=== PATIENT | female | born 1960 | race Caucasian/White ===

== ENCOUNTER → 2016-08-24 | Outpatient (REF) | payer BC ==
[2016-08-24 11:49] LABS: MEAN CORPUSCULAR HGB CONC 33.9 g/dl (32.0-36.5); MEAN CORPUSCULAR VOLUME 94.3 fl (80.0-96.0); RED CELL DISTRIBUTION WIDTH 13.1 % (11.5-14.5); WHITE BLOOD COUNT 4.8 K/mm3 (4.0-10.0)
[2016-08-24 12:11] LABS: ALBUMIN 3.7 GM/DL (3.2-5.2); ALBUMIN/GLOBULIN RATIO 1.03 (1.00-1.93); ALKALINE PHOSPHATASE 80 U/L (45-117); ALT/SGPT 68 U/L (12-78); ANION GAP 8 MEQ/L (8-16); AST/SGOT 70 U/L (15-37); BILIRUBIN,TOTAL 0.2 MG/DL (0.2-1.0); BLOOD UREA NITROGEN 13 MG/DL (7-18); CALCIUM LEVEL 8.8 MG/DL (8.5-10.1); CARBON DIOXIDE LEVEL 31 MEQ/L (21-32); CHLORIDE LEVEL 103 MEQ/L (98-107); CHOLESTEROL LEVEL 263 MG/DL (<200); CREATININE FOR GFR 0.78 MG/DL (0.55-1.02); GLOMERULAR FILTRATION RATE > 60.0 (>51); GLUCOSE, FASTING 88 MG/DL (70-105); SODIUM LEVEL 142 MEQ/L (136-145); TOTAL PROTEIN 7.3 GM/DL (6.4-8.2); TRIGLYCERIDES LEVEL 233 MG/DL (<150)
== END ==
LOC: M SFHCLERA 07:51
PROVIDERS: ATTEND Physician Assistant
DX: I10 Essential (primary) hypertension (principal); E78.2 Mixed hyperlipidemia

== ENCOUNTER → 2016-10-23 | Outpatient (CLI) | payer BC ==
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
== END | disposition home or self-care (01) ==
LOC: M PAIN 15:20
PROVIDERS: ATTEND Nurse Practitioner Family
DX: G89.29 Other chronic pain (principal); M47.816 Spondylosis without myelopathy or radiculopathy, lumbar region; M53.3 Sacrococcygeal disorders, not elsewhere classified; I10 Essential (primary) hypertension; B02.9 Zoster without complications; L73.2 Hidradenitis suppurativa; Z98.84 Bariatric surgery status; Z79.899 Other long term (current) drug therapy; Z88.8 Allergy status to other drugs, medicaments and biological substances; F17.210 Nicotine dependence, cigarettes, uncomplicated

== ENCOUNTER → 2016-11-18 | Outpatient (CLI) | payer BC ==
--- NOTE | 2016-11-18 16:09 | REP ---
MR LUMBAR SPINE WITHOUT CONTRAST: HISTORY: Back pain. COMPARISON: 10/21/2012. Decreased signal intensity on T2-weighted images is present in the L2-3 through L4-5 intervertebral discs. The discs are decreased in height. These findings are consistent with disc degeneration. There is no disc bulge or herniation at the L1-2, L2-3 and L5-S1 levels. There is hypertrophy of the posterior articulating facets at the L2-3 and L5-S1 levels. The nerves exit the neural foramina without compression. There is partial sacralization of the L5 vertebral body. A diffuse disc bulge is present at the L3-4 level. There is hypertrophy of the ligamenta flava and posterior articulating facets. These findings produce minimal central canal stenosis. The L3 nerves exit the neural foramina without compression. A diffuse disc bulge is present at the L4-5 level. There is hypertrophy of the ligamenta flava and posterior articulating facets. These findings produce minimal central canal stenosis. L4 nerves exit the neural foramina without compression. The conus medullaris is normal in appearance terminating at the level of the T12-L1 intervertebral discs. Normal signal intensity is present in the lumbar vertebral bodies. IMPRESSION: Minimal central canal stenosis at the L3-4 and L4-5 level secondary to disc bulge, ligamentous, and facet hypertrophy. This is a new finding. Signed by Kishan Mckeon MD 11/18/2016 04:13 P
== END ==
LOC: M RAD 13:59
PROVIDERS: ATTEND Physician Assistant Medical
DX: M47.816 Spondylosis without myelopathy or radiculopathy, lumbar region (principal); M48.06 Spinal stenosis, lumbar region; M51.26 Other intervertebral disc displacement, lumbar region; M89.38 Hypertrophy of bone, other site

== ENCOUNTER → 2016-11-20 | Outpatient (CLI) | payer BC ==
--- NOTE | 2016-11-21 00:48 | ECWPNPC ---
PATIENT NAME: VI ORTIZ : 1960 GENDER: FEMALE VISIT DATE: 11/20/2016 DISCHARGE DATE: 11/20/16 1528 VISIT LOCKED DATE TIME: PHYSICIAN: KITTY HERBERT RESOURCE: KITTY HERBERT REASON FOR APPOINTMENT 1. BACK HISTORY OF PRESENT ILLNESS HISTORY OF PRESENT ILLNESS: HERE FOR F/U AFTER INITIAL CONSULT ONE MONTH AGO.REPORTS ONE WEEK HISTORY OF SEVERE AGGREVATION OF RIGHT LOW BACK PAIN WITH RADIATION INTO RIGHT POSTERIOR/ANTERIOR THIGH.THIS OCCURED AFTER MOPPING .REPORTS THAT CURRENT MEDICATION IS INEFFECTIVE AT REDUCING PAIN.HAD TO MISS WORK DUE TO PAIN.DENIES BOWEL OR BLADDER INCONTINENCE.MRI L/S SPINE DONE 11-18-16IS REVIEWED WITH PATIENT.THIS IS SHOWING L3/4-L4/5 MINIMAL CENTRAL CANAL STENOSIS FROM DISC BULGE,FACET AND LIAGAMENTOUS HYPERTROPHY.THIS IS A NEW FINDING COMPARED WITH 2013 MRI. PAIN THE PATIENT DESCRIBES THE PAIN... FALL RISK SCREENING: SCREENING :NO FALLS IN THE PAST YEAR CURRENT MEDICATIONS TAKING VITAMIN D 2000 UNIT TABLET 1 TAB(S) ORALLY DAILY TAKING SLOW FE 160 (50 FE) MG TABLET EXTENDED RELEASE 1 TAB(S) ORALLY TWICE A DAY TAKING MULTIVITAMINS OTC TABLET 1 TABLET P.O ONCE A DAY TAKING LOSARTAN POTASSIUM-HCTZ 100-25 MG TABLET 1 TABLET ORALLY ONCE A DAY TAKING OMEPRAZOLE 40 MG CAPSULE DELAYED RELEASE 1 CAPSULE ORALLY ONCE A DAY TAKING PROZAC 20 MG CAPSULE 1 CAPSULE IN THE MORNING ORALLY ONCE A DAY TAKING NAPROXEN 500 MG TABLET 1 TABLET NEEDED ORALLY EVERY 12 HRS TAKING ELBOW STRAP LEFT/RIGHT - MISCELLANEOUS DIRECTED _ DAILY ICDE10 M77.12 TAKING TRAMADOL HCL 50 MG TABLET 1 TABLET NEEDED ORALLY EVERY 6 HRS MDD4 TAKING CYCLOBENZAPRINE HCL 10 MG TABLET 1 TABLET NEEDED ORALLY THREE TIMES A DAY NOT-TAKING CALTRATE 600+D 600-400 MG-UNIT TABLET 1 TABLET ORALLY TWICE A DAY NOT-TAKING VITAMIN B12 100 MCG TABLET 1 TABLET ORALLY EVERY 3 DAYS NOT-TAKING VITAMIN B 12 500 MCG LOZENGE 1 TAB(S) ORALLY 2-3 TIMES WEEKLY DISCONTINUED CUSTOM DO NOT USE TRAMADOL 50 MG TABLET ONE TAB ORALLY FOUR TIMES DAILY PER PAIN CLINIC DISCONTINUED CYCLOBENZAPRINE HCL 10 MG TABLET 1 TABLET ORALLY THREE TIMES A DAY MEDICATION LIST REVIEWED AND RECONCILED WITH THE PATIENT PAST MEDICAL HISTORY GASTRIC BYPASS 2006 (DR. MCKENZIE) CHRONIC LOW BACK PAIN (20+ YEARS) H/O SCIATICA SHINGLES 04/2012 HYDRADENITIS SUPPURATIVA - AFFECTS MOSTLY R AXILLA HTN ALLERGIES LISINOPRIL: COUGH, FELT LIKE SOMETHING WAS ALWAYS IN HER THROAT: SIDE EFFECTS REVIEW OF SYSTEMS CONSTITUTIONAL: ANY CHANGE IN YOUR MEDICAL CONDITION? NO . CHILLS NO . FEVER NO . INFECTION: DO YOU HAVE NEW INFECTIONS? NO . DO YOU HAVE HISTORY OF MRSA? NO . MUSCULOSKELETAL: ANY NEW PATTERNS OF PAIN OR NUMBNESS? YES, INCREASED PAIN IN LOW BACK AND DOWN BACK OF RIGHT LEG SINCE 11/13/16 WHEN SHE MOPPED THE FLOOR . GASTROENTEROLOGY: ANY NEW CHANGE IN BOWEL CONTROL? NO . GENITOURINARY: ANY NEW CHANGE IN BLADDER CONTROL? NO . IS THERE A CHANCE YOU COULD BE ? NO . HEMATOLOGY/LYMPH: DO YOU TAKE ANY BLOOD THINNERS? (FOR EXAMPLE- COUMADIN, PLAVIX, AGGRENOX, PLATEL, PRADAXA, OR XARELTO) NO . WHEN WAS YOUR LAST DOSE? DATE: TIME: . NEUROLOGY: HAVE YOU FALLEN IN THE PAST 6 MONTHS? NO . ANY NEW EXTREMITY NUMBNESS OR WEAKNESS? NO . CARDIOLOGY: DO YOU HAVE A PACEMAKER OR DEFIBRILLATOR? NO . RESPIRATORY: HAVE YOU BEEN SICK IN THE PAST WEEK? NO . FEVER NO . FLU LIKE SYMPTOMS? NO . COUGH NO . INTEGUMENTARY: DO YOU HAVE ANY RASHES OR OPEN SORES? NO . ALLERGIC/IMMUNO: ARE YOU ALLERGIC TO SHELLFISH OR IV DYE? NO . ANY NEW ALLERGIES? NO . PSYCHIATRIC: DO YOU HAVE THOUGHTS OF HURTING YOURSELF OR SOMEONE ELSE? NO . ARE YOU ABUSED, NEGLECTED, OR IN AN UNSAFE ENVIRONMENT? NO . ENDOCRINOLOGY: ARE YOU DIABETIC? NO . OTHER: DO YOU NEED ANY PRESCRIPTIONS? NO . IF YES, PLEASE LIST: ____ . ANY NEW PROBLEMS WITH YOUR MEDICATIONS? NO . WHEN DID YOU LAST EAT? ____ . WHEN DID YOU LAST DRINK? ____ . WHAT DID YOU LAST DRINK? ____ . NAME OF PERSON DRIVING YOU HOME? ____ . DO YOU HAVE ANY OTHER QUESTIONS OR CONCERNS NO . REVIEWED BY: PROVIDER: KITTY DEVI . VITAL SIGNS WT 226.0 LBS, HT 63 IN, BMI 40.03 INDEX, BP 148/85 MM HG, HR 109 /MIN, RR 18 /MIN, TEMP 96.0 F, OXYGEN SAT % 99%, NA INITIALS TL 1455, REVIEWED BY: AD. EXAMINATION GENERAL EXAMINATION: GENERAL APPEARANCE:COMFORTABLE. PSYCHAFFECT NORMAL. LUNGS:LUNG GHOTRA ARE CLEAR TO AUSCULTATION BILATERALLY. GOOD MOVEMENT OF AIR. HEART:S1, S2 IN A REGULAR RATE AND RHYTHM. NO SIGNIFICANT MURMURS, RUBS OR GALLOPS NOTED. DIAGNOSTIC DATA-MRI L/S SPINE 11-18-16-REVIEWED. LUMBAR SPINE/LOWER BACK: LOWER BACK:THERE IS TENDERNESS AT LOWER BACK AND THE PARA SPINAL MUSCLE GROUP. PALPATION:VERTEBRAL SPINE TENDERNESS, SI JOINT TENDERNESS RIGHT. MOTOR SYSTEM:5/5 BLE. SENSORY EXAM:NORMAL. REFLEXES:2/4 AND SYMMETRIC BLE. ASSESSMENTS LUMBAR SPONDYLOSIS - M47.816 (PRIMARY) SACROILIAC JOINT PAIN - M53.3 TREATMENT LUMBAR SPONDYLOSIS INCREASE TRAMADOL HCL TABLET, 50 MG, 2, ORALLY, Q8H MDD6, 30 DAY(S), 180, REFILLS 0 REFILL CYCLOBENZAPRINE HCL TABLET, 10 MG, 1 TABLET NEEDED, ORALLY, THREE TIMES A DAY, 30 DAY(S), 90 TABLET, REFILLS 1 NOTES: REQUEST RSIJ. CLINICAL NOTES: REQUEST RIGHT SIJ. PREVENTIVE MEDICINE PAIN CLINIC TEACHING: PROCEDURE TEACHING PT. DECLINED PRINTED INFORMATION ON SIJ STATING SHE HAS HAD THEM IN THE PAST AND IS FAMILIAR WITH THEM. PRE-PROCEDURE INSTRUCTIONS REVIEWED WITH PT. AND SHE VERBALIZED UNDERSTANDING. AD. PROCEDURE CODES FA211 ESTABILISHED PATIENT [facility] CHARGE DISPOSITION & COMMUNICATION FOLLOW UP 2WK POST (REASON: REQUEST RIGHT SIJ) ELECTRONICALLY SIGNED BY SHANDRA DEMARCO ON 11/20/2016 AT 03:45 PM EDT DISCLAIMER : THIS IS A VISIT SUMMARY EXTRACTED FROM THE [employer] CHART. IT IS NOT A COPY OF THE [employer] PROGRESS NOTE. PEED
== END ==
LOC: M PAIN 15:00
PROVIDERS: ATTEND Nurse Practitioner Family
DX: M47.816 Spondylosis without myelopathy or radiculopathy, lumbar region (principal); M53.3 Sacrococcygeal disorders, not elsewhere classified; I10 Essential (primary) hypertension; L73.2 Hidradenitis suppurativa; Z88.8 Allergy status to other drugs, medicaments and biological substances; Z79.891 Long term (current) use of opiate analgesic; Z79.1 Long term (current) use of non-steroidal anti-inflammatories (NSAID); Z79.899 Other long term (current) drug therapy; Z98.84 Bariatric surgery status

== ENCOUNTER → 2016-12-02 | Outpatient (CLI) | payer BC ==
[~2016-12-02] MED LIST: ASPI81TA85 PO; AZO1CAP PO; BUPIVACAINE HCL 0.25% 30 ML VIAL As Ordered ONE; CYCL10TA PO; ISOVUE-M 300 61% 15ML VIAL (Q9967) As Ordered ONE; LIDOCAINE 1% SDV INJ 30 ML VIAL As Ordered ONE; LOSA100T5 PO; MULT1TAB18 PO; NORC1TAB4 PO; OMEP40CA2 PO; SLOW142T PO; TRIAMCINOLONE ACETONIDE SUSP 40 MG/ML VIAL (J3301) As Ordered ONE; VITA200038 PO; diazePAM 5 MG TAB As Ordered ONE; oxyCODONE 5MG TAB As Ordered ONE
--- NOTE | 2016-12-02 16:48 | REP ---
FLUOROSCOPIC GUIDANCE: The images were reviewed with Dr. Mcleod. The patient has a history of low back pain. The portable C-Arm was provided in the OR for Dr. Salinas for fluoroscopic guidance. One intraoperative fluoroscopic spot film was obtained for needle placement verification for right sacroiliac joint injection. The films are on the PACs system and are available for review. 16 seconds of fluoroscopy time was utilized for this procedure. Reviewed by RICCI Rosario 12/02/2016 04:51 PEdited and Signed by Hector Mcleod MD 12/03/2016 05:18 P
--- NOTE | 2016-12-15 23:15 | ECWPNPC ---
PATIENT NAME: VI ORTIZ : 1960 GENDER: FEMALE VISIT DATE: 12/02/2016 DISCHARGE DATE: 12/02/16 1355 VISIT LOCKED DATE TIME: PHYSICIAN: REUBEN SUE RESOURCE: REUBEN USE REASON FOR APPOINTMENT 1. R SIJ HISTORY OF PRESENT ILLNESS HISTORY OF PRESENT ILLNESS: PAIN THE PATIENT DESCRIBES THE PAIN... FALL RISK SCREENING: SCREENING :NO FALLS IN THE PAST YEAR CURRENT MEDICATIONS TAKING VITAMIN D 2000 UNIT TABLET 1 TAB(S) ORALLY DAILY, NOTES: 0600 TAKING SLOW FE 160 (50 FE) MG TABLET EXTENDED RELEASE 1 TAB(S) ORALLY TWICE A DAY, NOTES: 0600 TAKING MULTIVITAMINS OTC TABLET 1 TABLET P.O ONCE A DAY, NOTES: 0600 TAKING LOSARTAN POTASSIUM-HCTZ 100-25 MG TABLET 1 TABLET ORALLY ONCE A DAY, NOTES: 0600 TAKING OMEPRAZOLE 40 MG CAPSULE DELAYED RELEASE 1 CAPSULE ORALLY ONCE A DAY, NOTES: 0600 TAKING PROZAC 20 MG CAPSULE 1 CAPSULE IN THE MORNING ORALLY ONCE A DAY, NOTES: 0600 TAKING ELBOW STRAP LEFT/RIGHT - MISCELLANEOUS DIRECTED _ DAILY ICDE10 M77.12 TAKING TRAMADOL HCL 50 MG TABLET 2 ORALLY Q8H MDD6, NOTES: 0600 TAKING CYCLOBENZAPRINE HCL 10 MG TABLET 1 TABLET NEEDED ORALLY THREE TIMES A DAY, NOTES: 6PM NOT-TAKING NAPROXEN 500 MG TABLET 1 TABLET NEEDED ORALLY EVERY 12 HRS NOT-TAKING CALTRATE 600+D 600-400 MG-UNIT TABLET 1 TABLET ORALLY TWICE A DAY NOT-TAKING VITAMIN B12 100 MCG TABLET 1 TABLET ORALLY EVERY 3 DAYS NOT-TAKING VITAMIN B 12 500 MCG LOZENGE 1 TAB(S) ORALLY 2-3 TIMES WEEKLY MEDICATION LIST REVIEWED AND RECONCILED WITH THE PATIENT PAST MEDICAL HISTORY GASTRIC BYPASS 2006 (DR. MCKENZIE) CHRONIC LOW BACK PAIN (20+ YEARS) H/O SCIATICA SHINGLES 04/2012 HYDRADENITIS SUPPURATIVA - AFFECTS MOSTLY R AXILLA HTN ALLERGIES LISINOPRIL: COUGH, FELT LIKE SOMETHING WAS ALWAYS IN HER THROAT: SIDE EFFECTS REVIEW OF SYSTEMS REVIEWED BY: PROVIDER: . CONSTITUTIONAL: ANY CHANGE IN YOUR MEDICAL CONDITION? NO . CHILLS NO . FEVER NO . INFECTION: DO YOU HAVE NEW INFECTIONS? NO . DO YOU HAVE HISTORY OF MRSA? NO . MUSCULOSKELETAL: ANY NEW PATTERNS OF PAIN OR NUMBNESS? NO . GASTROENTEROLOGY: ANY NEW CHANGE IN BOWEL CONTROL? NO . GENITOURINARY: ANY NEW CHANGE IN BLADDER CONTROL? NO . IS THERE A CHANCE YOU COULD BE ? NO . HEMATOLOGY/LYMPH: DO YOU TAKE ANY BLOOD THINNERS? (FOR EXAMPLE- COUMADIN, PLAVIX, AGGRENOX, PLATEL, PRADAXA, OR XARELTO) NO . WHEN WAS YOUR LAST DOSE? DATE: TIME: . NEUROLOGY: HAVE YOU FALLEN IN THE PAST 6 MONTHS? NO . ANY NEW EXTREMITY NUMBNESS OR WEAKNESS? NO . CARDIOLOGY: DO YOU HAVE A PACEMAKER OR DEFIBRILLATOR? NO . RESPIRATORY: HAVE YOU BEEN SICK IN THE PAST WEEK? NO . FEVER NO . FLU LIKE SYMPTOMS? NO . COUGH NO . INTEGUMENTARY: DO YOU HAVE ANY RASHES OR OPEN SORES? NO . ALLERGIC/IMMUNO: ARE YOU ALLERGIC TO SHELLFISH OR IV DYE? NO . ANY NEW ALLERGIES? NO . PSYCHIATRIC: DO YOU HAVE THOUGHTS OF HURTING YOURSELF OR SOMEONE ELSE? NO . ARE YOU ABUSED, NEGLECTED, OR IN AN UNSAFE ENVIRONMENT? NO . ENDOCRINOLOGY: ARE YOU DIABETIC? NO . OTHER: DO YOU NEED ANY PRESCRIPTIONS? NO . IF YES, PLEASE LIST: ____ . ANY NEW PROBLEMS WITH YOUR MEDICATIONS? NO . WHEN DID YOU LAST EAT? 6PM YESTERDAY . WHEN DID YOU LAST DRINK? 0830 TODAY . WHAT DID YOU LAST DRINK? WATER . NAME OF PERSON DRIVING YOU HOME? YI . DO YOU HAVE ANY OTHER QUESTIONS OR CONCERNS NO . VITAL SIGNS WT 222.2 LBS, HT 63 IN, BMI 39.36 INDEX, BP 147/97 MM HG, HR 108 /MIN, RR 18 /MIN, TEMP 97.0 F, OXYGEN SAT % 94%, NA INITIALS SC 11:22, REVIEWED BY: NL. ASSESSMENTS SACROILIITIS, NOT ELSEWHERE CLASSIFIED - M46.1 (PRIMARY) PROCEDURES PN SI PRE PROCEDURE DIAGNOSIS SACROILIITIS, SACROILIAC JOINT DYSFUNCTION POST PROCEDURE DIAGNOSIS SACROILIITIS, SACROILIAC JOINT DYSFUNCTION PROCEDURE RIGHT SACROILIAC JOINT BLOCK SURGEON DR. REUBEN SUE LABORER GOLF COURSE NONE ANESTHESIA LOCAL PRE PROCEDURE NOTE PATIENT WITH HISTORY OF CHRONIC LOW BACK PAIN. I EVALUATED THE PATIENT AND REVIEWED THE CHART. I WENT OVER THE RISKS, ALTERNATIVES, AND BENEFITS ASSOCIATED WITH THIS PROCEDURE. THE PATIENT WOULD LIKE TO PROCEED AND GAVE CONSENT TO PERFORM THE PROCEDURE. THE PATIENT DENIES UNEXPLAINABLE WEIGHT LOSS, FEVER, CHILLS, OR NEW CHANGES IN URINARY OR BOWEL CONTROL DESCRIPTION OF PROCEDURE THE PATIENT WAS BROUGHT TO THE PROCEDURE ROOM AND PLACED IN THE PRONE POSITION. THE LUMBOSACRAL AREA WAS CLEANED WITH CHLORAPREP SOLUTION AND DRAPED ASEPTICALLY. THE PROCEDURE WAS DONE UNDER STERILE CONDITIONS. I CHECKED LATERALITY AND THE LEVEL WHERE THE PROCEDURE WAS GOING TO BE PERFORMED WITH THE PATIENT AND THE SUPPORTING STAFF AT THE MOMENT OF THE TIME OUT IN THE PROCEDURE ROOM. UNDER FLUOROSCOPIC GUIDANCE, TARGET POINT WAS SELECTED AT THE LOWER BORDER OF THE RIGHT SACROILIAC JOINT. TARGET POINT WAS SELECTED AFTER MEDIAL ROTATION AND TILT OF THE MAGNIFIER OF THE C-ARM. LIDOCAINE WAS USED TO NUMB THE SKIN AND SUBCUTANEOUS TISSUE BELOW IT. A SPINAL NEEDLE, 22-GAUGE, WAS ADVANCED UNDER FLUOROSCOPIC GUIDANCE AND FOLLOWING PATIENT FEEDBACK UNTIL THE TARGET AREA WAS TOUCHED. THE POSITION OF THE NEEDLE WAS VERIFIED WITH AP AND LATERAL VIEWS. AFTER PROPER POSITION OF THE NEEDLE WAS ACHIEVED, ISOVUE M DYE 30%, 0.25 ML, WAS INJECTED SHOWING SPREAD OF THE DYE. THEN, A SOLUTION OF 20 MG OF KENALOG WAS INJECTED IN RIGHT JOINT WITH 3 ML OF BUPIVACAINE 0.125%. THERE WAS NO EVIDENCE OF BLOOD, PARESTHESIA OR CEREBROSPINAL FLUID DURING THE PROCEDURE. THE PATIENT WAS SENT TO THE RECOVERY ROOM. THE PATIENT WAS MOVING THE EXTREMITIES AND DOING WELL. THERE WAS NO COMPLICATION DURING THE PROCEDURE. FLUOROSCOPY TIME WAS 16 SECONDS POST PROCEDURE NOTE THE PATIENT WILL BE SEEN IN A FOLLOW UP IN THE NEXT FEW WEEKS. INSTRUCTIONS WERE GIVEN, QUESTIONS WERE ANSWERED, AND THE PATIENT EXPRESSED UNDERSTANDING AND AGREED WITH THE PLAN. I, GULSHAN ROLDAN, DOCUMENTED THE ABOVE INFORMATION ACTING A SCRIBE FOR DR. SUE. I HAVE REVIEWED THE ABOVE DOCUMENT, WRITTEN BY GULSHAN ROLDAN SCRIBE AND I VERIFY THAT IT IS [facility] FLUORO GUIDANCE (PAIN)[id number] PROCEDURE CODES 22206 INJECT SACROILIAC JOINT 6045F RADXPS IN END [id number] PXD DISPOSITION & COMMUNICATION FOLLOW UP 3 WEEKS ELECTRONICALLY SIGNED BY REUBEN SUE MD ON 12/15/2016 AT 09:56 PM EDT DISCLAIMER : THIS IS A VISIT SUMMARY EXTRACTED FROM THE [employer] CHART. IT IS NOT A COPY OF THE [employer] PROGRESS NOTE. MTDD
== END ==
LOC: M PAIN 11:00
PROVIDERS: ATTEND Anesthesiology
DX: M46.1 Sacroiliitis, not elsewhere classified (principal); G89.29 Other chronic pain; I10 Essential (primary) hypertension; L73.2 Hidradenitis suppurativa; M54.5 Low back pain; Z79.891 Long term (current) use of opiate analgesic; Z79.899 Other long term (current) drug therapy; Z88.8 Allergy status to other drugs, medicaments and biological substances
CPT/HCPCS: G0260; J3301; Q9967

== ENCOUNTER → 2016-12-18 | Outpatient (CLI) | payer BC ==
[~2016-12-18] MED LIST changes: -BUPIVACAINE HCL 0.25% 30 ML VIAL As Ordered ONE; -ISOVUE-M 300 61% 15ML VIAL (Q9967) As Ordered ONE; -LIDOCAINE 1% SDV INJ 30 ML VIAL As Ordered ONE; -TRIAMCINOLONE ACETONIDE SUSP 40 MG/ML VIAL (J3301) As Ordered ONE; -diazePAM 5 MG TAB As Ordered ONE; -oxyCODONE 5MG TAB As Ordered ONE
--- NOTE | 2016-12-29 00:21 | ECWPNPC ---
PATIENT NAME: VI ORTIZ : 1960 GENDER: FEMALE VISIT DATE: 12/18/2016 DISCHARGE DATE: 12/18/16 1449 VISIT LOCKED DATE TIME: PHYSICIAN: KITTY HERBERT RESOURCE: KITTY HERBERT REASON FOR APPOINTMENT 1. POST SIJ HISTORY OF PRESENT ILLNESS HISTORY OF PRESENT ILLNESS: HERE FOR POST PROCEDURE F/U AFTER RIGHT SIJ ON 12-02-16. SOME IMPROVEMENT FOR 3 DAYS THEN PAIN HAS RETURNED TO BASELINE. 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 PAIN THE PATIENT DESCRIBES THE PAIN... THE PATIENT DESCRIBES THE PAIN... FALL RISK SCREENING: SCREENING :NO FALLS IN THE PAST YEAR CURRENT MEDICATIONS TAKING LOSARTAN POTASSIUM-HCTZ 100-25 MG TABLET 1 TABLET ORALLY ONCE A DAY TAKING VITAMIN D 2000 UNIT TABLET 1 TAB(S) ORALLY DAILY, NOTES: 0600 TAKING SLOW FE 160 (50 FE) MG TABLET EXTENDED RELEASE 1 TAB(S) ORALLY TWICE A DAY, NOTES: 0600 TAKING MULTIVITAMINS OTC TABLET 1 TABLET P.O ONCE A DAY, NOTES: 0600 TAKING ELBOW STRAP LEFT/RIGHT - MISCELLANEOUS DIRECTED _ DAILY ICDE10 M77.12 TAKING TRAMADOL HCL 50 MG TABLET 2 ORALLY Q8H MDD6, NOTES: 0600 TAKING CYCLOBENZAPRINE HCL 10 MG TABLET 1 TABLET NEEDED ORALLY THREE TIMES A DAY, NOTES: 6PM TAKING OMEPRAZOLE 40 MG CAPSULE DELAYED RELEASE 1 CAPSULE ORALLY ONCE A DAY TAKING PROZAC 40 MG CAPSULE 1 CAPSULE IN THE MORNING ORALLY ONCE A DAY TAKING ASPIRIN 81 MG TABLET CHEWABLE 1 TABLET ORALLY ONCE A DAY NOT-TAKING NAPROXEN 500 MG TABLET 1 TABLET NEEDED ORALLY EVERY 12 HRS NOT-TAKING CALTRATE 600+D 600-400 MG-UNIT TABLET 1 TABLET ORALLY TWICE A DAY NOT-TAKING VITAMIN B12 100 MCG TABLET 1 TABLET ORALLY EVERY 3 DAYS NOT-TAKING VITAMIN B 12 500 MCG LOZENGE 1 TAB(S) ORALLY 2-3 TIMES WEEKLY MEDICATION LIST REVIEWED AND RECONCILED WITH THE PATIENT PAST MEDICAL HISTORY GASTRIC BYPASS 2006 (DR. MCKENZIE) CHRONIC LOW BACK PAIN (20+ YEARS) H/O SCIATICA SHINGLES 04/2012 HYDRADENITIS SUPPURATIVA - AFFECTS MOSTLY R AXILLA HTN ALLERGIES LISINOPRIL: COUGH, FELT LIKE SOMETHING WAS ALWAYS IN HER THROAT: SIDE EFFECTS REVIEW OF SYSTEMS REVIEWED BY: PROVIDER: KITTY DEVI . CONSTITUTIONAL: ANY CHANGE IN YOUR MEDICAL CONDITION? NO . CHILLS NO . FEVER NO . INFECTION: DO YOU HAVE NEW INFECTIONS? NO . DO YOU HAVE HISTORY OF MRSA? NO . MUSCULOSKELETAL: ANY NEW PATTERNS OF PAIN OR NUMBNESS? NO . GASTROENTEROLOGY: ANY NEW CHANGE IN BOWEL CONTROL? NO . GENITOURINARY: ANY NEW CHANGE IN BLADDER CONTROL? NO . IS THERE A CHANCE YOU COULD BE ? NO . HEMATOLOGY/LYMPH: DO YOU TAKE ANY BLOOD THINNERS? (FOR EXAMPLE- COUMADIN, PLAVIX, AGGRENOX, PLATEL, PRADAXA, OR XARELTO) NO . WHEN WAS YOUR LAST DOSE? DATE: TIME: . NEUROLOGY: HAVE YOU FALLEN IN THE PAST 6 MONTHS? NO . ANY NEW EXTREMITY NUMBNESS OR WEAKNESS? NO . CARDIOLOGY: DO YOU HAVE A PACEMAKER OR DEFIBRILLATOR? NO . RESPIRATORY: HAVE YOU BEEN SICK IN THE PAST WEEK? NO . FEVER NO . FLU LIKE SYMPTOMS? NO . COUGH NO . INTEGUMENTARY: DO YOU HAVE ANY RASHES OR OPEN SORES? NO . ALLERGIC/IMMUNO: ARE YOU ALLERGIC TO SHELLFISH OR IV DYE? NO . ANY NEW ALLERGIES? NO . PSYCHIATRIC: DO YOU HAVE THOUGHTS OF HURTING YOURSELF OR SOMEONE ELSE? NO . ARE YOU ABUSED, NEGLECTED, OR IN AN UNSAFE ENVIRONMENT? NO . ENDOCRINOLOGY: ARE YOU DIABETIC? NO . OTHER: DO YOU NEED ANY PRESCRIPTIONS? NO . IF YES, PLEASE LIST: ____ . ANY NEW PROBLEMS WITH YOUR MEDICATIONS? NO . WHEN DID YOU LAST EAT? ____ . WHEN DID YOU LAST DRINK? ____ . WHAT DID YOU LAST DRINK? ____ . NAME OF PERSON DRIVING YOU HOME? ____ . DO YOU HAVE ANY OTHER QUESTIONS OR CONCERNS NO . VITAL SIGNS WT 223 LBS, HT 63 IN, BMI 39.50 INDEX, BP 152/89 MM HG, HR 100 /MIN, RR 18 /MIN, TEMP 97.1 F, OXYGEN SAT % 95, SAFE IN ENV? (Y/N) YES, NA INITIALS AW 1405, REVIEWED BY: KG. EXAMINATION GENERAL EXAMINATION: GENERAL APPEARANCE:COMFORTABLE. PSYCHAFFECT NORMAL. LUNGS:LUNG GHOTRA ARE CLEAR TO AUSCULTATION BILATERALLY. GOOD MOVEMENT OF AIR. HEART:S1, S2 IN A REGULAR RATE AND RHYTHM. NO SIGNIFICANT MURMURS, RUBS OR GALLOPS NOTED. DIAGNOSTIC DATA-MRI L/S SPINE 11-18-16-REVIEWED. ASSESSMENTS LUMBAR SPONDYLOSIS - M47.816 (PRIMARY) SACROILIAC JOINT PAIN - M53.3 TREATMENT LUMBAR SPONDYLOSIS STOP TRAMADOL HCL TABLET, 50 MG, 2, ORALLY, Q8H MDD6, NOTES: 0600 REFILL CYCLOBENZAPRINE HCL TABLET, 10 MG, 1 TABLET NEEDED, ORALLY, THREE TIMES A DAY, 30 DAY(S), 90 TABLET, REFILLS 1, NOTES: 6PM START NORCO TABLET, 5-325 MG, 1 TABLET NEEDED, ORALLY, Q8H PRN MDD3, 30 DAY(S), 45, REFILLS 0 NOTES: ISTOP REGISTRY REVIEWED AND DEMNOSTRATES COMPLLIANCE. BRINGS IN MEDICATIONS WHICH IS APPROPRIATE FOR WHAT WAS DISPENSED. RECENT URINE TOXICOLOGY REVIEWED. NO UNAUTHORIZED MEDICATIONS. NO ILLICIT SUBSTANCES AND PRESCRIBED MEDICATIONS WERE PRESENT. , RISKS AND BENEFITS OF NARCOTIC/OPIOD MEDICATIONS WERE REVIEWED WITH PATIENT - THIS INCLUDES BUT IS NOT LIMITED TO RISK OF DEPENDANCE/DEVELOPMENT OF ADDICTION, MOOD DISTURBANCE AND DEPRESSION, OSTEOPOROSIS, HORMONAL AND LABIDAL CHANGES, RESPIRATORY DEPRESSION AND . PATIENT IS ADVISED NOT TO DRIVE WHILE ON THESE MEDICATIONS.RIGHT L3/4-L4/5 THERAPEUTIC FACET BLOCK. PROCEDURE CODES FA211 ESTABILISHED PATIENT [facility] CHARGE DISPOSITION & COMMUNICATION FOLLOW UP 2WK POST (REASON: RIGHT L3/4-L4/5 THERAPEUTIC FACET BLOCK) ELECTRONICALLY SIGNED BY SHANDRA DEMARCO ON 12/28/2016 AT 04:47 PM EDT DISCLAIMER : THIS IS A VISIT SUMMARY EXTRACTED FROM THE [employer] CHART. IT IS NOT A COPY OF THE [employer] PROGRESS NOTE. MTDD
== END ==
LOC: M PAIN 13:40
PROVIDERS: ATTEND Nurse Practitioner Family
DX: G89.29 Other chronic pain (principal); M47.816 Spondylosis without myelopathy or radiculopathy, lumbar region; M53.3 Sacrococcygeal disorders, not elsewhere classified; Z98.84 Bariatric surgery status; I10 Essential (primary) hypertension; L73.2 Hidradenitis suppurativa; Z79.891 Long term (current) use of opiate analgesic; Z79.82 Long term (current) use of aspirin; Z79.899 Other long term (current) drug therapy

== ENCOUNTER → 2017-01-07 | Outpatient (CLI) | payer BC ==
--- NOTE | 2017-01-07 16:12 | REPMRS ---
Patient History The patient states she had a clinical breast exam in Family history of colorectal cancer in father at age 67. Digital Woman Screen Mammo: January 07, 2017 - Exam #: [id number] Bilateral CC and MLO view(s) were taken. Technologist: Jovita Rodríguez, Technologist Prior study comparison: January 07, 2016, digital woman screen mammo performed at [facility]. December 19, 2014, digital woman screen mammo performed at [facility] to [facility]. FINDINGS: There are scattered fibroglandular densities. There has been no change in the appearance of the mammogram from the prior studies. There is a mild amount of residual fibroglandular tissue which is fairly symmetric. There is no interval development of dominant mass, architectural distortion, or clustered microcalcification suggestive of malignancy. ASSESSMENT: BI-RADS/ACR category 1 mammogram. Negative. Recommendation Routine screening mammogram in 1 year (for women over age 40). This mammogram was interpreted with the aid of an FDA-approved computer-aided dectection system. Electronically Signed By: Hector Mcleod MD 01/07/17 9027
== END ==
LOC: M WHC 14:55
PROVIDERS: ATTEND Nurse Practitioner Women's Health
DX: Z12.31 Encounter for screening mammogram for malignant neoplasm of breast (principal); Z80.0 Family history of malignant neoplasm of digestive organs

== ENCOUNTER → 2017-01-21 | Outpatient (REF) | payer BC ==
[2017-01-21 16:45] LABS: ANION GAP 7 MEQ/L (8-16); BLOOD UREA NITROGEN 21 MG/DL (7-18); CALCIUM LEVEL 9.4 MG/DL (8.5-10.1); CARBON DIOXIDE LEVEL 31 MEQ/L (21-32); CHLORIDE LEVEL 105 MEQ/L (98-107); GLOMERULAR FILTRATION RATE > 60.0 (>51); GLUCOSE, FASTING 90 MG/DL (70-105); POTASSIUM SERUM 4.1 MEQ/L (3.5-5.1); SODIUM LEVEL 143 MEQ/L (136-145)
[2017-01-21 17:44] LABS: BASO % 0.7 % (0.0-1.0); EOS # 0.2 K/mm3 (0.0-0.50); EOS % 2.1 % (0.0-3.0); LARGE UNSTAINED CELL # 0.2 K/mm3 (0.0-0.4); LARGE UNSTAINED CELL % 2.8 % (0.0-4.0); LYMPH # 2.3 K/mm3 (1.5-4.5); MEAN CORPUSCULAR HEMOGLOBIN 32.7 pg (27.0-33.0); MEAN CORPUSCULAR HGB CONC 32.6 g/dl (32.0-36.5); MEAN CORPUSCULAR VOLUME 100.3 fl (80.0-96.0); MONO # 0.7 K/mm3 (0.0-0.8); NEUTROPHILS # 4.3 K/mm3 (1.8-7.7); NEUTROPHILS % 57.5 % (36.0-66.0); PLATELET COUNT, AUTOMATED 292 k/mm3 (150-450); RED CELL DISTRIBUTION WIDTH 13.4 % (11.5-14.5); WHITE BLOOD COUNT 7.5 K/mm3 (4.0-10.0)
[2017-01-21 18:38] LABS: ERYTHROCYTE SEDIMENTATION RATE 40 mm/hr (0-30)
== END ==
LOC: M SFHCLERA 14:05
PROVIDERS: ATTEND Nurse Practitioner Family
DX: R59.9 Enlarged lymph nodes, unspecified (principal)

== ENCOUNTER → 2017-01-21 | Outpatient (CLI) | payer BC ==
--- NOTE | 2017-01-21 14:43 | REP ---
TWO VIEW CHEST: COMPARISON: 07/16/2006 There is no evidence of acute infiltrate. No pleural effusion is seen. The heart is normal in size. The mediastinal silhouette is unremarkable. The visualized osseous structures are intact. There are degenerative changes of the spine. IMPRESSION: No acute pulmonary disease. Signed by Hector Mcleod MD 01/22/2017 05:02 P
== END ==
LOC: M LRY 14:05
PROVIDERS: ATTEND Nurse Practitioner Family
DX: R59.9 Enlarged lymph nodes, unspecified (principal)

== ENCOUNTER → 2017-01-22 | Outpatient (REF) | payer BC ==
[2017-01-27 00:06] LABS: Lyme Disease IgG/IgM Antibodie <0.91 ISR (0.00-0.90); Lyme Disease IgM Ab Quantitati <0.80 index (0.00-0.79)
== END ==
LOC: M SFHCLERA 15:38
PROVIDERS: ATTEND Physician Assistant
DX: R59.9 Enlarged lymph nodes, unspecified (principal); F34.1 Dysthymic disorder

== ENCOUNTER → 2017-01-25 | Outpatient (CLI) | payer BC ==
--- NOTE | 2017-01-25 17:46 | REP ---
ULTRASOUND SOFT TISSUES NECK: Real-time sonographic evaluation of the soft tissues of the neck performed. Parotid glands appear somewhat enlarged. Right parotid measures 5.7 x 1.8 x 3.2 cm and left parotid gland measures 6.4 x 1.9 x 6.0 cm. There are small lymph nodes in the parotid glands, the largest in the right parotid gland measuring 7 x 8 x 7 mm and the largest in the left parotid gland measuring 7 x 5 x 3 mm. Nonenlarged lymph nodes are seen along the carotid chains bilaterally, the largest on the right measuring 6 x 4 x 6 mm and the largest on the left 11 x 6 x 9 mm. No other adenopathy is seen bilaterally in the supraclavicular regions. IMPRESSION: Parotid glands appear somewhat enlarged. There are normal sized lymph nodes in the parotid glands and along the carotid chains. Signed by Hector Mcleod MD 01/26/2017 12:32 P
== END ==
LOC: M RAD 16:05
PROVIDERS: ATTEND Physician Assistant
DX: R59.9 Enlarged lymph nodes, unspecified (principal)

== ENCOUNTER → 2017-02-04 | Outpatient (REF) | payer BC | LOC: M SFHCLERA 10:55 | PROVIDERS: ATTEND Nurse Practitioner Family | DX: R30.0 Dysuria (principal) ==

== ENCOUNTER → 2017-02-16 | Outpatient (CLI) | payer BC ==
[~2017-02-16] MED LIST changes: +BUPIVACAINE HCL 0.25% 30 ML VIAL As Ordered ONE; +ISOVUE-M 300 61% 15ML VIAL (Q9967) As Ordered ONE; +LIDOCAINE 1% SDV INJ 30 ML VIAL As Ordered ONE; +TRIAMCINOLONE ACETONIDE SUSP 40 MG/ML VIAL (J3301) As Ordered ONE; +diazePAM 5 MG TAB As Ordered ONE; +oxyCODONE 5MG TAB As Ordered ONE
--- NOTE | 2017-02-16 13:14 | REP ---
Partial lumbar spine series: Two views . History: Injection procedure for pain. 14 seconds of fluoroscopy time is reported. Findings: A sequence of two fluoroscopically obtained last image hold procedural spot radiographs of the lumbar spine document needle position and contrast injection associated with injection procedure. Signed by Reji Altman MD 02/16/2017 01:05 P
--- NOTE | 2017-02-17 01:06 | ECWPNPC ---
PATIENT NAME: VI ORTIZ : 1960 GENDER: FEMALE VISIT DATE: 02/16/2017 DISCHARGE DATE: 02/16/17 1230 VISIT LOCKED DATE TIME: PHYSICIAN: REUBEN SUE RESOURCE: REUBEN SUE REASON FOR APPOINTMENT 1. RT L5-S1 LFBT HISTORY OF PRESENT ILLNESS HISTORY OF PRESENT ILLNESS: PAIN THE PATIENT DESCRIBES THE PAIN... FALL RISK SCREENING: SCREENING :NO FALLS IN THE PAST YEAR CURRENT MEDICATIONS TAKING CYCLOBENZAPRINE HCL 10 MG TABLET 1 TABLET NEEDED ORALLY THREE TIMES A DAY, NOTES: 02-15-171999 TAKING LOSARTAN POTASSIUM-HCTZ 100-25 MG TABLET 1 TABLET ORALLY ONCE A DAY, NOTES: 629 TAKING VITAMIN D 2000 UNIT TABLET 1 TAB(S) ORALLY DAILY, NOTES: 02-16-17629 TAKING SLOW FE 160 (50 FE) MG TABLET EXTENDED RELEASE 1 TAB(S) ORALLY TWICE A DAY, NOTES: 02-16-17629 TAKING MULTIVITAMINS OTC TABLET 1 TABLET P.O ONCE A DAY, NOTES: 02-16-17629 TAKING ELBOW STRAP LEFT/RIGHT - MISCELLANEOUS DIRECTED _ DAILY ICDE10 M77.12 TAKING OMEPRAZOLE 40 MG CAPSULE DELAYED RELEASE 1 CAPSULE ORALLY ONCE A DAY, NOTES: 02-16-17629 TAKING ASPIRIN 81 MG TABLET CHEWABLE 1 TABLET ORALLY ONCE A DAY, NOTES: 02-16-17629 TAKING NORCO 5-325 MG TABLET 1 TABLET NEEDED ORALLY Q8H PRN MDD3, NOTES: 02-15-171999 DISCONTINUED AZO CRANBERRY 250-30 MG TABLET ORALLY DISCONTINUED MACROBID 100 MG CAPSULE 1 CAPSULE WITH FOOD ORALLY EVERY 12 HRS DISCONTINUED PHENAZOPYRIDINE HCL 200 MG TABLET 1 TABLET AFTER MEALS ORALLY THREE TIMES A DAY MEDICATION LIST REVIEWED AND RECONCILED WITH THE PATIENT PAST MEDICAL HISTORY GASTRIC BYPASS 2006 (DR. MCKENZIE) CHRONIC LOW BACK PAIN (20+ YEARS) H/O SCIATICA SHINGLES 04/2012 HYDRADENITIS SUPPURATIVA - AFFECTS MOSTLY R AXILLA HTN ALLERGIES LISINOPRIL: COUGH, FELT LIKE SOMETHING WAS ALWAYS IN HER THROAT: SIDE EFFECTS REVIEW OF SYSTEMS REVIEWED BY: PROVIDER: . CONSTITUTIONAL: ANY CHANGE IN YOUR MEDICAL CONDITION? NO . CHILLS NO . FEVER NO . INFECTION: DO YOU HAVE NEW INFECTIONS? NO . DO YOU HAVE HISTORY OF MRSA? NO . MUSCULOSKELETAL: ANY NEW PATTERNS OF PAIN OR NUMBNESS? YES, GETS BURSTS OF PAIN MANY DIFFERENT AREAS, LEGS, ARMS, NECK, LOW BACK. KITTY HERBERT KNOWS. . GASTROENTEROLOGY: ANY NEW CHANGE IN BOWEL CONTROL? NO . GENITOURINARY: ANY NEW CHANGE IN BLADDER CONTROL? NO . IS THERE A CHANCE YOU COULD BE ? NO . HEMATOLOGY/LYMPH: DO YOU TAKE ANY BLOOD THINNERS? (FOR EXAMPLE- COUMADIN, PLAVIX, AGGRENOX, PLATEL, PRADAXA, OR XARELTO) NO . WHEN WAS YOUR LAST DOSE? DATE: TIME: . NEUROLOGY: HAVE YOU FALLEN IN THE PAST 6 MONTHS? NO . ANY NEW EXTREMITY NUMBNESS OR WEAKNESS? NO . CARDIOLOGY: DO YOU HAVE A PACEMAKER OR DEFIBRILLATOR? NO . RESPIRATORY: HAVE YOU BEEN SICK IN THE PAST WEEK? NO . FEVER NO . FLU LIKE SYMPTOMS? NO . COUGH NO . INTEGUMENTARY: DO YOU HAVE ANY RASHES OR OPEN SORES? NO . ALLERGIC/IMMUNO: ARE YOU ALLERGIC TO SHELLFISH OR IV DYE? NO . ANY NEW ALLERGIES? NO . PSYCHIATRIC: DO YOU HAVE THOUGHTS OF HURTING YOURSELF OR SOMEONE ELSE? NO . ARE YOU ABUSED, NEGLECTED, OR IN AN UNSAFE ENVIRONMENT? NO . ENDOCRINOLOGY: ARE YOU DIABETIC? NO . OTHER: DO YOU NEED ANY PRESCRIPTIONS? YES . IF YES, PLEASE LIST: HYDROCODONES . ANY NEW PROBLEMS WITH YOUR MEDICATIONS? NO . WHEN DID YOU LAST EAT? 02-16-17 @ 0600 - TOAST . WHEN DID YOU LAST DRINK? @ 0830 . WHAT DID YOU LAST DRINK? WATER . NAME OF PERSON DRIVING YOU HOME? THOMAS . DO YOU HAVE ANY OTHER QUESTIONS OR CONCERNS NO . VITAL SIGNS WT 221 LBS, HT 63 IN, BMI 39.14 INDEX, BP 131/85 MM HG, HR 110 /MIN, RR 18 /MIN, TEMP 96.8 F, OXYGEN SAT % 95%, NA INITIALS SC 11:24, REVIEWED BY: CM. ASSESSMENTS SPONDYLOSIS OF LUMBOSACRAL REGION WITHOUT MYELOPATHY OR RADICULOPATHY - M47.817 (PRIMARY) PROCEDURES PN LUMBAR FACET BLOCK THERAPEUTIC PRE PROCEDURE DIAGNOSIS LUMBOSACRAL SPONDYLOSIS POST PROCEDURE DIAGNOSIS LUMBOSACRAL SPONDYLOSIS PROCEDURE RIGHT L5-S1 LUMBAR FACET THERAPEUTIC BLOCK SURGEON DR. REUBEN SUE [employer]ATIONSHIP MANAGER NONE ANESTHESIA LOCAL PRE PROCEDURE NOTE THE PATIENT HAS A HISTORY OF CHRONIC LOW BACK PAIN. I EVALUATE THE PATIENT AND REVIEWED THE CHART. I WENT OVER THE RISKS, ALTERNATIVES, AND BENEFITS ASSOCIATED WITH THIS PROCEDURE. THE PATIENT WOULD LIKE TO PROCEED AND GIVE CONSENT TO PERFORMED THE PROCEDURE. THE PATIENT DENIES UNEXPLAINABLE WEIGHT LOSS, FEVER, CHILLS, OR NEW CHANGES IN URINARY OR BOWEL CONTROL DESCRIPTION OF PROCEDURE THE PATIENT WAS BROUGHT TO THE PROCEDURE ROOM AND PLACED IN THE PRONE POSITION. THE LUMBOSACRAL AREA WAS CLEANED WITH CHLORAPREP SOLUTION AND DRAPED ASEPTICALLY. THE PROCEDURE WAS DONE UNDER STERILE CONDITIONS. I CHECKED LATERALITY AND THE LEVEL WHERE THE PROCEDURE WAS GOING TO BE PERFORMED WITH THE PATIENT AND THE SUPPORTING STAFF AT THE MOMENT OF THE TIME OUT IN THE PROCEDURE ROOM. UNDER FLUOROSCOPIC GUIDANCE, THE TARGET POINT WAS SELECTED AT THE RIGHT L5-S1 FACET JOINT. TARGET POINT WAS SELECTED AFTER LATERAL ROTATION AND TILT OF THE MAGNIFIER OF THE C-ARM. LIDOCAINE 0.5% WAS USED TO NUMB THE SKIN AND THE SUBCUTANEOUS TISSUE BELOW IT. SPINAL NEEDLES, 22-GAUGE, WERE ADVANCED UNDER FLUOROSCOPIC GUIDANCE AND FOLLOWING PATIENT FEEDBACK UNTIL THE TARGETS WERE TOUCHED. THE POSITION OF THE NEEDLES WAS VERIFIED WITH AP AND LATERAL VIEWS. AFTER PROPER POSITION OF THE NEEDLES WAS ACHIEVED, ISOVUE-M DYE 30% 0.1 ML WAS INJECTED SHOWING ADEQUATE SPREAD OF THE DYE. THEN A SOLUTION OF 1.9 ML OF BUPIVACAINE 0.125% OF KENALOG 10 MG WAS INJECTED AT EACH SITE. THERE WAS NO EVIDENCE OF BLOOD, PARESTHESIA OR CEREBROSPINAL FLUID DURING THE PROCEDURE. THE PATIENT WAS SENT TO THE RECOVERY ROOM. THE PATIENT WAS MOVING THE EXTREMITIES AND DOING WELL. THERE WAS NO COMPLICATION DURING THE PROCEDURE. FLUOROSCOPY TIME WAS 14 SECONDS POST PROCEDURE NOTE THE PATIENT WILL BE SEEN IN A FOLLOW UP IN THE NEXT FEW WEEKS. INSTRUCTIONS WERE GIVEN, QUESTIONS WERE ANSWERED, AND THE PATIENT EXPRESSED UNDERSTANDING AND AGREES WITH THE PLAN. I, JORGE GAMINO, DOCUMENTED THE ABOVE INFORMATION ACTING A SCRIBE FOR DR. SUE. I HAVE REVIEWED THE ABOVE DOCUMENT, WRITTEN BY JORGE CLEVELAND AND I VERIFY THAT IT IS ACCURATE. DIAGNOSTIC IMAGING [facility] FACET BLOCK (PAIN)[id number] PROCEDURE CODES 04331 INJ PARAVERT F JNT L/S 1 LEV 6045F RADXPS IN END [id number] PXD DISPOSITION & COMMUNICATION FOLLOW UP 3 WEEKS ELECTRONICALLY SIGNED BY REUBEN SUE MD ON 02/16/2017 AT 03:33 PM EDT DISCLAIMER : THIS IS A VISIT SUMMARY EXTRACTED FROM THE [employer] CHART. IT IS NOT A COPY OF THE [employer] PROGRESS NOTE. HAIDER
== END ==
LOC: M PAIN 11:30
PROVIDERS: ATTEND Anesthesiology
DX: G89.29 Other chronic pain (principal); M47.817 Spondylosis without myelopathy or radiculopathy, lumbosacral region; I10 Essential (primary) hypertension; L73.2 Hidradenitis suppurativa; Z88.8 Allergy status to other drugs, medicaments and biological substances; Z79.82 Long term (current) use of aspirin; Z79.891 Long term (current) use of opiate analgesic; Z79.899 Other long term (current) drug therapy
CPT/HCPCS: 64493; J3301; Q9967

== ENCOUNTER 2017-03-04 07:17 | Outpatient (CLI) | payer BC, OTHER ==
[2017-03-04] MEDS ORDERED: NS 1,000 ML IV ONE (08:00)
[2017-03-04] MEDS ORDERED: NORC1TAB4 PO (08:08)
[2017-03-04] MEDS ORDERED: SLOW142T PO (08:08)
[2017-03-04] MEDS ORDERED: ASPI81TA85 PO (08:08)
[2017-03-04] MEDS ORDERED: MULT1TAB18 PO (08:08)
[2017-03-04] MEDS ORDERED: LOSA100T5 PO (08:08)
[2017-03-04] MEDS ORDERED: AZO1CAP PO (08:08)
[2017-03-04] MEDS ORDERED: CYCL10TA PO (08:08)
[2017-03-04] MEDS ORDERED: OMEP40CA2 PO (08:08)
[2017-03-04] MEDS ORDERED: VITA200038 PO (08:08)
[2017-03-04] MEDS ORDERED: LIDOCAINE 2% INJ 100 MG/5 ML SDV (FOR ANES.) As Ordered ONE (08:32)
[2017-03-04] MEDS ORDERED: PROPOFOL 200 MG/20 ML VIAL As Ordered ONE ×2 (08:32→08:41)
[2017-03-04] MEDS ORDERED: hydrALAZINE INJ 20 MG/ML VIAL As Ordered ONE (08:36)
--- NOTE | 2017-03-04 08:44 | ROOR ---
Patient Name: Edgar Núñez Procedure Date: 03/04/2017 8:09 AM Date of : 1960 Age: 56 Room: [facility] Gender: Female Note Status: Finalized Procedure: Upper GI endoscopy Indications: Dysphagia, Failure to respond to medical treatment, Globus sensation, (failed empiric trial on PPI) Providers: Colt FRANK MD Referring MD: LIBERTAD Smith Requesting Provider: Medicines: Monitored Anesthesia Care Complications: No immediate complications. Procedure: Pre-Anesthesia Assessment: - The heart rate, respiratory rate, oxygen saturations, blood pressure, adequacy of pulmonary ventilation, and response to care were monitored throughout the procedure. The Endoscope was introduced through the mouth, and advanced to the jejunum. The upper GI endoscopy was accomplished without difficulty. The patient tolerated the procedure well. Findings: The examined esophagus was normal. No endoscopic abnormality was evident in the esophagus to explain the patient's complaint of dysphagia. It was decided, however, to proceed with dilation at the cricopharyngeus. The scope was withdrawn. Dilation was performed with a Padgett dilator with no resistance at 54 Fr. Evidence of a Percy-en-Y gastrojejunostomy was found. The gastrojejunal anastomosis was characterized by healthy appearing mucosa. This was traversed. The exam of the stomach was otherwise normal. The examined jejunum was normal. Impression: - Normal esophagus. - No endoscopic esophageal abnormality to explain patient's dysphagia/globus sensation. Esophagus/cricopharyngeal area dilated with 54 padgett dilator. - Percy-en-Y gastrojejunostomy with gastrojejunal anastomosis characterized by healthy appearing mucosa. - Normal examined jejunum. - No specimens collected. Recommendation: - Observe patient's clinical course. - Discontinue Prilosec (omeprazole). - Depending on results of todays empiric dilation, consideration may be given to a trial on elavil/amitriptyline. Colt Frank MD Colt FRANK MD 03/04/2017 8:43:46 AM This report has been signed electronically. Number of Addenda: 0 Note Initiated On: 03/04/2017 8:09 AM Estimated Blood Loss: Estimated blood loss: none.
--- NOTE | 2017-03-04 09:01 | ROOR ---
Patient Name: Edgar Núñez Procedure Date: 03/04/2017 8:09 AM Date of : 1960 Age: 56 Room: [facility] Gender: Female Note Status: Finalized Procedure: Colonoscopy Indications: Screening in patient at increased risk: Colorectal cancer in father before age 60 Providers: Colt FRANK MD Referring MD: LIBERTAD Smith Requesting Provider: Medicines: Monitored Anesthesia Care Complications: No immediate complications. Procedure: Pre-Anesthesia Assessment: - The heart rate, respiratory rate, oxygen saturations, blood pressure, adequacy of pulmonary ventilation, and response to care were monitored throughout the procedure. The Colonoscope was introduced through the anus and advanced to the terminal ileum, with identification of the appendiceal orifice and IC valve. The colonoscopy was performed without difficulty. The patient tolerated the procedure well. The quality of the bowel preparation was good. Findings: The perianal and digital rectal examinations were normal. Two sessile polyps were found in the sigmoid colon. The polyps were 4 to 5 mm in size. These polyps were removed with a cold snare. Resection and retrieval were complete. Small Internal Hemorrhoids. The exam was otherwise without abnormality on direct and retroflexion views. Impression: - Two 4 to 5 mm polyps in the sigmoid colon, removed with a cold snare. Resected and retrieved. - Small Internal Hemorrhoids. - The examination was otherwise normal on direct and retroflexion views. Recommendation: - Telephone endoscopist for pathology results in 2 weeks. - If the pathology report reveals adenomatous tissue, then repeat the colonoscopy for surveillance in 3 years. - If the pathology report indicates hyperplastic polyp, then repeat colonoscopy for screening purposes in 5 years. Colt Frank MD Colt FRANK MD 03/04/2017 9:00:32 AM This report has been signed electronically. Number of Addenda: 0 Note Initiated On: 03/04/2017 8:09 AM Estimated Blood Loss: Estimated blood loss: none.
[2017-03-04 09:24] VITALS: BP 157/94
== END 2017-03-04 09:25 | disposition home or self-care (01) ==
LOC: M OPP 07:17
PROVIDERS: ATTEND Internal Medicine Gastroenterology
DX: Z12.11 Encounter for screening for malignant neoplasm of colon (principal); Z80.0 Family history of malignant neoplasm of digestive organs; D12.5 Benign neoplasm of sigmoid colon; K64.8 Other hemorrhoids; R13.10 Dysphagia, unspecified; R12 Heartburn; F45.8 Other somatoform disorders; K21.9 Gastro-esophageal reflux disease without esophagitis; I10 Essential (primary) hypertension; G47.30 Sleep apnea, unspecified; M54.9 Dorsalgia, unspecified; Z98.0 Intestinal bypass and anastomosis status; Z98.84 Bariatric surgery status; Z88.8 Allergy status to other drugs, medicaments and biological substances; Z79.899 Other long term (current) drug therapy; Z79.82 Long term (current) use of aspirin

== ENCOUNTER → 2017-03-16 | Outpatient (CLI) | payer BC ==
[~2017-03-16] MED LIST changes: -BUPIVACAINE HCL 0.25% 30 ML VIAL As Ordered ONE; -ISOVUE-M 300 61% 15ML VIAL (Q9967) As Ordered ONE; -LIDOCAINE 1% SDV INJ 30 ML VIAL As Ordered ONE; -TRIAMCINOLONE ACETONIDE SUSP 40 MG/ML VIAL (J3301) As Ordered ONE; -diazePAM 5 MG TAB As Ordered ONE; -oxyCODONE 5MG TAB As Ordered ONE
--- NOTE | 2017-04-06 02:35 | ECWPNPC ---
PATIENT NAME: VI ORTIZ : 1960 GENDER: FEMALE VISIT DATE: 03/16/2017 DISCHARGE DATE: 03/16/17 1552 VISIT LOCKED DATE TIME: PHYSICIAN: KITTY HERBERT RESOURCE: KITTY HERBERT REASON FOR APPOINTMENT 1. POST R FACET BLOCK HISTORY OF PRESENT ILLNESS GENERAL: HERE FOR POST PROCEDURE F/U.HAD RIGHT L5/S1 LUMBAR THERAPEUTIC FACET BLOCK ON 02-16-17.REPORTING ONLY TWO DAYS IMPROVEMENT.CURRENTLY USING HYDROCODONE 5/325 Q8H PRN THAT IS HELPFUL.RATING PAIN VAS 8/10.DESCRIBES PAIN CONSTANT BURNING AND THROBBING. HISTORY OF PRESENT ILLNESS: PAIN THE PATIENT DESCRIBES THE PAIN... FALL RISK SCREENING: SCREENING :NO FALLS IN THE PAST YEAR CURRENT MEDICATIONS TAKING CALCIUM GUMMIES 250-100-500 MG-UNIT TABLET CHEWABLE ORALLY TAKING LOSARTAN POTASSIUM-HCTZ 100-25 MG TABLET 1 TABLET ORALLY ONCE A DAY, NOTES: 629 TAKING VITAMIN D 2000 UNIT TABLET 1 TAB(S) ORALLY DAILY, NOTES: 02-16-17629 TAKING SLOW FE 160 (50 FE) MG TABLET EXTENDED RELEASE 1 TAB(S) ORALLY TWICE A DAY, NOTES: 02-16-17629 TAKING MULTIVITAMINS OTC TABLET 1 TABLET P.O ONCE A DAY, NOTES: 02-16-17629 TAKING ELBOW STRAP LEFT/RIGHT - MISCELLANEOUS DIRECTED _ DAILY ICDE10 M77.12 TAKING ASPIRIN 81 MG TABLET CHEWABLE 1 TABLET ORALLY ONCE A DAY, NOTES: 02-16-17629 TAKING NORCO 5-325 MG TABLET 1 TABLET NEEDED ORALLY Q8H PRN MDD3, NOTES: 02-15-171999 TAKING CYCLOBENZAPRINE HCL 10 MG TABLET 1 TABLET NEEDED ORALLY THREE TIMES A DAY NOT-TAKING OMEPRAZOLE 40 MG CAPSULE DELAYED RELEASE 1 CAPSULE ORALLY ONCE A DAY, NOTES: 02-16-17629 MEDICATION LIST REVIEWED AND RECONCILED WITH THE PATIENT PAST MEDICAL HISTORY GASTRIC BYPASS 2006 (DR. MCKENZIE) CHRONIC LOW BACK PAIN (20+ YEARS) H/O SCIATICA SHINGLES 04/2012 HYDRADENITIS SUPPURATIVA - AFFECTS MOSTLY R AXILLA HTN ALLERGIES LISINOPRIL: COUGH, FELT LIKE SOMETHING WAS ALWAYS IN HER THROAT: SIDE EFFECTS SOCIAL HISTORY GENERAL: TOBACCO USE ARE YOU A:FORMER SMOKER HOW LONG HAS IT BEEN SINCE YOU LAST SMOKED?1-5 YEARS LUNG CANCER SCREENING SMOKING STATUS:FORMER SMOKER BMI CARE GOAL FOLLOW-UP ABOVE NORMAL BMI FOLLOW-UPDIETARY MANAGEMENT EDUCATION, GUIDANCE, AND COUNSELING, DIETARY NEEDS EDUCATION ALCOHOL SCREENING DID YOU HAVE A DRINK CONTAINING ALCOHOL IN THE PAST YEAR?YES HOW OFTEN DID YOU HAVE A DRINK CONTAINING ALCOHOL IN THE PAST YEAR?FOUR OR MORE TIMES A WEEK (4 POINTS) POINTS4 INTERPRETATIONPOSITIVE RECREATIONAL DRUG USE DENIES. CAFFEINE 1-2/DAY. SEXUAL HX HAD SEX IN THE LAST 12 MONTHS (VAGINAL, ORAL, OR ANAL)?YES WITHMEN ONLY HIV / HEP-C SCREENING HIV TEST OFFERED TO PATIENT:YES DATE OFFERED:02/04/2017 TEST ACCEPTED:NO REASON:PATIENT DECLINED HEP-C TEST OFFERED TO PATIENT:YES DATE OFFERED:02/04/2017 TEST ACCEPTED:NO REASON:PATIENT DECLINED OCCUPATION: EMPLOYED AT [employer]. DIET: WELL BALANCED DIET. EXERCISE: ONLY AT WORK; NO ROUTINE EXERCISE. MARITAL STATUS: . OTHERS AT HOME: . PETS: DOG. TEMPLE NO ADVENTIST BELIEFS THAT WOULD IMPACT HEALTH CARE. LANGUAGE KOSOV[place]. METAL RECLAMATION KETTLE TENDER'S DEGREE. LEARNING BARRIERS / SPECIAL NEEDS CHANGE FROM LAST VISIT?NO BARRIERS TO LEARNING?NO HEARING IMPAIRED?NO VISION IMPAIRED?YES :CORRECTIVE LENSES COGNITIVELY IMPAIRED?NO READINESS TO LEARN?YES LEARNING PREFERENCES?NO LEARNING CAPABILITIES PRESENT?YES EMOTIONAL BARRIERS?NO SPECIAL DEVICES?NO LITHOGRAPHIC PRESS FEEDER NEEDED?NO PAIN CLINIC PFS, CLERGY, PUBLIC HEALTH REFERRALS PFS REFERRAL NEEDED?NO CLERGY REFERRAL NEEDED?NO PUBLIC HEALTH REFERRAL NEEDED?NO HAS THE PATIENT BEEN EDUCATED REGARDING HIS/HER PLAN OF CARE?YES HAS THE PATIENT BEEN EDUCATED REGARDING PAIN, THE RISK FOR PAIN, THE IMPORTANCE OF EFFECTIVE PAIN MANAGEMENT, AND THE PAIN ASSESSMENT PROCESS?YES DOMESTIC VIOLENCE NONE, NO SEXUAL ABUSE. REVIEW OF SYSTEMS REVIEWED BY: PROVIDER: KITTY DEVI . CONSTITUTIONAL: ANY CHANGE IN YOUR MEDICAL CONDITION? NO . CHILLS NO . FEVER NO . INFECTION: DO YOU HAVE NEW INFECTIONS? NO . DO YOU HAVE HISTORY OF MRSA? NO . MUSCULOSKELETAL: ANY NEW PATTERNS OF PAIN OR NUMBNESS? NO . GASTROENTEROLOGY: ANY NEW CHANGE IN BOWEL CONTROL? NO . GENITOURINARY: ANY NEW CHANGE IN BLADDER CONTROL? NO . IS THERE A CHANCE YOU COULD BE ? NO . HEMATOLOGY/LYMPH: DO YOU TAKE ANY BLOOD THINNERS? (FOR EXAMPLE- COUMADIN, PLAVIX, AGGRENOX, PLATEL, PRADAXA, OR XARELTO) NO . WHEN WAS YOUR LAST DOSE? DATE: TIME: . NEUROLOGY: HAVE YOU FALLEN IN THE PAST 6 MONTHS? NO . ANY NEW EXTREMITY NUMBNESS OR WEAKNESS? NO . CARDIOLOGY: DO YOU HAVE A PACEMAKER OR DEFIBRILLATOR? NO . RESPIRATORY: HAVE YOU BEEN SICK IN THE PAST WEEK? NO . FEVER NO . FLU LIKE SYMPTOMS? NO . COUGH NO . INTEGUMENTARY: DO YOU HAVE ANY RASHES OR OPEN SORES? NO . ALLERGIC/IMMUNO: ARE YOU ALLERGIC TO SHELLFISH OR IV DYE? NO . ANY NEW ALLERGIES? NO . PSYCHIATRIC: DO YOU HAVE THOUGHTS OF HURTING YOURSELF OR SOMEONE ELSE? NO . ARE YOU ABUSED, NEGLECTED, OR IN AN UNSAFE ENVIRONMENT? NO . ENDOCRINOLOGY: ARE YOU DIABETIC? NO . OTHER: DO YOU NEED ANY PRESCRIPTIONS? NO . IF YES, PLEASE LIST: ____ . ANY NEW PROBLEMS WITH YOUR MEDICATIONS? NO . WHEN DID YOU LAST EAT? ____ . WHEN DID YOU LAST DRINK? ____ . WHAT DID YOU LAST DRINK? ____ . NAME OF PERSON DRIVING YOU HOME? ____ . DO YOU HAVE ANY OTHER QUESTIONS OR CONCERNS NO . VITAL SIGNS WT 216 LBS, HT 63 IN, BMI 38.26 INDEX, BP 158/96 MM HG, HR 103 /MIN, RR 18 /MIN, TEMP 98.3 F, OXYGEN SAT % 96%, NA INITIALS SC 15:09, REVIEWED BY: NL. EXAMINATION GENERAL EXAMINATION: GENERAL APPEARANCE:COMFORTABLE. PSYCHAFFECT NORMAL. LUNGS:LUNG GHOTRA ARE CLEAR TO AUSCULTATION BILATERALLY. GOOD MOVEMENT OF AIR. HEART:S1, S2 IN A REGULAR RATE AND RHYTHM. NO SIGNIFICANT MURMURS, RUBS OR GALLOPS NOTED. DIAGNOSTIC DATA-MRI L/S SPINE 11-18-16-REVIEWED. ASSESSMENTS LUMBAR SPONDYLOSIS - M47.816 (PRIMARY) CHRONIC PRESCRIPTION OPIATE USE - Z79.891 TREATMENT LUMBAR SPONDYLOSIS NOTES: ISTOP REGISTRY REVIEWED [id number] RISKS AND BENEFITS OF NARCOTIC/OPIOD MEDICATIONS WERE REVIEWED WITH PATIENT - THIS INCLUDES BUT IS NOT LIMITED TO RISK OF DEPENDANCE/DEVELOPMENT OF ADDICTION, MOOD DISTURBANCE AND DEPRESSION, OSTEOPOROSIS, HORMONAL AND LABIDAL CHANGES, RESPIRATORY DEPRESSION AND . PATIENT IS ADVISED NOT TO DRIVE WHILE ON THESE MEDICATIONS, AND DEMNOSTRATES COMPLLIANCE. BRINGS IN MEDICATIONS WHICH IS APPROPRIATE FOR WHAT WAS DISPENSED. RECENT URINE TOXICOLOGY REVIEWED. NO UNAUTHORIZED MEDICATIONS. NO ILLICIT SUBSTANCES AND PRESCRIBED MEDICATIONS WERE PRESENT. PROCEDURE CODES FA211 ESTABILISHED PATIENT [facility] CHARGE DISPOSITION & COMMUNICATION FOLLOW UP 2 MONTHS ELECTRONICALLY SIGNED BY SHANDRA DEMARCO ON 04/05/2017 AT 07:15 PM EDT DISCLAIMER : THIS IS A VISIT SUMMARY EXTRACTED FROM THE [employer] CHART. IT IS NOT A COPY OF THE [employer] PROGRESS NOTE. PEED
== END ==
LOC: M PAIN 14:45
PROVIDERS: ATTEND Nurse Practitioner Family
DX: G89.29 Other chronic pain (principal); M47.816 Spondylosis without myelopathy or radiculopathy, lumbar region; I10 Essential (primary) hypertension; L73.2 Hidradenitis suppurativa; Z79.82 Long term (current) use of aspirin; Z79.891 Long term (current) use of opiate analgesic; Z98.84 Bariatric surgery status; Z87.891 Personal history of nicotine dependence; Z88.8 Allergy status to other drugs, medicaments and biological substances

== ENCOUNTER → 2017-04-05 | Outpatient (REF) | payer BC ==
[2017-04-05 12:15] LABS: MEAN CORPUSCULAR HEMOGLOBIN 32.2 pg (27.0-33.0); MEAN CORPUSCULAR HGB CONC 32.9 g/dl (32.0-36.5); MEAN CORPUSCULAR VOLUME 97.9 fl (80.0-96.0); PLATELET COUNT, AUTOMATED 259 10^3/uL (150-450); WHITE BLOOD COUNT 4.9 10^3/uL (4.0-10.0)
[2017-04-05 12:48] LABS: ALBUMIN 3.5 GM/DL (3.2-5.2); ALKALINE PHOSPHATASE 90 U/L (45-117); ALT/SGPT 36 U/L (12-78); ANION GAP 7 MEQ/L (8-16); AST/SGOT 33 U/L (15-37); BILIRUBIN,TOTAL 0.4 MG/DL (0.2-1.0); BLOOD UREA NITROGEN 14 MG/DL (7-18); CALCIUM LEVEL 9.4 MG/DL (8.5-10.1); CARBON DIOXIDE LEVEL 33 MEQ/L (21-32); CHLORIDE LEVEL 101 MEQ/L (98-107); CHOLESTEROL LEVEL 268 MG/DL (<200); CREATININE FOR GFR 0.75 MG/DL (0.55-1.02); GLOMERULAR FILTRATION RATE > 60.0 (>51); GLUCOSE, FASTING 79 MG/DL (70-105); POTASSIUM SERUM 4.3 MEQ/L (3.5-5.1); SODIUM LEVEL 141 MEQ/L (136-145); TOTAL PROTEIN 7.4 GM/DL (6.4-8.2); TRIGLYCERIDES LEVEL 229 MG/DL (<150)
== END ==
LOC: M SFHCLERA 08:11
PROVIDERS: ATTEND Physician Assistant
DX: I10 Essential (primary) hypertension (principal); E78.2 Mixed hyperlipidemia

== ENCOUNTER → 2017-05-17 | Outpatient (CLI) | payer BC | LOC: M PAIN 15:00 | PROVIDERS: ATTEND Nurse Practitioner Family | DX: M47.816 Spondylosis without myelopathy or radiculopathy, lumbar region (principal); M54.5 Low back pain; G89.29 Other chronic pain; I10 Essential (primary) hypertension; Z79.891 Long term (current) use of opiate analgesic; Z79.899 Other long term (current) drug therapy; Z79.82 Long term (current) use of aspirin; Z88.8 Allergy status to other drugs, medicaments and biological substances; Z98.84 Bariatric surgery status; Z87.891 Personal history of nicotine dependence ==

== ENCOUNTER → 2017-07-23 | Outpatient (CLI) | payer BC | LOC: M PAIN 14:45 | DX: M47.816 Spondylosis without myelopathy or radiculopathy, lumbar region (principal); G89.29 Other chronic pain; I10 Essential (primary) hypertension; L73.2 Hidradenitis suppurativa; Z79.82 Long term (current) use of aspirin; Z79.891 Long term (current) use of opiate analgesic; Z79.899 Other long term (current) drug therapy; Z88.8 Allergy status to other drugs, medicaments and biological substances; Z98.84 Bariatric surgery status | CPT/HCPCS: G0463 ==

== ENCOUNTER → 2017-09-21 | Outpatient (CLI) | payer BC | LOC: M PAIN 14:30 | DX: M47.816 Spondylosis without myelopathy or radiculopathy, lumbar region (principal); G89.29 Other chronic pain; I10 Essential (primary) hypertension; L73.2 Hidradenitis suppurativa; Z79.82 Long term (current) use of aspirin; Z79.891 Long term (current) use of opiate analgesic; Z79.899 Other long term (current) drug therapy; Z88.8 Allergy status to other drugs, medicaments and biological substances; Z98.84 Bariatric surgery status; Z86.19 Personal history of other infectious and parasitic diseases; Z87.891 Personal history of nicotine dependence | CPT/HCPCS: G0463 ==

== ENCOUNTER → 2017-11-05 | Outpatient (REF) | payer BC ==
[2017-11-05 12:44] LABS: C REACTIVE PROTEIN QUANTITATIV 1.09 MG/DL (0.00-0.30)
[2017-11-05 13:00] LABS: ERYTHROCYTE SEDIMENTATION RATE 39 mm/hr (0-30)
[2017-11-10 08:06] LABS: ANTINUCLEAR ANTIBODIES DIRECT Negative (Negative); MUMPS VIRUS IgG ANTIBODY 13.2 AU/mL (Immune >10.9); MUMPS VIRUS IgM ANTIBODY <0.80 AU (0.00-0.79)
== END ==
LOC: M SFHCLERA 07:53
DX: K11.23 Chronic sialoadenitis (principal)
CPT/HCPCS: 86735

== ENCOUNTER → 2017-11-11 | Outpatient (REF) | payer BC ==
[2017-11-11 12:36] LABS: HEMATOCRIT 41.2 % (36.0-47.0); HEMOGLOBIN 13.5 g/dl (12.0-15.5); MEAN CORPUSCULAR HEMOGLOBIN 32.4 pg (27.0-33.0); MEAN CORPUSCULAR HGB CONC 32.8 g/dl (32.0-36.5); MEAN CORPUSCULAR VOLUME 98.8 fl (80.0-96.0); PLATELET COUNT, AUTOMATED 280 10^3/uL (150-450); RED BLOOD COUNT 4.17 10^6/uL (4.00-5.40); RED CELL DISTRIBUTION WIDTH 13.1 % (11.5-14.5); WHITE BLOOD COUNT 5.8 10^3/uL (4.0-10.0)
[2017-11-11 13:03] LABS: ALBUMIN 3.7 GM/DL (3.2-5.2); ALBUMIN/GLOBULIN RATIO 1.06 (1.00-1.93); ALKALINE PHOSPHATASE 80 U/L (45-117); ALT/SGPT 53 U/L (12-78); ANION GAP 8 MEQ/L (8-16); AST/SGOT 63 U/L (7-37); BILIRUBIN,TOTAL 0.5 MG/DL (0.2-1.0); BLOOD UREA NITROGEN 13 MG/DL (7-18); CALCIUM LEVEL 9.4 MG/DL (8.5-10.1); CARBON DIOXIDE LEVEL 31 MEQ/L (21-32); CHLORIDE LEVEL 104 MEQ/L (98-107); CHOLESTEROL LEVEL 256 MG/DL (<200); CHOLESTEROL RISK RATIO 2.245 (<5); CREATININE FOR GFR 0.75 MG/DL (0.55-1.30); GLOMERULAR FILTRATION RATE > 60.0 (>51); GLUCOSE, FASTING 87 MG/DL (70-100); HDL CHOLESTEROL 114 MG/DL (>40); NON-HDL-C 142 MG/DL; POTASSIUM SERUM 4.1 MEQ/L (3.5-5.1); SODIUM LEVEL 143 MEQ/L (136-145); TOTAL PROTEIN 7.2 GM/DL (6.4-8.2); TRIGLYCERIDES LEVEL 140 MG/DL (<150)
== END ==
LOC: M SFHCLERA 07:50
DX: N39.0 Urinary tract infection, site not specified (principal)

== ENCOUNTER → 2018-01-25 | Outpatient (CLI) | payer BC | LOC: M PAIN 15:15 | DX: M47.816 Spondylosis without myelopathy or radiculopathy, lumbar region (principal); I10 Essential (primary) hypertension; Z79.891 Long term (current) use of opiate analgesic; Z79.899 Other long term (current) drug therapy; Z88.8 Allergy status to other drugs, medicaments and biological substances; Z98.84 Bariatric surgery status; Z90.710 Acquired absence of both cervix and uterus; Z87.891 Personal history of nicotine dependence | CPT/HCPCS: G0463 ==

== ENCOUNTER → 2018-05-17 | Outpatient (CLI) | payer BC | LOC: M PAIN 15:00 | DX: M47.816 Spondylosis without myelopathy or radiculopathy, lumbar region (principal); M53.3 Sacrococcygeal disorders, not elsewhere classified; G89.29 Other chronic pain; I10 Essential (primary) hypertension; E66.01 Morbid (severe) obesity due to excess calories; Z68.35 Body mass index [BMI] 35.0-35.9, adult; Z79.82 Long term (current) use of aspirin; Z79.899 Other long term (current) drug therapy; Z88.8 Allergy status to other drugs, medicaments and biological substances; Z98.84 Bariatric surgery status; Z87.891 Personal history of nicotine dependence | CPT/HCPCS: G0463 ==

== ENCOUNTER → 2018-06-17 | Outpatient (CLI) | payer BC ==
--- NOTE | 2018-06-17 16:41 | REPMRS ---
Patient History The patient states she has not had a clinical breast exam in over a year. Family history of colorectal cancer at age 67 in father. Digital Woman Screen Mammo: June 17, 2018 - Exam #: [id number] Bilateral CC and MLO view(s) were taken. Technologist: Latonya Vasquez, Technologist Prior study comparison: January 07, 2017, digital woman screen mammo performed at [facility]. January 07, 2016, digital woman screen mammo performed at [facility]. December 19, 2014, digital woman screen mammo performed at [facility]. FINDINGS: There are scattered fibroglandular densities. There has been no change in the appearance of the mammogram from the prior studies. There is a mild amount of scattered fibroglandular density which is fairly symmetric. There is no interval development of dominant mass, architectural distortion, or clustered microcalcification suggestive of malignancy. 3-D tomosynthesis shows no additional findings. Assessment: BI-RADS/ACR category 1 mammogram. Negative. Recommendation Routine screening mammogram of both breasts in 1 year (for women over age 40). This patient's Lifetime Breast Cancer RIsk is estimated at 6.1 %. This mammogram was interpreted with the aid of an FDA-approved computer-aided dectection system. Electronically Signed By: Pantera Altman MD 06/17/18 1640
== END ==
LOC: M WHC 12:59
PROVIDERS: ATTEND Nurse Practitioner Adult Health
DX: Z12.31 Encounter for screening mammogram for malignant neoplasm of breast (principal)

== ENCOUNTER → 2018-06-27 | Outpatient (REF) | payer BC ==
[2018-06-27 11:20] LABS: HEMATOCRIT 40.7 % (36.0-47.0); HEMOGLOBIN 13.7 g/dl (12.0-15.5); MEAN CORPUSCULAR HEMOGLOBIN 32.4 pg (27.0-33.0); MEAN CORPUSCULAR HGB CONC 33.7 g/dl (32.0-36.5); MEAN CORPUSCULAR VOLUME 96.2 fl (80.0-96.0); PLATELET COUNT, AUTOMATED 301 10^3/uL (150-450); RED BLOOD COUNT 4.23 10^6/uL (4.00-5.40); WHITE BLOOD COUNT 7.6 10^3/uL (4.0-10.0)
[2018-06-27 11:31] LABS: ALBUMIN 3.6 GM/DL (3.2-5.2); ALT/SGPT 34 U/L (12-78); BILIRUBIN,TOTAL 0.5 MG/DL (0.2-1.0); BLOOD UREA NITROGEN 14 MG/DL (7-18); CALCIUM LEVEL 9.3 MG/DL (8.5-10.1); CARBON DIOXIDE LEVEL 30 MEQ/L (21-32); CHLORIDE LEVEL 103 MEQ/L (98-107); CHOLESTEROL LEVEL 241 MG/DL (<200); CHOLESTEROL RISK RATIO 2.536 (<5); CREATININE FOR GFR 0.74 MG/DL (0.55-1.30); GLOMERULAR FILTRATION RATE > 60.0 (>51); GLUCOSE, FASTING 93 MG/DL (70-100); HDL CHOLESTEROL 95 MG/DL (>40); LDL CHOLESTEROL 114 MG/DL (<100); NON-HDL-C 146 MG/DL; POTASSIUM SERUM 4.3 MEQ/L (3.5-5.1); SODIUM LEVEL 142 MEQ/L (136-145); TOTAL PROTEIN 7.1 GM/DL (6.4-8.2); TRIGLYCERIDES LEVEL 162 MG/DL (<150)
[2018-06-27 11:32] LABS: TOTAL 25(OH) VITAMIN D 53.8 NG/ML (30.0-100.0)
[2018-06-27 11:33] LABS: VITAMIN B12 LEVEL 334 PG/ML (247-911)
== END ==
LOC: M SFHCPLAZ 08:28
PROVIDERS: ATTEND Nurse Practitioner Adult Health
DX: E78.2 Mixed hyperlipidemia (principal); E55.9 Vitamin D deficiency, unspecified; Z98.890 Other specified postprocedural states

== ENCOUNTER → 2018-06-29 | Outpatient (CLI) | payer BC ==
[~2018-06-29] MED LIST changes: +BUPIVACAINE HCL 0.25% 30 ML VIAL As Ordered ONE; +ISOVUE-M 300 61% 15ML VIAL (Q9967) As Ordered ONE; +LIDOCAINE 1% SDV INJ 30 ML VIAL As Ordered ONE; +TRIAMCINOLONE ACETONIDE SUSP 40 MG/ML VIAL (J3301) As Ordered ONE; +diazePAM 5 MG TAB As Ordered ONE; +oxyCODONE 5MG TAB As Ordered ONE
--- NOTE | 2018-06-29 19:14 | REP ---
SI joint series: Single view: History: Pain. Injection procedure. 26 seconds of fluoroscopy time is reported. Findings: A single last image hold fluoroscopically obtained spot radiograph of the right SI joint documents needle position and contrast injection. Electronically Signed by Reji Altman MD 06/29/2018 07:48 P
--- NOTE | 2018-07-18 00:40 | ECWPNPC ---
PATIENT NAME: VI ORTIZ : 1960 GENDER: FEMALE VISIT DATE: 06/29/2018 DISCHARGE DATE: 06/29/181419 VISIT LOCKED DATE TIME: PHYSICIAN: REUBEN SUE MD RESOURCE: REUBEN SUE MD REASON FOR APPOINTMENT 1. RIGHT SIJ HISTORY OF PRESENT ILLNESS HISTORY OF PRESENT ILLNESS: PAIN THE PATIENT DESCRIBES THE PAIN... FALL RISK SCREENING: SCREENING :NO FALLS IN THE PAST YEAR CURRENT MEDICATIONS TAKING VITAMIN D 2000 UNIT TABLET 5000UNITS ORALLY DAILY, NOTES: 06/29/18899 TAKING SLOW FE 142 (45 FE) MG TABLET EXTENDED RELEASE 1 TABLET ORALLY BID, NOTES: 06/29/18899 TAKING MULTIVITAMIN 1 CAP ORALLY DAILY, NOTES: 06/29/18899 TAKING ASPIRIN 81 1 TABLET ORALLY DAILY, NOTES: 06/29/18899 TAKING AMLODIPINE BESYLATE 10 MG TABLET 1 CAP ORALLY DAILY, NOTES: 06/29/18899 TAKING LOSARTAN POTASSIUM-HCTZ 100-25 MG TABLET 1 TABLET ORALLY DAILY, NOTES: 06/29/18899 TAKING CYCLOBENZAPRINE HCL 10 MG TABLET 1 CAP ORALLY THREE TIMES A DAY PRN, NOTES: 06/28/18 TAKING ADDERALL XR 20 MG CAPSULE EXTENDED RELEASE 24 HOUR 1 CAP ORALLY DAILY, NOTES: 06/29/18899 TAKING NORCO 5-325 MG TABLET 1 CAP ORALLY Q8HRS PRN, NOTES: 06/29/18899 MEDICATION LIST REVIEWED AND RECONCILED WITH THE PATIENT PAST MEDICAL HISTORY GASTRIC BYPASS 2007 (DR. 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 HYDRADENITIS SUPPURATIVA - AFFECTS MOSTLY R AXILLA HTN ALLERGIES LISINOPRIL: COUGH, FELT LIKE SOMETHING WAS ALWAYS IN HER THROAT: SIDE EFFECTS SURGICAL HISTORY TUBAL LIGATION 1992 GASTRIC BYPASS 2007 HYSTERECTOMY, KEPT OVARIES 2006 COLONOSCOPY (DR. SPENCE, NORMAL) 2011 EGD (DR. SPENCE, NORMAL) 2011 CARPAL TUNNEL RELEASE-BILATERALLY 2011 UPPER AND LOWER GI SCOPE ( DR FRANK) 2017 FAMILY HISTORY FATHER: 86 YRS, CA LUNG (TOBACCO USER) W/METS, COLON CANCER @ 68; HTN; DDD MOTHER: 83 YRS, OSTEOARTHRITIS; [place] (76) SIBLINGS: ALIVE, SISTER (DM; HTN) SON(S): ALIVE DAUGHTER(S): ALIVE PATERNAL GRAND MOTHER: , CVA MATERNAL GRAND MOTHER: , DIABETES 1 BROTHER(S) , 3 SISTER(S) - HEALTHY. 1 SON(S) , 2 DAUGHTER(S) - HEALTHY. NO BREAST OR OVARIAN CANCER IN FAMILY. SOCIAL HISTORY GENERAL: TOBACCO USE ARE YOU A:FORMER SMOKER HOW LONG HAS IT BEEN SINCE YOU LAST SMOKED?1-5 YEARS LUNG CANCER SCREENING SMOKING STATUS:FORMER SMOKER BMI CARE GOAL FOLLOW-UP ABOVE NORMAL BMI FOLLOW-UPDIETARY MANAGEMENT EDUCATION, GUIDANCE, AND COUNSELING, DIETARY NEEDS EDUCATION ALCOHOL SCREENING DID YOU HAVE A DRINK CONTAINING ALCOHOL IN THE PAST YEAR?YES HOW OFTEN DID YOU HAVE A DRINK CONTAINING ALCOHOL IN THE PAST YEAR?FOUR OR MORE TIMES A WEEK (4 POINTS) POINTS4 INTERPRETATIONPOSITIVE RECREATIONAL DRUG USE DENIES. CAFFEINE 1-2/DAY. SEXUAL HX HAD SEX IN THE LAST 12 MONTHS (VAGINAL, ORAL, OR ANAL)?YES WITHMEN ONLY HIV / HEP-C SCREENING HIV TEST OFFERED TO PATIENT:YES DATE OFFERED:02/04/2017 TEST ACCEPTED:NO HEP-C TEST OFFERED TO PATIENT:YES DATE OFFERED:02/04/2017 REASON:PATIENT DECLINED TEST ACCEPTED:NO REASON:PATIENT DECLINED RELIGIOUS NO ORIENTAL ORTHODOX BELIEFS THAT WOULD IMPACT HEALTH CARE. LANGUAGE BELGIAN. STAMP PRESSER'S DEGREE. LEARNING BARRIERS / SPECIAL NEEDS CHANGE FROM LAST VISIT?NO BARRIERS TO LEARNING?NO HEARING IMPAIRED?NO VISION IMPAIRED?YES COGNITIVELY IMPAIRED?NO :CORRECTIVE LENSES READINESS TO LEARN?YES LEARNING PREFERENCES?NO LEARNING CAPABILITIES PRESENT?YES EMOTIONAL BARRIERS?NO SPECIAL DEVICES?NO CAREER DEVELOPMENT FACILITATOR NEEDED?NO DOMESTIC VIOLENCE NONE, NO SEXUAL ABUSE. OCCUPATION: EMPLOYED AT [employer]. DIET: WELL BALANCED DIET. EXERCISE: ONLY AT WORK; NO ROUTINE EXERCISE. MARITAL STATUS: . OTHERS AT HOME: . PAIN CLINIC PFS, CLERGY, PUBLIC HEALTH REFERRALS PFS REFERRAL NEEDED?NO CLERGY REFERRAL NEEDED?NO PUBLIC HEALTH REFERRAL NEEDED?NO HAS THE PATIENT BEEN EDUCATED REGARDING HIS/HER PLAN OF CARE?YES HAS THE PATIENT BEEN EDUCATED REGARDING PAIN, THE RISK FOR PAIN, THE IMPORTANCE OF EFFECTIVE PAIN MANAGEMENT, AND THE PAIN ASSESSMENT PROCESS?YES HOUSING: OWNS HOME. ADVANCE DIRECTIVE ADVANCE DIRECTIVE DISCUSSED WITH PATIENT:YES DECLINED HOSPITALIZATION/MAJOR DIAGNOSTIC PROCEDURE CHILDBIRTH X 3 SURGERY RELATED REVIEW OF SYSTEMS REVIEWED BY: PROVIDER: . CONSTITUTIONAL: ANY CHANGE IN YOUR MEDICAL CONDITION? NO . CHILLS NO . FEVER NO . INFECTION: DO YOU HAVE NEW INFECTIONS? NO . DO YOU HAVE HISTORY OF MRSA? NO . MUSCULOSKELETAL: ANY NEW PATTERNS OF PAIN OR NUMBNESS? YES, INCREASED . GASTROENTEROLOGY: ANY NEW CHANGE IN BOWEL CONTROL? NO . GENITOURINARY: ANY NEW CHANGE IN BLADDER CONTROL? NO . IS THERE A CHANCE YOU COULD BE ? NO . HEMATOLOGY/LYMPH: DO YOU TAKE ANY BLOOD THINNERS? (FOR EXAMPLE- COUMADIN, PLAVIX, AGGRENOX, PLATEL, PRADAXA, OR XARELTO) NO . WHEN WAS YOUR LAST DOSE? DATE: TIME: . NEUROLOGY: HAVE YOU FALLEN IN THE PAST 12 MONTHS? NO . ANY NEW EXTREMITY NUMBNESS OR WEAKNESS? NO . CARDIOLOGY: DO YOU HAVE A PACEMAKER OR DEFIBRILLATOR? NO . RESPIRATORY: HAVE YOU BEEN SICK IN THE PAST WEEK? NO . FEVER NO . FLU LIKE SYMPTOMS? NO . COUGH NO . INTEGUMENTARY: DO YOU HAVE ANY RASHES OR OPEN SORES? NO . ALLERGIC/IMMUNO: ARE YOU ALLERGIC TO IV DYE? NO . ANY NEW ALLERGIES? NO . PSYCHIATRIC: DO YOU HAVE THOUGHTS OF HURTING YOURSELF OR SOMEONE ELSE? NO . ARE YOU ABUSED, NEGLECTED, OR IN AN UNSAFE ENVIRONMENT? NO . ENDOCRINOLOGY: ARE YOU DIABETIC? NO . OTHER: DO YOU NEED ANY PRESCRIPTIONS? NO . IF YES, PLEASE LIST: ____ . ANY NEW PROBLEMS WITH YOUR MEDICATIONS? NO . WHEN DID YOU LAST EAT? 06/28/18 1830 . WHEN DID YOU LAST DRINK? 06/29/18 0900 . WHAT DID YOU LAST DRINK? WATER . NAME OF PERSON DRIVING YOU HOME? YI . DO YOU HAVE ANY OTHER QUESTIONS OR CONCERNS NO . VITAL SIGNS WT 202.0 LBS, HT 63", BMI 35.78 INDEX, BP 143/78 MM HG, HR 104 /MIN, RR 18 /MIN, TEMP 97.6 F, OXYGEN SAT % 93, NA INITIALS MP 1053, REVIEWED BY: EM. ASSESSMENTS SACROILIITIS, NOT ELSEWHERE CLASSIFIED - M46.1 (PRIMARY) PROCEDURES PN SI PRE PROCEDURE DIAGNOSIS SACROILIITIS, SACROILIAC JOINT DYSFUNCTION POST PROCEDURE DIAGNOSIS SACROILIITIS, SACROILIAC JOINT DYSFUNCTION PROCEDURE RIGHT SACROILIAC JOINT BLOCK SURGEON DR. REUBEN SUE SCIENCE EDITOR NONE ANESTHESIA LOCAL PRE PROCEDURE NOTE PATIENT WITH HISTORY OF CHRONIC LOW BACK PAIN. I EVALUATED THE PATIENT AND REVIEWED THE CHART. I WENT OVER THE RISKS, ALTERNATIVES, AND BENEFITS ASSOCIATED WITH THIS PROCEDURE. THE PATIENT WOULD LIKE TO PROCEED AND GAVE CONSENT TO PERFORM THE PROCEDURE. THE PATIENT DENIES UNEXPLAINABLE WEIGHT LOSS, FEVER, CHILLS, OR NEW CHANGES IN URINARY OR BOWEL CONTROL DESCRIPTION OF PROCEDURE THE PATIENT WAS BROUGHT TO THE PROCEDURE ROOM AND PLACED IN THE PRONE POSITION. THE LUMBOSACRAL AREA WAS CLEANED WITH CHLORAPREP SOLUTION AND DRAPED ASEPTICALLY. THE PROCEDURE WAS DONE UNDER STERILE CONDITIONS. I CHECKED LATERALITY AND THE LEVEL WHERE THE PROCEDURE WAS GOING TO BE PERFORMED WITH THE PATIENT AND THE SUPPORTING STAFF AT THE MOMENT OF THE TIME OUT IN THE PROCEDURE ROOM. UNDER FLUOROSCOPIC GUIDANCE, TARGET POINT WAS SELECTED AT THE LOWER BORDER OF THE RIGHT SACROILIAC JOINT. TARGET POINT WAS SELECTED AFTER MEDIAL ROTATION AND TILT OF THE MAGNIFIER OF THE C-ARM. LIDOCAINE WAS USED TO NUMB THE SKIN AND SUBCUTANEOUS TISSUE BELOW IT. A SPINAL NEEDLE, 22-GAUGE, WAS ADVANCED UNDER FLUOROSCOPIC GUIDANCE AND FOLLOWING PATIENT FEEDBACK UNTIL THE TARGET AREA WAS TOUCHED. THE POSITION OF THE NEEDLE WAS VERIFIED WITH AP AND LATERAL VIEWS. AFTER PROPER POSITION OF THE NEEDLE WAS ACHIEVED, ISOVUE M DYE 30%, 0.25 ML, WAS INJECTED SHOWING SPREAD OF THE DYE. THEN, A SOLUTION OF 20 MG OF KENALOG WAS INJECTED IN RIGHT JOINT WITH 3 ML OF BUPIVACAINE 0.125%. THERE WAS NO EVIDENCE OF BLOOD, PARESTHESIA OR CEREBROSPINAL FLUID DURING THE PROCEDURE. THE PATIENT WAS SENT TO THE RECOVERY ROOM. THE PATIENT WAS MOVING THE EXTREMITIES AND DOING WELL. THERE WAS NO COMPLICATION DURING THE PROCEDURE. FLUOROSCOPY TIME WAS 26 SECONDS POST PROCEDURE NOTE THE PATIENT WILL BE SEEN IN A FOLLOW UP IN THE NEXT FEW WEEKS. INSTRUCTIONS WERE GIVEN, QUESTIONS WERE ANSWERED, AND THE PATIENT EXPRESSED UNDERSTANDING AND AGREED WITH THE PLAN. I, TARI GREGG, DOCUMENTED THE ABOVE INFORMATION ACTING A SCRIBE FOR DR. SUE. I HAVE REVIEWED THE ABOVE DOCUMENT, WRITTEN BY TARI MANRIQUEZIBPoonam AND I VERIFY THAT IT IS ACCURATE. DIAGNOSTIC IMAGING [facility] FLUORO GUIDANCE (PAIN)[id number] PROCEDURE CODES 6045F RADXPS IN END [id number] PXD 15004 INJECT SACROILIAC JOINT, MODIFIERS: RT DISPOSITION & COMMUNICATION FOLLOW UP 3 WEEKS ELECTRONICALLY SIGNED BY REUBEN SUE MD, MD ON 07/17/2018 AT 05:21 PM EST DISCLAIMER : THIS IS A VISIT SUMMARY EXTRACTED FROM THE [employer] CHART. IT IS NOT A COPY OF THE [employer] PROGRESS NOTE. MTDD
== END ==
LOC: M PAIN 11:00
PROVIDERS: ATTEND Anesthesiology
DX: G89.29 Other chronic pain (principal); M46.1 Sacroiliitis, not elsewhere classified; M53.88 Other specified dorsopathies, sacral and sacrococcygeal region; I10 Essential (primary) hypertension; E66.01 Morbid (severe) obesity due to excess calories; Z68.35 Body mass index [BMI] 35.0-35.9, adult; Z79.82 Long term (current) use of aspirin; Z79.891 Long term (current) use of opiate analgesic; Z79.899 Other long term (current) drug therapy; Z88.8 Allergy status to other drugs, medicaments and biological substances; Z98.84 Bariatric surgery status; Z87.891 Personal history of nicotine dependence
CPT/HCPCS: G0260; J3301; Q9967

== ENCOUNTER → 2018-08-08 | Outpatient (CLI) | payer BC ==
[~2018-08-08] MED LIST changes: -BUPIVACAINE HCL 0.25% 30 ML VIAL As Ordered ONE; -ISOVUE-M 300 61% 15ML VIAL (Q9967) As Ordered ONE; -LIDOCAINE 1% SDV INJ 30 ML VIAL As Ordered ONE; -TRIAMCINOLONE ACETONIDE SUSP 40 MG/ML VIAL (J3301) As Ordered ONE; -diazePAM 5 MG TAB As Ordered ONE; -oxyCODONE 5MG TAB As Ordered ONE
--- NOTE | 2018-08-22 00:36 | ECWPNPC ---
PATIENT NAME: VI ORTIZ : 1960 GENDER: FEMALE VISIT DATE: 08/08/2018 DISCHARGE DATE: 08/08/18 1157 VISIT LOCKED DATE TIME: PHYSICIAN: KITTY HERBERT RESOURCE: KITTY HERBERT REASON FOR APPOINTMENT 1. POST PROC HISTORY OF PRESENT ILLNESS HISTORY OF PRESENT ILLNESS: HERE FOR POST PROCEDURE F/U.HAD RIGHT SIJ ON 06/29/18.REPORTING 50% IMPROVEMENT IN PAIN THAT CONTINUES TODAY.RATING PAIN VAS 6/10. PAIN THE PATIENT DESCRIBES THE PAIN... FALL RISK SCREENING: SCREENING : NO FALLS IN THE PAST YEAR. CURRENT MEDICATIONS TAKING SLOW FE 160 (50 FE) MG TABLET EXTENDED RELEASE 1 TAB(S) ORALLY TWICE A DAY TAKING MULTIVITAMINS OTC TABLET 1 TABLET P.O ONCE A DAY TAKING ASPIRIN 81 MG TABLET CHEWABLE 1 TABLET ORALLY ONCE A DAY TAKING VITAMIN D _ TABLET 1 TAB(S) 5000MG ORALLY DAILY TAKING ADDERALL XR 20 MG CAPSULE EXTENDED RELEASE 24 HOUR 1 CAP [id number] DAILY, NOTES: 06/29/18 0900 TAKING NORCO 5-325 MG TABLET 1 TABLET NEEDED ORALLY Q8H PRN MDD3 TAKING CYCLOBENZAPRINE HCL 10 MG TABLET 1 TABLET NEEDED ORALLY THREE TIMES A DAY TAKING AVAPRO 300 MG TABLET 1 TABLET ORALLY ONCE A DAY NOT-TAKING IRBESARTAN-HYDROCHLOROTHIAZIDE 300-12.5 MG TABLET 1 TABLET ORALLY ONCE A DAY NOT-TAKING AMLODIPINE BESYLATE 10 MG TABLET 1 TABLET ORALLY ONCE A DAY MEDICATION LIST REVIEWED AND RECONCILED WITH THE PATIENT PAST MEDICAL HISTORY GASTRIC BYPASS 2006 (DR. 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 SPENCE, NORMAL) 2011 EGD (DR. SPENCE, NORMAL) 2011 CARPAL TUNNEL RELEASE-BILATERALLY 2011 UPPER AND LOWER GI SCOPE ( DR FRANK) 2016 FAMILY HISTORY FATHER: 86 YRS, CA LUNG (TOBACCO USER) W/METS, COLON CANCER @ 68; HTN; DDD MOTHER: 83 YRS, OSTEOARTHRITIS; [place] (76) SIBLINGS: ALIVE, SISTER (DM; HTN) SON(S): ALIVE DAUGHTER(S): ALIVE PATERNAL GRAND MOTHER: , CVA MATERNAL GRAND MOTHER: , DIABETES 1 BROTHER(S) , 3 SISTER(S) - HEALTHY. 1 SON(S) , 2 DAUGHTER(S) - HEALTHY. NO BREAST OR OVARIAN CANCER IN FAMILY. SOCIAL HISTORY GENERAL: TOBACCO USE ARE YOU A:FORMER SMOKER HOW LONG HAS IT BEEN SINCE YOU LAST SMOKED?1-5 YEARS LUNG CANCER SCREENING SMOKING STATUS:FORMER SMOKER BMI CARE GOAL FOLLOW-UP ABOVE NORMAL BMI FOLLOW-UPDIETARY MANAGEMENT EDUCATION, GUIDANCE, AND COUNSELING, DIETARY NEEDS EDUCATION ALCOHOL SCREENING DID YOU HAVE A DRINK CONTAINING ALCOHOL IN THE PAST YEAR?YES HOW OFTEN DID YOU HAVE A DRINK CONTAINING ALCOHOL IN THE PAST YEAR?FOUR OR MORE TIMES A WEEK (4 POINTS) POINTS4 INTERPRETATIONPOSITIVE RECREATIONAL DRUG USE DENIES. CAFFEINE 1-2/DAY. SEXUAL HX HAD SEX IN THE LAST 12 MONTHS (VAGINAL, ORAL, OR ANAL)?YES WITHMEN ONLY HIV / HEP-C SCREENING HIV TEST OFFERED TO PATIENT:YES DATE OFFERED:02/04/2017 TEST ACCEPTED:NO HEP-C TEST OFFERED TO PATIENT:YES DATE OFFERED:02/04/2017 REASON:PATIENT DECLINED TEST ACCEPTED:NO REASON:PATIENT DECLINED YAZIDISM NO CHRISTIANITY BELIEFS THAT WOULD IMPACT HEALTH CARE. LANGUAGE QATARI. ECONOMIC CONSULTANT'S DEGREE. LEARNING BARRIERS / SPECIAL NEEDS CHANGE FROM LAST VISIT?NO BARRIERS TO LEARNING?NO HEARING IMPAIRED?NO VISION IMPAIRED?YES COGNITIVELY IMPAIRED?NO :CORRECTIVE LENSES READINESS TO LEARN?YES LEARNING PREFERENCES?NO LEARNING CAPABILITIES PRESENT?YES EMOTIONAL BARRIERS?NO SPECIAL DEVICES?NO EXCHANGE CLERK NEEDED?NO DOMESTIC VIOLENCE NONE, NO SEXUAL ABUSE. OCCUPATION: EMPLOYED AT [employer]. DIET: WELL BALANCED DIET. EXERCISE: ONLY AT WORK; NO ROUTINE EXERCISE. MARITAL STATUS: . OTHERS AT HOME: . PAIN CLINIC PFS, CLERGY, PUBLIC HEALTH REFERRALS PFS REFERRAL NEEDED?NO CLERGY REFERRAL NEEDED?NO PUBLIC HEALTH REFERRAL NEEDED?NO HAS THE PATIENT BEEN EDUCATED REGARDING HIS/HER PLAN OF CARE?YES HAS THE PATIENT BEEN EDUCATED REGARDING PAIN, THE RISK FOR PAIN, THE IMPORTANCE OF EFFECTIVE PAIN MANAGEMENT, AND THE PAIN ASSESSMENT PROCESS?YES HOUSING: OWNS HOME. ADVANCE DIRECTIVE ADVANCE DIRECTIVE DISCUSSED WITH PATIENT:YES HCP - MARKUS ORTIZ JR - . DOCUMENT NOT PROVIDED. REVIEWED WITH PATIENT 08/08/18 8965 JS. HOSPITALIZATION/MAJOR DIAGNOSTIC PROCEDURE CHILDBIRTH X 3 SURGERY RELATED REVIEW OF SYSTEMS REVIEWED BY: PROVIDER: KITTY DEVI . CONSTITUTIONAL: ANY CHANGE IN YOUR MEDICAL CONDITION? NO . CHILLS NO . FEVER NO . INFECTION: DO YOU HAVE NEW INFECTIONS? NO . DO YOU HAVE HISTORY OF MRSA? NO . MUSCULOSKELETAL: ANY NEW PATTERNS OF PAIN OR NUMBNESS? NO . GASTROENTEROLOGY: ANY NEW CHANGE IN BOWEL CONTROL? NO . GENITOURINARY: ANY NEW CHANGE IN BLADDER CONTROL? NO . IS THERE A CHANCE YOU COULD BE ? NO . HEMATOLOGY/LYMPH: DO YOU TAKE ANY BLOOD THINNERS? (FOR EXAMPLE- COUMADIN, PLAVIX, AGGRENOX, PLATEL, PRADAXA, OR XARELTO) NO . WHEN WAS YOUR LAST DOSE? DATE: TIME: . NEUROLOGY: HAVE YOU FALLEN IN THE PAST 12 MONTHS? NO . ANY NEW EXTREMITY NUMBNESS OR WEAKNESS? NO . CARDIOLOGY: DO YOU HAVE A PACEMAKER OR DEFIBRILLATOR? NO . RESPIRATORY: HAVE YOU BEEN SICK IN THE PAST WEEK? NO . FEVER NO . FLU LIKE SYMPTOMS? NO . COUGH NO . INTEGUMENTARY: DO YOU HAVE ANY RASHES OR OPEN SORES? NO . ALLERGIC/IMMUNO: ARE YOU ALLERGIC TO IV DYE? NO . ANY NEW ALLERGIES? NO . PSYCHIATRIC: DO YOU HAVE THOUGHTS OF HURTING YOURSELF OR SOMEONE ELSE? NO . ARE YOU ABUSED, NEGLECTED, OR IN AN UNSAFE ENVIRONMENT? NO . ENDOCRINOLOGY: ARE YOU DIABETIC? NO . OTHER: DO YOU NEED ANY PRESCRIPTIONS? NO . IF YES, PLEASE LIST: ____ . ANY NEW PROBLEMS WITH YOUR MEDICATIONS? NO . WHEN DID YOU LAST EAT? ____ . WHEN DID YOU LAST DRINK? ____ . WHAT DID YOU LAST DRINK? ____ . NAME OF PERSON DRIVING YOU HOME? ____ . DO YOU HAVE ANY OTHER QUESTIONS OR CONCERNS NO . VITAL SIGNS WT 203 LBS, HT 63", BMI 35.96 INDEX, BP 151/80 MM HG, HR 104 /MIN, RR 18 /MIN, TEMP 96.4 F, OXYGEN SAT % 98%, SAFE IN ENV? (Y/N) YES, NA INITIALS DE 11:07, REVIEWED BY: PAUL. EXAMINATION GENERAL EXAMINATION: GENERAL APPEARANCE:AWAKE,ALERT ,PLEAASANT . PSYCHAFFECT NORMAL . LUNGS:LUNG GHOTRA ARE CLEAR TO AUSCULTATION BILATERALLY. GOOD MOVEMENT OF AIR . HEART:S1, S2 IN A REGULAR RATE AND RHYTHM. NO SIGNIFICANT MURMURS, RUBS OR GALLOPS NOTED . ASSESSMENTS LUMBAR SPONDYLOSIS - M47.816 TREATMENT LUMBAR SPONDYLOSIS CONTINUE NORCO TABLET, 5-325 MG, 1 TABLET NEEDED, ORALLY, Q8H PRN MDD3 CONTINUE CYCLOBENZAPRINE HCL TABLET, 10 MG, 1 TABLET NEEDED, ORALLY, THREE TIMES A DAY NOTES: ISTOP REGISTRY REVIEWED AND DEMONSTRATES COMPLLIANCE. BRINGS IN MEDICATIONS WHICH IS APPROPRIATE FOR WHAT WAS DISPENSED. RECENT URINE TOXICOLOGY REVIEWED. NO UNAUTHORIZED MEDICATIONS. NO ILLICIT SUBSTANCES AND PRESCRIBED MEDICATIONS WERE PRESENT. , RISKS AND BENEFITS OF NARCOTIC/OPIOD MEDICATIONS WERE REVIEWED WITH PATIENT - THIS INCLUDES BUT IS NOT LIMITED TO RISK OF DEPENDANCE/DEVELOPMENT OF ADDICTION, MOOD DISTURBANCE AND DEPRESSION, OSTEOPOROSIS, HORMONAL AND LABIDAL CHANGES, RESPIRATORY DEPRESSION AND . PATIENT IS ADVISED NOT TO DRIVE OR DRINK ALCOHOL WHILE ON THESE MEDICATIONS. DISPOSITION & COMMUNICATION FOLLOW UP 2 MONTHS ELECTRONICALLY SIGNED BY SHANDRA PRIETO ON 08/21/2018 AT 11:36 AM EDT DISCLAIMER : THIS IS A VISIT SUMMARY EXTRACTED FROM THE [employer] CHART. IT IS NOT A COPY OF THE [employer] PROGRESS NOTE. PEED
== END ==
LOC: M PAIN 11:00
PROVIDERS: ATTEND Nurse Practitioner Family
DX: M47.816 Spondylosis without myelopathy or radiculopathy, lumbar region (principal); I10 Essential (primary) hypertension; Z79.82 Long term (current) use of aspirin; Z79.899 Other long term (current) drug therapy; Z88.8 Allergy status to other drugs, medicaments and biological substances; Z87.891 Personal history of nicotine dependence; Z98.84 Bariatric surgery status

== ENCOUNTER → 2018-10-07 | Outpatient (CLI) | payer BC ==
[~2018-10-07] MED LIST changes: -NORC1TAB4 PO; +NORC1TAB7 PO
--- NOTE | 2018-10-27 01:07 | ECWPNPC ---
PATIENT NAME: VI ORTIZ : 1960 GENDER: FEMALE VISIT DATE: 10/07/2018 DISCHARGE DATE: 10/07/18 1520 VISIT LOCKED DATE TIME: PHYSICIAN: KITTY HERBERT RESOURCE: KITTY HERBERT REASON FOR APPOINTMENT 1. 2 MONTHS HISTORY OF PRESENT ILLNESS HISTORY OF PRESENT ILLNESS: HERE FOR F/U OF CHRONIC LOW BACK PAIN.CONTINUES TO BENEFIT FROM SIJ INJETION ON 06/29/18.RATING PAIN VAS 7/10. PAIN THE PATIENT DESCRIBES THE PAIN... FALL RISK SCREENING: SCREENING :NO FALLS REPORTED IN THE LAST YEAR CURRENT MEDICATIONS TAKING SLOW FE 160 (50 FE) MG TABLET EXTENDED RELEASE 1 TAB(S) ORALLY TWICE A DAY TAKING MULTIVITAMINS OTC TABLET 1 TABLET P.O ONCE A DAY TAKING ASPIRIN 81 MG TABLET CHEWABLE 1 TABLET ORALLY ONCE A DAY TAKING AVAPRO 300 MG TABLET 1 TABLET ORALLY ONCE A DAY TAKING VITAMIN D _ TABLET 1 TAB(S) 5000MG ORALLY DAILY TAKING CYCLOBENZAPRINE HCL 10 MG TABLET 1 TABLET NEEDED ORALLY THREE TIMES A DAY TAKING ADDERALL XR 20 MG CAPSULE EXTENDED RELEASE 24 HOUR 1 CAP ORALLY [id number] DAILY, NOTES: 06/29/18 0900 TAKING NORCO 5-325 MG TABLET 1 TABLET NEEDED ORALLY Q8H PRN MDD3 NOT-TAKING IRBESARTAN-HYDROCHLOROTHIAZIDE 300-12.5 MG TABLET 1 TABLET ORALLY ONCE A DAY NOT-TAKING AMLODIPINE BESYLATE 10 MG TABLET 1 TABLET ORALLY ONCE A DAY PAST MEDICAL HISTORY GASTRIC BYPASS 2006 (DR. 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 SPENCE, NORMAL) 2010 EGD (DR. SPENCE, ANSELMO) 2011 CARPAL TUNNEL RELEASE-BILATERALLY 2011 UPPER AND LOWER GI SCOPE ( DR FRANK) 2016 FAMILY HISTORY FATHER: 86 YRS, CA LUNG (TOBACCO USER) W/METS, COLON CANCER @ 68; HTN; DDD, DIAGNOSED WITH HYPERTENSION MOTHER: 83 YRS, OSTEOARTHRITIS; [place] (76) SIBLINGS: ALIVE, SISTER (DM; HTN) SON(S): ALIVE DAUGHTER(S): ALIVE PATERNAL GRAND MOTHER: , CVA MATERNAL GRAND MOTHER: , DIABETES 1 BROTHER(S) , 3 SISTER(S) - HEALTHY. 1 SON(S) , 2 DAUGHTER(S) - HEALTHY. NO BREAST OR OVARIAN CANCER IN FAMILY. SOCIAL HISTORY GENERAL: TOBACCO USE ARE YOU A:FORMER SMOKER HOW LONG HAS IT BEEN SINCE YOU LAST SMOKED?1-5 YEARS HIV / HEP-C SCREENING HIV TEST OFFERED TO PATIENT:YES DATE OFFERED:02/04/2017 TEST ACCEPTED:NO HEP-C TEST OFFERED TO PATIENT:YES DATE OFFERED:02/04/2017 REASON:PATIENT DECLINED TEST ACCEPTED:NO REASON:PATIENT DECLINED OTHERS AT HOME: . HOUSING: OWNS HOME. LEARNING DISABILITIES SPECIALIST'S DEGREE. DIET: WELL BALANCED DIET. LANGUAGE JAPANESE. DOMESTIC VIOLENCE NONE, NO SEXUAL ABUSE. BMI CARE GOAL FOLLOW-UP ABOVE NORMAL BMI FOLLOW-UPDIETARY MANAGEMENT EDUCATION, GUIDANCE, AND COUNSELING, DIETARY NEEDS EDUCATION RECREATIONAL DRUG USE DENIES. EXERCISE: ONLY AT WORK; NO ROUTINE EXERCISE. LEARNING BARRIERS / SPECIAL NEEDS CHANGE FROM LAST VISIT?NO BARRIERS TO LEARNING?NO HEARING IMPAIRED?NO VISION IMPAIRED?YES COGNITIVELY IMPAIRED?NO :CORRECTIVE LENSES READINESS TO LEARN?YES LEARNING PREFERENCES?NO LEARNING CAPABILITIES PRESENT?YES EMOTIONAL BARRIERS?NO SPECIAL DEVICES?NO KITCHENWHERE MAKER NEEDED?NO LUNG CANCER SCREENING SMOKING STATUS:FORMER SMOKER PAIN CLINIC PFS, CLERGY, PUBLIC HEALTH REFERRALS PFS REFERRAL NEEDED?NO CLERGY REFERRAL NEEDED?NO PUBLIC HEALTH REFERRAL NEEDED?NO HAS THE PATIENT BEEN EDUCATED REGARDING HIS/HER PLAN OF CARE?YES HAS THE PATIENT BEEN EDUCATED REGARDING PAIN, THE RISK FOR PAIN, THE IMPORTANCE OF EFFECTIVE PAIN MANAGEMENT, AND THE PAIN ASSESSMENT PROCESS?YES LATEX QUESTIONNAIRE LATEX ALLERGY : HAVE YOU EVER DEVELOPED ANY TYPE OF REACTION AFTER HANDLING LATEX PRODUCTS SUCH RUBBER GLOVES, CONDOMS, DIAPHRAGMS, BALLOONS, SOCKS, OR UNDERWEAR?NO LATEX ALLERGY : HAVE YOU EVER DEVELOPED ANY TYPE OF REACTION DURING OR AFTER DENTAL APPOINTMENT, VAGINAL/RECTAL EXAMINATION, SURGICAL PROCEDURE, OR ANY OTHER EXPOSURE?NO LATEX RISK : HAVE YOU EVER HAD ANY DIFFICULTY BREATHING OR HIVES AFTER EATING OR HANDLING ANY FRUITS, OR VEGETABLES; SUCH KIWI, BANANAS, STONE FRUITS, OR CHESTNUTSNO LATEX RISK : DO YOU HAVE A PREVIOUS PERSONAL HISTORY OF MORE THAN NINE SURGERIES, SPINA BIFIDA, OR REPEATED CATHERTIZATIONS? NO LATEX RISK : ARE YOU FREQUENTLY EXPOSED TO LATEX PRODUCTS IN YOUR OCCUPATION?NO DATE ASKED : 10/07/2018 CAFFEINE 1-2/DAY. ADVANCE DIRECTIVE ADVANCE DIRECTIVE DISCUSSED WITH PATIENT:YES HCP - MARKUS ORTIZ JR - . DOCUMENT NOT PROVIDED. RESTORATIONISM NO BAPTISM BELIEFS THAT WOULD IMPACT HEALTH CARE. MARITAL STATUS: . ALCOHOL SCREENING DID YOU HAVE A DRINK CONTAINING ALCOHOL IN THE PAST YEAR?YES HOW OFTEN DID YOU HAVE A DRINK CONTAINING ALCOHOL IN THE PAST YEAR?FOUR OR MORE TIMES A WEEK (4 POINTS) POINTS4 INTERPRETATIONPOSITIVE OCCUPATION: EMPLOYED AT [employer]. SEXUAL HX HAD SEX IN THE LAST 12 MONTHS (VAGINAL, ORAL, OR ANAL)?YES WITHMEN ONLY REVIEWED WITH PATIENT 08/08/18 1118 JSREVIEWED WITH PT 10/07/18 1451 BV. HOSPITALIZATION/MAJOR DIAGNOSTIC PROCEDURE CHILDBIRTH X 3 SURGERY RELATED REVIEW OF SYSTEMS REVIEWED BY: PROVIDER: KITTY DEVI . CONSTITUTIONAL: ANY CHANGE IN YOUR MEDICAL CONDITION? NO . CHILLS NO . FEVER NO . INFECTION: DO YOU HAVE NEW INFECTIONS? NO . DO YOU HAVE HISTORY OF MRSA? NO . MUSCULOSKELETAL: ANY NEW PATTERNS OF PAIN OR NUMBNESS? NO . GASTROENTEROLOGY: ANY NEW CHANGE IN BOWEL CONTROL? NO . GENITOURINARY: ANY NEW CHANGE IN BLADDER CONTROL? NO . IS THERE A CHANCE YOU COULD BE ? NO . HEMATOLOGY/LYMPH: DO YOU TAKE ANY BLOOD THINNERS? (FOR EXAMPLE- COUMADIN, PLAVIX, AGGRENOX, PLATEL, PRADAXA, OR XARELTO) NO . WHEN WAS YOUR LAST DOSE? DATE: TIME: . NEUROLOGY: HAVE YOU FALLEN IN THE PAST 12 MONTHS? NO . ANY NEW EXTREMITY NUMBNESS OR WEAKNESS? NO . CARDIOLOGY: DO YOU HAVE A PACEMAKER OR DEFIBRILLATOR? NO . RESPIRATORY: HAVE YOU BEEN SICK IN THE PAST WEEK? NO . FEVER NO . FLU LIKE SYMPTOMS? NO . COUGH NO . INTEGUMENTARY: DO YOU HAVE ANY RASHES OR OPEN SORES? NO . ALLERGIC/IMMUNO: ARE YOU ALLERGIC TO IV DYE? NO . ANY NEW ALLERGIES? NO . PSYCHIATRIC: DO YOU HAVE THOUGHTS OF HURTING YOURSELF OR SOMEONE ELSE? NO . ARE YOU ABUSED, NEGLECTED, OR IN AN UNSAFE ENVIRONMENT? NO . ENDOCRINOLOGY: ARE YOU DIABETIC? NO . OTHER: DO YOU NEED ANY PRESCRIPTIONS? NO . IF YES, PLEASE LIST: ____ . ANY NEW PROBLEMS WITH YOUR MEDICATIONS? NO . WHEN DID YOU LAST EAT? ____ . WHEN DID YOU LAST DRINK? ____ . WHAT DID YOU LAST DRINK? ____ . NAME OF PERSON DRIVING YOU HOME? ____ . DO YOU HAVE ANY OTHER QUESTIONS OR CONCERNS NO . VITAL SIGNS WT 200.4 LBS, HT 63", BMI 35.50 INDEX, BP 159/90 MM HG, HR 103 /MIN, RR 18 /MIN, TEMP 97.4 F, OXYGEN SAT % 97%, NA INITIALS SC 14:22, REVIEWED BY: BV. EXAMINATION GENERAL EXAMINATION: GENERAL APPEARANCE:AWAKE,ALERT ,PLEAASANT . PSYCHAFFECT NORMAL . LUNGS:LUNG GHOTRA ARE CLEAR TO AUSCULTATION BILATERALLY. GOOD MOVEMENT OF AIR . HEART:S1, S2 IN A REGULAR RATE AND RHYTHM. NO SIGNIFICANT MURMURS, RUBS OR GALLOPS NOTED . 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 BRINGS IN MEDICATIONS WHICH IS APPROPRIATE FOR WHAT WAS DISPENSED. RECENT URINE TOXICOLOGY REVIEWED. NO UNAUTHORIZED MEDICATIONS. NO ILLICIT SUBSTANCES AND PRESCRIBED MEDICATIONS WERE PRESENT. URINE TOX TODAY, RISKS AND BENEFITS OF NARCOTIC/OPIOD MEDICATIONS WERE REVIEWED WITH PATIENT - THIS INCLUDES BUT IS NOT LIMITED TO RISK OF DEPENDANCE/DEVELOPMENT OF ADDICTION, MOOD DISTURBANCE AND DEPRESSION, OSTEOPOROSIS, HORMONAL AND LABIDAL CHANGES, RESPIRATORY DEPRESSION AND . PATIENT IS ADVISED NOT TO DRIVE OR DRINK ALCOHOL WHILE ON THESE MEDICATIONS, [facility] NARCOTIC AGREEMENT WAS UPDATED REVIEWED AND SIGNED TODAY BY THE PATIENT. SEE ATTACHED DOCUMENT FOR FULL DETAILS; SPECIFIC ISSUES WERE REVIEWED: 1) KEEP PAIN MEDS IN THEIR ORIGINAL BOTTLES AND ANY WEEKLY PLANNERS ARE TO BE BROUGHT TO THE PAIN CENTER AT EVERY VISIT. 2) THE PATIENT IS NOT TO INCREASE DOSING OR TIMING OF THEIR PAIN MEDICATION WITHOUT SPECIFIC DIRECTION OF THEIR PAIN CENTERPROVIDER (NOT ER OR OTHER PROVIDERS). 3) ALL PAIN MEDS ARE TO BE KEPT SECURED, IN A LOCKED BOX. 4) NO PAIN MEDS ARE TO BE SHARED WITH ANY OTHER PERSON FOR ANY REASON. 5) NO PAIN MEDS MAY BE TAKEN FROM ANY FRIENDS OR RELATIVES FOR ANY REASON 6) NO MEDS OR SUBSTANCES WHICH ARE NOT LEGAL ARE TO BE USED- NO MARIJUANA, NO COCAINE, AMPHETAMINES, HEROIN, OR OTHERS ARE EVER TO BE USED. 7)URINE TESTING IS DONE TO ACCOUNT FOR MEDS AND SUBSTANCES BEING TAKEN AND WILL BE DONE RANDOMLY. PROCEDURE CODES FA211 ESTABILISHED PATIENT [facility] CHARGE DISPOSITION & COMMUNICATION FOLLOW UP 3 MONTHS ELECTRONICALLY SIGNED BY SHANDRA PRIETO ON 10/24/2018 AT 04:59 PM EDT DISCLAIMER : THIS IS A VISIT SUMMARY EXTRACTED FROM THE [employer] CHART. IT IS NOT A COPY OF THE [employer] PROGRESS NOTE. [employer]
== END ==
LOC: M PAIN 14:30
PROVIDERS: ATTEND Nurse Practitioner Family
DX: M47.816 Spondylosis without myelopathy or radiculopathy, lumbar region (principal); M53.3 Sacrococcygeal disorders, not elsewhere classified; G89.29 Other chronic pain; Z98.84 Bariatric surgery status; I10 Essential (primary) hypertension; Z87.891 Personal history of nicotine dependence; Z88.8 Allergy status to other drugs, medicaments and biological substances; Z79.899 Other long term (current) drug therapy

== ENCOUNTER → 2019-01-25 | Outpatient (CLI) | payer BC ==
--- NOTE | 2019-02-15 01:58 | ECWPNPC ---
PATIENT NAME: VI ORTIZ : 1960 GENDER: FEMALE VISIT DATE: 01/25/2019 DISCHARGE DATE: 01/25/19 1525 VISIT LOCKED DATE TIME: PHYSICIAN: KITTY HERBERT RESOURCE: KITTY HERBERT REASON FOR APPOINTMENT 1. BACK HISTORY OF PRESENT ILLNESS HISTORY OF PRESENT ILLNESS: HERE FOR F/U OF CHRONIC LBP.OVERALL DOING WELL.RATING PAIN VAS 5/10. PAIN THE PATIENT DESCRIBES THE PAIN... FALL RISK SCREENING: SCREENING :NO FALLS REPORTED IN THE LAST YEAR CURRENT MEDICATIONS TAKING ADDERALL XR 10 MG CAPSULE EXTENDED RELEASE 24 HOUR 1 CAPSULE IN THE MORNING [id number] ONCE A DAY MDD1 TAKING SLOW FE 160 (50 FE) MG TABLET EXTENDED RELEASE 1 TAB(S) ORALLY TWICE A DAY TAKING MULTIVITAMINS OTC TABLET 1 TABLET P.O ONCE A DAY TAKING ASPIRIN 81 MG TABLET CHEWABLE 1 TABLET ORALLY ONCE A DAY TAKING AVAPRO 300 MG TABLET 1 TABLET ORALLY ONCE A DAY TAKING VITAMIN D _ TABLET 1 TAB(S) 5000MG ORALLY DAILY TAKING CYCLOBENZAPRINE HCL 10 MG TABLET 1 TABLET NEEDED ORALLY THREE TIMES A DAY TAKING NORCO 5-325 MG TABLET 1 TABLET NEEDED ORALLY Q8H PRN MDD3 NOT-TAKING IRBESARTAN-HYDROCHLOROTHIAZIDE 300-12.5 MG TABLET 1 TABLET ORALLY ONCE A DAY MEDICATION LIST REVIEWED AND RECONCILED WITH THE PATIENT PAST MEDICAL HISTORY GASTRIC BYPASS 2006 (DR. 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 SPENCE, NORMAL) 2011 EGD (DR. SPENCE, NORMAL) 2011 CARPAL TUNNEL RELEASE-BILATERALLY 2011 UPPER AND LOWER GI SCOPE ( DR RFANK) 2016 FAMILY HISTORY FATHER: 86 YRS, CA LUNG (TOBACCO USER) W/METS, COLON CANCER @ 68; HTN; DDD, DIAGNOSED WITH HYPERTENSION MOTHER: 83 YRS, OSTEOARTHRITIS; [place] (76) SIBLINGS: ALIVE, SISTER (DM; HTN) SON(S): ALIVE DAUGHTER(S): ALIVE PATERNAL GRAND MOTHER: , CVA MATERNAL GRAND MOTHER: , DIABETES 1 BROTHER(S) , 3 SISTER(S) - HEALTHY. 1 SON(S) , 2 DAUGHTER(S) - HEALTHY. NO BREAST OR OVARIAN CANCER IN FAMILY. SOCIAL HISTORY GENERAL: TOBACCO USE ARE YOU A:FORMER SMOKER HOW LONG HAS IT BEEN SINCE YOU LAST SMOKED?1-5 YEARS HIV / HEP-C SCREENING HIV TEST OFFERED TO PATIENT:YES DATE OFFERED:02/04/2017 TEST ACCEPTED:NO HEP-C TEST OFFERED TO PATIENT:YES DATE OFFERED:02/04/2017 REASON:PATIENT DECLINED TEST ACCEPTED:NO REASON:PATIENT DECLINED OTHERS AT HOME: . HOUSING: OWNS HOME. 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 DIET: WELL BALANCED DIET. LANGUAGE CITIZEN OF [place]. DOMESTIC VIOLENCE NONE, NO SEXUAL ABUSE. BMI CARE GOAL FOLLOW-UP ABOVE NORMAL BMI FOLLOW-UPDIETARY MANAGEMENT EDUCATION, GUIDANCE, AND COUNSELING, DIETARY NEEDS EDUCATION RECREATIONAL DRUG USE DENIES. EXERCISE: ONLY AT WORK; NO ROUTINE EXERCISE. LEARNING BARRIERS / SPECIAL NEEDS CHANGE FROM LAST VISIT?NO BARRIERS TO LEARNING?NO HEARING IMPAIRED?NO VISION IMPAIRED?YES COGNITIVELY IMPAIRED?NO :CORRECTIVE LENSES READINESS TO LEARN?YES LEARNING PREFERENCES?NO LEARNING CAPABILITIES PRESENT?YES EMOTIONAL BARRIERS?NO SPECIAL DEVICES?NO ACID FILLER NEEDED?NO LUNG CANCER SCREENING SMOKING STATUS:FORMER SMOKER PAIN CLINIC PFS, CLERGY, PUBLIC HEALTH REFERRALS PFS REFERRAL NEEDED?NO CLERGY REFERRAL NEEDED?NO PUBLIC HEALTH REFERRAL NEEDED?NO HAS THE PATIENT BEEN EDUCATED REGARDING HIS/HER PLAN OF CARE?YES HAS THE PATIENT BEEN EDUCATED REGARDING PAIN, THE RISK FOR PAIN, THE IMPORTANCE OF EFFECTIVE PAIN MANAGEMENT, AND THE PAIN ASSESSMENT PROCESS?YES LATEX QUESTIONNAIRE LATEX ALLERGY : HAVE YOU EVER DEVELOPED ANY TYPE OF REACTION AFTER HANDLING LATEX PRODUCTS SUCH RUBBER GLOVES, CONDOMS, DIAPHRAGMS, BALLOONS, SOCKS, OR UNDERWEAR?NO LATEX ALLERGY : HAVE YOU EVER DEVELOPED ANY TYPE OF REACTION DURING OR AFTER DENTAL APPOINTMENT, VAGINAL/RECTAL EXAMINATION, SURGICAL PROCEDURE, OR ANY OTHER EXPOSURE?NO DATE ASKED : 10/07/2018 LATEX RISK : HAVE YOU EVER HAD ANY DIFFICULTY BREATHING OR HIVES AFTER EATING OR HANDLING ANY FRUITS, OR VEGETABLES; SUCH KIWI, BANANAS, STONE FRUITS, OR CHESTNUTSNO LATEX RISK : DO YOU HAVE A PREVIOUS PERSONAL HISTORY OF MORE THAN NINE SURGERIES, SPINA BIFIDA, OR REPEATED CATHERIZATIONS? NO LATEX RISK : ARE YOU FREQUENTLY EXPOSED TO LATEX PRODUCTS IN YOUR OCCUPATION?NO CAFFEINE 1-2/DAY. ADVANCE DIRECTIVE ADVANCE DIRECTIVE DISCUSSED WITH PATIENT:YES HCP - MARKUS ORTIZ JR - . DOCUMENT NOT PROVIDED. [place] NO HOLINESS BELIEFS THAT WOULD IMPACT HEALTH CARE. MARITAL STATUS: . ALCOHOL SCREENING DID YOU HAVE A DRINK CONTAINING ALCOHOL IN THE PAST YEAR?YES HOW OFTEN DID YOU HAVE A DRINK CONTAINING ALCOHOL IN THE PAST YEAR?FOUR OR MORE TIMES A WEEK (4 POINTS) POINTS4 INTERPRETATIONPOSITIVE OCCUPATION: EMPLOYED AT [employer]. SEXUAL HX HAD SEX IN THE LAST 12 MONTHS (VAGINAL, ORAL, OR ANAL)?YES WITHMEN ONLY HOSPITALIZATION/MAJOR DIAGNOSTIC PROCEDURE CHILDBIRTH X 3 SURGERY RELATED REVIEW OF SYSTEMS REVIEWED BY: PROVIDER: KITTY DEVI . CONSTITUTIONAL: ANY CHANGE IN YOUR MEDICAL CONDITION? NO . CHILLS NO . FEVER NO . INFECTION: DO YOU HAVE NEW INFECTIONS? NO . DO YOU HAVE HISTORY OF MRSA? NO . MUSCULOSKELETAL: ANY NEW PATTERNS OF PAIN OR NUMBNESS? NO . GASTROENTEROLOGY: ANY NEW CHANGE IN BOWEL CONTROL? NO . GENITOURINARY: ANY NEW CHANGE IN BLADDER CONTROL? NO . IS THERE A CHANCE YOU COULD BE ? NO . HEMATOLOGY/LYMPH: DO YOU TAKE ANY BLOOD THINNERS? (FOR EXAMPLE- COUMADIN, PLAVIX, AGGRENOX, PLATEL, PRADAXA, OR XARELTO) NO . WHEN WAS YOUR LAST DOSE? DATE: TIME: . NEUROLOGY: HAVE YOU FALLEN IN THE PAST 12 MONTHS? NO . ANY NEW EXTREMITY NUMBNESS OR WEAKNESS? NO . CARDIOLOGY: DO YOU HAVE A PACEMAKER OR DEFIBRILLATOR? NO . RESPIRATORY: HAVE YOU BEEN SICK IN THE PAST WEEK? NO . FEVER NO . FLU LIKE SYMPTOMS? NO . COUGH NO . INTEGUMENTARY: DO YOU HAVE ANY RASHES OR OPEN SORES? NO . ALLERGIC/IMMUNO: ARE YOU ALLERGIC TO IV DYE? NO . ANY NEW ALLERGIES? NO . PSYCHIATRIC: DO YOU HAVE THOUGHTS OF HURTING YOURSELF OR SOMEONE ELSE? NO . ARE YOU ABUSED, NEGLECTED, OR IN AN UNSAFE ENVIRONMENT? NO . ENDOCRINOLOGY: ARE YOU DIABETIC? NO . OTHER: DO YOU NEED ANY PRESCRIPTIONS? YES, HYDROCODONE . IF YES, PLEASE LIST: ____ . ANY NEW PROBLEMS WITH YOUR MEDICATIONS? NO . WHEN DID YOU LAST EAT? ____ . WHEN DID YOU LAST DRINK? ____ . WHAT DID YOU LAST DRINK? ____ . NAME OF PERSON DRIVING YOU HOME? ____ . DO YOU HAVE ANY OTHER QUESTIONS OR CONCERNS NO . VITAL SIGNS WT 203.6 LBS, HT 63", BMI 36.06 INDEX, BP 164/90 MM HG, HR 95 /MIN, RR 18 /MIN, TEMP 96.0 F, OXYGEN SAT % 98%, NA INITIALS AW 1448, REVIEWED BY: EM. EXAMINATION GENERAL EXAMINATION: GENERALAWAKE,ALERT ,PLEAASANT . PSYCHAFFECT NORMAL . LUNGS:LUNG GHOTRA ARE CLEAR TO AUSCULTATION BILATERALLY. GOOD MOVEMENT OF AIR . HEART:S1, S2 IN A REGULAR RATE AND RHYTHM. NO SIGNIFICANT MURMURS, RUBS OR GALLOPS NOTED . ASSESSMENTS LUMBAR SPONDYLOSIS - M47.816 TREATMENT LUMBAR SPONDYLOSIS CONTINUE CYCLOBENZAPRINE HCL TABLET, 10 MG, 1 TABLET NEEDED, ORALLY, THREE TIMES A DAY CONTINUE NORCO TABLET, 5-325 MG, 1 TABLET NEEDED, ORALLY, Q8H PRN MDD3 NOTES: ISTOP REGISTRY REVIEWED AND DEMONSTRATES COMPLLIANCE. BRINGS IN MEDICATIONS WHICH IS APPROPRIATE FOR WHAT WAS DISPENSED. RECENT URINE TOXICOLOGY REVIEWED. NO UNAUTHORIZED MEDICATIONS. NO ILLICIT SUBSTANCES AND PRESCRIBED MEDICATIONS WERE PRESENT. , RISKS AND BENEFITS OF NARCOTIC/OPIOD MEDICATIONS WERE REVIEWED WITH PATIENT - THIS INCLUDES BUT IS NOT LIMITED TO RISK OF DEPENDANCE/DEVELOPMENT OF ADDICTION, MOOD DISTURBANCE AND DEPRESSION, OSTEOPOROSIS, HORMONAL AND LABIDAL CHANGES, RESPIRATORY DEPRESSION AND . PATIENT IS ADVISED NOT TO DRIVE OR DRINK ALCOHOL WHILE ON THESE MEDICATIONS. PROCEDURE CODES FA211 ESTABILISHED PATIENT [facility] CHARGE DISPOSITION & COMMUNICATION FOLLOW UP 3 MONTHS ELECTRONICALLY SIGNED BY SHANDRA PRIETO ON 02/14/2019 AT 04:14 PM EDT DISCLAIMER : THIS IS A VISIT SUMMARY EXTRACTED FROM THE [employer] CHART. IT IS NOT A COPY OF THE [employer] PROGRESS NOTE. HAIDER
== END ==
LOC: M PAIN 14:15
PROVIDERS: ATTEND Nurse Practitioner Family
DX: M47.816 Spondylosis without myelopathy or radiculopathy, lumbar region (principal); G89.29 Other chronic pain; Z98.84 Bariatric surgery status; I10 Essential (primary) hypertension; Z87.891 Personal history of nicotine dependence; Z88.8 Allergy status to other drugs, medicaments and biological substances; Z79.82 Long term (current) use of aspirin; Z79.899 Other long term (current) drug therapy

== ENCOUNTER → 2019-04-28 | Outpatient (CLI) | payer BC ==
[~2019-04-28] MED LIST changes: -OMEP40CA2 PO; +OMEP40CA97 PO
--- NOTE | 2019-05-17 05:15 | ECWPNPC ---
PATIENT NAME: VI ORTIZ : 1960 GENDER: FEMALE VISIT DATE: 04/28/2019 DISCHARGE DATE: 04/28/19 1459 VISIT LOCKED DATE TIME: PHYSICIAN: KITTY HERBERT RESOURCE: KITTY HERBERT REASON FOR APPOINTMENT 1. 3 MONTHS HISTORY OF PRESENT ILLNESS HISTORY OF PRESENT ILLNESS: HERE FOR F/U OF CHRONIC LBP.OVERALL DOING WELL.RATING PAIN VAS 5/10. PAIN THE PATIENT DESCRIBES THE PAIN... THE PATIENT DESCRIBES THE PAIN... PAIN THE PATIENT DESCRIBES THE PAIN... THE PATIENT DESCRIBES THE PAIN... FALL RISK SCREENING: SCREENING :NO FALLS REPORTED IN THE LAST YEAR CURRENT MEDICATIONS TAKING SLOW FE 160 (50 FE) MG TABLET EXTENDED RELEASE 1 TAB(S) ORALLY TWICE A DAY TAKING MULTIVITAMINS OTC TABLET 1 TABLET P.O ONCE A DAY TAKING ASPIRIN 81 MG TABLET CHEWABLE 1 TABLET ORALLY ONCE A DAY TAKING VITAMIN D _ TABLET 1 TAB(S) 5000MG ORALLY DAILY TAKING CYCLOBENZAPRINE HCL 10 MG TABLET 1 TABLET NEEDED ORALLY THREE TIMES A DAY TAKING AVAPRO 300 MG TABLET 1 TABLET ORALLY ONCE A DAY TAKING ADDERALL XR 10 MG CAPSULE EXTENDED RELEASE 24 HOUR 1 CAPSULE IN THE MORNING [id number] ONCE A DAY MDD1 TAKING CHANTIX CONTINUING MONTH [place] 1 MG TABLET 1 TABLET ORALLY TWICE A DAY TAKING NORCO 5-325 MG TABLET 1 TABLET NEEDED ORALLY Q8H PRN MDD3 NOT-TAKING CHANTIX STARTING MONTH [place] 0.5 MG X 11 & 1 MG X 42 TABLET 1 TAB ORALLY DAILY DIRECTED, NOTES: DUPLICATE NOT-TAKING DULOXETINE HCL 20 MG CAPSULE DELAYED RELEASE PARTICLES 1 CAPSULE ORALLY TWICE A DAY, NOTES: START WITH 1 CAP DAILY FOR 7 DAYS, THEN INCREASE TO TWICE DAILY THEREAFTER NOT-TAKING IRBESARTAN-HYDROCHLOROTHIAZIDE 300-12.5 MG TABLET 1 TABLET ORALLY ONCE A DAY MEDICATION LIST REVIEWED AND RECONCILED WITH THE PATIENT PAST MEDICAL HISTORY GASTRIC BYPASS 2006 (DR. 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 SPENCE, NORMAL) 2010 EGD (DR. SPENCE, NORMAL) 2010 CARPAL TUNNEL RELEASE-BILATERALLY 2010 UPPER AND LOWER GI SCOPE ( DR FRANK) 2016 FAMILY HISTORY FATHER: 86 YRS, CA LUNG (TOBACCO USER) W/METS, COLON CANCER @ 68; HTN; DDD, DIAGNOSED WITH HYPERTENSION MOTHER: 83 YRS, OSTEOARTHRITIS; [place] (76) SIBLINGS: ALIVE, SISTER (DM; HTN) SON(S): ALIVE DAUGHTER(S): ALIVE PATERNAL GRAND MOTHER: , CVA MATERNAL GRAND MOTHER: , DIABETES 1 BROTHER(S) , 3 SISTER(S) - HEALTHY. 1 SON(S) , 2 DAUGHTER(S) - HEALTHY. NO BREAST OR OVARIAN CANCER IN FAMILY. SOCIAL HISTORY GENERAL: TOBACCO USE ARE YOU A:FORMER SMOKER HOW LONG HAS IT BEEN SINCE YOU LAST SMOKED?1-3 MONTHS HIV / HEP-C SCREENING HIV TEST OFFERED TO PATIENT:YES DATE OFFERED:02/04/2017 TEST ACCEPTED:NO HEP-C TEST OFFERED TO PATIENT:YES DATE OFFERED:02/04/2017 REASON:PATIENT DECLINED TEST ACCEPTED:NO REASON:PATIENT DECLINED OTHERS AT HOME: . HOUSING: OWNS HOME. 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 DIET: WELL BALANCED DIET. LANGUAGE [place]. DOMESTIC VIOLENCE NONE, NO SEXUAL ABUSE. BMI CARE GOAL FOLLOW-UP ABOVE NORMAL BMI FOLLOW-UPDIETARY MANAGEMENT EDUCATION, GUIDANCE, AND COUNSELING, DIETARY NEEDS EDUCATION RECREATIONAL DRUG USE DENIES. EXERCISE: ONLY AT WORK; NO ROUTINE EXERCISE. LEARNING BARRIERS / SPECIAL NEEDS CHANGE FROM LAST VISIT?NO BARRIERS TO LEARNING?NO HEARING IMPAIRED?NO VISION IMPAIRED?YES COGNITIVELY IMPAIRED?NO :CORRECTIVE LENSES READINESS TO LEARN?YES LEARNING PREFERENCES?NO LEARNING CAPABILITIES PRESENT?YES EMOTIONAL BARRIERS?NO SPECIAL DEVICES?NO MOTOR VEHICLE LICENCE EXAMINER NEEDED?NO LUNG CANCER SCREENING SMOKING STATUS:FORMER SMOKER PAIN CLINIC PFS, CLERGY, PUBLIC HEALTH REFERRALS PFS REFERRAL NEEDED?NO CLERGY REFERRAL NEEDED?NO PUBLIC HEALTH REFERRAL NEEDED?NO HAS THE PATIENT BEEN EDUCATED REGARDING HIS/HER PLAN OF CARE?YES HAS THE PATIENT BEEN EDUCATED REGARDING PAIN, THE RISK FOR PAIN, THE IMPORTANCE OF EFFECTIVE PAIN MANAGEMENT, AND THE PAIN ASSESSMENT PROCESS?YES LATEX QUESTIONNAIRE LATEX ALLERGY : HAVE YOU EVER DEVELOPED ANY TYPE OF REACTION AFTER HANDLING LATEX PRODUCTS SUCH RUBBER GLOVES, CONDOMS, DIAPHRAGMS, BALLOONS, SOCKS, OR UNDERWEAR?NO LATEX ALLERGY : HAVE YOU EVER DEVELOPED ANY TYPE OF REACTION DURING OR AFTER DENTAL APPOINTMENT, VAGINAL/RECTAL EXAMINATION, SURGICAL PROCEDURE, OR ANY OTHER EXPOSURE?NO LATEX RISK : HAVE YOU EVER HAD ANY DIFFICULTY BREATHING OR HIVES AFTER EATING OR HANDLING ANY FRUITS, OR VEGETABLES; SUCH KIWI, BANANAS, STONE FRUITS, OR CHESTNUTSNO LATEX RISK : DO YOU HAVE A PREVIOUS PERSONAL HISTORY OF MORE THAN NINE SURGERIES, SPINA BIFIDA, OR REPEATED CATHERIZATIONS? NO LATEX RISK : ARE YOU FREQUENTLY EXPOSED TO LATEX PRODUCTS IN YOUR OCCUPATION?NO DATE ASKED : 10/07/2018 CAFFEINE 1-2/DAY. ADVANCE DIRECTIVE ADVANCE DIRECTIVE DISCUSSED WITH PATIENT:YES HCP - MARKUS ORTIZ JR - . DOCUMENT NOT PROVIDED. JUDAISM NO TAOISM BELIEFS THAT WOULD IMPACT HEALTH CARE. MARITAL STATUS: . ALCOHOL SCREENING DID YOU HAVE A DRINK CONTAINING ALCOHOL IN THE PAST YEAR?YES HOW OFTEN DID YOU HAVE A DRINK CONTAINING ALCOHOL IN THE PAST YEAR?FOUR OR MORE TIMES A WEEK (4 POINTS) POINTS4 INTERPRETATIONPOSITIVE OCCUPATION: EMPLOYED AT [employer]. SEXUAL HX HAD SEX IN THE LAST 12 MONTHS (VAGINAL, ORAL, OR ANAL)?YES WITHMEN ONLY REVIEWED WITH PATIENT 04/28/19 1426 JS. HOSPITALIZATION/MAJOR DIAGNOSTIC PROCEDURE CHILDBIRTH X 3 SURGERY RELATED REVIEW OF SYSTEMS REVIEWED BY: PROVIDER: KITTY DEVI . CONSTITUTIONAL: ANY CHANGE IN YOUR MEDICAL CONDITION? NO . CHILLS NO . FEVER NO . INFECTION: DO YOU HAVE NEW INFECTIONS? NO . DO YOU HAVE HISTORY OF MRSA? NO . MUSCULOSKELETAL: ANY NEW PATTERNS OF PAIN OR NUMBNESS? NO . GASTROENTEROLOGY: ANY NEW CHANGE IN BOWEL CONTROL? NO . GENITOURINARY: ANY NEW CHANGE IN BLADDER CONTROL? NO . IS THERE A CHANCE YOU COULD BE ? NO . HEMATOLOGY/LYMPH: DO YOU TAKE ANY BLOOD THINNERS? (FOR EXAMPLE- COUMADIN, PLAVIX, AGGRENOX, PLATEL, PRADAXA, OR XARELTO) NO . WHEN WAS YOUR LAST DOSE? DATE: TIME: . NEUROLOGY: HAVE YOU FALLEN IN THE PAST 12 MONTHS? NO . ANY NEW EXTREMITY NUMBNESS OR WEAKNESS? NO . CARDIOLOGY: DO YOU HAVE A PACEMAKER OR DEFIBRILLATOR? NO . RESPIRATORY: HAVE YOU BEEN SICK IN THE PAST WEEK? YES, HEAD COLD/RUNNY NOSE . FEVER NO . FLU LIKE SYMPTOMS? NO . COUGH NO . INTEGUMENTARY: DO YOU HAVE ANY RASHES OR OPEN SORES? NO . ALLERGIC/IMMUNO: ARE YOU ALLERGIC TO IV DYE? NO . ANY NEW ALLERGIES? NO . PSYCHIATRIC: DO YOU HAVE THOUGHTS OF HURTING YOURSELF OR SOMEONE ELSE? NO . ARE YOU ABUSED, NEGLECTED, OR IN AN UNSAFE ENVIRONMENT? NO . ENDOCRINOLOGY: ARE YOU DIABETIC? NO . OTHER: DO YOU NEED ANY PRESCRIPTIONS? YES . IF YES, PLEASE LIST: ____HYDROCODONE ON THE . ANY NEW PROBLEMS WITH YOUR MEDICATIONS? NO . WHEN DID YOU LAST EAT? ____ . WHEN DID YOU LAST DRINK? ____ . WHAT DID YOU LAST DRINK? ____ . NAME OF PERSON DRIVING YOU HOME? ____ . DO YOU HAVE ANY OTHER QUESTIONS OR CONCERNS NO . VITAL SIGNS WT 210.2 LBS, HT 63", BMI 37.23 INDEX, BP 171/86 MM HG, REPEAT BP 152/88 MANUAL, HR 95 /MIN, RR 18 /MIN, TEMP 96.7 F, OXYGEN SAT % 98%, SAFE IN ENV? (Y/N) YES, NA INITIALS SC 14:23, REVIEWED BY: PAUL. EXAMINATION GENERAL EXAMINATION: GENERALAWAKE,ALERT ,PLEAASANT . PSYCHAFFECT NORMAL . LUNGS:LUNG GHOTRA ARE CLEAR TO AUSCULTATION BILATERALLY. GOOD MOVEMENT OF AIR . HEART:S1, S2 IN A REGULAR RATE AND RHYTHM. NO SIGNIFICANT MURMURS, RUBS OR GALLOPS NOTED . ASSESSMENTS LUMBAR SPONDYLOSIS - M47.816 (PRIMARY) TREATMENT LUMBAR SPONDYLOSIS CONTINUE CYCLOBENZAPRINE HCL TABLET, 10 MG, 1 TABLET NEEDED, ORALLY, THREE TIMES A DAY REFILL NORCO TABLET, 5-325 MG, 1 TABLET NEEDED, ORALLY, Q8H PRN MDD3, 30 DAYS, 90, REFILLS 0 NOTES: ISTOP REGISTRY REVIEWED AND DEMONSTRATES COMPLLIANCEBRINGS IN MEDICATIONS WHICH IS APPROPRIATE FOR WHAT WAS DISPENSED. RECENT URINE TOXICOLOGY REVIEWED. NO UNAUTHORIZED MEDICATIONS. NO ILLICIT SUBSTANCES AND PRESCRIBED MEDICATIONS WERE PRESENT. URINE TOX TODAY, RISKS OF NARCOTIC/OPIOD MEDICATIONS INCLUDES BUT IS NOT LIMITED TO RISK OF DEPENDANCE/DEVELOPMENT OF ADDICTION, MOOD DISTURBANCE AND DEPRESSION, OSTEOPOROSIS, HORMONAL AND LABIDAL CHANGES, RESPIRATORY DEPRESSION AND . PATIENT IS ADVISED NOT TO DRIVE OR DRINK ALCOHOL WHILE ON THESE MEDICATIONS. PROCEDURE CODES FA211 ESTABILISHED PATIENT [facility] CHARGE DISPOSITION & COMMUNICATION FOLLOW UP 3 MONTHS ELECTRONICALLY SIGNED BY SHANDRA PRIETO ON 05/16/2019 AT 01:24 PM EST DISCLAIMER : THIS IS A VISIT SUMMARY EXTRACTED FROM THE [employer] CHART. IT IS NOT A COPY OF THE [employer] PROGRESS NOTE. HAIDER
== END ==
LOC: M PAIN 14:30
PROVIDERS: ATTEND Nurse Practitioner Family
DX: M47.816 Spondylosis without myelopathy or radiculopathy, lumbar region (principal); G89.29 Other chronic pain; Z98.84 Bariatric surgery status; I10 Essential (primary) hypertension; Z87.891 Personal history of nicotine dependence; Z88.8 Allergy status to other drugs, medicaments and biological substances; Z79.82 Long term (current) use of aspirin; Z79.899 Other long term (current) drug therapy

== ENCOUNTER → 2019-08-28 | Outpatient (CLI) | payer BC ==
--- NOTE | 2019-09-12 03:31 | ECWPNPC ---
PATIENT NAME: VI ORTIZ : 1960 GENDER: FEMALE VISIT DATE: 08/28/2019 DISCHARGE DATE: 08/28/19 1455 VISIT LOCKED DATE TIME: PHYSICIAN: KITTY HERBERT RESOURCE: KITTY HERBERT REASON FOR APPOINTMENT 1. FOLLOW UP HISTORY OF PRESENT ILLNESS HISTORY OF PRESENT ILLNESS: HERE FOR F/U OF CHRONIC LBP.OVERALL DOING WELL.RATING PAIN VAS 5/10. PAIN THE PATIENT DESCRIBES THE PAIN... FALL RISK SCREENING: SCREENING :NO FALLS REPORTED IN THE LAST YEAR CURRENT MEDICATIONS TAKING AVAPRO 300 MG TABLET 1 TABLET ORALLY ONCE A DAY TAKING CYCLOBENZAPRINE HCL 10 MG TABLET 1 TABLET NEEDED ORALLY THREE TIMES A DAY TAKING SLOW FE 160 (50 FE) MG TABLET EXTENDED RELEASE 1 TAB(S) ORALLY TWICE A DAY TAKING MULTIVITAMINS OTC TABLET 1 TABLET P.O ONCE A DAY TAKING VITAMIN D _ TABLET 1 TAB(S) 5000MG ORALLY DAILY TAKING VITAMIN E 200 UNIT CAPSULE 1 CAPSULE ORALLY ONCE A DAY NOT-TAKING AMOXICILLIN 250 MG CAPSULE 1 TABLET ORALLY FOUR TIMES DAILY NOT-TAKING DIFLUCAN 150 MG TABLET 1 TABLET ORALLY DIRECTED 1 TODAY THEN REPEAT X 1 IN 10 DAYS NOT-TAKING TESSALON PERLES 100 MG CAPSULE 1 CAP ORALLY THREE TIMES A DAY NOT-TAKING PREDNISONE 20 MG TABLET 1 TABLET ORALLY ONCE A DAY NOT-TAKING ASPIRIN 81 MG TABLET CHEWABLE 1 TABLET ORALLY ONCE A DAY NOT-TAKING NORCO 5-325 MG TABLET 1 TABLET NEEDED ORALLY Q8H PRN MDD3 MEDICATION LIST REVIEWED AND RECONCILED WITH THE PATIENT PAST MEDICAL HISTORY GASTRIC BYPASS 2006 (DR. 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 SPENCE, NORMAL) 2011 EGD (DR. SPENCE, NORMAL) 2011 CARPAL TUNNEL RELEASE-BILATERALLY 2011 UPPER AND LOWER GI SCOPE ( DR FRANK) 2016 FAMILY HISTORY FATHER: 86 YRS, CA LUNG (TOBACCO USER) W/METS, COLON CANCER @ 68; HTN; DDD, DIAGNOSED WITH HYPERTENSION MOTHER: 83 YRS, OSTEOARTHRITIS; [place] (76) SIBLINGS: ALIVE, SISTER (DM; HTN) SON(S): ALIVE DAUGHTER(S): ALIVE PATERNAL GRAND MOTHER: , CVA MATERNAL GRAND MOTHER: , DIABETES 1 BROTHER(S) , 3 SISTER(S) - HEALTHY. 1 SON(S) , 2 DAUGHTER(S) - HEALTHY. NO BREAST OR OVARIAN CANCER IN FAMILY. SOCIAL HISTORY GENERAL: TOBACCO USE ARE YOU A:FORMER SMOKER HOW LONG HAS IT BEEN SINCE YOU LAST SMOKED?1-3 MONTHS HIV / HEP-C SCREENING HIV TEST OFFERED TO PATIENT:YES DATE OFFERED:02/04/2017 TEST ACCEPTED:NO HEP-C TEST OFFERED TO PATIENT:YES DATE OFFERED:02/04/2017 REASON:PATIENT DECLINED TEST ACCEPTED:NO REASON:PATIENT DECLINED OTHERS AT HOME: . HOUSING: OWNS HOME. EMERGENCY ROOM RN'S DEGREE. DIET: WELL BALANCED DIET. LANGUAGE SINGAPOREAN. DOMESTIC VIOLENCE NONE, NO SEXUAL ABUSE. BMI CARE GOAL FOLLOW-UP ABOVE NORMAL BMI FOLLOW-UPDIETARY MANAGEMENT EDUCATION, GUIDANCE, AND COUNSELING, DIETARY NEEDS EDUCATION RECREATIONAL DRUG USE DENIES. EXERCISE: ONLY AT WORK; NO ROUTINE EXERCISE. LEARNING BARRIERS / SPECIAL NEEDS CHANGE FROM LAST VISIT?NO BARRIERS TO LEARNING?NO HEARING IMPAIRED?NO VISION IMPAIRED?YES COGNITIVELY IMPAIRED?NO :CORRECTIVE LENSES READINESS TO LEARN?YES LEARNING PREFERENCES?NO LEARNING CAPABILITIES PRESENT?YES EMOTIONAL BARRIERS?NO SPECIAL DEVICES?NO SEWER REPAIRER NEEDED?NO LUNG CANCER SCREENING SMOKING STATUS:FORMER SMOKER PAIN CLINIC PFS, CLERGY, PUBLIC HEALTH REFERRALS PFS REFERRAL NEEDED?NO CLERGY REFERRAL NEEDED?NO PUBLIC HEALTH REFERRAL NEEDED?NO HAS THE PATIENT BEEN EDUCATED REGARDING HIS/HER PLAN OF CARE?YES HAS THE PATIENT BEEN EDUCATED REGARDING PAIN, THE RISK FOR PAIN, THE IMPORTANCE OF EFFECTIVE PAIN MANAGEMENT, AND THE PAIN ASSESSMENT PROCESS?YES LATEX QUESTIONNAIRE LATEX ALLERGY : HAVE YOU EVER DEVELOPED ANY TYPE OF REACTION AFTER HANDLING LATEX PRODUCTS SUCH RUBBER GLOVES, CONDOMS, DIAPHRAGMS, BALLOONS, SOCKS, OR UNDERWEAR?NO LATEX ALLERGY : HAVE YOU EVER DEVELOPED ANY TYPE OF REACTION DURING OR AFTER DENTAL APPOINTMENT, VAGINAL/RECTAL EXAMINATION, SURGICAL PROCEDURE, OR ANY OTHER EXPOSURE?NO LATEX RISK : HAVE YOU EVER HAD ANY DIFFICULTY BREATHING OR HIVES AFTER EATING OR HANDLING ANY FRUITS, OR VEGETABLES; SUCH KIWI, BANANAS, STONE FRUITS, OR CHESTNUTSNO LATEX RISK : DO YOU HAVE A PREVIOUS PERSONAL HISTORY OF MORE THAN NINE SURGERIES, SPINA BIFIDA, OR REPEATED CATHERIZATIONS? NO LATEX RISK : ARE YOU FREQUENTLY EXPOSED TO LATEX PRODUCTS IN YOUR OCCUPATION?NO DATE ASKED : 10/07/2018 CAFFEINE 1-2/DAY. ADVANCE DIRECTIVE ADVANCE DIRECTIVE DISCUSSED WITH PATIENT:YES HCP - MARKUS ORTIZ JR - . DOCUMENT NOT PROVIDED. VOODOO NO ANABAPTIST BELIEFS THAT WOULD IMPACT HEALTH CARE. MARITAL STATUS: . ALCOHOL SCREENING DID YOU HAVE A DRINK CONTAINING ALCOHOL IN THE PAST YEAR?YES HOW OFTEN DID YOU HAVE A DRINK CONTAINING ALCOHOL IN THE PAST YEAR?FOUR OR MORE TIMES A WEEK (4 POINTS) POINTS4 INTERPRETATIONPOSITIVE OCCUPATION: EMPLOYED AT [employer]. SEXUAL HX HAD SEX IN THE LAST 12 MONTHS (VAGINAL, ORAL, OR ANAL)?YES WITHMEN ONLY HOSPITALIZATION/MAJOR DIAGNOSTIC PROCEDURE CHILDBIRTH X 3 SURGERY RELATED REVIEW OF SYSTEMS REVIEWED BY: PROVIDER: KITTY DEVI . CONSTITUTIONAL: ANY CHANGE IN YOUR MEDICAL CONDITION? NO . CHILLS NO . FEVER NO . INFECTION: DO YOU HAVE NEW INFECTIONS? NO . DO YOU HAVE HISTORY OF MRSA? NO . MUSCULOSKELETAL: ANY NEW PATTERNS OF PAIN OR NUMBNESS? YES, STATES NEW PAIN IN RIGHT THORACIC REGION THAT COMES AND GOES . GASTROENTEROLOGY: ANY NEW CHANGE IN BOWEL CONTROL? NO . GENITOURINARY: ANY NEW CHANGE IN BLADDER CONTROL? NO . IS THERE A CHANCE YOU COULD BE ? NO . HEMATOLOGY/LYMPH: DO YOU TAKE ANY BLOOD THINNERS? (FOR EXAMPLE- COUMADIN, PLAVIX, AGGRENOX, PLATEL, PRADAXA, OR XARELTO) NO . WHEN WAS YOUR LAST DOSE? DATE: TIME: . NEUROLOGY: HAVE YOU FALLEN IN THE PAST 12 MONTHS? NO . ANY NEW EXTREMITY NUMBNESS OR WEAKNESS? NO . CARDIOLOGY: DO YOU HAVE A PACEMAKER OR DEFIBRILLATOR? NO . RESPIRATORY: HAVE YOU BEEN SICK IN THE PAST WEEK? NO . FEVER NO . FLU LIKE SYMPTOMS? NO . COUGH NO . INTEGUMENTARY: DO YOU HAVE ANY RASHES OR OPEN SORES? NO . ALLERGIC/IMMUNO: ARE YOU ALLERGIC TO IV DYE? NO . ANY NEW ALLERGIES? NO . PSYCHIATRIC: DO YOU HAVE THOUGHTS OF HURTING YOURSELF OR SOMEONE ELSE? NO . ARE YOU ABUSED, NEGLECTED, OR IN AN UNSAFE ENVIRONMENT? NO . ENDOCRINOLOGY: ARE YOU DIABETIC? NO . OTHER: DO YOU NEED ANY PRESCRIPTIONS? YES . IF YES, PLEASE LIST: ____HYDROCODONE . ANY NEW PROBLEMS WITH YOUR MEDICATIONS? NO . WHEN DID YOU LAST EAT? ____ . WHEN DID YOU LAST DRINK? ____ . WHAT DID YOU LAST DRINK? ____ . NAME OF PERSON DRIVING YOU HOME? ____ . DO YOU HAVE ANY OTHER QUESTIONS OR CONCERNS NO . VITAL SIGNS WT 223.0 LBS, HT 63", BMI 39.50 INDEX, BP 159/83 MM HG, HR 93 /MIN, RR 20 /MIN, TEMP 97.0 F, OXYGEN SAT % 96%, SAFE IN ENV? (Y/N) YES, NA INITIALS AW 1418, REVIEWED BY: PAUL. EXAMINATION GENERAL EXAMINATION: GENERALAWAKE,ALERT ,PLEAASANT . PSYCHAFFECT NORMAL . LUNGS:LUNG GHOTRA ARE CLEAR TO AUSCULTATION BILATERALLY. GOOD MOVEMENT OF AIR . HEART:S1, S2 IN A REGULAR RATE AND RHYTHM. NO SIGNIFICANT MURMURS, RUBS OR GALLOPS NOTED . ASSESSMENTS LUMBAR SPONDYLOSIS - M47.816 TREATMENT LUMBAR SPONDYLOSIS CONTINUE CYCLOBENZAPRINE HCL TABLET, 10 MG, 1 TABLET NEEDED, ORALLY, THREE TIMES A DAY CONTINUE NORCO TABLET, 5-325 MG, 1 TABLET NEEDED, ORALLY, Q8H PRN MDD3 NOTES: ISTOP REGISTRY REVIEWED AND DEMONSTRATES COMPLLIANCE.BRINGS IN MEDICATIONS WHICH IS APPROPRIATE FOR WHAT WAS DISPENSED. RECENT URINE TOXICOLOGY REVIEWED. NO UNAUTHORIZED MEDICATIONS. NO ILLICIT SUBSTANCES AND PRESCRIBED MEDICATIONS WERE PRESENT. , RISKS OF NARCOTIC/OPIOD MEDICATIONS INCLUDES BUT IS NOT LIMITED TO RISK OF DEPENDANCE/DEVELOPMENT OF ADDICTION, MOOD DISTURBANCE AND DEPRESSION, OSTEOPOROSIS, HORMONAL AND LABIDAL CHANGES, RESPIRATORY DEPRESSION AND . PATIENT IS ADVISED NOT TO DRIVE OR DRINK ALCOHOL WHILE ON THESE MEDICATIONS. PROCEDURE CODES FA211 ESTABILISHED PATIENT [facility] CHARGE DISPOSITION & COMMUNICATION FOLLOW UP 3 MONTHS ELECTRONICALLY SIGNED BY SHANDRA PRIETO ON 09/11/2019 AT 02:41 PM EDT DISCLAIMER : THIS IS A VISIT SUMMARY EXTRACTED FROM THE [employer] CHART. IT IS NOT A COPY OF THE [employer] PROGRESS NOTE. HAIDER
== END ==
LOC: M PAIN 14:15
PROVIDERS: ATTEND Nurse Practitioner Family
DX: M47.816 Spondylosis without myelopathy or radiculopathy, lumbar region (principal)

== ENCOUNTER → 2019-12-11 | Outpatient (CLI) | payer BC ==
[~2019-12-11] MED LIST changes: +CYCL-707 PO; -CYCL10TA PO
--- NOTE | 2019-12-13 02:30 | ECWPNPC ---
PATIENT NAME: VI ORTIZ : 1960 GENDER: FEMALE VISIT DATE: 12/11/2019 DISCHARGE DATE: 12/11/19 1608 VISIT LOCKED DATE TIME: PHYSICIAN: KITTY HERBERT RESOURCE: KITTY HERBERT REASON FOR APPOINTMENT 1. BACK HISTORY OF PRESENT ILLNESS GENERAL: -. FALL RISK SCREENING: SCREENING :NO FALLS REPORTED IN THE LAST YEAR PAIN SCREENING: PATIENT HAS A COMPLAINT OF ACUTE OR CHRONIC PAIN :YES LOCATION OF PAIN:LOW BACK, LEFT HIP, RIGHT HIP, LEG(S) RIGHT LEG INTENSITY OF PAIN (SCALE OF 1 TO 10):8 WHAT DOES YOUR PAIN FEEL LIKE:ACHING, BURNING, CONTINOUS DURATION:CONTINOUS PAIN IS INCREASED BY:PROLONGED STANDING PAIN IS DECREASED BY:USE OF PAIN MEDICATIONS NURSING NOTE: -. PAIN CENTER INTAKE QUESTIONS: DO YOU HAVE A HISTORY OF MRSA? :NO DO YOU TAKE A BLOOD THINNERS? :NO DO YOU HAVE ANY BLEEDING DISORDERS? :NO ANY NEW NUMBNESS OR WEAKNESS IN YOUR LEGS OR ARMS? :NO ANY PACEMAKER,DEFIBRILLATOR, OR DORSAL COLUMN STIMULATOR? :NO DO YOU HAVE ANY RASHES OR OPEN SORES? :NO ARE YOU ALLERGIC TO IV DYE? :NO ARE YOU DIABETIC? :NO ANY NEW PROBLEMS WITH YOUR MEDICATIONS? :NO HAVE YOU RECEIVED A VACCINE IN THE PAST 30 DAYS? :NO DO YOU PLAN TO RECEIVE A VACCINE IN THE NEXT 21 DAYS? :NO DO YOU NEED ANY PRESCRIPTION? :NO DO YOU TAKE ANY IMMUNOSUPPRESSIVE MEDICATIONS? :NO ANY HISTORY OF SEIZURES? :NO ANY HISTORY OF CARDIAC ISSUES OR EVENTS? :NO DO YOU HAVE SLEEP APNEA? :NO ANY RECENT HEAD INJURY? :NO DO YOU HAVE ANY NEW INFECTIONS? :NO IS THERE A CHANCE YOU COULD BE ? :NO ARE YOU BREAST FEEDING? :NO HISTORY OF PRESENT ILLNESS: HERE FOR F/U OF CHRONIC LBP.OVERALL DOING WELL.RATING PAIN VAS 8/10. CONTINUES TO FIND CURRENT MEDICINE EFFECTIVE AT REDUCING PAIN AND KEEPING HER FUNCTIONAL. DENIES ADVERSE SIDE EFFECTS. PAIN THE PATIENT DESCRIBES THE PAIN... CURRENT MEDICATIONS TAKING AVAPRO 300 MG TABLET 1 TABLET ORALLY ONCE A DAY TAKING SLOW FE 160 (50 FE) MG TABLET EXTENDED RELEASE 1 TAB(S) ORALLY TWICE A DAY TAKING MULTIVITAMINS OTC TABLET 1 TABLET P.O ONCE A DAY TAKING VITAMIN D _ TABLET 1 TAB(S) 5000MG ORALLY DAILY TAKING VITAMIN E 200 UNIT CAPSULE 1 CAPSULE ORALLY ONCE A DAY TAKING CHANTIX CONTINUING MONTH AUSTIN 1 MG TABLET 1 TABLET ORALLY TWICE A DAY TAKING CYCLOBENZAPRINE HCL 10 MG TABLET 1 TABLET NEEDED ORALLY THREE TIMES A DAY TAKING NORCO 5-325 MG TABLET 1 TABLET NEEDED ORALLY Q8H PRN MDD3 NOT-TAKING AMOXICILLIN 250 MG CAPSULE 1 TABLET ORALLY FOUR TIMES DAILY NOT-TAKING DIFLUCAN 150 MG TABLET 1 TABLET ORALLY DIRECTED 1 TODAY THEN REPEAT X 1 IN 10 DAYS NOT-TAKING TESSALON PERLES 100 MG CAPSULE 1 CAP ORALLY THREE TIMES A DAY NOT-TAKING PREDNISONE 20 MG TABLET 1 TABLET ORALLY ONCE A DAY NOT-TAKING ASPIRIN 81 MG TABLET CHEWABLE 1 TABLET ORALLY ONCE A DAY MEDICATION LIST REVIEWED AND RECONCILED WITH THE PATIENT PAST MEDICAL HISTORY GASTRIC BYPASS 2007 (DR. 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 SPENCE, NORMAL) 2011 EGD (DR. SPENCE, NORMAL) 2011 CARPAL TUNNEL RELEASE-BILATERALLY 2011 UPPER AND LOWER GI SCOPE ( DR FRANK) 2017 FAMILY HISTORY FATHER: 86 YRS, CA LUNG (TOBACCO USER) W/METS, COLON CANCER @ 68; HTN; DDD, DIAGNOSED WITH HYPERTENSION MOTHER: 83 YRS, OSTEOARTHRITIS; [place] (76) SIBLINGS: ALIVE, SISTER (DM; HTN) SON(S): ALIVE DAUGHTER(S): ALIVE PATERNAL GRAND MOTHER: , CVA MATERNAL GRAND MOTHER: , DIABETES 1 BROTHER(S) , 3 SISTER(S) - HEALTHY. 1 SON(S) , 2 DAUGHTER(S) - HEALTHY. NO BREAST OR OVARIAN CANCER IN FAMILY. SOCIAL HISTORY GENERAL: TOBACCO USE ARE YOU A:FORMER SMOKER HOW LONG HAS IT BEEN SINCE YOU LAST SMOKED?1-3 MONTHS LATEX QUESTIONNAIRE LATEX ALLERGY : HAVE YOU EVER DEVELOPED ANY TYPE OF REACTION AFTER HANDLING LATEX PRODUCTS SUCH RUBBER GLOVES, CONDOMS, DIAPHRAGMS, BALLOONS, SOCKS, OR UNDERWEAR?NO LATEX ALLERGY : HAVE YOU EVER DEVELOPED ANY TYPE OF REACTION DURING OR AFTER DENTAL APPOINTMENT, VAGINAL/RECTAL EXAMINATION, SURGICAL PROCEDURE, OR ANY OTHER EXPOSURE?NO LATEX RISK : HAVE YOU EVER HAD ANY DIFFICULTY BREATHING OR HIVES AFTER EATING OR HANDLING ANY FRUITS, OR VEGETABLES; SUCH KIWI, BANANAS, STONE FRUITS, OR CHESTNUTSNO LATEX RISK : DO YOU HAVE A PREVIOUS PERSONAL HISTORY OF MORE THAN NINE SURGERIES, SPINA BIFIDA, OR REPEATED CATHERIZATIONS? NO LATEX RISK : ARE YOU FREQUENTLY EXPOSED TO LATEX PRODUCTS IN YOUR OCCUPATION?NO DATE ASKED : 12/11/2019 LUNG CANCER SCREENING SMOKING STATUS:FORMER SMOKER BMI CARE GOAL FOLLOW-UP ABOVE NORMAL BMI FOLLOW-UPDIETARY MANAGEMENT EDUCATION, GUIDANCE, AND COUNSELING, DIETARY NEEDS EDUCATION ALCOHOL SCREENING DID YOU HAVE A DRINK CONTAINING ALCOHOL IN THE PAST YEAR?YES HOW OFTEN DID YOU HAVE A DRINK CONTAINING ALCOHOL IN THE PAST YEAR?FOUR OR MORE TIMES A WEEK (4 POINTS) POINTS4 INTERPRETATIONPOSITIVE RECREATIONAL DRUG USE DENIES. CAFFEINE 1-2/DAY. SEXUAL HX HAD SEX IN THE LAST 12 MONTHS (VAGINAL, ORAL, OR ANAL)?YES WITHMEN ONLY HIV / HEP-C SCREENING HIV TEST OFFERED TO PATIENT:YES DATE OFFERED:02/04/2017 TEST ACCEPTED:NO HEP-C TEST OFFERED TO PATIENT:YES DATE OFFERED:02/04/2017 REASON:PATIENT DECLINED TEST ACCEPTED:NO REASON:PATIENT DECLINED [place] NO FAITH BELIEFS THAT WOULD IMPACT HEALTH CARE. 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 LEARNING BARRIERS / SPECIAL NEEDS CHANGE FROM LAST VISIT?NO BARRIERS TO LEARNING?NO HEARING IMPAIRED?NO VISION IMPAIRED?YES COGNITIVELY IMPAIRED?NO :CORRECTIVE LENSES READINESS TO LEARN?YES LEARNING PREFERENCES?NO LEARNING CAPABILITIES PRESENT?YES EMOTIONAL BARRIERS?NO SPECIAL DEVICES?NO PET WALKER NEEDED?NO DOMESTIC VIOLENCE NONE, NO SEXUAL ABUSE. OCCUPATION: EMPLOYED AT [email or web address]. DIET: WELL BALANCED DIET. EXERCISE: ONLY AT WORK; NO ROUTINE EXERCISE. MARITAL STATUS: . OTHERS AT HOME: . PAIN CLINIC PFS, CLERGY, PUBLIC HEALTH REFERRALS PFS REFERRAL NEEDED?NO CLERGY REFERRAL NEEDED?NO PUBLIC HEALTH REFERRAL NEEDED?NO HAS THE PATIENT BEEN EDUCATED REGARDING HIS/HER PLAN OF CARE?YES HAS THE PATIENT BEEN EDUCATED REGARDING PAIN, THE RISK FOR PAIN, THE IMPORTANCE OF EFFECTIVE PAIN MANAGEMENT, AND THE PAIN ASSESSMENT PROCESS?YES HOUSING: OWNS HOME. ADVANCE DIRECTIVE ADVANCE DIRECTIVE DISCUSSED WITH PATIENT:YES HCP - MARKUS ORTIZ JR - . DOCUMENT NOT PROVIDED. HOSPITALIZATION/MAJOR DIAGNOSTIC PROCEDURE CHILDBIRTH X 3 SURGERY RELATED REVIEW OF SYSTEMS CONSTITUTIONAL: ANY RECENT FEVER NO . CHILLS NO . WEIGHT CHANGE OF UNKNOWN REASONS NO . GASTROENTEROLOGY: NEW UNEXPLAINABLE CHANGES IN BOWEL CONTROL NO . CONSTIPATION NO . GENITOURINARY: ANY NEW CHANGE IN BLADDER CONTROL? NO . NEUROLOGY: NEW ONSET DIZZINESS OR NEUROLOGICAL CHANGES NOT MENTIONED NO . NEW NUMBNESS OR PAIN PATTERNS NOT MENTIONED AND PERTINENT TO TODAY'S VISIT NO . CARDIOLOGY: NEW CHEST PRESSURE NO . NEW CHEST PAIN NO . RESPIRATORY: UNEXPLAINABLE COUGH NO . NEW SHORTNESS OF BREATH NO . VITAL SIGNS WT 231 LBS, HT 63", BMI 40.92 INDEX, BP 176/89 MM HG, HR 97 /MIN, RR 20 /MIN, TEMP 97%, OXYGEN SAT % 97%, SAFE IN ENV? (Y/N) YES, NA INITIALS SC 15:18, REVIEWED BY: RACHNA. EXAMINATION GENERAL EXAMINATION: GENERALAWAKE,ALERT ,PLEAASANT . PSYCHAFFECT NORMAL . LUNGS:LUNG GHOTRA ARE CLEAR TO AUSCULTATION BILATERALLY. GOOD MOVEMENT OF AIR . HEART:S1, S2 IN A REGULAR RATE AND RHYTHM. NO SIGNIFICANT MURMURS, RUBS OR GALLOPS NOTED . ASSESSMENTS LUMBAR SPONDYLOSIS - M47.816 (PRIMARY) TREATMENT LUMBAR SPONDYLOSIS CONTINUE CYCLOBENZAPRINE HCL TABLET, 10 MG, 1 TABLET NEEDED, ORALLY, THREE TIMES A DAY REFILL NORCO TABLET, 5-325 MG, 1 TABLET NEEDED, ORALLY, Q8H PRN MDD3, 30 DAYS, 90, REFILLS 0 NOTES: ISTOP REGISTRY REVIEWED AND DEMONSTRATES COMPLLIANCE. (REF # ) BRINGS IN MEDICATIONS WHICH IS APPROPRIATE FOR WHAT WAS DISPENSED. RECENT URINE TOXICOLOGY REVIEWED. NO UNAUTHORIZED MEDICATIONS. NO ILLICIT SUBSTANCES AND PRESCRIBED MEDICATIONS WERE PRESENT. URINE TOX TODAY , RISKS OF NARCOTIC/OPIOD MEDICATIONS INCLUDES BUT IS NOT LIMITED TO RISK OF DEPENDANCE/DEVELOPMENT OF ADDICTION, MOOD DISTURBANCE AND DEPRESSION, OSTEOPOROSIS, HORMONAL AND LABIDAL CHANGES, RESPIRATORY DEPRESSION AND . PATIENT IS ADVISED NOT TO DRIVE OR DRINK ALCOHOL WHILE ON THESE MEDICATIONS. DISPOSITION & COMMUNICATION FOLLOW UP 3 MONTHS (REASON: MED MANAGEMENT) ELECTRONICALLY SIGNED BY SHANDRA PRIETO ON 12/12/2019 AT 03:36 PM EDT DISCLAIMER : THIS IS A VISIT SUMMARY EXTRACTED FROM THE [employer] CHART. IT IS NOT A COPY OF THE [employer] PROGRESS NOTE. HAIDER
== END ==
LOC: M PAIN 14:30
PROVIDERS: ATTEND Nurse Practitioner Family
DX: M47.816 Spondylosis without myelopathy or radiculopathy, lumbar region (principal)

== ENCOUNTER → 2020-02-15 | Outpatient (CLI) | payer BC ==
[~2020-02-15] MED LIST changes: -ASPI81TA85 PO; +ASPI81TA86 PO
--- NOTE | 2020-02-15 11:40 | REPMRS ---
Patient History The patient states she has not had a clinical breast exam in over a year. Family history of colorectal cancer at age 67 in father. No Hormone Replacement Therapy 3D TOMOSYNTHESIS WAS PERFORMED. The Vimal Macedo lifetime risk for breast cancer is 5.8%. GEGE Angel. Digital Woman Screen Mammo: February 15, 2020 - Exam #: [id number] Bilateral CC and MLO view(s) were taken. Technologist: Leti Loza, Technologist Prior study comparison: June 17, 2018, bilateral digital woman screen mammo performed at [facility]. January 07, 2017, digital woman screen mammo performed at [facility]. FINDINGS: There are scattered fibroglandular densities. There has been no change in the appearance of the mammogram from the prior studies. There is a mild amount of residual fibroglandular tissue which is fairly symmetric. There is no interval development of dominant mass, architectural distortion, or clustered microcalcification suggestive of malignancy. Assessment: BI-RADS/ACR category 1 mammogram. Negative Mammogram. Recommendation Routine screening mammogram in 1 year (for women over age 40). This mammogram was interpreted with the aid of an FDA-approved computer-aided dectection system. Electronically Signed By: Hector Mcleod MD 02/15/20 [id number]
== END ==
LOC: M WHC 06:53
PROVIDERS: ATTEND Nurse Practitioner Adult Health
DX: Z12.31 Encounter for screening mammogram for malignant neoplasm of breast (principal); Z80.0 Family history of malignant neoplasm of digestive organs

== ENCOUNTER → 2020-04-08 | Outpatient (CLI) | payer BC ==
[2020-04-08 17:48] LABS: HEMATOCRIT 49.2 % (36.0-47.0); HEMOGLOBIN 16.1 g/dl (12.0-15.5); MEAN CORPUSCULAR HEMOGLOBIN 34.1 pg (27.0-33.0); MEAN CORPUSCULAR HGB CONC 32.7 g/dl (32.0-36.5); MEAN CORPUSCULAR VOLUME 104.2 fl (80.0-96.0); PLATELET COUNT, AUTOMATED 233 10^3/uL (150-450); RED BLOOD COUNT 4.72 10^6/uL (4.00-5.40); WHITE BLOOD COUNT 7.8 10^3/uL (4.0-10.0)
[2020-04-08 18:24] LABS: ALBUMIN 3.6 GM/DL (3.2-5.2); ALT/SGPT 92 U/L (12-78); BILIRUBIN,TOTAL 1.7 MG/DL (0.2-1.0); BLOOD UREA NITROGEN 13 MG/DL (7-18); CALCIUM LEVEL 10.1 MG/DL (8.5-10.1); CARBON DIOXIDE LEVEL 30 MEQ/L (21-32); CHLORIDE LEVEL 102 MEQ/L (98-107); CHOLESTEROL LEVEL 270 MG/DL (<200); CHOLESTEROL RISK RATIO 2.872 (<5); CREATININE FOR GFR 0.93 MG/DL (0.55-1.30); GLOMERULAR FILTRATION RATE > 60.0 (>51); GLUCOSE, FASTING 102 MG/DL (70-100); HDL CHOLESTEROL 94 MG/DL (>40); IRON (FE) 110 UG/DL (50-170); LDL CHOLESTEROL 152 MG/DL (<100); NON-HDL-C 176 MG/DL; PERCENT SATURATION 37.3 % (13.2-45.0); POTASSIUM SERUM 4.7 MEQ/L (3.5-5.1); SODIUM LEVEL 139 MEQ/L (136-145); TOTAL IRON BINDING CAPACITY 295 UG/DL (250-450); TOTAL PROTEIN 7.6 GM/DL (6.4-8.2); TRIGLYCERIDES LEVEL 122 MG/DL (<150)
[2020-04-08 18:25] LABS: TOTAL 25(OH) VITAMIN D 59.6 NG/ML (30.0-100.0); VITAMIN B12 LEVEL 538 PG/ML (247-911)
== END ==
LOC: M PLALAB 15:32
PROVIDERS: ATTEND Nurse Practitioner Adult Health
DX: E53.8 Deficiency of other specified B group vitamins (principal); E78.2 Mixed hyperlipidemia; I10 Essential (primary) hypertension; E55.9 Vitamin D deficiency, unspecified; Z98.890 Other specified postprocedural states

== ENCOUNTER → 2020-04-16 | Outpatient (CLI) | payer BC ==
--- NOTE | 2020-04-16 23:30 | ECWPNPC ---
PATIENT NAME: VI ORTIZ : 1960 GENDER: FEMALE VISIT DATE: 04/16/2020 DISCHARGE DATE: 04/16/20 1531 VISIT LOCKED DATE TIME: PHYSICIAN: KITTY HERBERT PHYSICIAN PAGER NO: ACTIVE RESOURCE: KITTY HERBERT REASON FOR APPOINTMENT 1. BACK HISTORY OF PRESENT ILLNESS DEPRESSION SCREENING: PHQ-2 (2015 EDITION) LITTLE INTEREST OR PLEASURE IN DOING THINGS?NOT AT ALL FEELING DOWN, DEPRESSED, OR HOPELESS?NOT AT ALL TOTAL SCORE0 GENERAL: -. FALL RISK SCREENING: SCREENING :NO FALLS REPORTED IN THE LAST YEAR NONE PAIN SCREENING: PATIENT HAS A COMPLAINT OF ACUTE OR CHRONIC PAIN :YES LOCATION OF PAIN:LOW BACK, LEG(S) RIGHT LEG INTENSITY OF PAIN (SCALE OF 1 TO 10):6 WHAT DOES YOUR PAIN FEEL LIKE:ACHING, BURNING DURATION:CONTINOUS PAIN IS INCREASED BY:ACTIVITIES, PROLONGED STANDING PAIN IS DECREASED BY:USE OF PAIN MEDICATIONS NURSING NOTE: -. PAIN CENTER INTAKE QUESTIONS: DO YOU HAVE A HISTORY OF MRSA? :NO DO YOU TAKE A BLOOD THINNERS? :NO DO YOU HAVE ANY BLEEDING DISORDERS? :NO ANY NEW NUMBNESS OR WEAKNESS IN YOUR LEGS OR ARMS? :NO ANY PACEMAKER,DEFIBRILLATOR, OR DORSAL COLUMN STIMULATOR? :NO DO YOU HAVE ANY RASHES OR OPEN SORES? :NO ARE YOU ALLERGIC TO IV DYE? :NO ARE YOU DIABETIC? :NO ANY NEW PROBLEMS WITH YOUR MEDICATIONS? :NO HAVE YOU RECEIVED A VACCINE IN THE PAST 30 DAYS? :YES FLU VAC 2 WEEKS AGO DO YOU PLAN TO RECEIVE A VACCINE IN THE NEXT 21 DAYS? :NO DO YOU NEED ANY PRESCRIPTION? :NO DO YOU TAKE ANY IMMUNOSUPPRESSIVE MEDICATIONS? :NO IS THERE A CHANCE YOU COULD BE ? :NO ARE YOU BREAST FEEDING? :NO HISTORY OF PRESENT ILLNESS: HERE FOR F/U OF CHRONIC LBP.OVERALL DOING WELL.RATING PAIN VAS 8/10. CONTINUES TO FIND CURRENT MEDICINE EFFECTIVE AT REDUCING PAIN AND KEEPING HER FUNCTIONAL. DENIES ADVERSE SIDE EFFECTS. PAIN THE PATIENT DESCRIBES THE PAIN... CURRENT MEDICATIONS TAKING SLOW FE 160 (50 FE) MG TABLET EXTENDED RELEASE 1 TAB(S) ORALLY TWICE A DAY TAKING MULTIVITAMINS OTC TABLET 1 TABLET P.O ONCE A DAY TAKING VITAMIN D _ TABLET 1 TAB(S) 5000MG ORALLY DAILY TAKING VITAMIN E 200 UNIT CAPSULE 1 CAPSULE ORALLY ONCE A DAY TAKING CYCLOBENZAPRINE HCL 10 MG TABLET 1 TABLET NEEDED ORALLY THREE TIMES A DAY TAKING OMEPRAZOLE 40 MG CAPSULE DELAYED RELEASE 1 CAPSULE 30 MINUTES BEFORE MORNING MEAL ORALLY ONCE A DAY TAKING SUCRALFATE 1 GM TABLET 1 TABLET ON AN EMPTY STOMACH ORALLY 30 MINUTES BEFORE MEALS AND BEDTIME TAKING NORCO 5-325 MG TABLET 1 TABLET NEEDED ORALLY Q8H PRN MDD3 TAKING AVAPRO 300 MG TABLET 1 TABLET ORALLY ONCE A DAY TAKING ADDERALL 15 MG TABLET 1 TABLET [id number] TWICE A DAY MEDICATION LIST REVIEWED AND RECONCILED WITH THE PATIENT PAST MEDICAL HISTORY GASTRIC BYPASS 2006 (DR. 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 HYDRADENITIS SUPPURATIVA - AFFECTS MOSTLY R AXILLA HTN ALLERGIES LISINOPRIL: COUGH, FELT LIKE SOMETHING WAS ALWAYS IN HER THROAT - SIDE EFFECTS SURGICAL HISTORY TUBAL LIGATION 1991 GASTRIC BYPASS 2006 HYSTERECTOMY, KEPT OVARIES 2005 COLONOSCOPY (DR. SPENCE, NORMAL) 2010 EGD (DR. SPENCE, NORMAL) 2010 CARPAL TUNNEL RELEASE-BILATERALLY 2010 UPPER AND LOWER GI SCOPE ( DR FRANK) 2016 FAMILY HISTORY FATHER: 86 YRS, CA LUNG (TOBACCO USER) W/METS, COLON CANCER @ 68; HTN; DDD, DIAGNOSED WITH HYPERTENSION MOTHER: 83 YRS, OSTEOARTHRITIS; [place] (76) SIBLINGS: ALIVE, SISTER (DM; HTN) SON(S): ALIVE DAUGHTER(S): ALIVE PATERNAL GRAND MOTHER: , CVA MATERNAL GRAND MOTHER: , DIABETES 1 BROTHER(S) , 3 SISTER(S) - HEALTHY. 1 SON(S) , 2 DAUGHTER(S) - HEALTHY. NO BREAST OR OVARIAN CANCER IN FAMILY. SOCIAL HISTORY GENERAL: TOBACCO USE ARE YOU A:FORMER SMOKER HOW LONG HAS IT BEEN SINCE YOU LAST SMOKED?1-3 MONTHS LATEX QUESTIONNAIRE LATEX ALLERGY : HAVE YOU EVER DEVELOPED ANY TYPE OF REACTION AFTER HANDLING LATEX PRODUCTS SUCH RUBBER GLOVES, CONDOMS, DIAPHRAGMS, BALLOONS, SOCKS, OR UNDERWEAR?NO LATEX ALLERGY : HAVE YOU EVER DEVELOPED ANY TYPE OF REACTION DURING OR AFTER DENTAL APPOINTMENT, VAGINAL/RECTAL EXAMINATION, SURGICAL PROCEDURE, OR ANY OTHER EXPOSURE?NO LATEX RISK : HAVE YOU EVER HAD ANY DIFFICULTY BREATHING OR HIVES AFTER EATING OR HANDLING ANY FRUITS, OR VEGETABLES; SUCH KIWI, BANANAS, STONE FRUITS, OR CHESTNUTSNO LATEX RISK : DO YOU HAVE A PREVIOUS PERSONAL HISTORY OF MORE THAN NINE SURGERIES, SPINA BIFIDA, OR REPEATED CATHERIZATIONS? NO LATEX RISK : ARE YOU FREQUENTLY EXPOSED TO LATEX PRODUCTS IN YOUR OCCUPATION?NO DATE ASKED : 04/16/2020 LUNG CANCER SCREENING SMOKING STATUS:FORMER SMOKER BMI CARE GOAL FOLLOW-UP ABOVE NORMAL BMI FOLLOW-UPDIETARY MANAGEMENT EDUCATION, GUIDANCE, AND COUNSELING, DIETARY NEEDS EDUCATION ALCOHOL SCREENING DID YOU HAVE A DRINK CONTAINING ALCOHOL IN THE PAST YEAR?YES HOW OFTEN DID YOU HAVE A DRINK CONTAINING ALCOHOL IN THE PAST YEAR?FOUR OR MORE TIMES A WEEK (4 POINTS) POINTS4 INTERPRETATIONPOSITIVE RECREATIONAL DRUG USE DENIES. CAFFEINE 1-2/DAY. SEXUAL HX HAD SEX IN THE LAST 12 MONTHS (VAGINAL, ORAL, OR ANAL)?YES WITHMEN ONLY HIV / HEP-C SCREENING HIV TEST OFFERED TO PATIENT:YES DATE OFFERED:02/04/2017 TEST ACCEPTED:NO HEP-C TEST OFFERED TO PATIENT:YES DATE OFFERED:02/04/2017 REASON:PATIENT DECLINED TEST ACCEPTED:NO REASON:PATIENT DECLINED LATTER DAY NO JUDAISM BELIEFS THAT WOULD IMPACT HEALTH CARE. LANGUAGE ALBANIAN. BUSINESS OFFICE COORDINATOR'S DEGREE. LEARNING BARRIERS / SPECIAL NEEDS CHANGE FROM LAST VISIT?NO BARRIERS TO LEARNING?NO HEARING IMPAIRED?NO VISION IMPAIRED?YES COGNITIVELY IMPAIRED?NO :CORRECTIVE LENSES READINESS TO LEARN?YES LEARNING PREFERENCES?NO LEARNING CAPABILITIES PRESENT?YES EMOTIONAL BARRIERS?NO SPECIAL DEVICES?NO STATION GATEMAN NEEDED?NO DOMESTIC VIOLENCE NONE, NO SEXUAL ABUSE. OCCUPATION: EMPLOYED AT [employer]. DIET: WELL BALANCED DIET. EXERCISE: ONLY AT WORK; NO ROUTINE EXERCISE. MARITAL STATUS: . OTHERS AT HOME: . PAIN CLINIC PFS, CLERGY, PUBLIC HEALTH REFERRALS PFS REFERRAL NEEDED?NO CLERGY REFERRAL NEEDED?NO PUBLIC HEALTH REFERRAL NEEDED?NO HAS THE PATIENT BEEN EDUCATED REGARDING HIS/HER PLAN OF CARE?YES HAS THE PATIENT BEEN EDUCATED REGARDING PAIN, THE RISK FOR PAIN, THE IMPORTANCE OF EFFECTIVE PAIN MANAGEMENT, AND THE PAIN ASSESSMENT PROCESS?YES HOUSING: OWNS HOME. ADVANCE DIRECTIVE ADVANCE DIRECTIVE DISCUSSED WITH PATIENT:YES HCP - MARKUS ORTIZ JR - . DOCUMENT NOT PROVIDED. HOSPITALIZATION/MAJOR DIAGNOSTIC PROCEDURE CHILDBIRTH X 3 SURGERY RELATED REVIEW OF SYSTEMS CONSTITUTIONAL: ANY RECENT FEVER NO . CHILLS NO . WEIGHT CHANGE OF UNKNOWN REASONS NO . GASTROENTEROLOGY: NEW UNEXPLAINABLE CHANGES IN BOWEL CONTROL NO . CONSTIPATION NO . GENITOURINARY: ANY NEW CHANGE IN BLADDER CONTROL? NO . NEUROLOGY: NEW ONSET DIZZINESS OR NEUROLOGICAL CHANGES NOT MENTIONED NO . NEW NUMBNESS OR PAIN PATTERNS NOT MENTIONED AND PERTINENT TO TODAY'S VISIT NO . CARDIOLOGY: NEW CHEST PRESSURE NO . NEW CHEST PAIN NO . RESPIRATORY: UNEXPLAINABLE COUGH NO . NEW SHORTNESS OF BREATH NO . VITAL SIGNS WT 222.8 LBS, HT 63", BMI 39.46 INDEX, BP 157/86 MM HG, HR 106 /MIN, RR 18 /MIN, TEMP 96.5 F, OXYGEN SAT % 97%, SAFE IN ENV? (Y/N) YES, NA INITIALS SC 14:28, REVIEWED BY: PAUL. EXAMINATION GENERAL EXAMINATION: GENERALAWAKE,ALERT ,PLEAASANT . PSYCHAFFECT NORMAL . LUNGS:LUNG GHOTRA ARE CLEAR TO AUSCULTATION BILATERALLY. GOOD MOVEMENT OF AIR . HEART:S1, S2 IN A REGULAR RATE AND RHYTHM. NO SIGNIFICANT MURMURS, RUBS OR GALLOPS NOTED . ASSESSMENTS LUMBAR SPONDYLOSIS - M47.816 (PRIMARY) CHRONIC PRESCRIPTION OPIATE USE - Z79.891 TREATMENT LUMBAR SPONDYLOSIS REFILL NORCO TABLET, 5-325 MG, 1 TABLET NEEDED, ORALLY, Q8H PRN MDD3, 30 DAYS, 90, REFILLS 0 NOTES: ISTOP REGISTRY REVIEWED AND DEMONSTRATES COMPLLIANCE. BRINGS IN MEDICATIONS WHICH IS APPROPRIATE FOR WHAT WAS DISPENSED. RECENT URINE TOXICOLOGY REVIEWED. NO UNAUTHORIZED MEDICATIONS. NO ILLICIT SUBSTANCES AND PRESCRIBED MEDICATIONS WERE PRESENT. , RISKS OF NARCOTIC/OPIOD MEDICATIONS INCLUDES BUT IS NOT LIMITED TO RISK OF DEPENDANCE/DEVELOPMENT OF ADDICTION, MOOD DISTURBANCE AND DEPRESSION, OSTEOPOROSIS, HORMONAL AND LABIDAL CHANGES, RESPIRATORY DEPRESSION AND . PATIENT IS ADVISED NOT TO DRIVE OR DRINK ALCOHOL WHILE ON THESE MEDICATIONS. PROCEDURE CODES FA211 ESTABILISHED PATIENT [facility] CHARGE DISPOSITION & COMMUNICATION FOLLOW UP 3 MONTHS (REASON: MEDICATION MANAGEMENT) ELECTRONICALLY SIGNED BY SHANDRA PRIETO ON 04/16/2020 AT 03:24 PM EST DISCLAIMER : THIS IS A VISIT SUMMARY EXTRACTED FROM THE [employer] CHART. IT IS NOT A COPY OF THE [employer] PROGRESS NOTE. MTDD
== END ==
LOC: M PAIN 14:15
PROVIDERS: ATTEND Nurse Practitioner Family
DX: M47.816 Spondylosis without myelopathy or radiculopathy, lumbar region (principal); I10 Essential (primary) hypertension; L73.2 Hidradenitis suppurativa; Z98.84 Bariatric surgery status; Z87.891 Personal history of nicotine dependence; Z79.891 Long term (current) use of opiate analgesic; Z79.899 Other long term (current) drug therapy; Z88.8 Allergy status to other drugs, medicaments and biological substances

== ENCOUNTER → 2020-06-17 | Outpatient (REF) | payer BC ==
[2020-06-17 13:06] LABS: ALBUMIN 3.3 GM/DL (3.2-5.2); ALT/SGPT 53 U/L (12-78); BILIRUBIN,TOTAL 0.8 MG/DL (0.2-1.0); BLOOD UREA NITROGEN 9 MG/DL (7-18); CALCIUM LEVEL 9.4 MG/DL (8.5-10.1); CARBON DIOXIDE LEVEL 28 MEQ/L (21-32); CHLORIDE LEVEL 105 MEQ/L (98-107); CREATININE FOR GFR 0.62 MG/DL (0.55-1.30); GLOMERULAR FILTRATION RATE > 60.0 (>51); GLUCOSE, FASTING 101 MG/DL (70-100); POTASSIUM SERUM 4.4 MEQ/L (3.5-5.1); SODIUM LEVEL 140 MEQ/L (136-145); TOTAL PROTEIN 6.9 GM/DL (6.4-8.2)
== END ==
LOC: M SFHCPLAZ 09:17
PROVIDERS: ATTEND Nurse Practitioner Adult Health
DX: R74.8 Abnormal levels of other serum enzymes (principal)

== ENCOUNTER → 2020-07-18 | Outpatient (CLI) | payer BC ==
--- NOTE | 2020-07-23 04:57 | ECWPNPC ---
PATIENT NAME: VI ORTIZ : 1960 GENDER: FEMALE VISIT DATE: 07/18/2020 DISCHARGE DATE: 07/18/20 1525 VISIT LOCKED DATE TIME: PHYSICIAN: KITTY HERBERT PHYSICIAN PAGER NO: ACTIVE RESOURCE: KITTY HERBERT REASON FOR APPOINTMENT 1. BACK/MEDS HISTORY OF PRESENT ILLNESS PAIN CENTER INTAKE QUESTIONS: DO YOU HAVE A HISTORY OF MRSA? :NO DO YOU TAKE A BLOOD THINNERS? :NO DO YOU HAVE ANY BLEEDING DISORDERS? :NO ANY NEW NUMBNESS OR WEAKNESS IN YOUR LEGS OR ARMS? :NO ANY PACEMAKER,DEFIBRILLATOR, OR DORSAL COLUMN STIMULATOR? :NO DO YOU HAVE ANY RASHES OR OPEN SORES? :NO ARE YOU ALLERGIC TO IV DYE? :NO ARE YOU DIABETIC? :NO ANY NEW PROBLEMS WITH YOUR MEDICATIONS? :NO HAVE YOU RECEIVED A VACCINE IN THE PAST 30 DAYS? :NO DO YOU PLAN TO RECEIVE A VACCINE IN THE NEXT 21 DAYS? :NO DO YOU NEED ANY PRESCRIPTION? :NO DO YOU TAKE ANY IMMUNOSUPPRESSIVE MEDICATIONS? :NO IS THERE A CHANCE YOU COULD BE ? :NO ARE YOU BREAST FEEDING? :NO GENERAL: - -. FALL RISK SCREENING: SCREENING :NO FALLS REPORTED IN THE LAST YEAR PAIN SCREENING: PATIENT HAS A COMPLAINT OF ACUTE OR CHRONIC PAIN :YES LOCATION OF PAIN:LOW BACK INTENSITY OF PAIN (SCALE OF 1 TO 10):7 WHAT DOES YOUR PAIN FEEL LIKE:ACHING, CONTINOUS DURATION:CONTINOUS, AWAKENS FROM SLEEP PAIN IS INCREASED BY:ACTIVITIES, PROLONGED STANDING PAIN IS DECREASED BY:USE OF PAIN MEDICATIONS, SITTING, OTHERS HYDROCODONE, FOAM MATTERESS BED HELPS NURSING NOTE: - -. HISTORY OF PRESENT ILLNESS: HERE FOR F/U OF CHRONIC LBP.OVERALL DOING WELL.RATING PAIN VAS 8/10. CONTINUES TO FIND CURRENT MEDICINE EFFECTIVE AT REDUCING PAIN AND KEEPING HER FUNCTIONAL. DENIES ADVERSE SIDE EFFECTS. PAIN THE PATIENT DESCRIBES THE PAIN... CURRENT MEDICATIONS TAKING MULTIVITAMINS OTC TABLET 1 TABLET P.O ONCE A DAY TAKING VITAMIN D _ TABLET 1 TAB(S) 5000MG ORALLY DAILY TAKING VITAMIN E 200 UNIT CAPSULE 1 CAPSULE ORALLY ONCE A DAY TAKING CYCLOBENZAPRINE HCL 10 MG TABLET 1 TABLET NEEDED ORALLY THREE TIMES A DAY TAKING AVAPRO 300 MG TABLET 1 TABLET ORALLY ONCE A DAY TAKING SLOW FE 160 (50 FE) MG TABLET EXTENDED RELEASE 1 TAB(S) ORALLY TWICE A DAY TAKING NORCO 5-325 MG TABLET 1 TABLET NEEDED ORALLY Q8H PRN MDD3 TAKING ADDERALL 20 MG TABLET 1 TABLET ORALLY ISTOP # [id number] TWICE A DAY MDD2 NOT-TAKING OMEPRAZOLE 40 MG CAPSULE DELAYED RELEASE 1 CAPSULE 30 MINUTES BEFORE MORNING MEAL ORALLY ONCE A DAY MEDICATION LIST REVIEWED AND RECONCILED WITH THE PATIENT PAST MEDICAL HISTORY GASTRIC BYPASS 2006 (DR. 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 HYDRADENITIS SUPPURATIVA - AFFECTS MOSTLY R AXILLA FAMILY HISTORY OF COLON CANCER AND FATHER BEFORE THE AGE OF 60 HTN FORMER SMOKER ANXIETY/DEPRESSION ELEVATED LIVER ENZYMES MIXED HYPERLIPIDEMIA ALLERGIES LISINOPRIL: COUGH, FELT LIKE SOMETHING WAS ALWAYS IN HER THROAT - SIDE EFFECTS SOCIAL HISTORY GENERAL: TOBACCO USE ARE YOU A:FORMER SMOKER HOW LONG HAS IT BEEN SINCE YOU LAST SMOKED?1-3 MONTHS LATEX QUESTIONNAIRE LATEX ALLERGY : HAVE YOU EVER DEVELOPED ANY TYPE OF REACTION AFTER HANDLING LATEX PRODUCTS SUCH RUBBER GLOVES, CONDOMS, DIAPHRAGMS, BALLOONS, SOCKS, OR UNDERWEAR?NO LATEX ALLERGY : HAVE YOU EVER DEVELOPED ANY TYPE OF REACTION DURING OR AFTER DENTAL APPOINTMENT, VAGINAL/RECTAL EXAMINATION, SURGICAL PROCEDURE, OR ANY OTHER EXPOSURE?NO LATEX RISK : HAVE YOU EVER HAD ANY DIFFICULTY BREATHING OR HIVES AFTER EATING OR HANDLING ANY FRUITS, OR VEGETABLES; SUCH KIWI, BANANAS, STONE FRUITS, OR CHESTNUTSNO LATEX RISK : DO YOU HAVE A PREVIOUS PERSONAL HISTORY OF MORE THAN NINE SURGERIES, SPINA BIFIDA, OR REPEATED CATHERIZATIONS? NO LATEX RISK : ARE YOU FREQUENTLY EXPOSED TO LATEX PRODUCTS IN YOUR OCCUPATION?NO DATE ASKED : 07/18/2020 ALCOHOL USE: NO. LUNG CANCER SCREENING SMOKING STATUS:FORMER SMOKER IS THE PATIENT BETWEEN THE AGE OF 55 AND 77?YES HAVE YOU QUIT SMOKING WITHIN THE PAST 15 YEARS?YES HAS THE PATIENT EVER BEEN DIAGNOSED WITH LUNG CANCER?NO CREATE REFERRAL:GENERATE AND CREATE REFERRAL TO THE ONCOLOGY NURSE NAVIGATOR (SMP) LISTING USING THE LDCT SCAN PROCEDURE DISCLAIMER:PLEASE ADD DISCLAIMER FROM BROWSE SECTION OF THE NOTE PACK YEARS = NUMBER OF PACKS PER DAY SMOKED X NUMBER OF YEARS SMOKED:35 BMI CARE GOAL FOLLOW-UP ABOVE NORMAL BMI FOLLOW-UPDIETARY MANAGEMENT EDUCATION, GUIDANCE, AND COUNSELING, DIETARY NEEDS EDUCATION ALCOHOL SCREENING DID YOU HAVE A DRINK CONTAINING ALCOHOL IN THE PAST YEAR?YES HOW OFTEN DID YOU HAVE A DRINK CONTAINING ALCOHOL IN THE PAST YEAR?FOUR OR MORE TIMES A WEEK (4 POINTS) POINTS4 INTERPRETATIONPOSITIVE RECREATIONAL DRUG USE DENIES. CAFFEINE 1-2/DAY. SEXUAL HX HAD SEX IN THE LAST 12 MONTHS (VAGINAL, ORAL, OR ANAL)?YES WITHMEN ONLY HIV / HEP-C SCREENING HIV TEST OFFERED TO PATIENT:YES DATE OFFERED:02/04/2017 TEST ACCEPTED:NO HEP-C TEST OFFERED TO PATIENT:YES DATE OFFERED:02/04/2017 REASON:PATIENT DECLINED TEST ACCEPTED:NO REASON:PATIENT DECLINED RESTORATIONIST NO BAPTIST BELIEFS THAT WOULD IMPACT HEALTH CARE. LANGUAGE HEBREW. RADIOLOGY INTERVENTIONAL PHYSICIAN'S DEGREE. LEARNING BARRIERS / SPECIAL NEEDS CHANGE FROM LAST VISIT?NO BARRIERS TO LEARNING?NO HEARING IMPAIRED?NO VISION IMPAIRED?YES :CORRECTIVE LENSES COGNITIVELY IMPAIRED?NO READINESS TO LEARN?YES LEARNING PREFERENCES?NO LEARNING CAPABILITIES PRESENT?YES EMOTIONAL BARRIERS?NO SPECIAL DEVICES?NO PROMOTIONS COORDINATOR NEEDED?NO DOMESTIC VIOLENCE NONE, NO SEXUAL ABUSE. OCCUPATION: EMPLOYED AT [employer]. DIET: WELL BALANCED DIET. EXERCISE: ONLY AT WORK; NO ROUTINE EXERCISE. MARITAL STATUS: . OTHERS AT HOME: . - PFS REFERRAL NEEDED?NO CLERGY REFERRAL NEEDED?NO PUBLIC HEALTH REFERRAL NEEDED?NO HAS THE PATIENT BEEN EDUCATED REGARDING HIS/HER PLAN OF CARE?YES HAS THE PATIENT BEEN EDUCATED REGARDING PAIN, THE RISK FOR PAIN, THE IMPORTANCE OF EFFECTIVE PAIN MANAGEMENT, AND THE PAIN ASSESSMENT PROCESS?YES HOUSING: OWNS HOME. ADVANCE DIRECTIVE ADVANCE DIRECTIVE DISCUSSED WITH PATIENT:YES HCP - MARKUS ORTIZ JR - . DOCUMENT NOT PROVIDED. REVIEW OF SYSTEMS CONSTITUTIONAL: ANY RECENT FEVER NO . CHILLS NO . WEIGHT CHANGE OF UNKNOWN REASONS NO . GASTROENTEROLOGY: NEW UNEXPLAINABLE CHANGES IN BOWEL CONTROL NO . CONSTIPATION NO . GENITOURINARY: ANY NEW CHANGE IN BLADDER CONTROL? NO . NEUROLOGY: NEW ONSET DIZZINESS OR NEUROLOGICAL CHANGES NOT MENTIONED NO . NEW NUMBNESS OR PAIN PATTERNS NOT MENTIONED AND PERTINENT TO TODAY'S VISIT NO . CARDIOLOGY: NEW CHEST PRESSURE NO . NEW CHEST PAIN NO . RESPIRATORY: UNEXPLAINABLE COUGH NO . NEW SHORTNESS OF BREATH NO . VITAL SIGNS WT 214 LBS, WT-KG 214 KG, HT 63", BMI 37.90 INDEX, BP 142/92 MM HG, HR 106 /MIN, RR 18 /MIN, TEMP 97.2 F, OXYGEN SAT % 97%, SAFE IN ENV? (Y/N) YES, REVIEWED BY: SAHIL DUMONT MA. EXAMINATION GENERAL EXAMINATION: GENERALAWAKE,ALERT ,PLEAASANT . PSYCHAFFECT NORMAL . LUNGS:LUNG GHOTRA ARE CLEAR TO AUSCULTATION BILATERALLY. GOOD MOVEMENT OF AIR . HEART:S1, S2 IN A REGULAR RATE AND RHYTHM. NO SIGNIFICANT MURMURS, RUBS OR GALLOPS NOTED . ASSESSMENTS LUMBAR SPONDYLOSIS - M47.816 (PRIMARY) CHRONIC PRESCRIPTION OPIATE USE - Z79.891 TREATMENT LUMBAR SPONDYLOSIS CONTINUE CYCLOBENZAPRINE HCL TABLET, 10 MG, 1 TABLET NEEDED, ORALLY, THREE TIMES A DAY REFILL NORCO TABLET, 5-325 MG, 1 TABLET NEEDED, ORALLY, Q8H PRN MDD3, 30 DAYS, 90, REFILLS 0 NOTES: ISTOP REGISTRY REVIEWED AND DEMONSTRATES COMPLLIANCE. BRINGS IN MEDICATIONS WHICH IS APPROPRIATE FOR WHAT WAS DISPENSED. RECENT URINE TOXICOLOGY REVIEWED. NO UNAUTHORIZED MEDICATIONS. NO ILLICIT SUBSTANCES AND PRESCRIBED MEDICATIONS WERE PRESENT. URINE TOX TODAY , RISKS OF NARCOTIC/OPIOD MEDICATIONS INCLUDES BUT IS NOT LIMITED TO RISK OF DEPENDANCE/DEVELOPMENT OF ADDICTION, MOOD DISTURBANCE AND DEPRESSION, OSTEOPOROSIS, HORMONAL AND LABIDAL CHANGES, RESPIRATORY DEPRESSION AND . PATIENT IS ADVISED NOT TO DRIVE OR DRINK ALCOHOL WHILE ON THESE MEDICATIONS. PROCEDURE CODES FA211 ESTABILISHED PATIENT [facility] FACILITY CHARGE DISPOSITION & COMMUNICATION FOLLOW UP 3 MONTHS (REASON: MED MANAGEMENT/REVIEW URINE TOX) ELECTRONICALLY SIGNED BY SHANDRA PRIETO ON 07/22/2020 AT 03:47 PM EST DISCLAIMER : THIS IS A VISIT SUMMARY EXTRACTED FROM THE [employer] CHART. IT IS NOT A COPY OF THE [employer] PROGRESS NOTE. HAIDER
== END ==
LOC: M PAIN 14:45
PROVIDERS: ATTEND Nurse Practitioner Family
DX: M47.816 Spondylosis without myelopathy or radiculopathy, lumbar region (principal); G89.29 Other chronic pain; Z98.84 Bariatric surgery status; Z86.59 Personal history of other mental and behavioral disorders; Z87.891 Personal history of nicotine dependence; Z88.8 Allergy status to other drugs, medicaments and biological substances; Z79.899 Other long term (current) drug therapy

== ENCOUNTER → 2020-07-29 | Outpatient (CLI) | payer BC ==
--- NOTE | 2020-07-29 08:59 | REP ---
INDICATION: SCREENING. COMPARISON: Comparison is made with abdominal CT images at the lung bases from May 11, 2013.. No other chest CT. TECHNIQUE: Low-dose screening exam. Helical scanning is acquired. 3 mm axial images are provided at lung windows only. FINDINGS: Digital preliminary sprinkling system irrigator radiograph is unremarkable. There is an area of pleuroparenchymal density in the right middle lobe anteromedially. At its uppermost edge, this area of linear opacity has a somewhat nodular morphology, 11 mm in greatest diameter.. The prior abdominal CT imaging did not extend up high enough to provide comparison. No other significant pulmonary nodule is appreciated. There is mild vascular calcification. Study is otherwise unremarkable. IMPRESSION: There is an 11 mm nodular area in the right middle lobe anteriorly with some associated linear density. This suggests that this may be fibrosis. There is a nodular morphology at its upper edge. I would suggest a standard CT study of the chest be performed for better characterization with multiplanar re-formation images. If this confirms a fibrotic appearance, it can be followed. Lung RADS category 4A. <Electronically signed by Pantera Altman > 07/29/20 0807
== END ==
LOC: M RAD 07:43
PROVIDERS: ATTEND Nurse Practitioner Adult Health
DX: Z12.2 Encounter for screening for malignant neoplasm of respiratory organs (principal); Z87.891 Personal history of nicotine dependence; R91.8 Other nonspecific abnormal finding of lung field

== ENCOUNTER → 2020-10-16 | Outpatient (CLI) | payer BC ==
--- NOTE | 2020-10-18 06:24 | ECWPNPC ---
PATIENT NAME: VI ORTIZ : 1960 GENDER: FEMALE VISIT DATE: 10/16/2020 DISCHARGE DATE: 10/16/20 1527 VISIT LOCKED DATE TIME: PHYSICIAN: KITTY HERBERT PHYSICIAN PAGER NO: ACTIVE RESOURCE: KITTY HERBERT REASON FOR APPOINTMENT 1. MED MANAGEMENT/REVIEW URINE TOX HISTORY OF PRESENT ILLNESS GENERAL: -. FALL RISK SCREENING: SCREENING : NO FALLS REPORTED IN THE LAST YEAR. PAIN SCREENING: PATIENT HAS A COMPLAINT OF ACUTE OR CHRONIC PAIN :YES LOCATION OF PAIN:LOW BACK INTENSITY OF PAIN (SCALE OF 1 TO 10):8 WHAT DOES YOUR PAIN FEEL LIKE:ACHING, BURNING, CONTINOUS, SHARP, STABBING, TENDER, THROBBING, SHOOTING DURATION:CONTINOUS, CONSTANT, ALL DAY PAIN IS INCREASED BY:ACTIVITIES, OTHERS WEATHER CHANGES PAIN IS DECREASED BY:USE OF PAIN MEDICATIONS NURSING NOTE: -. PAIN CENTER INTAKE QUESTIONS: DO YOU HAVE A HISTORY OF MRSA? :NO DO YOU TAKE A BLOOD THINNERS? :NO DO YOU HAVE ANY BLEEDING DISORDERS? :NO ANY NEW NUMBNESS OR WEAKNESS IN YOUR LEGS OR ARMS? :NO ANY PACEMAKER,DEFIBRILLATOR, OR DORSAL COLUMN STIMULATOR? :NO DO YOU HAVE ANY RASHES OR OPEN SORES? :NO ARE YOU ALLERGIC TO IV DYE? :NO ARE YOU DIABETIC? :NO ANY NEW PROBLEMS WITH YOUR MEDICATIONS? :NO HAVE YOU RECEIVED A VACCINE IN THE PAST 30 DAYS? :YES 2ND COVID SHOT 09/09/2020 DO YOU PLAN TO RECEIVE A VACCINE IN THE NEXT 21 DAYS? :NO DO YOU NEED ANY PRESCRIPTION? :YES HYDROCODONE-ONOFRE 5-325MG DO YOU TAKE ANY IMMUNOSUPPRESSIVE MEDICATIONS? :NO IS THERE A CHANCE YOU COULD BE ? :NO ARE YOU BREAST FEEDING? :NO HISTORY OF PRESENT ILLNESS: HERE FOR F/U OF CHRONIC LBP.OVERALL DOING WELL.RATING PAIN VAS 8/10. CONTINUES TO FIND CURRENT MEDICINE EFFECTIVE AT REDUCING PAIN AND KEEPING HER FUNCTIONAL. DENIES ADVERSE SIDE EFFECTS. PAIN THE PATIENT DESCRIBES THE PAIN... CURRENT MEDICATIONS TAKING SLOW FE 160 (50 FE) MG TABLET EXTENDED RELEASE 1 TAB(S) ORALLY TWICE A DAY TAKING OMEPRAZOLE 40 MG CAPSULE DELAYED RELEASE 1 CAPSULE 30 MINUTES BEFORE MORNING MEAL ORALLY ONCE A DAY TAKING HYDROCODONE-ACETAMINOPHEN 5-325 MG TABLET 1 TABLET NEEDED ORALLY Q8H PRN MDD3 TAKING CYCLOBENZAPRINE HCL 10 MG TABLET 1 TABLET NEEDED ORALLY THREE TIMES A DAY TAKING MULTIVITAMINS OTC TABLET 1 TABLET P.O ONCE A DAY TAKING VITAMIN D _ TABLET 1 TAB(S) 5000MG ORALLY DAILY TAKING VITAMIN E 200 UNIT CAPSULE 1 CAPSULE ORALLY ONCE A DAY TAKING AVAPRO 300 MG TABLET 1 TABLET ORALLY ONCE A DAY TAKING ADDERALL 20 MG TABLET 1 TABLET ORALLY, I-STOP #[id number] TWICE A DAY, MDD=2 MEDICATION LIST REVIEWED AND RECONCILED WITH THE PATIENT PAST MEDICAL HISTORY GASTRIC BYPASS 2006 (DR. 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 QUESTION FIBROSIS LUNG CT FU SUGGESTED -ORDERED ALLERGIES LISINOPRIL: COUGH, FELT LIKE SOMETHING WAS ALWAYS IN HER THROAT - SIDE EFFECTS SOCIAL HISTORY GENERAL: TOBACCO USE ARE YOU A:FORMER SMOKER HOW LONG HAS IT BEEN SINCE YOU LAST SMOKED?3-6 MONTHS LATEX QUESTIONNAIRE LATEX ALLERGY : HAVE YOU EVER DEVELOPED ANY TYPE OF REACTION AFTER HANDLING LATEX PRODUCTS SUCH RUBBER GLOVES, CONDOMS, DIAPHRAGMS, BALLOONS, SOCKS, OR UNDERWEAR?NO LATEX ALLERGY : HAVE YOU EVER DEVELOPED ANY TYPE OF REACTION DURING OR AFTER DENTAL APPOINTMENT, VAGINAL/RECTAL EXAMINATION, SURGICAL PROCEDURE, OR ANY OTHER EXPOSURE?NO LATEX RISK : HAVE YOU EVER HAD ANY DIFFICULTY BREATHING OR HIVES AFTER EATING OR HANDLING ANY FRUITS, OR VEGETABLES; SUCH KIWI, BANANAS, STONE FRUITS, OR CHESTNUTSNO LATEX RISK : DO YOU HAVE A PREVIOUS PERSONAL HISTORY OF MORE THAN NINE SURGERIES, SPINA BIFIDA, OR REPEATED CATHERIZATIONS? NO LATEX RISK : ARE YOU FREQUENTLY EXPOSED TO LATEX PRODUCTS IN YOUR OCCUPATION?NO DATE ASKED : 10/16/2020 ALCOHOL USE: NO. LUNG CANCER SCREENING SMOKING STATUS:FORMER SMOKER IS THE PATIENT BETWEEN THE AGE OF 55 AND 77?YES HAVE YOU QUIT SMOKING WITHIN THE PAST 15 YEARS?YES HAS THE PATIENT EVER BEEN DIAGNOSED WITH LUNG CANCER?NO CREATE REFERRAL:GENERATE AND CREATE REFERRAL TO THE ONCOLOGY NURSE NAVIGATOR (SMP) LISTING USING THE LDCT SCAN PROCEDURE DISCLAIMER:PLEASE ADD DISCLAIMER FROM BROWSE SECTION OF THE NOTE PACK YEARS = NUMBER OF PACKS PER DAY SMOKED X NUMBER OF YEARS SMOKED:35 BMI CARE GOAL FOLLOW-UP ABOVE NORMAL BMI FOLLOW-UPDIETARY MANAGEMENT EDUCATION, GUIDANCE, AND COUNSELING, DIETARY NEEDS EDUCATION ALCOHOL SCREENING DID YOU HAVE A DRINK CONTAINING ALCOHOL IN THE PAST YEAR?YES HOW OFTEN DID YOU HAVE A DRINK CONTAINING ALCOHOL IN THE PAST YEAR?FOUR OR MORE TIMES A WEEK (4 POINTS) POINTS4 INTERPRETATIONPOSITIVE RECREATIONAL DRUG USE DENIES. CAFFEINE 1-2/DAY. SEXUAL HX HAD SEX IN THE LAST 12 MONTHS (VAGINAL, ORAL, OR ANAL)?YES WITHMEN ONLY HIV / HEP-C SCREENING HIV TEST OFFERED TO PATIENT:YES DATE OFFERED:02/04/2017 TEST ACCEPTED:NO HEP-C TEST OFFERED TO PATIENT:YES DATE OFFERED:02/04/2017 REASON:PATIENT DECLINED TEST ACCEPTED:NO REASON:PATIENT DECLINED QUAKER NO LATTER-DAY BELIEFS THAT WOULD IMPACT HEALTH CARE. LANGUAGE CITIZ[place]. WIPER BLENDER'S DEGREE. LEARNING BARRIERS / SPECIAL NEEDS CHANGE FROM LAST VISIT?NO BARRIERS TO LEARNING?NO HEARING IMPAIRED?NO VISION IMPAIRED?YES :CORRECTIVE LENSES COGNITIVELY IMPAIRED?NO READINESS TO LEARN?YES LEARNING PREFERENCES?NO LEARNING CAPABILITIES PRESENT?YES EMOTIONAL BARRIERS?NO SPECIAL DEVICES?NO HOME HEALTH OUTREACH COORDINATOR NEEDED?NO DOMESTIC VIOLENCE NONE, NO SEXUAL ABUSE. OCCUPATION: EMPLOYED AT [employer]. DIET: WELL BALANCED DIET. EXERCISE: ONLY AT WORK; NO ROUTINE EXERCISE. MARITAL STATUS: . OTHERS AT HOME: . - PFS REFERRAL NEEDED?NO CLERGY REFERRAL NEEDED?NO PUBLIC HEALTH REFERRAL NEEDED?NO HAS THE PATIENT BEEN EDUCATED REGARDING HIS/HER PLAN OF CARE?YES HAS THE PATIENT BEEN EDUCATED REGARDING PAIN, THE RISK FOR PAIN, THE IMPORTANCE OF EFFECTIVE PAIN MANAGEMENT, AND THE PAIN ASSESSMENT PROCESS?YES HOUSING: OWNS HOME. ADVANCE DIRECTIVE ADVANCE DIRECTIVE DISCUSSED WITH PATIENT:YES HCP - MARKUS ORTIZ JR - . DOCUMENT NOT PROVIDED. REVIEW OF SYSTEMS CONSTITUTIONAL: ANY RECENT FEVER NO . CHILLS NO . WEIGHT CHANGE OF UNKNOWN REASONS NO . GASTROENTEROLOGY: NEW UNEXPLAINABLE CHANGES IN BOWEL CONTROL NO . CONSTIPATION NO . GENITOURINARY: ANY NEW CHANGE IN BLADDER CONTROL? NO . NEUROLOGY: NEW ONSET DIZZINESS OR NEUROLOGICAL CHANGES NOT MENTIONED NO . NEW NUMBNESS OR PAIN PATTERNS NOT MENTIONED AND PERTINENT TO TODAY'S VISIT NO . CARDIOLOGY: NEW CHEST PRESSURE NO . PATIENT DENIES NO . RESPIRATORY: UNEXPLAINABLE COUGH NO . NEW SHORTNESS OF BREATH NO . VITAL SIGNS WT 208.9 LBS, HT 63", BMI 37.00 INDEX, BP 155/74 MM HG, HR 107 /MIN, RR 18 /MIN, TEMP 98.0 F, OXYGEN SAT % 93%, SAFE IN ENV? (Y/N) YES, NA INITIALS AW 1443T.RAMOS JAX. EXAMINATION GENERAL EXAMINATION: GENERALAWAKE,ALERT ,PLEAASANT . PSYCHAFFECT NORMAL . LUNGS:LUNG GHOTRA ARE CLEAR TO AUSCULTATION BILATERALLY. GOOD MOVEMENT OF AIR . HEART:S1, S2 IN A REGULAR RATE AND RHYTHM. NO SIGNIFICANT MURMURS, RUBS OR GALLOPS NOTED . ASSESSMENTS LUMBAR SPONDYLOSIS - M47.816 (PRIMARY) CHRONIC PRESCRIPTION OPIATE USE - Z79.891 TREATMENT LUMBAR SPONDYLOSIS REFILL HYDROCODONE-ACETAMINOPHEN TABLET, 5-325 MG, 1 TABLET NEEDED, ORALLY, Q8H PRN MDD3, 30 DAYS, 90 NOTES: ISTOP REGISTRY REVIEWED AND DEMONSTRATES COMPLLIANCE. BRINGS IN MEDICATIONS WHICH IS APPROPRIATE FOR WHAT WAS DISPENSED. RECENT URINE TOXICOLOGY REVIEWED. NO UNAUTHORIZED MEDICATIONS. NO ILLICIT SUBSTANCES AND PRESCRIBED MEDICATIONS WERE PRESENT. PROCEDURE CODES FA211 ESTABILISHED PATIENT [facility] CHARGE DISPOSITION & COMMUNICATION FOLLOW UP 3 MONTHS (REASON: MED MGMNT/UTOX) ELECTRONICALLY SIGNED BY SHANDRA PRIETO ON 10/17/2020 AT 04:43 PM EDT DISCLAIMER : THIS IS A VISIT SUMMARY EXTRACTED FROM THE [facility] CHART. IT IS NOT A COPY OF THE [facility] PROGRESS NOTE. HAIDER
== END ==
LOC: M PAIN 14:45
PROVIDERS: ATTEND Nurse Practitioner Family
DX: M47.816 Spondylosis without myelopathy or radiculopathy, lumbar region (principal); G89.29 Other chronic pain; Z86.59 Personal history of other mental and behavioral disorders; Z98.84 Bariatric surgery status; Z87.891 Personal history of nicotine dependence; Z88.8 Allergy status to other drugs, medicaments and biological substances; Z79.899 Other long term (current) drug therapy

== ENCOUNTER → 2020-10-29 | Outpatient (REF) | payer BC ==
[2020-10-29 15:09] LABS: HEMATOCRIT 47.4 % (36.0-47.0); MEAN CORPUSCULAR HEMOGLOBIN 36.9 pg (27.0-33.0); MEAN CORPUSCULAR HGB CONC 33.8 g/dl (32.0-36.5); MEAN CORPUSCULAR VOLUME 109.2 fl (80.0-96.0); PLATELET COUNT, AUTOMATED 249 10^3/uL (150-450); RED BLOOD COUNT 4.34 10^6/uL (4.00-5.40)
[2020-10-29 15:43] LABS: ALBUMIN 3.2 GM/DL (3.2-5.2); ALT/SGPT 46 U/L (12-78); BILIRUBIN,TOTAL 0.8 MG/DL (0.2-1.0); BLOOD UREA NITROGEN 9 MG/DL (7-18); CALCIUM LEVEL 9.1 MG/DL (8.8-10.2); CARBON DIOXIDE LEVEL 28 MEQ/L (21-32); CHLORIDE LEVEL 102 MEQ/L (98-107); CHOLESTEROL LEVEL 204 MG/DL (<200); CHOLESTEROL RISK RATIO 3.777 (<5); CREATININE FOR GFR 0.58 MG/DL (0.55-1.30); GLOMERULAR FILTRATION RATE > 60.0 (>45); GLUCOSE, FASTING 101 MG/DL (70-100); HDL CHOLESTEROL 54 MG/DL (>40); LDL CHOLESTEROL 126 MG/DL (<100); NON-HDL-C 150 MG/DL; POTASSIUM SERUM 4.2 MEQ/L (3.5-5.1); SODIUM LEVEL 139 MEQ/L (136-145); TOTAL PROTEIN 7.2 GM/DL (6.4-8.2); TRIGLYCERIDES LEVEL 121 MG/DL (<150)
== END ==
LOC: M SFHCPLAZ 12:51
PROVIDERS: ATTEND Nurse Practitioner Adult Health
DX: Z00.00 Encounter for general adult medical examination without abnormal findings (principal); E55.9 Vitamin D deficiency, unspecified; E78.2 Mixed hyperlipidemia; R68.2 Dry mouth, unspecified; Z98.890 Other specified postprocedural states

== ENCOUNTER → 2020-11-07 | Outpatient (CLI) | payer BC ==
[~2020-11-07] MED LIST changes: +ISOVUE-370 76% 100ML VIAL As Ordered ONE
--- NOTE | 2020-11-07 09:55 | REPVR ---
PROCEDURE INFORMATION: Exam: CT Chest With Contrast; Diagnostic Exam date and time: 11/07/2020 9:11 AM Age: 60 years old Clinical indication: Abnormal findings; Lung mass or nodule; Not specified; Additional info: Lung nodule TECHNIQUE: Imaging protocol: Diagnostic computed tomography of the chest with contrast. 3D rendering (Not supervised by radiologist): MIP and/or 3D reconstructed images were created by the technologist. Radiation optimization: All CT scans at this facility use at least one of these dose optimization techniques: automated exposure control; mA and/or kV adjustment per patient size (includes targeted exams where dose is matched to clinical indication); or iterative reconstruction. Contrast material: ISOVUE 370; Contrast volume: 100 ml; Contrast route: INTRAVENOUS (IV); COMPARISON: CR CHEST 2 VIEW 01/21/2017 2:09 PM FINDINGS: Lungs: Bilateral mild pulmonary hyperinflation, consistent with underlying COPD. Pleural spaces: Unremarkable. No pneumothorax. No pleural effusion. Heart: The heart size is normal. Normal pulmonary vasculature. Moderate coronary artery calcification is present. Pulmonary arteries: No CT evidence of acute pulmonary embolism. Aorta: No CT evidence of acute thoracic aortic dissection, thoracic aneurysm or acute intramural thoracic aortic hematoma. Lymph nodes: Unremarkable. No enlarged lymph nodes. Liver: Moderately severe diffuse fatty infiltration of the liver is present. Stomach and bowel: Questionable prior gastric sleeve surgery. Bones/joints: Moderate chronic degenerative anterior vertebral body endplate osteophytic disease is seen in the mid to lower thoracic spine. Soft tissues: Unremarkable. IMPRESSION: 1. No CT evidence of acute pulmonary embolism. 2. No CT evidence of acute thoracic aortic dissection, thoracic aneurysm or acute intramural thoracic aortic hematoma. 3. The heart size is normal. Normal pulmonary vasculature. Moderate coronary artery calcification is present. 4. Bilateral mild pulmonary hyperinflation, consistent with underlying COPD. 5. Moderate chronic degenerative anterior vertebral body endplate osteophytic disease is seen in the mid to lower thoracic spine. 6. Moderately severe diffuse fatty infiltration of the liver is present. 7. Questionable prior gastric sleeve surgery. Electronically signed by: Thom Grajeda On 11/07/2020 09:55:07 AM
== END ==
LOC: M RAD 08:49
PROVIDERS: ATTEND Nurse Practitioner Adult Health
DX: R91.1 Solitary pulmonary nodule (principal)

== ENCOUNTER → 2021-01-16 | Outpatient (CLI) | payer BC ==
[~2021-01-16] MED LIST changes: -ISOVUE-370 76% 100ML VIAL As Ordered ONE; +OMEP40CA4 PO; -OMEP40CA97 PO
--- NOTE | 2021-01-17 04:14 | ECWPNPC ---
PATIENT NAME: VI ORTIZ : 1960 GENDER: FEMALE VISIT DATE: 01/16/2021 DISCHARGE DATE: 01/16/21 1521 VISIT LOCKED DATE TIME: PHYSICIAN: KITTY HERBERT PHYSICIAN PAGER NO: ACTIVE RESOURCE: KITTY HERBERT REASON FOR APPOINTMENT 1. MED MGMNT/UTOX HISTORY OF PRESENT ILLNESS DEPRESSION SCREENING: PHQ-2 (2015 EDITION) LITTLE INTEREST OR PLEASURE IN DOING THINGS?NOT AT ALL FEELING DOWN, DEPRESSED, OR HOPELESS?NOT AT ALL TOTAL SCORE0 GENERAL: -. FALL RISK SCREENING: SCREENING : NO FALLS REPORTED IN THE LAST YEAR. PAIN SCREENING: PATIENT HAS A COMPLAINT OF ACUTE OR CHRONIC PAIN :YES LOCATION OF PAIN:LOW BACK INTENSITY OF PAIN (SCALE OF 1 TO 10):6 WHAT DOES YOUR PAIN FEEL LIKE:ACHING, BURNING, CONTINOUS, THROBBING DURATION:CONTINOUS, CONSTANT, ALL DAY PAIN IS INCREASED BY:PROLONGED STANDING PAIN IS DECREASED BY:USE OF PAIN MEDICATIONS NURSING NOTE: -. PAIN CENTER INTAKE QUESTIONS: DO YOU HAVE A HISTORY OF MRSA? :NO DO YOU TAKE A BLOOD THINNERS? :NO DO YOU HAVE ANY BLEEDING DISORDERS? :NO ANY NEW NUMBNESS OR WEAKNESS IN YOUR LEGS OR ARMS? :NO ANY PACEMAKER,DEFIBRILLATOR, OR DORSAL COLUMN STIMULATOR? :NO DO YOU HAVE ANY RASHES OR OPEN SORES? :NO ARE YOU ALLERGIC TO IV DYE? :NO ARE YOU DIABETIC? :NO ANY NEW PROBLEMS WITH YOUR MEDICATIONS? :NO HAVE YOU RECEIVED A VACCINE IN THE PAST 30 DAYS? :YES 2ND COVID SHOT 09/09/2020 DO YOU PLAN TO RECEIVE A VACCINE IN THE NEXT 21 DAYS? :NO DO YOU NEED ANY PRESCRIPTION? :YES HYDROCODONE-ONOFRE 5-325MG DO YOU TAKE ANY IMMUNOSUPPRESSIVE MEDICATIONS? :NO IS THERE A CHANCE YOU COULD BE ? :NO ARE YOU BREAST FEEDING? :NO HISTORY OF PRESENT ILLNESS: HERE FOR F/U OF CHRONIC LBP.OVERALL DOING WELL.RATING PAIN VAS 8/10. CONTINUES TO FIND CURRENT MEDICINE EFFECTIVE AT REDUCING PAIN AND KEEPING HER FUNCTIONAL. DENIES ADVERSE SIDE EFFECTS. PAIN THE PATIENT DESCRIBES THE PAIN... CURRENT MEDICATIONS TAKING CYCLOBENZAPRINE HCL 10 MG TABLET 1 TABLET NEEDED ORALLY THREE TIMES A DAY TAKING MULTIVITAMINS OTC TABLET 1 TABLET P.O ONCE A DAY TAKING VITAMIN D _ TABLET 1 TAB(S) 5000MG ORALLY DAILY TAKING VITAMIN E 200 UNIT CAPSULE 1 CAPSULE ORALLY ONCE A DAY TAKING HYDROCODONE-ACETAMINOPHEN 5-325 MG TABLET 1 TABLET NEEDED ORALLY Q8H PRN MDD3 TAKING SLOW FE 160 (50 FE) MG TABLET EXTENDED RELEASE 1 TAB(S) ORALLY TWICE A DAY, NOTES: IRON TAKING OMEPRAZOLE 40 MG CAPSULE DELAYED RELEASE 1 CAPSULE 30 MINUTES BEFORE MORNING MEAL ORALLY ONCE A DAY TAKING AVAPRO 300 MG TABLET 1 TABLET ORALLY ONCE A DAY, NOTES: BLOOD PRESSUE TAKING ADDERALL 20 MG TABLET 1 TABLET ORALLY, I-STOP #[id number] TWICE A DAY, MDD=2 MEDICATION LIST REVIEWED AND RECONCILED WITH THE PATIENT PAST MEDICAL HISTORY GASTRIC BYPASS 2006 (DR. 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 QUESTION FIBROSIS LUNG CT FU SUGGESTED -ORDERED ALLERGIES LISINOPRIL: COUGH, FELT LIKE SOMETHING WAS ALWAYS IN HER THROAT - SIDE EFFECTS SURGICAL HISTORY TUBAL LIGATION 1992 GASTRIC BYPASS 2007 HYSTERECTOMY, KEPT OVARIES 2005 COLONOSCOPY (DR. SPENCE, NORMAL) 2010 EGD (DR. SPENCE, NORMAL) 2011 CARPAL TUNNEL RELEASE-BILATERALLY 2011 UPPER GI ENDOSCOPY AND COLONOSCOPY ( DR FRANK) 5 YR FOLLOW UP 2017 ORAL SURG NOV 1206/2020 SOCIAL HISTORY GENERAL: TOBACCO USE ARE YOU A:FORMER SMOKER HOW LONG HAS IT BEEN SINCE YOU LAST SMOKED?3-6 MONTHS LATEX QUESTIONNAIRE LATEX ALLERGY : HAVE YOU EVER DEVELOPED ANY TYPE OF REACTION AFTER HANDLING LATEX PRODUCTS SUCH RUBBER GLOVES, CONDOMS, DIAPHRAGMS, BALLOONS, SOCKS, OR UNDERWEAR?NO LATEX ALLERGY : HAVE YOU EVER DEVELOPED ANY TYPE OF REACTION DURING OR AFTER DENTAL APPOINTMENT, VAGINAL/RECTAL EXAMINATION, SURGICAL PROCEDURE, OR ANY OTHER EXPOSURE?NO LATEX RISK : HAVE YOU EVER HAD ANY DIFFICULTY BREATHING OR HIVES AFTER EATING OR HANDLING ANY FRUITS, OR VEGETABLES; SUCH KIWI, BANANAS, STONE FRUITS, OR CHESTNUTSNO LATEX RISK : DO YOU HAVE A PREVIOUS PERSONAL HISTORY OF MORE THAN NINE SURGERIES, SPINA BIFIDA, OR REPEATED CATHERIZATIONS? NO LATEX RISK : ARE YOU FREQUENTLY EXPOSED TO LATEX PRODUCTS IN YOUR OCCUPATION?NO DATE ASKED : 01/16/2021 ALCOHOL USE: NO. LUNG CANCER SCREENING SMOKING STATUS:FORMER SMOKER IS THE PATIENT BETWEEN THE AGE OF 55 AND 77?YES HAVE YOU QUIT SMOKING WITHIN THE PAST 15 YEARS?YES PACK YEARS = NUMBER OF PACKS PER DAY SMOKED X NUMBER OF YEARS SMOKED:35 HAS THE PATIENT EVER BEEN DIAGNOSED WITH LUNG CANCER?NO CREATE REFERRAL:GENERATE AND CREATE REFERRAL TO THE ONCOLOGY NURSE NAVIGATOR (SMP) LISTING USING THE LDCT SCAN PROCEDURE DISCLAIMER:PLEASE ADD DISCLAIMER FROM BROWSE SECTION OF THE NOTE BMI CARE GOAL FOLLOW-UP ABOVE NORMAL BMI FOLLOW-UPDIETARY MANAGEMENT EDUCATION, GUIDANCE, AND COUNSELING, DIETARY NEEDS EDUCATION ALCOHOL SCREENING DID YOU HAVE A DRINK CONTAINING ALCOHOL IN THE PAST YEAR?YES HOW OFTEN DID YOU HAVE A DRINK CONTAINING ALCOHOL IN THE PAST YEAR?FOUR OR MORE TIMES A WEEK (4 POINTS) POINTS4 INTERPRETATIONPOSITIVE RECREATIONAL DRUG USE DENIES. CAFFEINE 1-2/DAY. SEXUAL HX HAD SEX IN THE LAST 12 MONTHS (VAGINAL, ORAL, OR ANAL)?YES WITHMEN ONLY HIV / HEP-C SCREENING HIV TEST OFFERED TO PATIENT:YES DATE OFFERED:02/04/2017 TEST ACCEPTED:NO REASON:PATIENT DECLINED HEP-C TEST OFFERED TO PATIENT:YES DATE OFFERED:02/04/2017 TEST ACCEPTED:NO REASON:PATIENT DECLINED MU-ISM NO RASTAFARI BELIEFS THAT WOULD IMPACT HEALTH CARE. LANGUAGE SW[place]ISH. 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 LEARNING BARRIERS / SPECIAL NEEDS CHANGE FROM LAST VISIT?NO BARRIERS TO LEARNING?NO HEARING IMPAIRED?NO VISION IMPAIRED?YES :CORRECTIVE LENSES COGNITIVELY IMPAIRED?NO READINESS TO LEARN?YES LEARNING PREFERENCES?NO LEARNING CAPABILITIES PRESENT?YES EMOTIONAL BARRIERS?NO SPECIAL DEVICES?NO CAMPAIGN COORDINATOR NEEDED?NO DOMESTIC VIOLENCE NONE, NO SEXUAL ABUSE. OCCUPATION: EMPLOYED AT [employer]. DIET: WELL BALANCED DIET. EXERCISE: ONLY AT WORK; NO ROUTINE EXERCISE. MARITAL STATUS: . OTHERS AT HOME: . - PFS REFERRAL NEEDED?NO CLERGY REFERRAL NEEDED?NO PUBLIC HEALTH REFERRAL NEEDED?NO HAS THE PATIENT BEEN EDUCATED REGARDING HIS/HER PLAN OF CARE?YES HAS THE PATIENT BEEN EDUCATED REGARDING PAIN, THE RISK FOR PAIN, THE IMPORTANCE OF EFFECTIVE PAIN MANAGEMENT, AND THE PAIN ASSESSMENT PROCESS?YES HOUSING: OWNS HOME. ADVANCE DIRECTIVE ADVANCE DIRECTIVE DISCUSSED WITH PATIENT:YES HCP - MARKUS ORTIZ JR - . DOCUMENT NOT PROVIDED. HOSPITALIZATION/MAJOR DIAGNOSTIC PROCEDURE CHILDBIRTH X 3 SURGERY RELATED REVIEW OF SYSTEMS CONSTITUTIONAL: ANY RECENT FEVER NO . CHILLS NO . WEIGHT CHANGE OF UNKNOWN REASONS NO . GASTROENTEROLOGY: NEW UNEXPLAINABLE CHANGES IN BOWEL CONTROL NO . CONSTIPATION NO . GENITOURINARY: ANY NEW CHANGE IN BLADDER CONTROL? NO . NEUROLOGY: NEW ONSET DIZZINESS OR NEUROLOGICAL CHANGES NOT MENTIONED NO . NEW NUMBNESS OR PAIN PATTERNS NOT MENTIONED AND PERTINENT TO TODAY'S VISIT NO . CARDIOLOGY: NEW CHEST PRESSURE NO . PATIENT DENIES NO . RESPIRATORY: UNEXPLAINABLE COUGH NO . NEW SHORTNESS OF BREATH NO . VITAL SIGNS WT 191.0 LBS, WT-KG 86.64 KG, HT 63", BMI 33.83 INDEX, BP 151/81 MM HG, REPEAT BP 140/80 MM HG, HR 109 /MIN, RR 18 /MIN, TEMP 97.4 F, OXYGEN SAT % 97%, SAFE IN ENV? (Y/N) YES, NA INITIALS AW 1437T.RICHARD CAMARA. EXAMINATION GENERAL EXAMINATION: GENERALAWAKE,ALERT ,PLEAASANT . PSYCHAFFECT NORMAL . LUNGS:LUNG GHOTRA ARE CLEAR TO AUSCULTATION BILATERALLY. GOOD MOVEMENT OF AIR . HEART:S1, S2 IN A REGULAR RATE AND RHYTHM. NO SIGNIFICANT MURMURS, RUBS OR GALLOPS NOTED . ASSESSMENTS LUMBAR SPONDYLOSIS - M47.816 (PRIMARY) CHRONIC PRESCRIPTION OPIATE USE - Z79.891 TREATMENT LUMBAR SPONDYLOSIS REFILL HYDROCODONE-ACETAMINOPHEN TABLET, 5-325 MG, 1 TABLET NEEDED, ORALLY, Q8H PRN MDD3 3M SUPPLY CATD CHRONIC PAIN, 90 DAY(S), 270, REFILLS 0 VISIT CODES 98342 OFFICE VISIT, EST PT., LEVEL 3. PROCEDURE CODES FA211 ESTABILISHED PATIENT [facility] CHARGE DISPOSITION & COMMUNICATION FOLLOW UP 3 MONTHS (REASON: MED MGMNT) ELECTRONICALLY SIGNED BY SHANDRA PRIETO ON 01/16/2021 AT 03:35 PM EDT DISCLAIMER : THIS IS A VISIT SUMMARY EXTRACTED FROM THE [facility] CHART. IT IS NOT A COPY OF THE [facility] PROGRESS NOTE. MTDD
== END ==
LOC: M PAIN 14:45
PROVIDERS: ATTEND Nurse Practitioner Family
DX: M47.816 Spondylosis without myelopathy or radiculopathy, lumbar region (principal); Z79.891 Long term (current) use of opiate analgesic; M54.5 Low back pain; L73.2 Hidradenitis suppurativa; I10 Essential (primary) hypertension; F41.9 Anxiety disorder, unspecified; F32.9 Major depressive disorder, single episode, unspecified; E78.2 Mixed hyperlipidemia; Z98.84 Bariatric surgery status; Z87.891 Personal history of nicotine dependence; Z79.899 Other long term (current) drug therapy; Z88.8 Allergy status to other drugs, medicaments and biological substances

== ENCOUNTER → 2021-03-31 | Outpatient (CLI) | payer BC ==
[2021-03-31 18:10] LABS: BASO # 0.1 10^3/uL (0.0-0.2); BASO % 0.6 % (0.0-1.0); EOS # 0.2 10^3/uL (0.0-0.5); EOS % 2.3 % (0.0-3.0); HEMATOCRIT 37.9 % (36.0-47.0); HEMOGLOBIN 12.2 g/dl (12.0-15.5); LYMPH # 2.8 10^3/uL (1.5-5.0); LYMPH % 31.3 % (24.0-44.0); MEAN CORPUSCULAR HEMOGLOBIN 32.4 pg (27.0-33.0); MEAN CORPUSCULAR HGB CONC 32.2 g/dl (32.0-36.5); MEAN CORPUSCULAR VOLUME 100.5 fl (80.0-96.0); MONO # 1.1 10^3/uL (0.0-0.8); MONO % 12.6 % (2.0-8.0); NEUTROPHILS # 4.7 10^3/uL (1.5-8.5); PLATELET COUNT, AUTOMATED 322 10^3/uL (150-450); RED BLOOD COUNT 3.77 10^6/uL (4.00-5.40); WHITE BLOOD COUNT 8.8 10^3/uL (4.0-10.0)
[2021-03-31 18:38] LABS: ALBUMIN 2.5 GM/DL (3.2-5.2); ALT/SGPT 23 U/L (12-78); AMYLASE 25 U/L (25-115); BILIRUBIN,TOTAL 0.5 MG/DL (0.2-1.0); BLOOD UREA NITROGEN 7 MG/DL (7-18); CALCIUM LEVEL 8.7 MG/DL (8.8-10.2); CARBON DIOXIDE LEVEL 32 MEQ/L (21-32); CHLORIDE LEVEL 107 MEQ/L (98-107); CREATININE FOR GFR 0.67 MG/DL (0.55-1.30); GLOMERULAR FILTRATION RATE > 60.0 (>45); GLUCOSE, FASTING 73 MG/DL (70-100); LIPASE 107 U/L (73-393); POTASSIUM SERUM 4.3 MEQ/L (3.5-5.1); SODIUM LEVEL 142 MEQ/L (136-145); TOTAL PROTEIN 6.8 GM/DL (6.4-8.2)
== END ==
LOC: M PLALAB 15:41
PROVIDERS: ATTEND Physician Assistant Medical
DX: R10.10 Upper abdominal pain, unspecified (principal)

== ENCOUNTER → 2021-04-15 | Outpatient (CLI) | payer BC ==
[~2021-04-15] MED LIST changes: +GASTROGRAFIN SOLUTION 30ML (Q9963) As Ordered ONE; +ISOVUE-370 76% 100ML VIAL As Ordered ONE
--- NOTE | 2021-04-15 11:57 | REP ---
INDICATION: ABD PAIN, FAMILY HX, ABN WT LOSS. FINDINGS: Multiple ultrasonographic images of the liver show a 2.2 x 2.5 cm sized area of increased echoes in the central liver next to the gallbladder fossa and exhibiting increased through transmission... There is no intrahepatic ductal dilatation. The common bile duct measures approximately 5 mm in its greatest transverse dimension. Multiple ultrasonographic images of the gallbladder shows multiple echogenic material without definite acoustic shadows and within the dependent portion of the gallbladder. There is no pericholecystic edema. Images of the pancreatic region show no gross abnormality. The imaged portion of the right kidney shows a 6 mm sized area of increased echoes. IMPRESSION: 1. Probable hepatic hemangioma as described above. 2. 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 3. Number 1 and number 2 above would be better evaluated with pre and postcontrast enhanced CT. 4. Accredited by the [employer] in General Ultrasound. <Electronically signed by Turner Erwin > 04/15/21 [id number]
--- NOTE | 2021-04-15 13:28 | REP ---
INDICATION: ABD PAIN, FAMILY HX, ABN WT LOSS. COMPARISON: Right upper quadrant ultrasound 04/15/2021, CT 05/11/2013 TECHNIQUE: Oral Gastrografin mixture 10 mL in 290 mL flavum water for 2 doses per our bowel contrast protocol followed by bolus 100 mL Isovue 300 scanning through the abdomen and pelvis with coronal and sagittal reconstructions. Both pre contrast and delayed images are obtained through the abdomen. FINDINGS: CT abdomen: Of the lung bases show no nodule infiltrate effusion or mass. There is some mild cylindrical bronchiectatic change. The heart is not enlarged. There is no pericardial thickening or effusion. No hiatal hernia. Evidence of gastric bypass with staple lines again seen. Borderline hepatomegaly with an 18.1 cm vertical diameter of the right lobe in the mid clavicular line. Slight prominence of the left hepatic lobe. There is a slightly lobulated contour of the liver. In the right hepatic lobe near the gilmar hepatis is a hypodense nodule 1.9 cm on precontrast images, also hypodense on standard venous phase imaging and a 2 minute delay. It is readily visible on the reconstructions as well. I do not see other focal liver lesions. This is the same lesion which is hyperechoic on ultrasound today. It is not visible on the CT from 2013. There is no ascites or intrahepatic biliary dilatation. Spleen is not enlarged shows no focal lesion. Gallbladder shows no calcified stone or mass. Pancreas is without acute finding. The adrenal glands are normal. Kidneys show no stone or hydronephrosis. Anteriorly in the interpolar lower pole junction on the right is a 6 mm hypodense focus seen on pre contrast, contrast and delayed images. It has CT attenuation values in the -40 to -50 range indicating the presence of fat. No abnormal calcifications. A similar 6 mm nodule is seen on ultrasound today and CT in 2013 on review. Left kidney is unremarkable. The aorta has atherosclerotic calcifications without aneurysm. No pathologic sized periaortic, mesenteric or other retroperitoneal lymphadenopathy. Stool and gas seen in the colon without signs of colitis or diverticulitis. Small bowel loops are without dilatation and contrast is passed into the distal small bowel and right colon appendix is seen and unremarkable. Few scattered diverticula are noted without signs of colitis or diverticulitis. The lung window review of all CT slices in the abdomen and pelvis shows no perforation or free air. Bone windows show vacuum phenomena and degenerative disc changes lower lumbar spine without any acute bony finding of the spine or lower ribs. CT pelvis: Sacrum was without acute finding there is some sclerosis iliac margin of the right SI joint but no acute bony finding of pelvis or hips. There is minor degenerative change of the hips without evidence of AVN or fracture on either side. Distal left colon sigmoid and rectum grossly intact without definite inflammatory change or mass. No visible colonic stricture. Some pelvic surgical clips are noted. Evidence for prior hysterectomy seen and vaginal cuff is intact. Small bowel loops in the pelvis were unremarkable. There is no ventral or inguinal hernia and no pathologic sized inguinal adenopathy. No pelvic lymphadenopathy. IMPRESSION: 1. There is a 2 cm hypodense nodule which does not enhance well on standard venous and delayed images and seen well on the noncontrast images also. This lesion was hyperechoic on ultrasound today and this could be an atypical hemangioma or other lesion. Further evaluation is warranted. I would recommend a dedicated dynamic hepatic MRI with contrast. If the patient is not a candidate for MRI, a dynamic dedicated liver CT with contrast could also be performed as an alternative. 2. Some mild hepatomegaly, prominent left hepatic lobe and mild lobulations suggesting some degree of chronic liver disease. Spleen not enlarged. No other hepatic or splenic abnormalities. 3. Status post gastric bypass. Gallbladder, pancreas, adrenal glands and left kidney are unremarkable. 4. The right kidney shows a 6 mm lesion containing fat by CT attenuation values and consistent with benign renal angiomyolipoma, as seen on today's ultrasound and CT in 2013 on review. 5. Colon without acute finding, mass, colitis, diverticulitis or stricture. Small bowel loops unremarkable. No ascites abdominal or pelvic adenopathy nor other acute finding <Electronically signed by [facility] > 04/15/21 [id number]
== END ==
LOC: M RAD 08:35
PROVIDERS: ATTEND Physician Assistant Medical
DX: R10.10 Upper abdominal pain, unspecified (principal); R10.0 Acute abdomen; R63.4 Abnormal weight loss; Z80.0 Family history of malignant neoplasm of digestive organs

== ENCOUNTER → 2021-04-25 | Outpatient (CLI) | payer BC ==
[~2021-04-25] MED LIST changes: +ADDE20TA PO; +AVAP300T23 PO; +D3 +TAB PO; +ECOT81TA5 PO; -GASTROGRAFIN SOLUTION 30ML (Q9963) As Ordered ONE; -ISOVUE-370 76% 100ML VIAL As Ordered ONE; +MULT-90 PO; +SLOW142T5 PO
[2021-04-25 16:11] LABS: INR 1.04; PARTIAL THROMBOPLASTIN TIME 32.5 SECONDS (25.9-37.0)
[2021-04-25 16:16] LABS: IRON (FE) 26 UG/DL (50-170); TOTAL IRON BINDING CAPACITY 325 UG/DL (250-450)
[2021-04-25 16:43] LABS: HEPATITIS B SURFACE ANTIGEN NEGATIVE (NEGATIVE)
[2021-04-25 17:09] LABS: HEPATITIS C VIRUS ABY INDEX 0.1 INDEX (<0.8)
[2021-04-25 17:10] LABS: HEPATITIS B CORE ANTIBODY IGM NEGATIVE (NEGATIVE)
== END ==
LOC: M PLALAB 14:06
PROVIDERS: ATTEND Physician Assistant Medical
DX: R94.5 Abnormal results of liver function studies (principal)

== ENCOUNTER → 2021-04-30 | Outpatient (CLI) | payer BC | LOC: M LABSMTC 09:45 | PROVIDERS: ATTEND Anesthesiology | DX: Z01.818 Encounter for other preprocedural examination (principal); Z11.52 Encounter for screening for COVID-19 ==

== ENCOUNTER 2021-05-05 09:38 | Day surgery (SDC) | payer BC ==
[~2021-05-05] VITALS: Ht 162.6 cm; Wt 76.7 kg
[~2021-05-05 09:38] MED LIST changes: +NS 1,000 ML IV ONE
--- OUTSIDE RECORDS SUMMARY | 2021-05-05 09:43 | CCD ---
Author Author [facility] Organization [facility] Address Unknown Phone Unavailable Care Team Providers Care Manager Balance Name Role Phone Mary Padilla Unavailable PROBLEMS Type Condition ICD9-CM Code [id number] Code Onset Dates Condition S tatus W/U Status Risk SNOMED Code Notes Problem Chronic low back pain M54.5 Active confirmed 502767664 Problem Vitamin D deficiency E55.9 Active confirmed 76138336 Problem Essential hypertension I10 Active confirmed 64291305 Problem History of gastric bypass Z98.89 Active confirmed 647922094 Problem Mixed hyperlipidemia E78.2 Active confirmed 549388764 Problem Sacroiliac joint pain M53.3 Active confirmed 560883598 Problem Chronic prescription opiate use Z79.891 Active confirmed 755362816 Problem Anxiety and depression F41.8 Active confirmed 230622999 Problem Lung nodule R91.1 Active confirmed 51492383 2 Problem Lumbar spondylosis M47.816 Active confirmed 020495963 Problem Dysphagia, unspecified type R13.10 Active confirmed 10926463 Problem Gastroesophageal reflux disease, esophagitis pre sence not specified K21.9 Active confirmed 574591220 Problem Family history of colon cancer in father Z80.0 Active confirmed 473788627 Problem Hyperplastic polyp of intestine K63.5 Active confi rmed 55293898 Problem Former smoker Z87.891 Active confirmed 57147 06 Problem Iron deficiency anemia, unspecified iron deficiency an emia type D50.9 Active confirmed 80192632 ALLERGIES Allergen (clinical drug ingredient) Drug/Non Drug Allergy do cumented on EMR Reaction Allergy Type Onset Date Status lisinopril Lisinopril([facility] Code:[address]-53) cough , felt like something was always in her throat Drug Allergy Active ENCOUNTERS from 1960 to 2021-02-24 Encounter Location Date Provider Diagnosis [facility] Raymundo [address] [phone] [place] [address] 07 Feb, 2021 Mary Padilla Gastroesophageal reflux dise ase, esophagitis presence not specified K21.9 ; History of gastric bypass Z98.89 and Dysphagia, unspecified type R13.10 IMMUNIZATIONS Vaccine Route Administration Date Status COVID-19 dose #2 given elsewhere Unspecified Unknown [facility] 2020 Administered COVID-19 dose #1 given elsewhere Unspecified Unknown [facility] 2020 Administered Influenza 18 yrs & older Flublok IM Intramuscular Mar 21, 2020 Administered Pneumococcal Adult 0.5mL Pneumovax 23 IM Intramuscular Mar 27 019 Administered TDAP 0.5mL (Boostrix) IM Intramuscular September 09, 2012 Administe red TD Adult 0.5mL Tetanus Unknown September 09, 1990 Administe red Influenza 6mo & up Fluzone IM Intramuscular Jun 13, 2014 Admi nistered Influenza 6mo & up Fluzone IM Intramuscular Apr 06, 2013 Admi nistered SOCIAL HISTORY Tobacco Use: Social History Observation Description Date Details (start date - stop date) Former Smoker Sex Assigned At : Social History Observation Description Sex Assigned At Unknown Audit Question Answer Notes Total Score: 2 Interpretation: Alcohol Education Sexual Hx: Question Answer Notes Had sex in the last 12 months (vaginal, oral, or anal)? Yes with Men only Drug and Alcohol Question Answer Notes Total Score: 0 Interpretation: No problems reported Alcohol Screening: Question Answer Notes Did you have a drink containing alcohol in the past year? Ye s Points 4 Interpretation Positive How often did you have a drink containing alcohol in t he past year? Four or more times a week (4 points) BMI Care Goal Follow-Up Question Answer Notes Above Normal BMI Follow-Up Dietary management educatio n, guidance, and counseling, Dietary needs education Tobacco Use: Question Answer Notes Are you a: former smoker How long has it been since you last smoked? 3-6 months REASON FOR REFERRAL from 1960 to 2021-02-24 Reason please eval and treat pt hav ing difficulty swallong with gi upset Diagnosis 1 Gastroesophageal reflux dise ase, esophagitis presence not specified (K21.9) Diagnosis 2 History of gastric bypass (Z 98.89) Diagnosis 3 Dysphagia, unspecified type (R13.10) Referral Organization [facility] Referring Provider First Name Mary Referring Provider Last Name Randy Referring Provider Specialty Family Medicine Referred Provider Colt Persaud Referral Priority Routine General Notes AlexandruCher 02/24/2021 7:1 1:09 AM > referral faxed VITAL SIGNS No information MEDICATIONS Medication SIG (Take, Route, Frequency, Duration) Notes Start Da te End Date Status Vitamin D _ 1 tab(s) 5000mg Orally daily Active Slow Fe 160 (50 Fe) MG 1 tab(s) Orally twice a day IRON Active HYDROcodone-Acetaminophen 5-325 MG 1 tablet as needed Orally q8h prn mdd3 3m supply CATD chronic pain for 90 day(s) Pain Clinic Jan, Active Avapro 300 MG 1 tablet Orally Once a day for 90 days Active Sucralfate 1 GM 1 tablet on an empty stomach Orally 30 minutes before meals and bedtime for 30 days Mar, Active Multivitamins otc 1 tablet p.o once a day Active Cyclobenzaprine HCl 10 MG 1 tablet as needed Orally Th ree times a day for 30 Days Active Adderall 20 MG 1 tablet [id number] Twice a day for 30 days Feb, Active Omeprazole 40 MG 1 capsule 30 minutes before morning meal Orally On a day Active Vitamin E 200 UNIT 1 capsule Orally Once a day for 30 day(s) Active PROCEDURES No Information RESULTS No Results REASON FOR VISIT Referral MEDICAL (GENERAL) HISTORY Type Description Date Medical History Gastric bypass 2006 (Dr. Reed) weighed >3 00 lbs Medical History Chronic low back pain (20+ years) Medical History H/o sciatica on the right Medical History Shingles 04/2012 Medical History hydradenitis suppurativa - affects mostl y R axilla Medical History family history of colon cancer and fathe r before the age of 60 Medical History HTN Medical History former smoker Medical History anxiety/depression Medical History elevated liver enzymes Medical History mixed hyperlipidemia Medical History 07/29/2020, low-dose long sc reening CT, 11 mm nodular area in the right middle lobe associated with some linear density. Question fibrosis lung ct fu suggested -ordered Surgical History tubal ligation 1991 Surgical History gastric bypass 2006 Surgical History hysterectomy, kept ovaries 2005 Surgical History colonoscopy (Dr. Escobedo, normal) 2010 Surgical History EGD (Dr. Escobedo, normal) 2010 Surgical History carpal tunnel release-bilaterally 2010 Surgical History upper gi endoscopy and Colonoscopy ( Dr Persaud) 5 yr follow up 2017 Surgical History ORAL SURG ELVIS 06/2020 Hospitalization History Childbirth x 3 Hospitalization History Surgery related Goals Section No Information Health Concerns No Information MEDICAL EQUIPMENT No Information MENTAL STATUS No Information FUNCTIONAL STATUS No Information ASSESSMENTS Encounter Date Diagnosis Assessment Notes Treatment Notes Treatm ent Clinical Notes Feb, Gastroesophageal reflux dise ase, esophagitis presence not specified (ICD-10 - K21.9) Feb, History of gastric bypass (ICD-10 - Z98.89) Feb, Dysphagia, unspecified type (ICD-10 - R13.10) PLAN OF TREATMENT Medication Medication Name Sig Start Date Stop Date Omeprazole 40 MG 1 capsule 30 minutes before morning meal Orally Once a day Adderall 20 MG 1 tablet [id number] Twice a day for 30 days Feb, Avapro 300 MG 1 tablet Orally Once a day for 90 days Sucralfate 1 GM 1 tablet on an empty stomach Orally 30 minutes before meals and bedtime for 30 days Mar, Referrals Referral Date Details please eval and treat pt hav ing difficulty swallong with gi upset, Colt Persaud Next Appt Details Provider Name:Mary Padilla, 08:00:00 AM, [address] [facility], , [place], [address], Provider Name:Rafita Parish, 2021-06-04 02:15:00 PM, [address] [facility] [address] [facility], , [place], [address], Insurance Providers Payer Name Payer Address Payer Phone Insured Name Patient Relati onship to Insured Coverage Start Date Coverage End Date BS Reubens [phone] [facility] [address] [address] [facility] [address] [place] self
--- OUTSIDE RECORDS SUMMARY | 2021-05-05 09:43 | CCD ---
Author Author [facility] Organization [facility] Address Unknown Phone Unavailable Care Team Providers Care Program Dir Name Role Phone Mary Padilla Unavailable PROBLEMS Type Condition ICD9-CM Code AGC31-DR Code Onset Dates Condition S tatus W/U Status Risk SNOMED Code Notes Problem Chronic low back pain M54.5 Active confirmed 349471468 Problem Vitamin D deficiency E55.9 Active confirmed 11685366 Problem Essential hypertension I10 Active confirmed 72876228 Problem History of gastric bypass Z98.89 Active confirmed 203319708 Problem Mixed hyperlipidemia E78.2 Active confirmed 643820291 Problem Sacroiliac joint pain M53.3 Active confirmed 839594071 Problem Chronic prescription opiate use Z79.891 Active confirmed 939339105 Problem Anxiety and depression F41.8 Active confirmed 376833170 Problem Lung nodule R91.1 Active confirmed 40414180 2 Problem Lumbar spondylosis M47.816 Active confirmed 701180322 Problem Dysphagia, unspecified type R13.10 Active confirmed 16944218 Problem Gastroesophageal reflux disease, esophagitis pre sence not specified K21.9 Active confirmed 943756124 Problem Family history of colon cancer in father Z80.0 Active confirmed 654289224 Problem Hyperplastic polyp of intestine K63.5 Active confi rmed 36922041 Problem Former smoker Z87.891 Active confirmed 22027 06 Problem Iron deficiency anemia, unspecified iron deficiency an emia type D50.9 Active confirmed 63596523 ALLERGIES Allergen (clinical drug ingredient) Drug/Non Drug Allergy do cumented on EMR Reaction Allergy Type Onset Date Status lisinopril Lisinopril([facility] Code:[address]-84) cough , felt like something was always in her throat Drug Allergy Active ENCOUNTERS from 1960 to 2021-03-24 Encounter Location Date Provider Diagnosis [facility] Raymundo [address] [facility] [phone] [place] [address] Mar, Mary Padilla History of gastric bypass Z9 8.89 ; Gastroesophageal reflux disease, esophagitis presence not specified K21.9 ; Essential hypertension I10 ; Anxiety and depression F41.8 and Encounter for immunization Z23 IMMUNIZATIONS Vaccine Route Administration Date Status COVID-19 dose #2 given elsewhere Unspecified Unknown Aug 2020 Administered COVID-19 dose #1 given elsewhere Unspecified Unknown Aug Administered Influenza 18 yrs & older Flublok IM Intramuscular Mar 20, 2021 Administered Influenza 18 yrs & older Flublok IM Intramuscular Mar 21, 2020 Administered Pneumococcal Adult 0.5mL Pneumovax 23 IM Intramuscular Mar 27 019 Administered TDAP 0.5mL (Boostrix) IM Intramuscular September 09, 2012 Administe red TD PED 0.5mL Tetanus Unknown September 09, 1990 Administere d Influenza 6mo & up Fluzone IM Intramuscular [...] last smoked? 3-6 months REASON FOR REFERRAL No Information VITAL SIGNS Weight 174.8 lbs Mar, Weight-kg 79.29 kg Mar, Height 63" in Mar, BMI 30.96 kg/m2 Mar, Heart Rate 80 /min Mar, Respiratory Rate 18 /min Mar, Temperature 97.2 degrees Fahrenheit Mar, Oximetry 97 Mar, Blood pressure systolic 124 mm Hg Mar, Blood pressure diastolic 82 mm Hg Mar, MEDICATIONS Medication SIG (Take, Route, Frequency, Duration) Notes Start Da te End Date Status Cyclobenzaprine HCl 10 MG 1 tablet as needed Orally Th ree times a day for 30 Days Active Vitamin E 200 UNIT 1 capsule Orally Once a day for 30 day(s) Active Slow Fe 160 (50 Fe) MG 1 tab(s) Orally twice a day IRON Active Avapro 300 MG 1 tablet Orally Once a day for 90 days Active Multivitamins otc 1 tablet p.o once a day Not-Taking Vitamin D _ 1 tab(s) 5000mg Orally daily Active Omeprazole 40 MG 1 capsule 30 minutes before morning meal Orally On a day Active Adderall 20 MG 1 tablet [id number] Twice a day for 30 days Mar, Active Sucralfate 1 GM 1 tablet on an empty stomach Orally 30 minutes before meals and bedtime for 30 days Active HYDROcodone-Acetaminophen 5-325 MG 1 tablet as needed Orally q8h prn mdd3 3m supply CATD chronic pain for 90 day(s) Pain [facility] Jan, Active PROCEDURES from 1960 to 2021-03-24 Procedure Date Ordered Result Body Site Imm: Flublok Quadrivalent 18 years & older 0.5mL IM Influenza 20 03-04-07 N/A RESULTS No Results REASON FOR VISIT 3 months MEDICAL (GENERAL) HISTORY Type Description Date Medical [...] normal) 2010 Surgical History carpal tunnel release-bilaterally 2011 Surgical History upper gi endoscopy and Colonoscopy ( Dr Persaud) 5 yr follow up 2017 Surgical History ORAL SURG NOV 1206/2020 Hospitalization History Childbirth x 3 Hospitalization History Surgery related Goals Section No Information Health Concerns No Information MEDICAL EQUIPMENT No Information MENTAL STATUS No Information FUNCTIONAL STATUS No Information ASSESSMENTS Encounter Date Diagnosis Assessment Notes Treatment Notes Treatm ent Clinical Notes Mar, History of gastric bypass (ICD-10 - Z98.89) 174.8 pounds today today. Weight loss of 17 pounds, referring to gastro for evaluation feel this weight loss is not related to her gastric bypass related to gastric issues and dental extractions Mar, Gastroesophageal reflux dise ase, esophagitis presence not specified (ICD-10 - K21.9) Will continue omeprazole, Carafate ordered, has appointment with gastro 03/31/2021 Mar, Essential hypertension (ICD-10 - I10) Per JNC 8 guidelines, goal BP < 140/90 <60, is meeting goal on current regimen. Advised heart-healthy diet, sodium restriction Mar, Anxiety and depression (ICD-10 - F41.8) on Adderall to 20 mg twice a day since July 2020 feels it is doing well, Will call if she has any issues, back to work on post denies suicidal thoughts, discussed Mar, Encounter for immunization (ICD-10 - Z23) PLAN OF TREATMENT Medication Medication Name Sig Start Date Stop Date Omeprazole 40 MG 1 capsule 30 minutes before morning meal Orally Once a day Adderall 20 MG 1 tablet [id number] Twice a day for 30 days Mar, Avapro 300 MG 1 tablet Orally Once a day for 90 days Sucralfate 1 GM 1 tablet on an empty stomach Orally 30 minutes before meals and bedtime for 30 days Treatment Notes Assessment Notes Clinical Notes History of gastric bypass 174.8 pounds t real today. Weight loss of 17 pounds, referring to gastro for evaluation feel this weight loss is not related to her gastric bypass related to gastric issues and dental extractions Gastroesophageal reflux disease, esophagitis presence not sp ecified Will continue omeprazole, Carafate ordered, has appointment with gastro 03/31/2021 Essential hypertension Per JNC 8 guideli sara, goal BP < 140/90 <60, is meeting goal on current regimen. Advised heart-healthy diet, sodium restriction Anxiety and depression on Adderall to 20 mg twice a day since July 2020feels it is doing well, Will call if she has any issues, back to work on postdenies suicidal thoughts, discussed Next Appt Details 3 Months routine visit Reason: Provider Name:Rafita Parish, 2021-06-04 02:15:00 PM, [address] [facility] [address] [facility], , [place], [address], Provider Name:Mary Padilla, 07:15:00 AM, [address] [facility], , [place], [address], Insurance Providers Payer Name Payer Address Payer Phone Insured Name Patient Relati onship to Insured Coverage Start Date Coverage End Date CHONG Aparicio [phone] [facility] [address] [address] [facility] [address] [place] self
--- OUTSIDE RECORDS SUMMARY | 2021-05-05 09:43 | CCD ---
Author Author [facility] Organization [facility] Address Unknown Phone Unavailable Care Team Providers Care Bead Preparer Name Role Phone Jorge Hill Unavailable PROBLEMS Type Condition ICD9-CM Code [id number] Code Onset Dates Condition S tatus W/U Status Risk SNOMED Code Notes Problem Chronic low back pain M54.5 Active confirmed 662515128 Problem Vitamin D deficiency E55.9 Active confirmed 39027299 Problem Essential hypertension I10 Active confirmed 52626517 Problem History of gastric bypass Z98.89 Active confirmed 328781385 Problem Mixed hyperlipidemia E78.2 Active confirmed 120553534 Problem Sacroiliac joint pain M53.3 Active confirmed 836713124 Problem Chronic prescription opiate use Z79.891 Active confirmed 803264090 Problem Anxiety and depression F41.8 Active confirmed 580662330 Problem Lung nodule R91.1 Active confirmed 91431335 2 Problem Lumbar spondylosis M47.816 Active confirmed 405438781 Problem Dysphagia, unspecified type R13.10 Active confirmed 61568761 Problem Gastroesophageal reflux disease, esophagitis pre sence not specified K21.9 Active confirmed 892327381 Problem Family history of colon cancer in father Z80.0 Active confirmed 930923847 Problem Hyperplastic polyp of intestine K63.5 Active confi rmed 61974653 Problem Former smoker Z87.891 Active confirmed 50383 06 Problem Iron deficiency anemia, unspecified iron deficiency an emia type D50.9 Active confirmed 22962523 ALLERGIES Allergen (clinical drug ingredient) Drug/Non Drug Allergy do cumented on EMR Reaction Allergy Type Onset Date Status lisinopril Lisinopril([facility] Code:[address]-53) cough , felt like something was always in her throat Drug Allergy Active ENCOUNTERS from 1960 to 2021-04-26 Encounter Location Date Provider Diagnosis [facility] Raymundo Vee8 [facility] [phone] [place] [address] Apr, Jorge Hill Anxiety and depression F41.8 IMMUNIZATIONS Vaccine Route Administration Date Status COVID-19 dose #2 given elsewhere Unspecified Unknown [facility] 2020 Administered COVID-19 dose #1 given elsewhere Unspecified Unknown [facility] 2020 Administered Influenza 18 yrs & older Flublok IM Intramuscular Mar 20, 2021 Administered Influenza 18 yrs & older Flublok IM Intramuscular Mar 21, 2020 Administered Pneumococcal Adult 0.5mL Pneumovax 23 IM Intramuscular Mar 27 Administered TDAP 0.5mL (Boostrix) IM Intramuscular September [...] REASON FOR REFERRAL No Information VITAL SIGNS No information MEDICATIONS Medication SIG (Take, Route, Frequency, Duration) Notes Start Da te End Date Status Omeprazole 40 MG 1 capsule 30 minutes before morning meal Orally On a day Active Vitamin E 200 UNIT 1 capsule Orally Once a day for 30 day(s) Active Slow Fe 160 (50 Fe) MG 1 tab(s) Orally twice a day IRON Active Adderall 20 MG 1 tablet [id number] Twice a day for 30 days Apr, Active Avapro 300 MG 1 tablet Orally Once a day for 90 days Active Vitamin D _ 1 tab(s) 5000mg Orally daily Active Sucralfate 1 GM 1 tablet on an empty stomach Orally 30 minutes before meals and bedtime for 30 days Active Cyclobenzaprine HCl 10 MG 1 tablet as needed Orally Th ree times a day for 30 Days Active Multivitamins otc 1 tablet p.o once a day Not-Taking HYDROcodone-Acetaminophen 5-325 MG 1 tablet as needed Orally q8h prn mdd3 for 30 days Pain Clinic Apr, Active PROCEDURES No Information RESULTS No Results REASON FOR VISIT adderral MEDICAL (GENERAL) HISTORY Type Description Date Medical [...] bypass 2006 Surgical History hysterectomy, kept ovaries 2006 Surgical History colonoscopy (Dr. Escobedo, normal) 2010 [...] Notes Treatment Notes Treatm ent Clinical Notes Apr, Anxiety and depression (ICD-10 - F41.8) PLAN OF TREATMENT Medication Medication Name Sig Start Date Stop Date Sucralfate 1 GM 1 tablet on an empty stomach Orally 30 minutes before meals and bedtime for 30 days Omeprazole 40 MG 1 capsule 30 minutes before morning meal Orally Once a day Adderall 20 MG 1 tablet [id number] Twice a day for 30 days Apr, Avapro 300 MG 1 tablet Orally Once a day for 90 days HYDROcodone-Acetaminophen 5-325 MG 1 tablet as needed Orally q8h prn mdd3 for 30 days Apr, Next Appt Details Provider Name:Rafita Марина, 2021-06-04 02:15:00 PM, [address], , [place], [address], Provider Name:Mary Padilla, 07:15:00 AM, [address] [facility], , [place], [address], Insurance Providers Payer Name Payer Address Payer Phone Insured Name Patient Relati onship to Insured Coverage Start Date Coverage End Date BS [place] [facility] [phone] [facility] [address] [address] [facility] [address] [place] self
--- OUTSIDE RECORDS SUMMARY | 2021-05-05 09:43 | CCD ---
Author Author [facility] Organization [facility] Address Unknown Phone Unavailable Care Team Providers Care Licensed Nuclear Operator Name Role Phone Mary Padilla Unavailable PROBLEMS Type Condition ICD9-CM Code [id number]-QH Code Onset Dates Condition S tatus W/U Status Risk SNOMED Code Notes Problem Essential hypertension I10 Active confirmed 23002754 Problem Chronic low back pain M54.5 Active confirmed 716142401 Problem Mixed hyperlipidemia E78.2 Active confirmed 242545904 Problem Vitamin D deficiency E55.9 Active confirmed 49413680 Problem Lumbar spondylosis M47.816 Active confirmed 313100038 Problem Sacroiliac joint pain M53.3 Active confirmed 419335308 Problem Chronic prescription opiate use Z79.891 Active confirmed 685847287 Problem Iron deficiency anemia, unspecified iron deficiency an emia type D50.9 Active confirmed 03949533 Problem Gastroesophageal reflux disease, esophagitis pre sence not specified K21.9 Active confirmed 952845649 Problem Lung nodule R91.1 Active confirmed 97958784 2 Problem History of gastric bypass Z98.89 Active confirmed 859134632 Problem Anxiety and depression F41.8 Active confirmed 563510904 Problem Family history of colon cancer in father Z80.0 Active confirmed 739894378 Problem Hyperplastic polyp of intestine K63.5 Active confi rmed 53585290 Problem Former smoker Z87.891 Active confirmed 89366 06 ALLERGIES Allergen (clinical drug ingredient) Drug/Non Drug Allergy do cumented on EMR Reaction Allergy Type Onset Date Status lisinopril Lisinopril([facility] Code:[address]-27) cough , felt like something was always in her throat Drug Allergy Active ENCOUNTERS from 1960 to 2021-02-11 Encounter Location Date Provider Diagnosis [address] [place] [address] Jan, Mary Blakejalen History of gastric bypass Z9 8.89 ; Gastroesophageal reflux disease, esophagitis presence not specified K21.9 ; Essential hypertension I10 and Anxiety and depression F41.8 IMMUNIZATIONS Vaccine Route Administration Date Status COVID-19 dose #2 given elsewhere Unspecified Unknown [facility] 2020 Administered COVID-19 dose #1 given elsewhere Unspecified Unknown [facility] 2020 Administered Influenza 18 yrs & [...] FOR REFERRAL No Information VITAL SIGNS Weight 191 lbs Jan, Weight-kg 86.64 kg Jan, Height 63" in Jan, BMI 33.83 kg/m2 Jan, Heart Rate 90 /min Jan, Respiratory Rate 18 /min Jan, Temperature 96.9 degrees Fahrenheit Jan, Oximetry 97 Jan, Blood pressure systolic 118 mm Hg Jan, Blood pressure diastolic 66 mm Hg Jan, MEDICATIONS Medication SIG (Take, Route, Frequency, Duration) Notes Start Da te End Date Status Cyclobenzaprine HCl 10 MG 1 tablet as needed Orally Th ree times a day for 30 Days Active Slow Fe 160 (50 Fe) MG 1 tab(s) Orally twice a day IRON Active HYDROcodone-Acetaminophen 5-325 MG 1 tablet as needed Orally q8h prn mdd3 3m supply CATD chronic pain for 90 day(s) Pain Clinic Jan, Active Sucralfate 1 GM 1 tablet on an empty stomach Orally 30 minutes before meals and bedtime for 30 days Mar, Active Omeprazole 40 MG 1 capsule 30 minutes before morning meal Orally On ce a day Active Multivitamins otc 1 tablet p.o once a day Active Avapro 300 MG 1 tablet Orally Once a day for 90 days Active Vitamin D _ 1 tab(s) 5000mg Orally daily Active Adderall 20 MG 1 tablet Orally Twice a day Active Vitamin E 200 UNIT 1 capsule Orally Once a day for 30 day(s) Active PROCEDURES No Information RESULTS No Results REASON FOR VISIT stomach/ ? GI referral MEDICAL (GENERAL) HISTORY Type Description Date Medical [...] ( Dr Persaud) 5 yr follow up 2016 Surgical History ORAL SURG NOV 1206/2020 Hospitalization History Childbirth x 3 Hospitalization History Surgery related Goals Section No Information Health Concerns No Information MEDICAL EQUIPMENT No Information MENTAL STATUS No Information FUNCTIONAL STATUS No Information ASSESSMENTS Encounter Date Diagnosis Assessment Notes Treatment Notes Treatm ent Clinical Notes Jan, History of gastric bypass (ICD-10 - Z98.89) 191 today. Weight has remained stable, referring to gastro for evaluation Jan, Gastroesophageal reflux dise ase, esophagitis presence not specified (ICD-10 - K21.9) Will continue omeprazole, Carafate ordered, will refer to gastro services Jan, Essential hypertension (ICD-10 - I10) Per JNC 8 guidelines, goal BP < 140/90 <60, is meeting goal on current regimen. Advised heart-healthy diet, sodium restriction Jan, Anxiety and depression (ICD-10 - F41.8) on Adderall to 20 mg twice a day since July 2020 feels it is doing well, Will call if she has any issues, back to work on post denies suicidal thoughts, discussed Jan, Other handicap sticke r form asked to renew PLAN OF TREATMENT Medication Medication Name Sig Start Date Stop Date Adderall 20 MG 1 tablet Orally Twice a day Avapro 300 MG 1 tablet Orally Once a day for 90 days Sucralfate 1 GM 1 tablet on an empty stomach Orally 30 minutes before meals and bedtime for 30 days Mar, Omeprazole 40 MG 1 capsule 30 minutes before morning meal Orally Once a day Treatment Notes Assessment Notes Clinical Notes History of gastric bypass 191 today. We ight has remained stable, referring to gastro for evaluation Gastroesophageal reflux disease, esophagitis presence not sp ecified Will continue omeprazole, Carafate ordered, will refer to gastro services Essential hypertension Per JNC 8 guideli sara, goal BP < 140/90 <60, is meeting goal on current regimen. Advised heart-healthy diet, sodium restriction Anxiety and depression on Adderall to 20 mg twice a day since July 2020feels it is doing well, Will call if she has any issues, back to work on postdenies suicidal thoughts, discussed Next Appt Details Mary march as scheduled Reason: Provider Name:Mary Padilla, 08:00:00 AM, [address] [facility], , [place], [address], Provider Name:Rafita Parish, 2021-06-04 02:15:00 PM, [address], , [place], [address], Insurance Providers Payer Name Payer Address Payer Phone Insured Name Patient Relati onship to Insured Coverage Start Date Coverage End Date CHONG Aparicio [phone] [facility] [address] [address] [facility] [address] [place] self
--- OUTSIDE RECORDS SUMMARY | 2021-05-05 09:43 | CCD ---
Author Author [facility] Organization [facility] Address Unknown Phone Unavailable Care Team Providers Care Radiation Control Health Physicist Name Role Phone Mary Padilla Unavailable PROBLEMS Type Condition ICD9-CM Code MRG60-ZA Code Onset Dates Condition S tatus W/U Status Risk SNOMED Code Notes Problem Essential hypertension I10 Active confirmed 64968142 Problem Chronic low back pain M54.5 Active confirmed 843681911 Problem Mixed hyperlipidemia E78.2 Active confirmed 432086966 Problem Vitamin D deficiency E55.9 Active confirmed 32197589 Problem Lumbar spondylosis M47.816 Active confirmed 328080776 Problem Sacroiliac joint pain M53.3 Active confirmed 716815671 Problem Chronic prescription opiate use Z79.891 Active confirmed 385510197 Problem Iron deficiency anemia, unspecified iron deficiency an emia type D50.9 Active confirmed 41218481 Problem Gastroesophageal reflux disease, esophagitis pre sence not specified K21.9 Active confirmed 285813654 Problem Lung nodule R91.1 Active confirmed 43075589 2 Problem History of gastric bypass Z98.89 Active confirmed 514923437 Problem Anxiety and depression F41.8 Active confirmed 966412835 Problem Family history of colon cancer in father Z80.0 Active confirmed 839881016 Problem Hyperplastic polyp of intestine K63.5 Active confi rmed 19616928 Problem Former smoker Z87.891 Active confirmed 28130 06 ALLERGIES Allergen (clinical drug ingredient) Drug/Non Drug Allergy do cumented on EMR Reaction Allergy Type Onset Date Status lisinopril Lisinopril([facility] Code:[address]-55) cough , felt like something was always in her throat Drug Allergy Active ENCOUNTERS from 1960 to 2021-02-19 Encounter Location Date Provider Diagnosis [address] [place] [address] 07 Feb, 2021 Mary Padilla Anxiety and depression F41.8 IMMUNIZATIONS Vaccine Route Administration Date Status COVID-19 dose #2 given elsewhere Unspecified Unknown [facility] 2020 Administered COVID-19 dose #1 given elsewhere Unspecified Unknown [facility] 2020 Administered Influenza 18 yrs & older [...] Days Active Adderall 20 MG 1 tablet [id number] Twice a day for 30 days Feb, Active Omeprazole 40 MG 1 capsule 30 minutes before morning meal Orally On ce a day Active Vitamin E 200 UNIT 1 capsule Orally Once a day for 30 day(s) Active PROCEDURES No Information RESULTS No Results REASON FOR VISIT refill MEDICAL (GENERAL) HISTORY Type Description Date Medical [...] Treatment Notes Treatm ent Clinical Notes Feb, Anxiety and depression (ICD-10 - F41.8) PLAN OF TREATMENT Medication Medication Name Sig Start Date Stop Date Omeprazole 40 MG 1 capsule 30 minutes before morning meal Orally Once a day Adderall 20 MG 1 tablet [id number] Twice a day for 30 days Feb, Avapro 300 MG 1 tablet Orally Once a day for 90 days Sucralfate 1 GM 1 tablet on an empty stomach Orally 30 minutes before meals and bedtime for 30 days Mar, Next Appt Details Provider Name:Mary Padilla, 08:00:00 AM, [address] [facility], , [place], [address], Provider Name:Rafita Parish, 2021-06-04 02:15:00 PM, [address] [facility] [address] [facility], , [place], [address], Insurance Providers Payer Name Payer Address Payer Phone Insured Name Patient Relati onship to Insured Coverage Start Date Coverage End Date BS [place] [facility] [id number] [facility] [address] [address] [facility] [address] [place] self
--- OUTSIDE RECORDS SUMMARY | 2021-05-05 09:43 | CCD ---
Author Author [facility] Organization [facility] Address Unknown Phone Unavailable Care Team Providers Care Glue Size Machine Operator Name Role Phone Rafita Parish Unavailable PROBLEMS Type Condition ICD9-CM Code SXX06-AQ Code Onset Dates Condition S tatus W/U Status Risk SNOMED Code Notes Problem Chronic low back pain M54.5 Active confirmed 059009027 Problem Vitamin D deficiency E55.9 Active confirmed 76686980 Problem Essential hypertension I10 Active confirmed 89979859 Problem History of gastric bypass Z98.89 Active confirmed 322728737 Problem Mixed hyperlipidemia E78.2 Active confirmed 375617821 Problem Sacroiliac joint pain M53.3 Active confirmed 398021902 Problem Chronic prescription opiate use Z79.891 Active confirmed 922640392 Problem Anxiety and depression F41.8 Active confirmed 933616643 Problem Lung nodule R91.1 Active confirmed 95133962 2 Problem Lumbar spondylosis M47.816 Active confirmed 082177228 Problem Dysphagia, unspecified type R13.10 Active confirmed 27092713 Problem Gastroesophageal reflux disease, esophagitis pre sence not specified K21.9 Active confirmed 893616845 Problem Family history of colon cancer in father Z80.0 Active confirmed 945735722 Problem Hyperplastic polyp of intestine K63.5 Active confi rmed 33002214 Problem Former smoker Z87.891 Active confirmed 42059 06 Problem Iron deficiency anemia, unspecified iron deficiency an emia type D50.9 Active confirmed 42738620 ALLERGIES Allergen (clinical drug ingredient) Drug/Non Drug Allergy do cumented on EMR Reaction Allergy Type Onset Date Status lisinopril Lisinopril([facility] Code:[address]-00) cough , felt like something was always in her throat Drug Allergy Active ENCOUNTERS from 1960 to 2021-04-25 Encounter Location Date Provider Diagnosis [facility] [address] [facility] [phone] [place] [address] Apr, Rafita Parish Lumbar spondylosis M 47.816 IMMUNIZATIONS Vaccine Route Administration Date Status COVID-19 dose #2 given elsewhere Unspecified Unknown [facility] 2020 Administered COVID-19 dose #1 given elsewhere Unspecified Unknown [facility] 2020 Administered Influenza 18 yrs & [...] meal Orally On ce a day Active Adderall 20 MG 1 tablet [id number] Twice a day for 30 days Mar, Active Sucralfate 1 GM 1 tablet on an empty stomach Orally 30 minutes before meals and bedtime for 30 days Active HYDROcodone-Acetaminophen 5-325 MG 1 tablet as needed Orally q8h prn mdd3 for 30 days Pain Clinic Apr, Active PROCEDURES No Information RESULTS No Results REASON FOR VISIT New Refill Request MEDICAL (GENERAL) HISTORY Type Description Date Medical [...] Treatment Notes Treatm ent Clinical Notes Apr, Lumbar spondylosis (ICD-10 - M47.816) PLAN OF TREATMENT Medication Medication Name Sig Start Date Stop Date Omeprazole 40 MG 1 capsule 30 minutes before morning meal Orally Once a day Adderall 20 MG 1 tablet [id number] Twice a day for 30 days Mar, Avapro 300 MG 1 tablet Orally Once a day for 90 days Sucralfate 1 GM 1 tablet on an empty stomach Orally 30 minutes before meals and bedtime for 30 days HYDROcodone-Acetaminophen 5-325 MG 1 tablet as needed Orally q8h prn mdd3 for 30 days Apr, Next Appt Details Provider Name:Rafita Parish, 2021-06-04 02:15:00 PM, [address], , [place], [address], Provider Name:Mary Padilla, 07:15:00 AM, [address] [facility], , [place], [address], Insurance Providers Payer Name Payer Address Payer Phone Insured Name Patient Relati onship to Insured Coverage Start Date Coverage End Date CHONG Aparicio [facility] [phone] [facility] [address] [address] [facility] [address] [place] self
--- OUTSIDE RECORDS SUMMARY | 2021-05-05 09:43 | CCD ---
Continuity of Care Document (CCD) Created on: 03/31/2021 NúñezEdgar uribe External Reference #: [id number] : [id number] Sex: Female Author Author Edgar HOPKINS A-C Organization Unknown Address [address] [facility] [place] [address] Phone [phone] Care Team Providers Care Mems Device Scientist Name Role Phone Azeem Chapa PA-C AUTM [phone] Mary Padilla R.N. AUTM [phone] Problems Description No Active Problems Social History Type Date Description Comments Sex Unknown ETOH Use 2 A Day Tobacco Use Start: Unknown Non Smoker Allergies and adverse reactions Active Allergies Criticality Reaction | Severity Comments Date Lisinopril Unable to assess criticality 02/08/2017 Medications Active Medications SIG Qnty Indications Ordering Provide r Date Suprep Bowel Prep Kit 17.5-3.13-1.6GM/177ML Solution take per doctor's bowel prep instructions. 354ml R63.4 Colt Persaud MD 03/31/2021 Milk Of Magnesia 1200mg/15ML Suspe nsion take 45 milliliters by mouth as directed on colonoscopy prep sheet. R63.4 Colt Persaud MD 03/31/[address] 1 by mouth twice daily. 60caps Colt Persaud MD Vitamin D3 Maximum Strength 5000Unit Capsules daily Unknown Multivitamin Adult Tablets once a day Unknown Hydrocodone Bitartrate/Acetaminophen 5-325mg Tablets tid as needed Unknown Cyclobenzaprine HCL 10mg Tablets 1 tab by mouth three times a day as needed Unknown Avapro 300mg Tablets Daily Unknown Slow Fe 142(45Fe) mg Tablets ER Takes 50mg bid Unknown Sucralfate 1gm Tablets take 1 tab by mouth 30 minutes prior to each meal three times daily. Unknown Immunizations Description No Information Available Vital Signs Date Vital Result Comment 03/31/2021 8:19am BP Systolic 132 mmHg BP Diastolic 82 mmHg Height 64 inches 5'4" Weight 174.00 lb BMI (Body Mass Index) 29.9 kg/m2 [place] Body Weight 120 lb Weight 78.926 kg BSA (Body Surface Area) 1.84 m2 02/08/2017 9:53am BP Systolic 138 mmHg BP Diastolic 88 mmHg Height 64 inches 5'4" Weight 219.00 lb BMI (Body Mass Index) 37.6 kg/m2 [place] Body Weight 120 lb Weight 99.338 kg BSA (Body Surface Area) 2.03 m2 Procedures Description No Information Available Medical Devices Description No Information Available Encounters Description No Information Available Assessments Date Code Description Provider 03/31/2021 R10.10 Upper abdominal pain, unspecifie d ERNIE Lewis 03/31/2021 R63.4 Abnormal weight loss ERNIE Padgett Plan of Treatment 03/31/2021 - ERNIE Lewis* R10.10 Upper abdominal pain, unspecified * R63.4 Abnormal weight loss * * New Labs:* CBC With Differential, Ordered: 03/31/21 * Comprehensive Metabolic Profil, Ordered: 03/31/21 * Amylase & Lipase, Ordered: 03/31/21 * New Xrays:* CT Abdomen And Pelvis W Contrast, Ordered: 03/31/21 * Ultrasound Abdomen Limited, Ordered: 03/31/21 * New Orders:* Endoscopy, Ordered: 03/31/21 * Colonoscopy, Ordered: 03/31/21 * Comments:* Will arrange for upper endoscopy and colonoscopy. Reviewed risks and benefits of the procedures, as well as other options, with the patient. Prep for this procedure was discussed with patient, including risks and side effects associated with the prep. Patient verbalized understanding of all of the above and is in agreement to proceed. Patient will seek medical attention for any acute changes. Will monitor. * Follow up:* 2 weeks after procedures, sooner if needed. Functional Status Description No Information Available Mental Status Description No Information Available Referrals Refer to Reason for Referral Status Appt Date Colt Persaud M.D. DYSPHAGIA, INDIGESTION Scheduled [facility], Gastroenterology [address] [facility], [address] [place] [address] [phone]
--- OUTSIDE RECORDS SUMMARY | 2021-05-05 09:43 | CCD ---
Author Author [facility] Organization [facility] Address Unknown Phone Unavailable Care Team Providers Care Police Shift Commander Name Role Phone Mary Padilla Unavailable PROBLEMS Type Condition ICD9-CM Code [id number] Code Onset Dates Condition S tatus W/U Status Risk SNOMED Code Notes Problem Essential hypertension I10 Active confirmed 08420365 Problem Chronic low back pain M54.5 Active confirmed 961700504 Problem Mixed hyperlipidemia E78.2 Active confirmed 127863430 Problem Vitamin D deficiency E55.9 Active confirmed 73524516 Problem Lumbar spondylosis M47.816 Active confirmed 112992501 Problem Sacroiliac joint pain M53.3 Active confirmed 340273005 Problem Chronic prescription opiate use Z79.891 Active confirmed 824338315 Problem Iron deficiency anemia, unspecified iron deficiency an emia type D50.9 Active confirmed 58469476 Problem Gastroesophageal reflux disease, esophagitis pre sence not specified K21.9 Active confirmed 209629662 Problem Lung nodule R91.1 Active confirmed 00488410 2 Problem History of gastric bypass Z98.89 Active confirmed 088376173 Problem Anxiety and depression F41.8 Active confirmed 742665920 Problem Family history of colon cancer in father Z80.0 Active confirmed 053044576 Problem Hyperplastic polyp of intestine K63.5 Active confi rmed 49592197 Problem Former smoker Z87.891 Active confirmed 99920 06 ALLERGIES Allergen (clinical drug ingredient) Drug/Non Drug Allergy do cumented on EMR Reaction Allergy Type Onset Date Status lisinopril Lisinopril([facility] Code:[address]-26) cough , felt like something was always in her throat Drug Allergy Active ENCOUNTERS from 1960 to 2021-02-05 Encounter Location Date Provider Diagnosis [address] [place] [address] Jan, Mary Blakeage IMMUNIZATIONS Vaccine Route Administration Date Status COVID-19 dose #2 given elsewhere Unspecified Unknown [facility] 2020 Administered COVID-19 dose #1 given elsewhere Unspecified Unknown [facility] 2020 Administered Influenza 18 yrs & older [...] times a day for 30 Days Active Sucralfate 1 GM 1 tablet on an empty stomach Orally 30 minutes before meals and bedtime for 30 days Mar, Active Slow Fe 160 (50 Fe) MG 1 tab(s) Orally twice a day IRON Active Vitamin D _ 1 tab(s) 5000mg Orally daily Active Adderall 20 MG 1 tablet Orally Twice a day Active Vitamin E 200 UNIT 1 capsule Orally Once a day for 30 day(s) Active Avapro 300 MG 1 tablet Orally Once a day for 90 days Active HYDROcodone-Acetaminophen 5-325 MG 1 tablet as needed Orally q8h prn mdd3 3m supply CATD chronic pain for 90 day(s) Jan, Active Multivitamins otc 1 tablet p.o once a day Active Omeprazole 40 MG 1 capsule 30 minutes before morning meal Orally On a day Active PROCEDURES No Information RESULTS No Results REASON FOR VISIT stomach pain, unable to eat MEDICAL (GENERAL) HISTORY Type Description Date Medical [...] No Information FUNCTIONAL STATUS No Information ASSESSMENTS No Information PLAN OF TREATMENT Medication Medication Name Sig [...] before morning meal Orally Once a day Next Appt Details Provider Name:Mary Padilla, 08:00:00 AM, [address] [facility], , [place], [address], Provider Name:Rafita Parish, 2021-06-04 02:15:00 PM, [address], , [place], [address], Insurance Providers Payer Name Payer Address Payer Phone Insured Name Patient Relati onship to Insured Coverage Start Date Coverage End Date CHONG Aparicio [facility] [id number] [facility] [address] [address] [facility] [address] [place] self
--- OUTSIDE RECORDS SUMMARY | 2021-05-05 09:43 | CCD | Continuity of Care Document ---
Author Author Edgar FRANK MD Organization Unknown Address [address] [place] [address] Phone [phone] Care Team Providers Care Regulatory Manager Name Role Phone Azeem Chapa PA-C AUTM [phone] Mary Padilla R.N. AUTM [phone] Problems Description No Active Problems Social History [...] doctor's bowel prep instructions. 354ml R63.4 Colt Frank MD 03/31/2021 Milk Of Magnesia 1200mg/15ML Suspe nsion take 45 milliliters by mouth as directed on colonoscopy prep sheet. R63.4 Colt Frank MD 03/31/[address] 1 by mouth twice daily. 60caps Colt Frank MD Vitamin D3 Maximum Strength 5000Unit Capsules [...] lb BMI (Body Mass Index) 29.9 kg/m2 [place] Body Weight 120 lb Weight 78.926 kg BSA (Body Surface Area) 1.84 m2 02/08/2017 9:53am BP Systolic 138 mmHg BP Diastolic 88 mmHg Height 64 inches 5'4" Weight 219.00 lb BMI (Body Mass Index) 37.6 kg/m2 [place] Body Weight 120 lb Weight 99.338 kg BSA (Body Surface Area) 2.03 m2 Results Test Acquired Date Facility Test Result H/L Range Note CBC With Differential 03/31/2021 [facility] [address] [place] [address] [phone] White Blood Count 8.8 10 Normal 4.0-10.0 Red Blood Count 3.77 10 Low 4.00-5.40 Hemoglobin 12.2 g/dL Normal 12.0-15.5 Hematocrit 37.9 % Normal 36.0-47.0 Mean Corpuscular Volume 100.5 fl High 80.0-96.0 Mean Corpuscular Hemoglobin 32.4 pg Normal 27.0-33.0 Mean Corpuscular HGB Conc 32.2 g/dL Normal 32.0-36.5 Red Cell Distribution Width 13.4 % Normal 11.5-14.5 Platelet Count, Automated 322 10 Normal 150-450 Neutrophils % 53.0 % Normal 36.0-66.0 Lymph % 31.3 % Normal 24.0-44.0 [place] % 12.6 % High 2.0-8.0 Eos % 2.3 % Normal 0.0-3.0 Baso % 0.6 % Normal 0.0-1.0 Immature Granulocyte % 0.2 % Normal 0-3.0 Nucleated Red Blood Cell % 0.0 % Normal 0-0 Neutrophils # 4.7 10 Normal 1.5-8.5 Lymph # 2.8 10 Normal 1.5-5.0 [place] # 1.1 10 High 0.0-0.8 Eos # 0.2 10 Normal 0.0-0.5 Baso # 0.1 10 Normal 0.0-0.2 1 Comprehensive Metabolic Profil 03/31/2021 [facility] [address] [place] [address] [phone] Glucose, Fasting 73 mg/dL Normal 70-100 Blood Urea Nitrogen 7 mg/dL Normal 7-18 Creatinine For GFR 0.67 mg/dL Normal 0.55-1.30 Glomerular Filtration Rate > 60.0 Normal >45 2 Sodium Level 142 mEq/L Normal 136-145 Potassium Serum 4.3 mEq/L Normal 3.5-5.1 Chloride Level 107 mEq/L Normal 98-107 Carbon Dioxide Level 32 mEq/L Normal 21-32 Anion Gap 3 mEq/L Low 8-16 Calcium Level 8.7 mg/dL Low 8.8-10.2 Ast/Sgot 76 U/L High 7-37 Alt/SGPT 23 U/L Normal 12-78 Alkaline Phosphatase 146 U/L High 45-117 Bilirubin,Total 0.5 mg/dL Normal 0.2-1.0 Total Protein 6.8 GM/DL Normal 6.4-8.2 Albumin 2.5 GM/DL Low 3.2-5.2 Albumin/Globulin Ratio 0.6 Low 1.2-2.2 3 Amylase & Lipase 03/31/2021 [facility] nt Main Lab [address] [place] [address] [phone] Amylase 25 U/L Normal 25-115 Lipase 107 U/L Normal 73-393 4 1 04/10/21 (Apr 10) 08:23 AM FELICITA CHARLEBOIS No significant abnormalities. 2 Units are mL/min/1.73 m2 Chronic Kidney Disease Staging per NKF: Stage I & II GFR >=60 Normal to Mildly Decreased Stage III GFR 30-59 Moderately Decreased Stage IV GFR 15-29 Severely Decreased Stage V GFR <15 Very Little GFR Left ESRD GFR <15 on FSR 3 04/10/21 (Apr 10) 08:23 AM FELICITA CHARLEBOIS Results reviewed and will discuss with patient. See triage. 4 04/10/21 (Apr 10) 08:24 AM FELICITA CHARLEBOIS Pancreatic enzymes are normal. Procedures Description No Information Available Medical Devices Description No Information Available Encounters Description No Information Available Assessments Date Code Description Provider 03/31/2021 R10.10 Upper abdominal pain, unspecifie d ERNIE Lewis 03/31/2021 R63.4 Abnormal weight loss ERNIE Padgett Plan of Treatment Future Appointment(s):* 05/05/2021 2:00 pm - Colt Frank MD at [facility] * 04/23/2021 8:10 am - ENRIE Lewis at [facility] 03/31/2021 - ERNIE Lewis* R10.10 Upper abdominal pain, unspecified * R63.4 Abnormal weight loss * * New Xrays:* CT Abdomen And Pelvis W Contrast, Scheduled: 04/15/21 * Ultrasound Abdomen Limited, Scheduled: 04/15/21 * New Orders:* Endoscopy, Ordered: 03/31/21 * [...] Reason for Referral Status Appt Date Colt Frank M.D. DYSPHAGIA, INDIGESTION Scheduled [facility], Gastroenterology [address] [facility], [address] [place] [id number] [phone]
--- OUTSIDE RECORDS SUMMARY | 2021-05-05 09:43 | CCD ---
Author Author [facility] Organization [facility] Address Unknown Phone Unavailable Care Team Providers Care Sanitation Engineer Name Role Phone Rafita Parish Unavailable PROBLEMS Type Condition ICD9-CM Code [id number] Code Onset Dates Condition S tatus W/U Status Risk SNOMED Code Notes Problem Chronic low back pain M54.5 Active confirmed 800463709 Problem Vitamin D deficiency E55.9 Active confirmed 01009140 Problem Essential hypertension I10 Active confirmed 51160494 Problem History of gastric bypass Z98.89 Active confirmed 418956984 Problem Mixed hyperlipidemia E78.2 Active confirmed 576990819 Problem Sacroiliac joint pain M53.3 Active confirmed 193071826 Problem Chronic prescription opiate use Z79.891 Active confirmed 461003801 Problem Anxiety and depression F41.8 Active confirmed 015678123 Problem Lung nodule R91.1 Active confirmed 49860789 2 Problem Lumbar spondylosis M47.816 Active confirmed 101271072 Problem Dysphagia, unspecified type R13.10 Active confirmed 49023594 Problem Gastroesophageal reflux disease, esophagitis pre sence not specified K21.9 Active confirmed 204085908 Problem Family history of colon cancer in father Z80.0 Active confirmed 600498765 Problem Hyperplastic polyp of intestine K63.5 Active confi rmed 02710688 Problem Former smoker Z87.891 Active confirmed 67086 06 Problem Iron deficiency anemia, unspecified iron deficiency an emia type D50.9 Active confirmed 01650575 ALLERGIES Allergen (clinical drug ingredient) Drug/Non Drug Allergy do cumented on EMR Reaction Allergy Type Onset Date Status lisinopril Lisinopril([facility] Code:[address]-64) cough , felt like something was always in her throat Drug Allergy Active ENCOUNTERS from 1960 to 2021-03-14 Encounter Location Date Provider Diagnosis [facility] [address] [facility] 3rd Floor [phone] [place] [address] Mar, Rafita Parish IMMUNIZATIONS Vaccine Route Administration Date Status COVID-19 dose #2 given elsewhere Unspecified Unknown [facility] 2020 Administered COVID-19 dose #1 given elsewhere Unspecified Unknown [facility] 2020 Administered Influenza 18 yrs & older [...] Days Active Adderall 20 MG 1 tablet [id number] Twice a day for 30 days Feb, Active Omeprazole 40 MG 1 capsule 30 minutes before morning meal Orally On a day Active Vitamin E 200 UNIT 1 capsule Orally Once a day for 30 day(s) Active PROCEDURES No Information RESULTS No Results REASON FOR VISIT CYCLOBENZAPRINE REFILL MEDICAL (GENERAL) HISTORY Type Description Date Medical [...] Medication Name Sig Start Date Stop Date Cyclobenzaprine HCl 10 MG 1 tablet as needed Orally Th ree times a day for 30 Days Adderall 20 MG 1 tablet [id number] Twice a day for 30 days Feb, Sucralfate 1 GM 1 tablet on an empty stomach Orally 30 minutes before meals and bedtime for 30 days Mar, Omeprazole 40 MG 1 capsule 30 minutes before morning meal Orally Once a day Avapro 300 MG 1 tablet Orally Once a day for 90 days Next Appt Details Provider Name:Mary Padilla, 08:00:00 AM, [address] [facility], , [place], [address], Provider Name:Rafita Parish, 2021-06-04 02:15:00 PM, [address], , [place], [address], Insurance Providers Payer Name Payer Address Payer Phone Insured Name Patient Relati onship to Insured Coverage Start Date Coverage End Date CHONG Aparicio [facility] [id number] [facility] [address] [address] [facility] [address] [place] self
--- OUTSIDE RECORDS SUMMARY | 2021-05-05 09:43 | CCD ---
Author Author [facility] Organization [facility] Address Unknown Phone Unavailable Care Team Providers Care Welcome Wagon Hostess Name Role Phone Mary Padilla Unavailable PROBLEMS Type Condition ICD9-CM Code ERX10-TT Code Onset Dates Condition S tatus W/U Status Risk SNOMED Code Notes Problem Essential hypertension I10 Active confirmed 92818221 Problem Chronic low back pain M54.5 Active confirmed 403479147 Problem Mixed hyperlipidemia E78.2 Active confirmed 549386393 Problem Vitamin D deficiency E55.9 Active confirmed 49491251 Problem Lumbar spondylosis M47.816 Active confirmed 210509408 Problem Sacroiliac joint pain M53.3 Active confirmed 330968854 Problem Chronic prescription opiate use Z79.891 Active confirmed 812129509 Problem Iron deficiency anemia, unspecified iron deficiency an emia type D50.9 Active confirmed 28970560 Problem Gastroesophageal reflux disease, esophagitis pre sence not specified K21.9 Active confirmed 530014719 Problem Lung nodule R91.1 Active confirmed 02326363 2 Problem History of gastric bypass Z98.89 Active confirmed 261849840 Problem Anxiety and depression F41.8 Active confirmed 709051675 Problem Family history of colon cancer in father Z80.0 Active confirmed 177664835 Problem Hyperplastic polyp of intestine K63.5 Active confi rmed 13962790 Problem Former smoker Z87.891 Active confirmed 25492 06 ALLERGIES Allergen (clinical drug ingredient) Drug/Non Drug Allergy do cumented on EMR Reaction Allergy Type Onset Date Status lisinopril Lisinopril([facility] Code:[address]-91) cough , felt like something was always in her throat Drug Allergy Active ENCOUNTERS from 1960 to 2021-02-13 Encounter Location Date Provider Diagnosis [address] [place] [address] Feb, Mary Blakeage Essential hypertension I10 IMMUNIZATIONS Vaccine Route Administration Date Status Influenza 18 yrs & older Flublok IM Intramuscular Mar 21, 2020 Administered Pneumococcal Adult 0.5mL Pneumovax 23 IM Intramuscular Mar 27 019 Administered COVID-19 dose #2 given elsewhere Unspecified Unknown [facility] 2020 Administered COVID-19 dose #1 given elsewhere Unspecified Unknown [facility] 2020 Administered TDAP 0.5mL (Boostrix) IM Intramuscular September [...] 1 tablet p.o once a day Active Adderall 20 MG 1 tablet Orally Twice a day Active Vitamin D _ 1 tab(s) 5000mg [...] Treatment Notes Treatm ent Clinical Notes Feb, Essential hypertension (ICD-10 - I10) PLAN OF TREATMENT Medication Medication Name Sig Start Date Stop Date Omeprazole 40 MG 1 capsule 30 minutes before morning meal Orally Once a day Adderall 20 MG 1 tablet Orally Twice a day Avapro 300 MG 1 tablet Orally Once a day for 90 days Sucralfate 1 GM 1 tablet on an empty stomach Orally 30 minutes before meals and bedtime for 30 days Mar, Next Appt Details Provider Name:Mary Padilla, 08:00:00 AM, [address] [facility], , [place], [address], Provider Name:Rafita Parish, 2021-06-04 02:15:00 PM, [address], , [place], [address], Insurance Providers Payer Name Payer Address Payer Phone Insured Name Patient Relati onship to Insured Coverage Start Date Coverage End Date [place]ONG [place] [id number] [facility] [address] [address] [facility] [address] [place] self
--- OUTSIDE RECORDS SUMMARY | 2021-05-05 09:44 | CCD ---
Author Author [facility] Organization [facility] Address Unknown Phone Unavailable Support Name Relationship Address Phone [employer] [place] [address] [place] [address] [place] [address] [place] [address] [employer] [place] [address] [employer] Next Of [address] [place] [address] YI AUGUSTE Next Of Kin [id number] [facility] [address] [employer] [place] [address] MARKUS ORTIZ Next Of Kin [id number] [place] [address] YI AUGUSTE ECON [address] [facility] [place] [address] Unavailable YI ORTIZ [address] [place] [address] Unavailable Re-disclosure Warning The records that you are about to access may contain information from federally-assisted alcohol or drug abuse programs. If such information is present, then the following federally mandated warning applies: This information has been disclosed to you from records protected by federal confidentiality rules (42 CFR part 2). The federal rules prohibit you from making any further disclosure of this information unless further disclosure is expressly permitted by the written consent of the person to whom it pertains or as otherwise permitted by 42 CFR part 2. A general authorization for the release of medical or other information is NOT sufficient for this purpose. The Federal rules restrict any use of the information to criminally investigate or prosecute any alcohol or drug abuse patient.The records that you are about to access may contain highly sensitive health information, the redisclosure of which is protected by Article 27-F of the [facility] Public Health law. If you continue you may have access to information: Regarding HIV / AIDS; Provided by facilities licensed or operated by the [facility] Office of Mental Health; or Provided by the [facility] Office for People With Developmental Disabilities. If such information is present, then the following [facility] mandated warning applies: This information has been disclosed to you from confidential records which are protected by state law. State law prohibits you from making any further disclosure of this information without the specific written consent of the person to whom it pertains, or as otherwise permitted by law. Any unauthorized further disclosure in violation of state law may result in a fine or fci sentence or both. A general authorization for the release of medical or other information is NOT sufficient authorization for further disc losure. Family History Family Member Name Family Member Gender Family Member Status Date o f Status Description Data Source(s) Unknown Unknown Problem MEDENT ([facility], ) Father Dx in his 60's Encounters Encounter Providers Location Date Indications Data Source(s ) Unknown [address] [facility] [place] [address] 04/25/2021 12:00:00 AM EST eCW1 ([facility]) Unknown [address] [facility] [place] [place] [address] 04/22/2021 12:00:00 AM EST eCW1 ([facility]) Outpatient [address] [facility] [place] [address] 03/20/2021 12:00:00 AM EDT eCW1 ([facility]) Unknown [address] [facility] [address] 03/14/2021 12:00:00 AM EDT eCW1 ([facility]) Unknown [address] [facility] [address] 02/18/2021 12:00:00 AM EDT eCW1 ([facility]) Unknown [address] [facility] [address] 02/18/2021 12:00:00 AM EDT eCW1 ([facility]) Unknown [address] [facility] [address] 02/12/2021 12:00:00 AM EDT eCW1 ([facility]) Outpatient [address] [facility] [address] 02/05/2021 12:00:00 AM EDT eCW1 ([facility]) Unknown [address] [facility] [address] 02/03/2021 12:00:00 AM EDT eCW1 ([facility]) Outpatient [address] [facility] [address] 01/16/2021 12:00:00 AM EDT eCW1 ([facility]) Unknown [address] [facility] [address] 01/15/2021 12:00:00 AM EDT eCW1 ([facility]) Unknown [address] [facility] [address] 01/13/2021 12:00:00 AM EDT eCW1 ([facility]) Outpatient [address] [facility] [address] 12/19/2020 12:00:00 AM EDT eCW1 ([facility]) Unknown [address] [facility] [address] 12/12/2020 12:00:00 AM EDT eCW1 ([facility]) Unknown [address] [facility] [address] 12/11/2020 12:00:00 AM EDT eCW1 ([facility]) Unknown [address] [facility] [address] 11/13/2020 12:00:00 AM EDT eCW1 ([facility]) Unknown [address] [facility] [address] 11/13/2020 12:00:00 AM EDT eCW1 ([facility]) Unknown [address] [facility] [address] 11/13/2020 12:00:00 AM EDT eCW1 ([facility]) Outpatient [address] [facility] [address] 10/16/2020 12:00:00 AM EDT eCW1 ([facility]) Unknown [address] [facility] [address] 10/14/2020 12:00:00 AM EDT eCW1 ([facility]) Outpatient [address] [facility] [address] 09/18/2020 12:00:00 AM EDT eCW1 ([facility]) Unknown [address] [facility] [address] 09/11/2020 12:00:00 AM EDT eCW1 ([facility]) Unknown [address] [facility] [address] 09/11/2020 12:00:00 AM EDT eCW1 ([facility]) Unknown [address] [facility] [address] 08/12/2020 12:00:00 AM EST eCW1 ([facility]) Unknown [address] [facility] [address] 08/12/2020 12:00:00 AM EST eCW1 ([facility]) Outpatient [address] [facility] [address] 07/18/2020 12:00:00 AM EST eCW1 ([facility]) Unknown [address] [facility] [address] 07/17/2020 12:00:00 AM EST eCW1 ([facility]) Unknown [address] [facility] [address] 07/17/2020 12:00:00 AM EST eCW1 ([facility]) Unknown [address] [facility] [address] 07/17/2020 12:00:00 AM EST eCW1 ([facility]) Unknown [address] [facility] [address] 07/10/2020 12:00:00 AM EST eCW1 ([facility]) Unknown [address] [facility] [address] 07/09/2020 12:00:00 AM EST eCW1 ([facility]) Outpatient [address] [facility] [address] 06/19/2020 12:00:00 AM EST eCW1 ([facility]) Unknown [address] [facility] [place] [address] 06/17/2020 12:00:00 AM EST eCW1 ([facility]) Unknown [address] [facility] [place] [address] 06/13/2020 12:00:00 AM EST eCW1 ([facility]) Unknown [address] [facility] [address] 06/13/2020 12:00:00 AM EST eCW1 ([facility]) Unknown [address] [facility] [address] 06/13/2020 12:00:00 AM EST eCW1 ([facility]) Unknown [address] [facility] [place] [address] 06/04/2020 12:00:00 AM EST eCW1 ([facility]) Unknown [address] [facility] [place] [address] 05/30/2020 12:00:00 AM EST eCW1 ([facility]) Unknown [address] [facility] [place] [address] 05/13/2020 12:00:00 AM EST eCW1 ([facility]) Unknown [address] [facility] [place] [address] 05/10/2020 12:00:00 AM EST eCW1 ([facility]) Unknown [address] [facility] [address] 05/10/2020 12:00:00 AM EST eCW1 ([facility]) Outpatient [address] [facility] [address] 04/16/2020 12:00:00 AM EST eCW1 ([facility]) Outpatient [address] [facility] [address] 04/11/2020 12:00:00 AM EDT eCW1 ([facility]) Unknown [address] [facility] [address] 04/09/2020 12:00:00 AM EDT eCW1 ([facility]) Outpatient [address] [facility] [address] 03/21/2020 12:00:00 AM EDT eCW1 ([facility]) Unknown [address] [facility] [address] 03/12/2020 12:00:00 AM EDT eCW1 ([facility]) [facility] [place] [address] [facility] [address] 03/06/2020 12:00:00 AM EDT eCW1 ([facility]) [facility] [place] [address] [facility] [address] 03/06/2020 12:00:00 AM EDT eCW1 ([facility]) Immunizations Vaccine Date Status Description Data Source(s) influenza, recombinant, quadrIvalent,injectable, prese rvative free 03/20/2021 09:57:00 AM EDT completed eCW1 ([facility]) influenza, recombinant, quadrIvalent,injectable, prese rvative free 03/20/2021 09:57:00 AM EDT completed eCW1 ([facility]) influenza, recombinant, quadrIvalent,injectable, prese rvative free 03/20/2021 09:57:00 AM EDT completed eCW1 ([facility]) COVID-19 dose #2 given elsewhere Unspecified 09/09/2020 07:4 2:00 AM EDT completed eCW1 ([facility]) COVID-19 dose #2 given elsewhere Unspecified 09/09/2020 07:4 2:00 AM EDT completed eCW1 ([facility]) COVID-19 dose #2 given elsewhere Unspecified 09/09/2020 07:4 2:00 AM EDT completed eCW1 ([facility]) COVID-19 dose #2 given elsewhere Unspecified 09/09/2020 07:4 2:00 AM EDT completed eCW1 ([facility]) COVID-19 dose #2 given elsewhere Unspecified 09/09/2020 07:4 2:00 AM EDT completed eCW1 ([facility]) COVID-19 dose #2 given elsewhere Unspecified 09/09/2020 07:4 2:00 AM EDT completed eCW1 ([facility]) COVID-19 dose #2 given elsewhere Unspecified 09/09/2020 07:4 2:00 AM EDT completed eCW1 ([facility]) COVID-19 dose #2 given elsewhere Unspecified 09/09/2020 07:4 2:00 AM EDT completed eCW1 ([facility]) COVID-19 dose #2 given elsewhere Unspecified 09/09/2020 07:4 2:00 AM EDT completed eCW1 ([facility]) COVID-19 dose #2 given elsewhere Unspecified 09/09/2020 07:4 2:00 AM EDT completed eCW1 ([facility]) COVID-19 dose #2 given elsewhere Unspecified 09/09/2020 07:4 2:00 AM EDT completed eCW1 ([facility]) COVID-19 dose #2 given elsewhere Unspecified 09/09/2020 07:4 2:00 AM EDT completed eCW1 ([facility]) COVID-19 dose #2 given elsewhere Unspecified 09/09/2020 07:4 2:00 AM EDT completed eCW1 ([facility]) COVID-19 dose #2 given elsewhere Unspecified 09/09/2020 07:4 2:00 AM EDT completed eCW1 ([facility]) COVID-19 dose #2 given elsewhere Unspecified 09/09/2020 07:4 2:00 AM EDT completed eCW1 ([facility]) COVID-19 dose #2 given elsewhere Unspecified 09/09/2020 07:4 2:00 AM EDT completed eCW1 ([facility]) COVID-19 dose #2 given elsewhere Unspecified 09/09/2020 07:4 2:00 AM EDT completed eCW1 ([facility]) COVID-19 dose #2 given elsewhere Unspecified 09/09/2020 07:4 2:00 AM EDT completed eCW1 ([facility]) COVID-19 dose #2 given elsewhere Unspecified 09/09/2020 07:4 2:00 AM EDT completed eCW1 ([facility]) COVID-19 dose #2 given elsewhere Unspecified 09/09/2020 07:4 2:00 AM EDT completed eCW1 ([facility]) COVID-19 dose #2 given elsewhere Unspecified 09/09/2020 07:4 2:00 AM EDT completed eCW1 ([facility]) COVID-19 dose #1 given elsewhere Unspecified 08/14/2020 07:4 1:00 AM EST completed eCW1 ([facility]) COVID-19 dose #1 given elsewhere Unspecified 08/14/2020 07:4 1:00 AM EST completed eCW1 ([facility]) COVID-19 dose #1 given elsewhere Unspecified 08/14/2020 07:4 1:00 AM EST completed eCW1 ([facility]) COVID-19 dose #1 given elsewhere Unspecified 08/14/2020 07:4 1:00 AM EST completed eCW1 ([facility]) COVID-19 dose #1 given elsewhere Unspecified 08/14/2020 07:4 1:00 AM EST completed eCW1 ([facility]) COVID-19 dose #1 given elsewhere Unspecified 08/14/2020 07:4 1:00 AM EST completed eCW1 ([facility]) COVID-19 dose #1 given elsewhere Unspecified 08/14/2020 07:4 1:00 AM EST completed eCW1 ([facility]) COVID-19 dose #1 given elsewhere Unspecified 08/14/2020 07:4 1:00 AM EST completed eCW1 ([facility]) COVID-19 dose #1 given elsewhere Unspecified 08/14/2020 07:4 1:00 AM EST completed eCW1 ([facility]) COVID-19 dose #1 given elsewhere Unspecified 08/14/2020 07:4 1:00 AM EST completed eCW1 ([facility]) COVID-19 dose #1 given elsewhere Unspecified 08/14/2020 07:4 1:00 AM EST completed eCW1 ([facility]) COVID-19 dose #1 given elsewhere Unspecified 08/14/2020 07:4 1:00 AM EST completed eCW1 ([facility]) COVID-19 dose #1 given elsewhere Unspecified 08/14/2020 07:4 1:00 AM EST completed eCW1 ([facility]) COVID-19 dose #1 given elsewhere Unspecified 08/14/2020 07:4 1:00 AM EST completed eCW1 ([facility]) COVID-19 dose #1 given elsewhere Unspecified 08/14/2020 07:4 1:00 AM EST completed eCW1 ([facility]) COVID-19 dose #1 given elsewhere Unspecified 08/14/2020 07:4 1:00 AM EST completed eCW1 ([facility]) COVID-19 dose #1 given elsewhere Unspecified 08/14/2020 07:4 1:00 AM EST completed eCW1 ([facility]) COVID-19 dose #1 given elsewhere Unspecified 08/14/2020 07:4 1:00 AM EST completed eCW1 ([facility]) COVID-19 dose #1 given elsewhere Unspecified 08/14/2020 07:4 1:00 AM EST completed eCW1 ([facility]) COVID-19 dose #1 given elsewhere Unspecified 08/14/2020 07:4 1:00 AM EST completed eCW1 ([facility]) COVID-19 dose #1 given elsewhere Unspecified 08/14/2020 07:4 1:00 AM EST completed eCW1 ([facility]) influenza, recombinant, quadrIvalent,injectable, prese rvative free 03/21/2020 01:39:00 PM EDT completed eCW1 ([facility]) influenza, recombinant, quadrIvalent,injectable, prese rvative free 03/21/2020 01:39:00 PM EDT completed eCW1 ([facility]) influenza, recombinant, quadrIvalent,injectable, prese rvative free 03/21/2020 01:39:00 PM EDT completed eCW1 ([facility]) influenza, recombinant, quadrIvalent,injectable, prese rvative free 03/21/2020 01:39:00 PM EDT completed eCW1 ([facility]) influenza, recombinant, quadrIvalent,injectable, prese rvative free 03/21/2020 01:39:00 PM EDT completed eCW1 ([facility]) influenza, recombinant, quadrIvalent,injectable, prese rvative free 03/21/2020 01:39:00 PM EDT completed eCW1 ([facility]) influenza, recombinant, quadrIvalent,injectable, prese rvative free 03/21/2020 01:39:00 PM EDT completed eCW1 ([facility]) influenza, recombinant, quadrIvalent,injectable, prese rvative free 03/21/2020 01:39:00 PM EDT completed eCW1 ([facility]) influenza, recombinant, quadrIvalent,injectable, prese rvative free 03/21/2020 01:39:00 PM EDT completed eCW1 ([facility]) influenza, recombinant, quadrIvalent,injectable, prese rvative free 03/21/2020 01:39:00 PM EDT completed eCW1 ([facility]) influenza, recombinant, quadrIvalent,injectable, prese rvative free 03/21/2020 01:39:00 PM EDT completed eCW1 ([facility]) influenza, recombinant, quadrIvalent,injectable, prese rvative free 03/21/2020 01:39:00 PM EDT completed eCW1 ([facility]) influenza, recombinant, quadrIvalent,injectable, prese rvative free 03/21/2020 01:39:00 PM EDT completed eCW1 ([facility]) influenza, recombinant, quadrIvalent,injectable, prese rvative free 03/21/2020 01:39:00 PM EDT completed eCW1 ([facility]) influenza, recombinant, quadrIvalent,injectable, prese rvative free 03/21/2020 01:39:00 PM EDT completed eCW1 ([facility]) influenza, recombinant, quadrIvalent,injectable, prese rvative free 03/21/2020 01:39:00 PM EDT completed eCW1 ([facility]) influenza, recombinant, quadrIvalent,injectable, prese rvative free 03/21/2020 01:39:00 PM EDT completed eCW1 ([facility]) influenza, recombinant, quadrIvalent,injectable, prese rvative free 03/21/2020 01:39:00 PM EDT completed eCW1 ([facility]) influenza, recombinant, quadrIvalent,injectable, prese rvative free 03/21/2020 01:39:00 PM EDT completed eCW1 ([facility]) influenza, recombinant, quadrIvalent,injectable, prese rvative free 03/21/2020 01:39:00 PM EDT completed eCW1 ([facility]) influenza, recombinant, quadrIvalent,injectable, prese rvative free 03/21/2020 01:39:00 PM EDT completed eCW1 ([facility]) influenza, recombinant, quadrIvalent,injectable, prese rvative free 03/21/2020 01:39:00 PM EDT completed eCW1 ([facility]) influenza, recombinant, quadrIvalent,injectable, prese rvative free 03/21/2020 01:39:00 PM EDT completed eCW1 ([facility]) influenza, recombinant, quadrIvalent,injectable, prese rvative free 03/21/2020 01:39:00 PM EDT completed eCW1 ([facility]) influenza, recombinant, quadrIvalent,injectable, prese rvative free 03/21/2020 01:39:00 PM EDT completed eCW1 ([facility]) influenza, recombinant, quadrIvalent,injectable, prese rvative free 03/21/2020 01:39:00 PM EDT completed eCW1 ([facility]) influenza, recombinant, quadrIvalent,injectable, prese rvative free 03/21/2020 01:39:00 PM EDT completed eCW1 ([facility]) influenza, recombinant, quadrIvalent,injectable, prese rvative free 03/21/2020 01:39:00 PM EDT completed eCW1 ([facility]) influenza, recombinant, quadrIvalent,injectable, prese rvative free 03/21/2020 01:39:00 PM EDT completed eCW1 ([facility]) influenza, recombinant, quadrIvalent,injectable, prese rvative free 03/21/2020 01:39:00 PM EDT completed eCW1 ([facility]) influenza, recombinant, quadrIvalent,injectable, prese rvative free 03/21/2020 01:39:00 PM EDT completed eCW1 ([facility]) influenza, recombinant, quadrIvalent,injectable, prese rvative free 03/21/2020 01:39:00 PM EDT completed eCW1 ([facility]) influenza, recombinant, quadrIvalent,injectable, prese rvative free 03/21/2020 01:39:00 PM EDT completed eCW1 ([facility]) influenza, recombinant, quadrIvalent,injectable, prese rvative free 03/21/2020 01:39:00 PM EDT completed eCW1 ([facility]) influenza, recombinant, quadrIvalent,injectable, prese rvative free 03/21/2020 01:39:00 PM EDT completed eCW1 ([facility]) influenza, recombinant, quadrIvalent,injectable, prese rvative free 03/21/2020 01:39:00 PM EDT completed eCW1 ([facility]) influenza, recombinant, quadrIvalent,injectable, prese rvative free 03/21/2020 01:39:00 PM EDT completed eCW1 ([facility]) influenza, recombinant, quadrIvalent,injectable, prese rvative free 03/21/2020 01:39:00 PM EDT completed eCW1 ([facility]) influenza, recombinant, quadrIvalent,injectable, prese rvative free 03/21/2020 01:39:00 PM EDT completed eCW1 ([facility]) influenza, recombinant, quadrIvalent,injectable, prese rvative free 03/21/2020 01:39:00 PM EDT completed eCW1 ([facility]) influenza, recombinant, quadrIvalent,injectable, prese rvative free 03/21/2020 01:39:00 PM EDT completed eCW1 ([facility]) influenza, recombinant, quadrIvalent,injectable, prese rvative free 03/21/2020 01:39:00 PM EDT completed eCW1 ([facility]) influenza, recombinant, quadrIvalent,injectable, prese rvative free 03/21/2020 01:39:00 PM EDT completed eCW1 ([facility]) influenza, recombinant, quadrIvalent,injectable, prese rvative free 03/21/2020 01:39:00 PM EDT completed eCW1 ([facility]) influenza, recombinant, quadrIvalent,injectable, prese rvative free 03/21/2020 01:39:00 PM EDT completed eCW1 ([facility]) Medications Medication Brand Name Start Date Product Form Dose Route Admi nistrative Instructions Pharmacy Instructions Status Indications Reaction Description Data Source(s) Amphetamine aspartate 5 MG / Amphetamine Sulfate 5 MG / Dextroamphetamine saccharate 5 MG / Dextroamphetamine Sulfate 5 MG Oral Tablet [Adderall] Adderall 20 MG Adderall 20 MG 04/25/2021 12:00:00 AM EST 1.0 {tablet} active Adderall 20 MG eCW1 ([facility]) Acetaminophen 325 MG / Hydrocodone Shahid trate 5 MG Oral Tablet HYDROcodone- Acetaminophen 5-325 MG HYDROcodone-Acetaminophen 5-325 MG 04/23/2021 12:00:00 AM EST 1.0 {tablet_as_needed} active HYDROcodone-Acetaminophen 5-325 MG eCW1 ([facility]) Acetaminophen 325 MG / Hydrocodone Shahid trate 5 MG Oral Tablet HYDROcodone- Acetaminophen 5-325 MG HYDROcodone-Acetaminophen 5-325 MG 04/23/2021 12:00:00 AM EST 1.0 {tablet_as_needed} active HYDROcodone-Acetaminophen 5-325 MG eCW1 ([facility]) Magnesium Hydroxide 80 MG/ML Oral Suspension Milk Of Magnesi a 03/31/2021 12:00:00 AM EDT ORAL active M EDENT ([facility], ) Suprep Bowel Prep Kit Suprep Bowel Prep Kit 03/31/2021 12:00:00 AM EDT active MEDENT ([facility], ) Amphetamine aspartate 5 MG / Amphetamine Sulfate 5 MG / Dextroamphetamine saccharate 5 MG / Dextroamphetamine Sulfate 5 MG Oral Tablet [Adderall] Adderall 20 MG Adderall 20 MG 03/20/2021 12:00:00 AM EDT 1.0 {tablet} active Adderall 20 MG eCW1 ([facility]) Amphetamine aspartate 5 MG / Amphetamine Sulfate 5 MG / Dextroamphetamine saccharate 5 MG / Dextroamphetamine Sulfate 5 MG Oral Tablet [Adderall] Adderall 20 MG Adderall 20 MG 03/20/2021 12:00:00 AM EDT 1.0 {tablet} active Adderall 20 MG eCW1 ([facility]) Amphetamine aspartate 5 MG / Amphetamine Sulfate 5 MG / Dextroamphetamine saccharate 5 MG / Dextroamphetamine Sulfate 5 MG Oral Tablet [Adderall] Adderall 20 MG Adderall 20 MG 02/18/2021 12:00:00 AM EDT 1.0 {tablet} active Adderall 20 MG eCW1 ([facility]) Amphetamine aspartate 5 MG / Amphetamine Sulfate 5 MG / Dextroamphetamine saccharate 5 MG / Dextroamphetamine Sulfate 5 MG Oral Tablet [Adderall] Adderall 20 MG Adderall 20 MG 02/18/2021 12:00:00 AM EDT 1.0 {tablet} active Adderall 20 MG eCW1 ([facility]) Amphetamine aspartate 5 MG / Amphetamine Sulfate 5 MG / Dextroamphetamine saccharate 5 MG / Dextroamphetamine Sulfate 5 MG Oral Tablet [Adderall] Adderall 20 MG Adderall 20 MG 02/18/2021 12:00:00 AM EDT 1.0 {tablet} active Adderall 20 MG eCW1 ([facility]) Acetaminophen 325 MG / Hydrocodone Shahid trate 5 MG Oral Tablet HYDROcodone- Acetaminophen 5-325 MG HYDROcodone-Acetaminophen 5-325 MG 01/16/2021 12:00:00 AM EDT 1.0 {tablet_as_needed} active HYDROcodone-Acetaminophen 5-325 MG eCW1 ([facility]) Acetaminophen 325 MG / Hydrocodone Shahid trate 5 MG Oral Tablet HYDROcodone- Acetaminophen 5-325 MG HYDROcodone-Acetaminophen 5-325 MG 01/16/2021 12:00:00 AM EDT 1.0 {tablet_as_needed} active HYDROcodone-Acetaminophen 5-325 MG eCW1 ([facility]) Acetaminophen 325 MG / Hydrocodone Shahid trate 5 MG Oral Tablet HYDROcodone- Acetaminophen 5-325 MG HYDROcodone-Acetaminophen 5-325 MG 01/16/2021 12:00:00 AM EDT 1.0 {tablet_as_needed} active HYDROcodone-Acetaminophen 5-325 MG eCW1 ([facility]) Acetaminophen 325 MG / Hydrocodone Shahid trate 5 MG Oral Tablet HYDROcodone- Acetaminophen 5-325 MG HYDROcodone-Acetaminophen 5-325 MG 01/16/2021 12:00:00 AM EDT 1.0 {tablet_as_needed} active HYDROcodone-Acetaminophen 5-325 MG eCW1 ([facility]) Acetaminophen 325 MG / Hydrocodone Shahid trate 5 MG Oral Tablet HYDROcodone- Acetaminophen 5-325 MG HYDROcodone-Acetaminophen 5-325 MG 01/16/2021 12:00:00 AM EDT 1.0 {tablet_as_needed} active HYDROcodone-Acetaminophen 5-325 MG eCW1 ([facility]) Acetaminophen 325 MG / Hydrocodone Shahid trate 5 MG Oral Tablet HYDROcodone- Acetaminophen 5-325 MG HYDROcodone-Acetaminophen 5-325 MG 01/16/2021 12:00:00 AM EDT 1.0 {tablet_as_needed} active HYDROcodone-Acetaminophen 5-325 MG eCW1 ([facility]) Acetaminophen 325 MG / Hydrocodone Shahid trate 5 MG Oral Tablet HYDROcodone- Acetaminophen 5-325 MG HYDROcodone-Acetaminophen 5-325 MG 01/16/2021 12:00:00 AM EDT 1.0 {tablet_as_needed} active HYDROcodone-Acetaminophen 5-325 MG eCW1 ([facility]) Acetaminophen 325 MG / Hydrocodone Shahid trate 5 MG Oral Tablet HYDROcodone- Acetaminophen 5-325 MG HYDROcodone-Acetaminophen 5-325 MG 01/16/2021 12:00:00 AM EDT 1.0 {tablet_as_needed} active HYDROcodone-Acetaminophen 5-325 MG eCW1 ([facility]) Acetaminophen 325 MG / Hydrocodone Shahid trate 5 MG Oral Tablet HYDROcodone- Acetaminophen 5-325 MG HYDROcodone-Acetaminophen 5-325 MG 01/16/2021 12:00:00 AM EDT 1.0 {tablet_as_needed} active HYDROcodone-Acetaminophen 5-325 MG eCW1 ([facility]) Amphetamine aspartate 5 MG / Amphetamine Sulfate 5 MG / Dextroamphetamine saccharate 5 MG / Dextroamphetamine Sulfate 5 MG Oral Tablet [Adderall] Adderall 20 MG Adderall 20 MG 01/15/2021 12:00:00 AM EDT 1.0 {tablet} active Adderall 20 MG eCW1 ([facility]) Amphetamine aspartate 5 MG / Amphetamine Sulfate 5 MG / Dextroamphetamine saccharate 5 MG / Dextroamphetamine Sulfate 5 MG Oral Tablet [Adderall] Adderall 20 MG Adderall 20 MG 01/15/2021 12:00:00 AM EDT 1.0 {tablet} active Adderall 20 MG eCW1 ([facility]) Amphetamine aspartate 5 MG / Amphetamine Sulfate 5 MG / Dextroamphetamine saccharate 5 MG / Dextroamphetamine Sulfate 5 MG Oral Tablet [Adderall] Adderall 20 MG Adderall 20 MG 01/15/2021 12:00:00 AM EDT 1.0 {tablet} active Adderall 20 MG eCW1 ([facility]) Amphetamine aspartate 5 MG / Amphetamine Sulfate 5 MG / Dextroamphetamine saccharate 5 MG / Dextroamphetamine Sulfate 5 MG Oral Tablet [Adderall] Adderall 20 MG Adderall 20 MG 12/12/2020 12:00:00 AM EDT 1.0 {tablet} active Adderall 20 MG eCW1 ([facility]) Acetaminophen 325 MG / Hydrocodone Shahid trate 5 MG Oral Tablet HYDROcodone- Acetaminophen 5-325 MG HYDROcodone-Acetaminophen 5-325 MG 12/11/2020 12:00:00 AM EDT 1.0 {tablet_as_needed} active HYDROcodone-Acetaminophen 5-325 MG eCW1 ([facility]) Acetaminophen 325 MG / Hydrocodone Shahid trate 5 MG Oral Tablet HYDROcodone- Acetaminophen 5-325 MG HYDROcodone-Acetaminophen 5-325 MG 12/11/2020 12:00:00 AM EDT 1.0 {tablet_as_needed} active HYDROcodone-Acetaminophen 5-325 MG eCW1 ([facility]) Acetaminophen 325 MG / Hydrocodone Shahid trate 5 MG Oral Tablet HYDROcodone- Acetaminophen 5-325 MG HYDROcodone-Acetaminophen 5-325 MG 12/11/2020 12:00:00 AM EDT 1.0 {tablet_as_needed} active HYDROcodone-Acetaminophen 5-325 MG eCW1 ([facility]) Acetaminophen 325 MG / Hydrocodone Shahid trate 5 MG Oral Tablet HYDROcodone- Acetaminophen 5-325 MG HYDROcodone-Acetaminophen 5-325 MG 12/11/2020 12:00:00 AM EDT 1.0 {tablet_as_needed} active HYDROcodone-Acetaminophen 5-325 MG eCW1 ([facility]) Amphetamine aspartate 5 MG / Amphetamine Sulfate 5 MG / Dextroamphetamine saccharate 5 MG / Dextroamphetamine Sulfate 5 MG Oral Tablet [Adderall] Adderall 20 MG Adderall 20 MG 11/13/2020 12:00:00 AM EDT 1.0 {tablet} active Adderall 20 MG eCW1 ([facility]) Acetaminophen 325 MG / Hydrocodone Shahid trate 5 MG Oral Tablet Hydrocodone- Acetaminophen 5-325 MG Hydrocodone-Acetaminophen 5-325 MG 11/13/2020 12:00:00 AM EDT 1.0 {tablet_as_needed} active Hydrocodone-Acetaminophen 5-325 MG eCW1 ([facility]) Acetaminophen 325 MG / Hydrocodone [place] trate 5 MG Oral Tablet Hydrocodone- Acetaminophen 5-325 MG Hydrocodone-Acetaminophen 5-325 MG 11/13/2020 12:00:00 AM EDT 1.0 {tablet_as_needed} active Hydrocodone-Acetaminophen 5-325 MG eCW1 ([facility]) Amphetamine aspartate 5 MG / Amphetamine Sulfate 5 MG / Dextroamphetamine saccharate 5 MG / Dextroamphetamine Sulfate 5 MG Oral Tablet [Adderall] Adderall 20 MG Adderall 20 MG 11/13/2020 12:00:00 AM EDT 1.0 {tablet} active Adderall 20 MG eCW1 ([facility]) Acetaminophen 325 MG / Hydrocodone Shah[place] trate 5 MG Oral Tablet Hydrocodone- Acetaminophen 5-325 MG Hydrocodone-Acetaminophen 5-325 MG 11/13/2020 12:00:00 AM EDT 1.0 {tablet_as_needed} active Hydrocodone-Acetaminophen 5-325 MG eCW1 ([facility]) Amphetamine aspartate 5 MG / Amphetamine Sulfate 5 MG / Dextroamphetamine saccharate 5 MG / Dextroamphetamine Sulfate 5 MG Oral Tablet [Adderall] Adderall 20 MG Adderall 20 MG 11/13/2020 12:00:00 AM EDT 1.0 {tablet} active Adderall 20 MG eCW1 ([facility]) Amphetamine aspartate 5 MG / Amphetamine Sulfate 5 MG / Dextroamphetamine saccharate 5 MG / Dextroamphetamine Sulfate 5 MG Oral Tablet [Adderall] Adderall 20 MG Adderall 20 MG 11/13/2020 12:00:00 AM EDT 1.0 {tablet} active Adderall 20 MG eCW1 ([facility]) Acetaminophen 325 MG / Hydrocodone Shahid trate 5 MG Oral Tablet Hydrocodone- Acetaminophen 5-325 MG Hydrocodone-Acetaminophen 5-325 MG 10/16/2020 12:00:00 AM EDT 1.0 {tablet_as_needed} active Hydrocodone-Acetaminophen 5-325 MG eCW1 ([facility]) Amphetamine aspartate 5 MG / Amphetamine Sulfate 5 MG / Dextroamphetamine saccharate 5 MG / Dextroamphetamine Sulfate 5 MG Oral Tablet [Adderall] Adderall 20 MG Adderall 20 MG 10/15/2020 12:00:00 AM EDT 1.0 {tablet} active Adderall 20 MG eCW1 ([facility]) Amphetamine aspartate 5 MG / Amphetamine Sulfate 5 MG / Dextroamphetamine saccharate 5 MG / Dextroamphetamine Sulfate 5 MG Oral Tablet [Adderall] Adderall 20 MG Adderall 20 MG 10/15/2020 12:00:00 AM EDT 1.0 {tablet} active Adderall 20 MG eCW1 ([facility]) Amphetamine aspartate 5 MG / Amphetamine Sulfate 5 MG / Dextroamphetamine saccharate 5 MG / Dextroamphetamine Sulfate 5 MG Oral Tablet [Adderall] Adderall 20 MG Adderall 20 MG 09/12/2020 12:00:00 AM EDT 1.0 {tablet} active Adderall 20 MG eCW1 ([facility]) Acetaminophen 325 MG / Hydrocodone Shahid trate 5 MG Oral Tablet Hydrocodone- Acetaminophen 5-325 MG Hydrocodone-Acetaminophen 5-325 MG 09/11/2020 12:00:00 AM EDT 1.0 {tablet_as_needed} active Hydrocodone-Acetaminophen 5-325 MG eCW1 ([facility]) Acetaminophen 325 MG / Hydrocodone Shahid trate 5 MG Oral Tablet Hydrocodone- Acetaminophen 5-325 MG Hydrocodone-Acetaminophen 5-325 MG 09/11/2020 12:00:00 AM EDT 1.0 {tablet_as_needed} active Hydrocodone-Acetaminophen 5-325 MG eCW1 ([facility]) Acetaminophen 325 MG / Hydrocodone Shahid trate 5 MG Oral Tablet Hydrocodone- Acetaminophen 5-325 MG Hydrocodone-Acetaminophen 5-325 MG 09/11/2020 12:00:00 AM EDT 1.0 {tablet_as_needed} active Hydrocodone-Acetaminophen 5-325 MG eCW1 ([facility]) Acetaminophen 325 MG / Hydrocodone Shahid trate 5 MG Oral Tablet Hydrocodone- Acetaminophen 5-325 MG Hydrocodone-Acetaminophen 5-325 MG 09/11/2020 12:00:00 AM EDT 1.0 {tablet_as_needed} active Hydrocodone-Acetaminophen 5-325 MG eCW1 ([facility]) Amphetamine aspartate 5 MG / Amphetamine Sulfate 5 MG / Dextroamphetamine saccharate 5 MG / Dextroamphetamine Sulfate 5 MG Oral Tablet [Adderall] Adderall 20 MG Adderall 20 MG 08/12/2020 12:00:00 AM EST 1.0 {tablet} active Adderall 20 MG eCW1 ([facility]) Acetaminophen 325 MG / Hydrocodone Shahid trate 5 MG Oral Tablet Hydrocodone- Acetaminophen 5-325 MG Hydrocodone-Acetaminophen 5-325 MG 08/12/2020 12:00:00 AM EST 1.0 {tablet_as_needed} active Hydrocodone-Acetaminophen 5-325 MG eCW1 ([facility]) Acetaminophen 325 MG / Hydrocodone Shahid trate 5 MG Oral Tablet Hydrocodone- Acetaminophen 5-325 MG Hydrocodone-Acetaminophen 5-325 MG 08/12/2020 12:00:00 AM EST 1.0 {tablet_as_needed} active Hydrocodone-Acetaminophen 5-325 MG eCW1 ([facility]) Amphetamine aspartate 5 MG / Amphetamine Sulfate 5 MG / Dextroamphetamine saccharate 5 MG / Dextroamphetamine Sulfate 5 MG Oral Tablet [Adderall] Adderall 20 MG Adderall 20 MG 08/12/2020 12:00:00 AM EST 1.0 {tablet} active Adderall 20 MG eCW1 ([facility]) Amphetamine aspartate 5 MG / Amphetamine Sulfate 5 MG / Dextroamphetamine saccharate 5 MG / Dextroamphetamine Sulfate 5 MG Oral Tablet [Adderall] Adderall 20 MG Adderall 20 MG 08/12/2020 12:00:00 AM EST 1.0 {tablet} active Adderall 20 MG eCW1 ([facility]) Acetaminophen 325 MG / Hydrocodone Shahid trate 5 MG Oral Tablet [[place]] [place] 5- 325 MG [place] 5-325 MG 07/18/2020 12:00:00 AM EST 1.0 {tablet_as_needed} active [place] 5-325 MG eCW1 ([facility]) Acetaminophen 325 MG / Hydrocodone Shahid trate 5 MG Oral Tablet [[place]] [place] 5- 325 MG [place] 5-325 MG 07/18/2020 12:00:00 AM EST 1.0 {tablet_as_needed} active [place] 5-325 MG eCW1 ([facility]) Acetaminophen 325 MG / Hydrocodone Shahid trate 5 MG Oral Tablet [[place]] [place] 5- 325 MG [place] 5-325 MG 07/18/2020 12:00:00 AM EST 1.0 {tablet_as_needed} active [place] 5-325 MG eCW1 ([facility]) Acetaminophen 325 MG / Hydrocodone Shahid trate 5 MG Oral Tablet [[place]] [place] 5- 325 MG [place] 5-325 MG 07/18/2020 12:00:00 AM EST 1.0 {tablet_as_needed} active [place] 5-325 MG eCW1 ([facility]) Amphetamine aspartate 5 MG / Amphetamine Sulfate 5 MG / Dextroamphetamine saccharate 5 MG / Dextroamphetamine Sulfate 5 MG Oral Tablet [Adderall] Adderall 20 MG Adderall 20 MG 07/17/2020 12:00:00 AM EST 1.0 {tablet} active Adderall 20 MG eCW1 ([facility]) Amphetamine aspartate 5 MG / Amphetamine Sulfate 5 MG / Dextroamphetamine saccharate 5 MG / Dextroamphetamine Sulfate 5 MG Oral Tablet [Adderall] Adderall 20 MG Adderall 20 MG 07/17/2020 12:00:00 AM EST 1.0 {tablet} active Adderall 20 MG eCW1 ([facility]) Amphetamine aspartate 5 MG / Amphetamine Sulfate 5 MG / Dextroamphetamine saccharate 5 MG / Dextroamphetamine Sulfate 5 MG Oral Tablet [Adderall] Adderall 20 MG Adderall 20 MG 07/17/2020 12:00:00 AM EST 1.0 {tablet} active Adderall 20 MG eCW1 ([facility]) Amphetamine aspartate 5 MG / Amphetamine Sulfate 5 MG / Dextroamphetamine saccharate 5 MG / Dextroamphetamine Sulfate 5 MG Oral Tablet [Adderall] Adderall 20 MG Adderall 20 MG 07/17/2020 12:00:00 AM EST 1.0 {tablet} active Adderall 20 MG eCW1 ([facility]) Acetaminophen 325 MG / Hydrocodone Shahid trate 5 MG Oral Tablet [[place]] [place] 5- 325 MG [place] 5-325 MG 07/09/2020 12:00:00 AM EST 1.0 {tablet_as_needed} active [place] 5-325 MG eCW1 ([facility]) Acetaminophen 325 MG / Hydrocodone Shahid trate 5 MG Oral Tablet [[place]] [place] 5- 325 MG [place] 5-325 MG 07/09/2020 12:00:00 AM EST 1.0 {tablet_as_needed} active [place] 5-325 MG eCW1 ([facility]) Amphetamine aspartate 5 MG / Amphetamine Sulfate 5 MG / Dextroamphetamine saccharate 5 MG / Dextroamphetamine Sulfate 5 MG Oral Tablet [Adderall] Adderall 20 MG Adderall 20 MG 06/19/2020 12:00:00 AM EST 1.0 {tablet} active Adderall 20 MG eCW1 ([facility]) Amphetamine aspartate 5 MG / Amphetamine Sulfate 5 MG / Dextroamphetamine saccharate 5 MG / Dextroamphetamine Sulfate 5 MG Oral Tablet [Adderall] Adderall 20 MG Adderall 20 MG 06/19/2020 12:00:00 AM EST 1.0 {tablet} active Adderall 20 MG eCW1 ([facility]) Amphetamine aspartate 5 MG / Amphetamine Sulfate 5 MG / Dextroamphetamine saccharate 5 MG / Dextroamphetamine Sulfate 5 MG Oral Tablet [Adderall] Adderall 20 MG Adderall 20 MG 06/19/2020 12:00:00 AM EST 1.0 {tablet} active Adderall 20 MG eCW1 ([facility]) Amphetamine aspartate 3.75 MG / Amphetam ine Sulfate 3.75 MG / Dextroamphetamine saccharate 3.75 MG / Dextroamphetamine Sulfate 3.75 MG Oral Tablet [Adderall] Adderall 15 MG Adderall 15 MG 06/17/2020 12:00:00 AM EST 1.0 {tablet} active Adderall 15 MG eCW1 ([facility]) Amphetamine aspartate 3.75 MG / Amphetam ine Sulfate 3.75 MG / Dextroamphetamine saccharate 3.75 MG / Dextroamphetamine Sulfate 3.75 MG Oral Tablet [Adderall] Adderall 15 MG Adderall 15 MG 06/17/2020 12:00:00 AM EST 1.0 {tablet} active Adderall 15 MG eCW1 ([facility]) Amphetamine aspartate 3.75 MG / Amphetam ine Sulfate 3.75 MG / Dextroamphetamine saccharate 3.75 MG / Dextroamphetamine Sulfate 3.75 MG Oral Tablet [Adderall] Adderall 15 MG Adderall 15 MG 06/17/2020 12:00:00 AM EST 1.0 {tablet} active Adderall 15 MG eCW1 ([facility]) Amphetamine aspartate 3.75 MG / Amphetam ine Sulfate 3.75 MG / Dextroamphetamine saccharate 3.75 MG / Dextroamphetamine Sulfate 3.75 MG Oral Tablet [Adderall] Adderall 15 MG Adderall 15 MG 06/13/2020 12:00:00 AM EST 1.0 {tablet} active Adderall 15 MG eCW1 ([facility]) Acetaminophen 325 MG / Hydrocodone Shahid trate 5 MG Oral Tablet [[place]] [place] 5- 325 MG [place] 5-325 MG 06/05/2020 12:00:00 AM EST 1.0 {tablet_as_needed} active [place] 5-325 MG eCW1 ([facility]) Acetaminophen 325 MG / Hydrocodone Shahid trate 5 MG Oral Tablet [[place]] [place] 5- 325 MG [place] 5-325 MG 06/05/2020 12:00:00 AM EST 1.0 {tablet_as_needed} active [place] 5-325 MG eCW1 ([facility]) Acetaminophen 325 MG / Hydrocodone Shahid trate 5 MG Oral Tablet [[place]] [place] 5- 325 MG [place] 5-325 MG 06/05/2020 12:00:00 AM EST 1.0 {tablet_as_needed} active [place] 5-325 MG eCW1 ([facility]) Acetaminophen 325 MG / Hydrocodone Shahid trate 5 MG Oral Tablet [[place]] [place] 5- 325 MG [place] 5-325 MG 06/05/2020 12:00:00 AM EST 1.0 {tablet_as_needed} active [place] 5-325 MG eCW1 ([facility]) Acetaminophen 325 MG / Hydrocodone Shahid trate 5 MG Oral Tablet [[place]] [place] 5- 325 MG [place] 5-325 MG 06/05/2020 12:00:00 AM EST 1.0 {tablet_as_needed} active [place] 5-325 MG eCW1 ([facility]) Acetaminophen 325 MG / Hydrocodone Shahid trate 5 MG Oral Tablet [[place]] [place] 5- 325 MG [place] 5-325 MG 06/05/2020 12:00:00 AM EST 1.0 {tablet_as_needed} active [place] 5-325 MG eCW1 ([facility]) Amphetamine aspartate 3.75 MG / Amphetam ine Sulfate 3.75 MG / Dextroamphetamine saccharate 3.75 MG / Dextroamphetamine Sulfate 3.75 MG Oral Tablet [Adderall] Adderall 15 MG Adderall 15 MG 05/13/2020 12:00:00 AM EST 1.0 {tablet} active Adderall 15 MG eCW1 ([facility]) Amphetamine aspartate 3.75 MG / Amphetam ine Sulfate 3.75 MG / Dextroamphetamine saccharate 3.75 MG / Dextroamphetamine Sulfate 3.75 MG Oral Tablet [Adderall] Adderall 15 MG Adderall 15 MG 05/13/2020 12:00:00 AM EST 1.0 {tablet} active Adderall 15 MG eCW1 ([facility]) Amphetamine aspartate 3.75 MG / Amphetam ine Sulfate 3.75 MG / Dextroamphetamine saccharate 3.75 MG / Dextroamphetamine Sulfate 3.75 MG Oral Tablet [Adderall] Adderall 15 MG Adderall 15 MG 05/13/2020 12:00:00 AM EST 1.0 {tablet} active Adderall 15 MG eCW1 ([facility]) Amphetamine aspartate 3.75 MG / Amphetam ine Sulfate 3.75 MG / Dextroamphetamine saccharate 3.75 MG / Dextroamphetamine Sulfate 3.75 MG Oral Tablet [Adderall] Adderall 15 MG Adderall 15 MG 05/13/2020 12:00:00 AM EST 1.0 {tablet} active Adderall 15 MG eCW1 ([facility]) Amphetamine aspartate 3.75 MG / Amphetam ine Sulfate 3.75 MG / Dextroamphetamine saccharate 3.75 MG / Dextroamphetamine Sulfate 3.75 MG Oral Tablet [Adderall] Adderall 15 MG Adderall 15 MG 05/13/2020 12:00:00 AM EST 1.0 {tablet} active Adderall 15 MG eCW1 ([facility]) Acetaminophen 325 MG / Hydrocodone Shahid trate 5 MG Oral Tablet [[place]] [place] 5- 325 MG [place] 5-325 MG 04/16/2020 12:00:00 AM EST 1.0 {tablet_as_needed} active [place] 5-325 MG eCW1 ([facility]) Acetaminophen 325 MG / Hydrocodone Shahid trate 5 MG Oral Tablet [[place]] [place] 5- 325 MG [place] 5-325 MG 04/16/2020 12:00:00 AM EST 1.0 {tablet_as_needed} active [place] 5-325 MG eCW1 ([facility]) Acetaminophen 325 MG / Hydrocodone Shahid trate 5 MG Oral Tablet [[place]] [place] 5- 325 MG [place] 5-325 MG 04/16/2020 12:00:00 AM EST 1.0 {tablet_as_needed} active [place] 5-325 MG eCW1 ([facility]) Acetaminophen 325 MG / Hydrocodone Shahid trate 5 MG Oral Tablet [[place]] [place] 5- 325 MG [place] 5-325 MG 04/16/2020 12:00:00 AM EST 1.0 {tablet_as_needed} active [place] 5-325 MG eCW1 ([facility]) Acetaminophen 325 MG / Hydrocodone Shahid trate 5 MG Oral Tablet [[place]] [place] 5- 325 MG [place] 5-325 MG 04/16/2020 12:00:00 AM EST 1.0 {tablet_as_needed} active [place] 5-325 MG eCW1 ([facility]) Acetaminophen 325 MG / Hydrocodone Shahid trate 5 MG Oral Tablet [[place]] [place] 5- 325 MG [place] 5-325 MG 04/16/2020 12:00:00 AM EST 1.0 {tablet_as_needed} active [place] 5-325 MG eCW1 ([facility]) Amphetamine aspartate 3.75 MG / Amphetam ine Sulfate 3.75 MG / Dextroamphetamine saccharate 3.75 MG / Dextroamphetamine Sulfate 3.75 MG Oral Tablet [Adderall] Adderall 15 MG Adderall 15 MG 04/11/2020 12:00:00 AM EDT 1.0 {tablet} active Adderall 15 MG eCW1 ([facility]) Amphetamine aspartate 3.75 MG / Amphetam ine Sulfate 3.75 MG / Dextroamphetamine saccharate 3.75 MG / Dextroamphetamine Sulfate 3.75 MG Oral Tablet [Adderall] Adderall 15 MG Adderall 15 MG 04/11/2020 12:00:00 AM EDT 1.0 {tablet} active Adderall 15 MG eCW1 ([facility]) Acetaminophen 325 MG / Hydrocodone Shahid trate 5 MG Oral Tablet [[place]] [place] 5- 325 MG [place] 5-325 MG 04/09/2020 12:00:00 AM EDT 1.0 {tablet_as_needed} active [place] 5-325 MG eCW1 ([facility]) Sucralfate 1000 MG Oral Tablet Sucralfate 1 GM Sucralfate 1 GM 03/21/2020 12:00:00 AM EDT 1.0 {tablet_on_an_empty_stomach} active Sucralfate 1 GM eCW1 ([facility]) Sucralfate 1000 MG Oral Tablet Sucralfate 1 GM Sucralfate 1 GM 03/21/2020 12:00:00 AM EDT 1.0 {tablet_on_an_empty_stomach} active Sucralfate 1 GM eCW1 ([facility]) Omeprazole 40 MG Delayed Release Oral Capsule Omeprazole 40 MG 03/21/2020 12:00:00 AM EDT active Omeprazo le 40 MG eCW1 ([facility]) Omeprazole 40 MG Delayed Release Oral Capsule Omeprazole 40 MG 03/21/2020 12:00:00 AM EDT suspended Omepr azole 40 MG eCW1 ([facility]) Omeprazole 40 MG Delayed Release Oral Capsule Omeprazole 40 MG 03/21/2020 12:00:00 AM EDT active Omeprazo le 40 MG eCW1 ([facility]) Omeprazole 40 MG Delayed Release Oral Capsule Omeprazole 40 MG 03/21/2020 12:00:00 AM EDT active Omeprazo le 40 MG eCW1 ([facility]) Omeprazole 40 MG Delayed Release Oral Capsule Omeprazole 40 MG 03/21/2020 12:00:00 AM EDT suspended Omepr azole 40 MG eCW1 ([facility]) Sucralfate 1000 MG Oral Tablet Sucralfate 1 GM Sucralfate 1 GM 03/21/2020 12:00:00 AM EDT 1.0 {tablet_on_an_empty_stomach} active Sucralfate 1 GM eCW1 ([facility]) Sucralfate 1000 MG Oral Tablet Sucralfate 1 GM Sucralfate 1 GM 03/21/2020 12:00:00 AM EDT 1.0 {tablet_on_an_empty_stomach} active Sucralfate 1 GM eCW1 ([facility]) Omeprazole 40 MG Delayed Release Oral Capsule Omeprazole 40 MG 03/21/2020 12:00:00 AM EDT active Omeprazo le 40 MG eCW1 ([facility]) Sucralfate 1000 MG Oral Tablet Sucralfate 1 GM Sucralfate 1 GM 03/21/2020 12:00:00 AM EDT 1.0 {tablet_on_an_empty_stomach} active Sucralfate 1 GM eCW1 ([facility]) Omeprazole 40 MG Delayed Release Oral Capsule Omeprazole 40 MG 03/21/2020 12:00:00 AM EDT suspended Omepr azole 40 MG eCW1 ([facility]) Sucralfate 1000 MG Oral Tablet Sucralfate 1 GM Sucralfate 1 GM 03/21/2020 12:00:00 AM EDT 1.0 {tablet_on_an_empty_stomach} active Sucralfate 1 GM eCW1 ([facility]) Omeprazole 40 MG Delayed Release Oral Capsule Omeprazole 40 MG 03/21/2020 12:00:00 AM EDT suspended Omepr azole 40 MG eCW1 ([facility]) Omeprazole 40 MG Delayed Release Oral Capsule Omeprazole 40 MG 03/21/2020 12:00:00 AM EDT active Omeprazo le 40 MG eCW1 ([facility]) Sucralfate 1000 MG Oral Tablet Sucralfate 1 GM Sucralfate 1 GM 03/21/2020 12:00:00 AM EDT 1.0 {tablet_on_an_empty_stomach} active Sucralfate 1 GM eCW1 ([facility]) Omeprazole 40 MG Delayed Release Oral Capsule Omeprazole 40 MG 03/21/2020 12:00:00 AM EDT active Omeprazo le 40 MG eCW1 ([facility]) Omeprazole 40 MG Delayed Release Oral Capsule Omeprazole 40 MG 03/21/2020 12:00:00 AM EDT suspended Omepr azole 40 MG eCW1 ([facility]) Sucralfate 1000 MG Oral Tablet Sucralfate 1 GM Sucralfate 1 GM 03/21/2020 12:00:00 AM EDT 1.0 {tablet_on_an_empty_stomach} active Sucralfate 1 GM eCW1 ([facility]) Sucralfate 1000 MG Oral Tablet Sucralfate 1 GM Sucralfate 1 GM 03/21/2020 12:00:00 AM EDT 1.0 {tablet_on_an_empty_stomach} active Sucralfate 1 GM eCW1 ([facility]) Sucralfate 1000 MG Oral Tablet Sucralfate 1 GM Sucralfate 1 GM 03/21/2020 12:00:00 AM EDT 1.0 {tablet_on_an_empty_stomach} active Sucralfate 1 GM eCW1 ([facility]) Omeprazole 40 MG Delayed Release Oral Capsule Omeprazole 40 MG 03/21/2020 12:00:00 AM EDT active Omeprazo le 40 MG eCW1 ([facility]) Omeprazole 40 MG Delayed Release Oral Capsule Omeprazole 40 MG 03/21/2020 12:00:00 AM EDT suspended Omepr azole 40 MG eCW1 ([facility]) Sucralfate 1000 MG Oral Tablet Sucralfate 1 GM Sucralfate 1 GM 03/21/2020 12:00:00 AM EDT 1.0 {tablet_on_an_empty_stomach} active Sucralfate 1 GM eCW1 ([facility]) Sucralfate 1000 MG Oral Tablet Sucralfate 1 GM Sucralfate 1 GM 03/21/2020 12:00:00 AM EDT 1.0 {tablet_on_an_empty_stomach} active Sucralfate 1 GM eCW1 ([facility]) Omeprazole 40 MG Delayed Release Oral Capsule Omeprazole 40 MG 03/21/2020 12:00:00 AM EDT active Omeprazo le 40 MG eCW1 ([facility]) Omeprazole 40 MG Delayed Release Oral Capsule Omeprazole 40 MG 03/21/2020 12:00:00 AM EDT active Omeprazo le 40 MG eCW1 ([facility]) Sucralfate 1000 MG Oral Tablet Sucralfate 1 GM Sucralfate 1 GM 03/21/2020 12:00:00 AM EDT 1.0 {tablet_on_an_empty_stomach} active Sucralfate 1 GM eCW1 ([facility]) Omeprazole 40 MG Delayed Release Oral Capsule Omeprazole 40 MG 03/21/2020 12:00:00 AM EDT active Omeprazo le 40 MG eCW1 ([facility]) Omeprazole 40 MG Delayed Release Oral Capsule Omeprazole 40 MG 03/21/2020 12:00:00 AM EDT active Omeprazo le 40 MG eCW1 ([facility]) Sucralfate 1000 MG Oral Tablet Sucralfate 1 GM Sucralfate 1 GM 03/21/2020 12:00:00 AM EDT 1.0 {tablet_on_an_empty_stomach} active Sucralfate 1 GM eCW1 ([facility]) Omeprazole 40 MG Delayed Release Oral Capsule Omeprazole 40 MG 03/21/2020 12:00:00 AM EDT active Omeprazo le 40 MG eCW1 ([facility]) Sucralfate 1000 MG Oral Tablet Sucralfate 1 GM Sucralfate 1 GM 03/21/2020 12:00:00 AM EDT 1.0 {tablet_on_an_empty_stomach} active Sucralfate 1 GM eCW1 ([facility]) Omeprazole 40 MG Delayed Release Oral Capsule Omeprazole 40 MG 03/21/2020 12:00:00 AM EDT active Omeprazo le 40 MG eCW1 ([facility]) Sucralfate 1000 MG Oral Tablet Sucralfate 1 GM Sucralfate 1 GM 03/21/2020 12:00:00 AM EDT 1.0 {tablet_on_an_empty_stomach} active Sucralfate 1 GM eCW1 ([facility]) Omeprazole 40 MG Delayed Release Oral Capsule Omeprazole 40 MG 03/21/2020 12:00:00 AM EDT suspended Omepr azole 40 MG eCW1 ([facility]) Omeprazole 40 MG Delayed Release Oral Capsule Omeprazole 40 MG 03/21/2020 12:00:00 AM EDT active Omeprazo le 40 MG eCW1 ([facility]) Sucralfate 1000 MG Oral Tablet Sucralfate 1 GM Sucralfate 1 GM 03/21/2020 12:00:00 AM EDT 1.0 {tablet_on_an_empty_stomach} active Sucralfate 1 GM eCW1 ([facility]) Omeprazole 40 MG Delayed Release Oral Capsule Omeprazole 40 MG 03/21/2020 12:00:00 AM EDT suspended Omepr azole 40 MG eCW1 ([facility]) Sucralfate 1000 MG Oral Tablet Sucralfate 1 GM Sucralfate 1 GM 03/21/2020 12:00:00 AM EDT 1.0 {tablet_on_an_empty_stomach} active Sucralfate 1 GM eCW1 ([facility]) Omeprazole 40 MG Delayed Release Oral Capsule Omeprazole 40 MG 03/21/2020 12:00:00 AM EDT active Omeprazo le 40 MG eCW1 ([facility]) Sucralfate 1000 MG Oral Tablet Sucralfate 1 GM Sucralfate 1 GM 03/21/2020 12:00:00 AM EDT 1.0 {tablet_on_an_empty_stomach} active Sucralfate 1 GM eCW1 ([facility]) Omeprazole 40 MG Delayed Release Oral Capsule Omeprazole 40 MG 03/21/2020 12:00:00 AM EDT active Omeprazo le 40 MG eCW1 ([facility]) Insurance Providers Payer name Policy type / Coverage type Policy ID Covered libertarian ID Covered libertarian's relationship to leroy Policy Leroy Plan Information [facility] [id number] Self [id number] [facility] [id number] Self [id number] EXCELLUS C [id number] Self [id number] BLUE CARD C [id number] Self [id number] ANTHEM BCBS [facility] [id number] SP [id number] BC BS [place] 423/923 [id number] SP [id number] BC BS [place] 423/923 [id number] SP [id number] ANSI-Commercial [id number] ANSI-Commercial [id number] ANSI-Commercial [id number] ANSI-Commercial [id number] ANSI-Commercial [id number] ANSI-Commercial [id number] ANSI-Commercial [id number] ANSI-Commercial [id number] ANSI-Commercial [id number] ANSI-Commercial [id number] ANSI-Commercial [id number] ANSI-Commercial [id number] ANSI-Commercial [id number] ANSI-Commercial [id number] ANSI-Commercial [id number] ANSI-Commercial [id number] ANSI-Commercial [id number] ANSI-Commercial [id number] BS TRIGON 423/923 [id number] SP [id number] ANSI-Commercial [id number] ANSI-Commercial [id number] ANSI-Commercial [id number] ANSI-Commercial [id number] EXCELL BCBS B [id number] S YTP [id number] ANSI-Commercial [id number] ANSI-Commercial [id number] BC BS [place]IGON 423/923 [id number] SP [id number] ANSI-Commercial [id number] ANSI-Commercial [id number] BC BS [place]IG[place] 423/923 [id number] SP [id number] [employer] BCBS [facility] (O) [id number] Self [id number] [employer] BCBS B [id number] S YTP [id number] BCBS [place] 080/580 [id number] SP [id number] BCBS [place] 080/580 [id number] SP [id number] BCBS [place] PPO 302/307 [id number] SP [id number] [facility] [id number] SP [id number] [facility] [id number] SP [id number] [place] 280/780 [id number] SP [id number] [place] 280/780 [id number] SP [id number] EXCELLUS BCBS P [id number] S [id number] BC BS [place] 423/923 [id number] SP [id number] BCBS [place] PPO 302/307 [id number] SP [id number] EXCELLUS BCBS B [id number] S [id number] ANSI-Commercial [id number] ANSI-Commercial [id number] ANSI-Commercial [id number] ANSI-Commercial [id number] Problems, Conditions, and Diagnoses Code Display Name Description Problem Type Effective Dates Data Source(s) R13.10 Dysphagia Dysphagia, unspecified type Problem 02/24/20 12:00:00 AM EDT eCW1 ([facility]) R91.1 [id number] Lung nodule Problem 09/18/2020 12:00:00 AM E DT eCW1 ([facility]) Z87.679 [id number] Former smoker Problem 06/19/2020 12:00:00 AM EST eCW1 ([facility]) K63.5 [id number] Hyperplastic polyp of intestine Problem 06/19/2020 12:00:00 AM EST eCW1 ([facility]) Z80.0 [id number] Family history of colon cancer in father Problem 06/19/2020 12:00:00 AM EST eCW1 ([facility]) D50.9 [id number] Iron deficiency anemia, unspecif ied iron deficiency anemia type Problem 06/19/2020 12:00:00 AM EST eCW1 ([facility]) Surgeries/Procedures Procedure Description Date Indications Data Source(s) Imm: Flublok Quadrivalent 18 years & older 0.5mL IM Influenz a 03/20/2021 12:00:00 AM EDT eCW1 ([facility]) Immunization: Flublok Quadrivalent (18 years & older) 0.5mL IM (Influenza) 03/21/2020 12:00:00 AM EDT eCW1 ([facility]) Results ID Date Data Source [id number] 03/31/2021 03:56:00 PM EDT [facility] ([facility]) Name Value Range Interpretation Code Description Data Faustina rce(s) Supporting Document(s) Amylase [Enzymatic activity/volume] in Serum or Plasma 25 U/L 25-115 Normal (applies to non-numeric results) [facility] ([facility], ) Lipoprotein lipase [Enzymatic activity/volume] in Serum or P lasma 107 U/L 73-393 Normal (applies to non-numeric results) [facility] ([facility]) 04/10/21 (Thr Apr 10) 08:24 AM FELICITA CHARCARLITOBOIS Pancreatic enzymes are normal. ID Date Data Source [id number] 03/31/2021 03:56:00 PM EDT [facility] ([facility]) Name Value Range Interpretation Code Description Data Faustina rce(s) Supporting Document(s) Blood Urea Nitrogen 7 mg/dL 7-18 Normal (applies to non-nume olimpia results) [facility] ([facility]) Glucose, Fasting 73 mg/dL 70-100 Normal (applies to non-numeric results) [facility] ([facility]) Creatinine For GFR 0.67 mg/dL 0.55-1.30 Normal (applies to non -numeric results) [facility] ([facility]) Sodium Level 142 meq/L 136-145 Normal (applies to non-numeric res ults) [facility] ([facility]) Glomerular Filtration Rate Laboratory test result Normal (applies to non- numeric results) [facility] ([facility]) <content>Units are mL/min/1.73 m2</content>
<content></content>
<content>Chronic Kidney Disease Staging per NKF:</content>
<content></content>
<content>Stage I & II GFR >=60 Normal to Mildly Decreased</content>
<content>Stage III GFR 30-59 Moderately Decreased</content>
<content>Stage IV GFR 15-29 Severely Decreased</content>
<content>Stage V GFR <15 Very Little GFR Left</content>
<content>ESRD GFR <15 on CREATIVE WRITING PROFESSOR</content>
<content></content> Chloride Level 107 meq/L 98-107 Normal (applies to non-numeric r esults) [facility] ([facility], ) Potassium Serum 4.3 meq/L 3.5-5.1 Normal (applies to non-numeric results) [facility] ([facility]) Anion Gap 3 meq/L 8-16 Below low normal [facility] ( [facility]) Carbon Dioxide Level 32 meq/L 21-32 Normal (applies to non-num garrett results) [facility] ([facility]) Calcium Level 8.7 mg/dL 8.8-10.2 Below low normal [facility] ([facility]) Ast/Sgot 76 U/L 7-37 Above high normal [facility] ([facility]) Alkaline Phosphatase 146 U/L 45-117 Above high normal [facility] ([facility]) Alt/SGPT 23 U/L 12-78 Normal (applies to non-numeric resul ts) [facility] ([facility]) Bilirubin,Total 0.5 mg/dL 0.2-1.0 Normal (applies to non-numeric results) [facility] ([facility]) Albumin 2.5 GM/DL 3.2-5.2 Below low normal [facility] ( [facility]) Total Protein 6.8 GM/DL 6.4-8.2 Normal (applies to non-numeric re sults) [facility] ([facility]) Albumin/Globulin Ratio 0.6 1.2-2.2 Below low normal [facility] ([facility]) 04/10/21 (Thr Apr 10) 08:23 AM FELICITA HOPKINS Results reviewed and will discuss with patient. See triage. ID Date Data Source [id number] 03/31/2021 03:56:00 PM EDT [facility] Name Value Range Interpretation Code Description Data Faustina rce(s) Supporting Document(s) Red Blood Count 3.77 10 4.00-5.40 Below low normal [facility] ([facility], ) White Blood Count 8.8 10 4.0-10.0 Normal (applies to non-numeri c results) [facility]) Hemoglobin 12.2 g/dL 12.0-15.5 Normal (applies to non-numeric resul ts) [facility] Hematocrit 37.9 % 36.0-47.0 Normal (applies to non-numeric resul ts) [facility]) Mean Corpuscular Hemoglobin 32.4 pg 27.0-33.0 Norm al (applies to non-numeric results) [facility] ([facility]) Mean Corpuscular Volume 100.5 fl 80.0-96.0 Above high normal [facility] ([facility]) Mean Corpuscular HGB Conc 32.2 g/dL 32.0-36.5 Normal (applies to non-numeric results) [facility] ([facility]) Neutrophils % 53.0 % 36.0-66.0 Normal (applies to non-numeric re sults) [facility]) Red Cell Distribution Width 13.4 % 11.5-14.5 Norm al (applies to non-numeric results) [facility] ([facility], ) Platelet Count, Automated 322 10 150-450 Normal (applies to non-numeric results) [facility] ([facility]) Lymph % 31.3 % 24.0-44.0 Normal (applies to non-numeric resul ts) [facility] Eos % 2.3 % 0.0-3.0 Normal (applies to non-numeric resul ts) [facility]) Wirt % 12.6 % 2.0-8.[address] [facility]) Nucleated Red Blood Cell % 0.0 % 0-0 Normal (applies to n on-numeric results) [facility] ([facility]) Immature Granulocyte % 0.2 % 0-3.0 Normal (applies to non-n umeric results) [facility] ([facility]) Baso % 0.6 % 0.0-1.0 Normal (applies to non-numeric resul ts) [facility] ([facility]) Neutrophils # 4.7 10 1.5-8.5 Normal (applies to non-numeric re sults) [facility] ([facility]) Lymph # 2.8 10 1.5-5.0 Normal (applies to non-numeric resul ts) [facility] ([facility]) Wirt # 1.1 10 0.0-0.8 Above high normal [facility] ([facility]) Eos # 0.2 10 0.0-0.5 Normal (applies to non-numeric resul ts) [facility] ([facility]) Baso # 0.1 10 0.0-0.2 Normal (applies to non-numeric resul ts) [facility] ([facility]) 04/10/21 (Thr Apr 10) 08:23 AM FELICITA LOPESKWASI No significant abnormalities. ID Date Data Source [id number] 07/06/2020 12:00:00 AM EST [facility] Name Value Range Interpretation Code Description Data Faustina rce(s) Supporting Document(s) SARS-CoV2 Rapid Antigen Negative [facility] This lab was ordered by [facility] and reported by [facility]. Procedure Social History Code Duration Value Status Description Data Source(s ) Smoking 03/20/2021 12:00:00 AM EDT Former Smoker completed Former Smoker eCW1 ([facility]) Smoking 03/20/2021 12:00:00 AM EDT Former Smoker completed Former Smoker eCW1 ([facility]) Smoking 03/20/2021 12:00:00 AM EDT Former Smoker completed Former Smoker eCW1 ([facility]) Smoking 02/08/2021 12:00:00 AM EDT Former Smoker completed Former Smoker eCW1 ([facility]) Smoking 02/08/2021 12:00:00 AM EDT Former Smoker completed Former Smoker eCW1 ([facility]) Smoking 02/08/2021 12:00:00 AM EDT Former Smoker completed Former Smoker eCW1 ([facility]) Smoking 02/08/2021 12:00:00 AM EDT Former Smoker completed Former Smoker eCW1 ([facility]) Smoking 02/08/2021 12:00:00 AM EDT Former Smoker completed Former Smoker eCW1 ([facility]) Smoking 02/05/2021 12:00:00 AM EDT Former Smoker completed Former Smoker eCW1 ([facility]) Smoking 01/16/2021 12:00:00 AM EDT Former Smoker completed Former Smoker eCW1 ([facility]) Smoking 01/16/2021 12:00:00 AM EDT Former Smoker completed Former Smoker eCW1 ([facility]) Smoking 12/19/2020 12:00:00 AM EDT Former Smoker completed Former Smoker eCW1 ([facility]) Smoking 12/19/2020 12:00:00 AM EDT Former Smoker completed Former Smoker eCW1 ([facility]) Smoking 10/16/2020 12:00:00 AM EDT Former Smoker completed Former Smoker eCW1 ([facility]) Smoking 10/16/2020 12:00:00 AM EDT Former Smoker completed Former Smoker eCW1 ([facility]) Smoking 10/16/2020 12:00:00 AM EDT Former Smoker completed Former Smoker eCW1 ([facility]) Smoking 10/16/2020 12:00:00 AM EDT Former Smoker completed Former Smoker eCW1 ([facility]) Smoking 10/16/2020 12:00:00 AM EDT Former Smoker completed Former Smoker eCW1 ([facility]) Smoking 10/16/2020 12:00:00 AM EDT Former Smoker completed Former Smoker eCW1 ([facility]) Smoking 09/18/2020 12:00:00 AM EDT Former Smoker completed Former Smoker eCW1 ([facility]) Smoking 09/18/2020 12:00:00 AM EDT Former Smoker completed Former Smoker eCW1 ([facility]) Smoking 07/18/2020 12:00:00 AM EST Former Smoker completed Former Smoker eCW1 ([facility]) Smoking 07/18/2020 12:00:00 AM EST Former Smoker completed Former Smoker eCW1 ([facility]) Smoking 07/18/2020 12:00:00 AM EST Former Smoker completed Former Smoker eCW1 ([facility]) Smoking 07/18/2020 12:00:00 AM EST Former Smoker completed Former Smoker eCW1 ([facility]) Smoking 07/18/2020 12:00:00 AM EST Former Smoker completed Former Smoker eCW1 ([facility]) Smoking 07/18/2020 12:00:00 AM EST Former Smoker completed Former Smoker eCW1 ([facility]) Smoking 07/18/2020 12:00:00 AM EST Former Smoker completed Former Smoker eCW1 ([facility]) Smoking 07/18/2020 12:00:00 AM EST Former Smoker completed Former Smoker eCW1 ([facility]) Smoking 06/19/2020 12:00:00 AM EST Former Smoker completed Former Smoker eCW1 ([facility]) Smoking 06/19/2020 12:00:00 AM EST Former Smoker completed Former Smoker eCW1 ([facility]) Smoking 06/19/2020 12:00:00 AM EST Former Smoker completed Former Smoker eCW1 ([facility]) Smoking 06/09/2020 12:00:00 AM EST Former Smoker completed Former Smoker eCW1 ([facility]) Smoking 06/09/2020 12:00:00 AM EST Former Smoker completed Former Smoker eCW1 ([facility]) Smoking 06/09/2020 12:00:00 AM EST Former Smoker completed Former Smoker eCW1 ([facility]) Smoking 06/09/2020 12:00:00 AM EST Former Smoker completed Former Smoker eCW1 ([facility]) Smoking 05/29/2020 12:00:00 AM EST Former Smoker completed Former Smoker eCW1 ([facility]) Smoking 05/29/2020 12:00:00 AM EST Former Smoker completed Former Smoker eCW1 ([facility]) Smoking 05/12/2020 12:00:00 AM EST Former Smoker completed Former Smoker eCW1 ([facility]) Smoking 05/12/2020 12:00:00 AM EST Former Smoker completed Former Smoker eCW1 ([facility]) Smoking 05/12/2020 12:00:00 AM EST Former Smoker completed Former Smoker eCW1 ([facility]) Smoking 04/16/2020 12:00:00 AM EST Former Smoker completed Former Smoker eCW1 ([facility]) Smoking 04/16/2020 12:00:00 AM EST Former Smoker completed Former Smoker eCW1 ([facility]) Smoking 03/21/2020 12:00:00 AM EDT Former Smoker completed Former Smoker eCW1 ([facility]) Smoking 03/21/2020 12:00:00 AM EDT Former Smoker completed Former Smoker eCW1 ([facility]) Vital Signs ID Date Data Source UNK Name Value Range Interpretation Code Description Data Source(s) Systolic blood pressure 132 mm[Hg] 132 mm[Hg] M [facility] ([facility]) Diastolic blood pressure 82 mm[Hg] 82 mm[Hg] [facility] ([facility]) Body height 64 [in_i] 64 [in_i] [facility] ([facility]) 5'4" Body weight 174.00 [lb_av] 174.00 [facility]_av[facility] Body mass index (BMI) [Ratio] 29.9 kg/m2 29.9 k g/m2 [facility] ([facility]) [place] body weight 120 [lb_av] 120 [lb_av] [facility] Body weight 78.926 kg 78.926 kg [facility] ([facility]) Body surface area Derived from formula 1.84 m2 1.84 m2 [facility] ([facility]) Body weight 79.29 kg 79.29 kg eCW1 ([facility]) Body height [in_i] W1 ([facility]) Body mass index (BMI) [Ratio] 30.96 kg/m2 30.96 kg/m2 eCW1 ([facility]) Heart rate 80 /min 80 /min eCW1 ([facility]) Respiratory rate 18 /min 18 /min eCW1 ([facility]) Body temperature 97.2 [degF] 97.2 [degF] eCW1 ( [facility]) Systolic blood pressure 124 mm[Hg] 124 mm[Hg] e CW1 ([facility]) Diastolic blood pressure 82 mm[Hg] 82 mm[Hg] eCW1 ([facility]) Body weight 174.8 [lb_av] 174.8 [lb_av] eCW1 ([facility] Body weight 191 [lb_av] 191 [lb_av] eCW1 ([facility]) Body weight 86.64 kg 86.64 kg eCW1 ([facility]) Body height [in_i] eCW1 ([facility]) Body mass index (BMI) [Ratio] 33.83 kg/m2 33.83 kg/m2 eCW1 ([facility]) Heart rate 90 /min 90 /min eCW1 ([facility]) Respiratory rate 18 /min 18 /min eCW1 ([facility]) Body temperature 96.9 [degF] 96.9 [degF] eCW1 ( [facility]) Systolic blood pressure 118 mm[Hg] 118 mm[Hg] e CW1 ([facility]) Diastolic blood pressure 66 mm[Hg] 66 mm[Hg] eCW1 ([facility]) Body weight 191.0 [lb_av] 191.0 [lb_av] eCW1 ([facility]) Body weight 86.64 kg 86.64 kg eCW1 ([facility]) Body height [in_i] eCW1 ([facility]) Body mass index (BMI) [Ratio] 33.83 kg/m2 33.83 kg/m2 eCW1 ([facility]) Heart rate 109 /min 109 /min eCW1 ([facility]) Respiratory rate 18 /min 18 /min eCW1 ([facility]) Body temperature 97.4 [degF] 97.4 [degF] eCW1 ( [facility]) Systolic blood pressure 151 mm[Hg] 151 mm[Hg] e CW1 ([facility]) Diastolic blood pressure 81 mm[Hg] 81 mm[Hg] eCW1 ([facility]) Body weight 190 [lb_av] 190 [lb_av] eCW1 ([facility]) Body height [in_i] eCW1 ([facility]) Body mass index (BMI) [Ratio] 33.65 kg/m2 33.65 kg/m2 eCW1 ([facility]) Heart rate 90 /min 90 /min eCW1 ([facility]) Respiratory rate 18 /min 18 /min eCW1 ([facility]) Body temperature 97.0 [degF] 97.0 [degF] eCW1 ( [facility]) Systolic blood pressure 140 mm[Hg] 140 mm[Hg] e CW1 ([facility]) Diastolic blood pressure 80 mm[Hg] 80 mm[Hg] eCW1 ([facility]) Body temperature 98.0 [degF] 98.0 [degF] eCW1 ( [facility]) Body weight 208.9 [lb_av] 208.9 [lb_av] eCW1 ([facility] Systolic blood pressure 155 mm[Hg] 155 mm[Hg] e CW1 ([facility]) Body height [in_i] eCW1 ([facility]) Body mass index (BMI) [Ratio] 37.00 kg/m2 37.00 kg/m2 eCW1 ([facility]) Heart rate 107 /min 107 /min eCW1 ([facility]) Diastolic blood pressure 74 mm[Hg] 74 mm[Hg] eCW1 ([facility]) Respiratory rate 18 /min 18 /min eCW1 ([facility]) Body weight 209.0 [lb_av] 209.0 [lb_av] eCW1 ([facility]) Diastolic blood pressure 80 mm[Hg] 80 mm[Hg] eCW1 ([facility]) Body height [in_i] eCW1 ([facility]) Body mass index (BMI) [Ratio] 37.02 kg/m2 37.02 kg/m2 eCW1 ([facility]) Heart rate 90 /min 90 /min eCW1 ([facility]) Respiratory rate 18 /min 18 /min eCW1 ([facility]) Body temperature 97 [degF] 97 [degF] eCW1 ([facility]) Systolic blood pressure 130 mm[Hg] 130 mm[Hg] e CW1 ([facility]) Body weight 214 [lb_av] 214 [lb_av] eCW1 ([facility]) Body weight 214 kg 214 kg eCW1 ([facility]) Body height [in_i] eCW1 ([facility]) Body mass index (BMI) [Ratio] 37.90 kg/m2 37.90 kg/m2 eCW1 ([facility]) Heart rate 106 /min 106 /min eCW1 (Formerly [facility]) Respiratory rate 18 /min 18 /min eCW1 ([facility]) Body temperature 97.2 [degF] 97.2 [degF] eCW1 ( [facility]) Systolic blood pressure 142 mm[Hg] 142 mm[Hg] e CW1 ([facility]) Diastolic blood pressure 92 mm[Hg] 92 mm[Hg] eCW1 ([facility]) Body weight 216.6 [lb_av] 216.6 [lb_av] eCW[facility] Body height [in_i] eCW1 ([facility]) Body mass index (BMI) [Ratio] 38.36 kg/m2 38.36 kg/m2 eCW1 ([facility]) Heart rate 130 /min 130 /min eCW1 (Formerly [facility]) Respiratory rate 18 /min 18 /min eCW1 ([facility]) Body temperature 97.0 [degF] 97.0 [degF] eCW1 ( [facility]) Systolic blood pressure 128 mm[Hg] 128 mm[Hg] e CW1 ([facility]) Diastolic blood pressure 84 mm[Hg] 84 mm[Hg] eCW1 ([facility]) Body weight 222.8 [lb_av] 222.8 [lb_av] eCW1 ([facility]) Body height [in_i] eCW1 ([facility]) Body mass index (BMI) [Ratio] 39.46 kg/m2 39.46 kg/m2 eCW1 ([facility]) Heart rate 106 /min 106 /min eCW1 (Formerly [facility]) Respiratory rate 18 /min 18 /min eCW1 ([facility]) Body temperature 96.5 [degF] 96.5 [degF] eCW1 ( [facility]) Systolic blood pressure 157 mm[Hg] 157 mm[Hg] e CW1 ([facility]) Diastolic blood pressure 86 mm[Hg] 86 mm[Hg] eCW1 ([facility]) Body weight 219.0 [lb_av] 219.0 [lb_av] eCW1 ([facility]) Body height [in_i] eCW1 ([facility]) Body mass index (BMI) [Ratio] 38.79 kg/m2 38.79 kg/m2 eCW1 ([facility]) Heart rate 122 /min 122 /min eCW1 ([facility]ly [facility]) Respiratory rate 18 /min 18 /min eCW1 ([facility]) Body temperature 97.4 [degF] 97.4 [degF] eCW1 ( [facility]) Systolic blood pressure 110 mm[Hg] 110 mm[Hg] e CW1 ([facility]) Diastolic blood pressure 70 mm[Hg] 70 mm[Hg] eCW1 ([facility]) Diastolic blood pressure 80 mm[Hg] 80 mm[Hg] eCW1 ([facility]) Body temperature 97.4 [degF] 97.4 [degF] eCW1 ( [facility]) Body weight 221 [lb_av] 221 [lb_av] eCW1 ([facility]) Systolic blood pressure 120 mm[Hg] 120 mm[Hg] e CW1 ([facility]) Body height [in_i] eCW1 ([facility]) Body mass index (BMI) [Ratio] 39.14 kg/m2 39.14 kg/m2 eCW1 ([facility]) Heart rate 92 /min 92 /min eCW1 ([facility]) Respiratory rate 18 /min 18 /min eCW1 ([facility]) Patient Treatment Plan of Care Planned Activity Planned Date Details Description Data Source (s) Amphetamine aspartate 5 MG / Amphetamine Sulfate 5 MG / Dextroamphetamine saccharate 5 MG / Dextroamphetamine Sulfate 5 MG Oral Tablet [Adderall] 04/25/2021 12:00:00 AM EST eCW1 ([facility]) Acetaminophen 325 MG / Hydrocodone Bitartrate 5 MG Ora l Tablet 04/23/2021 12:00:00 AM EST eCW1 ([facility]) Acetaminophen 325 MG / Hydrocodone Bitartrate 5 MG Ora l Tablet 04/23/2021 12:00:00 AM EST eCW1 ([facility]) Amphetamine aspartate 5 MG / Amphetamine Sulfate 5 MG / Dextroamphetamine saccharate 5 MG / Dextroamphetamine Sulfate 5 MG Oral Tablet [Adderall] 03/20/2021 12:00:00 AM EDT eCW1 ([facility]) Amphetamine aspartate 5 MG / Amphetamine Sulfate 5 MG / Dextroamphetamine saccharate 5 MG / Dextroamphetamine Sulfate 5 MG Oral Tablet [Adderall] 03/20/2021 12:00:00 AM EDT eCW1 ([facility]) Amphetamine aspartate 5 MG / Amphetamine Sulfate 5 MG / Dextroamphetamine saccharate 5 MG / Dextroamphetamine Sulfate 5 MG Oral Tablet [Adderall] 02/18/2021 12:00:00 AM EDT eCW1 ([facility]) Amphetamine aspartate 5 MG / Amphetamine Sulfate 5 MG / Dextroamphetamine saccharate 5 MG / Dextroamphetamine Sulfate 5 MG Oral Tablet [Adderall] 02/18/2021 12:00:00 AM EDT eCW1 ([facility]) Amphetamine aspartate 5 MG / Amphetamine Sulfate 5 MG / Dextroamphetamine saccharate 5 MG / Dextroamphetamine Sulfate 5 MG Oral Tablet [Adderall] 02/18/2021 12:00:00 AM EDT eCW1 ([facility]) Acetaminophen 325 MG / Hydrocodone Bitartrate 5 MG Ora l Tablet 01/16/2021 12:00:00 AM EDT eCW1 ([facility]) Acetaminophen 325 MG / Hydrocodone Bitartrate 5 MG Ora l Tablet 01/16/2021 12:00:00 AM EDT eCW1 ([facility]) Amphetamine aspartate 5 MG / Amphetamine Sulfate 5 MG / Dextroamphetamine saccharate 5 MG / Dextroamphetamine Sulfate 5 MG Oral Tablet [Adderall] 01/15/2021 12:00:00 AM EDT eCW1 ([facility]) Amphetamine aspartate 5 MG / Amphetamine Sulfate 5 MG / Dextroamphetamine saccharate 5 MG / Dextroamphetamine Sulfate 5 MG Oral Tablet [Adderall] 12/12/2020 12:00:00 AM EDT eCW1 ([facility]) Acetaminophen 325 MG / Hydrocodone Bitartrate 5 MG Ora l Tablet 12/11/2020 12:00:00 AM EDT eCW1 ([facility]) Acetaminophen 325 MG / Hydrocodone Bitartrate 5 MG Ora l Tablet 12/11/2020 12:00:00 AM EDT eCW1 ([facility]) Amphetamine aspartate 5 MG / Amphetamine Sulfate 5 MG / Dextroamphetamine saccharate 5 MG / Dextroamphetamine Sulfate 5 MG Oral Tablet [Adderall] 11/13/2020 12:00:00 AM EDT eCW1 ([facility]) Acetaminophen 325 MG / Hydrocodone Bitartrate 5 MG Ora l Tablet 11/13/2020 12:00:00 AM EDT eCW1 ([facility]) Amphetamine aspartate 5 MG / Amphetamine Sulfate 5 MG / Dextroamphetamine saccharate 5 MG / Dextroamphetamine Sulfate 5 MG Oral Tablet [Adderall] 11/13/2020 12:00:00 AM EDT eCW1 ([facility]) Acetaminophen 325 MG / Hydrocodone Bitartrate 5 MG Ora l Tablet 11/13/2020 12:00:00 AM EDT eCW1 ([facility]) Amphetamine aspartate 5 MG / Amphetamine Sulfate 5 MG / Dextroamphetamine saccharate 5 MG / Dextroamphetamine Sulfate 5 MG Oral Tablet [Adderall] 11/13/2020 12:00:00 AM EDT eCW1 ([facility]) Acetaminophen 325 MG / Hydrocodone Bitartrate 5 MG Ora l Tablet 11/13/2020 12:00:00 AM EDT eCW1 ([facility]) Amphetamine aspartate 5 MG / Amphetamine Sulfate 5 MG / Dextroamphetamine saccharate 5 MG / Dextroamphetamine Sulfate 5 MG Oral Tablet [Adderall] 11/13/2020 12:00:00 AM EDT eCW1 ([facility]) Acetaminophen 325 MG / Hydrocodone Bitartrate 5 MG Ora l Tablet 10/16/2020 12:00:00 AM EDT eCW1 ([facility]) Amphetamine aspartate 5 MG / Amphetamine Sulfate 5 MG / Dextroamphetamine saccharate 5 MG / Dextroamphetamine Sulfate 5 MG Oral Tablet [Adderall] 10/15/2020 12:00:00 AM EDT eCW1 ([facility]) Amphetamine aspartate 5 MG / Amphetamine Sulfate 5 MG / Dextroamphetamine saccharate 5 MG / Dextroamphetamine Sulfate 5 MG Oral Tablet [Adderall] 09/12/2020 12:00:00 AM EDT eCW1 ([facility]) Acetaminophen 325 MG / Hydrocodone Bitartrate 5 MG Ora l Tablet 09/11/2020 12:00:00 AM EDT eCW1 ([facility]) Acetaminophen 325 MG / Hydrocodone Bitartrate 5 MG Ora l Tablet 09/11/2020 12:00:00 AM EDT eCW1 ([facility]) Amphetamine aspartate 5 MG / Amphetamine Sulfate 5 MG / Dextroamphetamine saccharate 5 MG / Dextroamphetamine Sulfate 5 MG Oral Tablet [Adderall] 08/12/2020 12:00:00 AM EST eCW1 ([facility]) Amphetamine aspartate 5 MG / Amphetamine Sulfate 5 MG / Dextroamphetamine saccharate 5 MG / Dextroamphetamine Sulfate 5 MG Oral Tablet [Adderall] 08/12/2020 12:00:00 AM EST eCW1 ([facility]) Acetaminophen 325 MG / Hydrocodone Bitartrate 5 MG Ora l Tablet 08/12/2020 12:00:00 AM EST eCW1 ([facility]) Amphetamine aspartate 5 MG / Amphetamine Sulfate 5 MG / Dextroamphetamine saccharate 5 MG / Dextroamphetamine Sulfate 5 MG Oral Tablet [Adderall] 08/12/2020 12:00:00 AM EST eCW1 ([facility]) Acetaminophen 325 MG / Hydrocodone Bitartrate 5 MG Ora l Tablet 08/12/2020 12:00:00 AM EST eCW1 ([facility]) Acetaminophen 325 MG / Hydrocodone Bitartrate 5 MG Ora l Tablet [[place]] 07/18/2020 12:00:00 AM EST eCW1 ([facility]) Acetaminophen 325 MG / Hydrocodone Bitartrate 5 MG Ora l Tablet [[place]] 07/18/2020 12:00:00 AM EST eCW1 ([facility]) Acetaminophen 325 MG / Hydrocodone Bitartrate 5 MG Ora l Tablet [[place]] 07/18/2020 12:00:00 AM EST eCW1 ([facility]) Acetaminophen 325 MG / Hydrocodone Bitartrate 5 MG Ora l Tablet [[place]] 07/18/2020 12:00:00 AM EST eCW1 ([facility]) Acetaminophen 325 MG / Hydrocodone Bitartrate 5 MG Ora l Tablet [[place]] 07/09/2020 12:00:00 AM EST eCW1 ([facility]) Acetaminophen 325 MG / Hydrocodone Bitartrate 5 MG Ora l Tablet [[place]] 07/09/2020 12:00:00 AM EST eCW1 ([facility]) Amphetamine aspartate 5 MG / Amphetamine Sulfate 5 MG / Dextroamphetamine saccharate 5 MG / Dextroamphetamine Sulfate 5 MG Oral Tablet [Adderall] 06/19/2020 12:00:00 AM EST eCW1 ([facility]) Amphetamine aspartate 5 MG / Amphetamine Sulfate 5 MG / Dextroamphetamine saccharate 5 MG / Dextroamphetamine Sulfate 5 MG Oral Tablet [Adderall] 06/19/2020 12:00:00 AM EST eCW1 ([facility]) Amphetamine aspartate 5 MG / Amphetamine Sulfate 5 MG / Dextroamphetamine saccharate 5 MG / Dextroamphetamine Sulfate 5 MG Oral Tablet [Adderall] 06/19/2020 12:00:00 AM EST eCW1 ([facility]) Amphetamine aspartate 3.75 MG / Amphetam ine Sulfate 3.75 MG / Dextroamphetamine saccharate 3.75 MG / Dextroamphetamine Sulfate 3.75 MG Oral Tablet [Adderall] 06/17/2020 12:00:00 AM EST eCW1 ([facility]) Amphetamine aspartate 3.75 MG / Amphetam ine Sulfate 3.75 MG / Dextroamphetamine saccharate 3.75 MG / Dextroamphetamine Sulfate 3.75 MG Oral Tablet [Adderall] 06/17/2020 12:00:00 AM EST eCW1 ([facility]) Amphetamine aspartate 3.75 MG / Amphetam ine Sulfate 3.75 MG / Dextroamphetamine saccharate 3.75 MG / Dextroamphetamine Sulfate 3.75 MG Oral Tablet [Adderall] 06/17/2020 12:00:00 AM EST eCW1 ([facility]) Amphetamine aspartate 3.75 MG / Amphetam ine Sulfate 3.75 MG / Dextroamphetamine saccharate 3.75 MG / Dextroamphetamine Sulfate 3.75 MG Oral Tablet [Adderall] 06/13/2020 12:00:00 AM EST eCW1 ([facility]) Acetaminophen 325 MG / Hydrocodone Bitartrate 5 MG Ora l Tablet [[place]] 06/05/2020 12:00:00 AM EST eCW1 ([facility]) Amphetamine aspartate 3.75 MG / Amphetam ine Sulfate 3.75 MG / Dextroamphetamine saccharate 3.75 MG / Dextroamphetamine Sulfate 3.75 MG Oral Tablet [Adderall] 05/13/2020 12:00:00 AM EST eCW1 ([facility]) Amphetamine aspartate 3.75 MG / Amphetam ine Sulfate 3.75 MG / Dextroamphetamine saccharate 3.75 MG / Dextroamphetamine Sulfate 3.75 MG Oral Tablet [Adderall] 05/13/2020 12:00:00 AM EST eCW1 ([facility]) Amphetamine aspartate 3.75 MG / Amphetam ine Sulfate 3.75 MG / Dextroamphetamine saccharate 3.75 MG / Dextroamphetamine Sulfate 3.75 MG Oral Tablet [Adderall] 05/13/2020 12:00:00 AM EST eCW1 ([facility]) Acetaminophen 325 MG / Hydrocodone Bitartrate 5 MG Ora l Tablet [[place]] 04/16/2020 12:00:00 AM EST eCW1 ([facility]) Acetaminophen 325 MG / Hydrocodone Bitartrate 5 MG Ora l Tablet [[place]] 04/16/2020 12:00:00 AM EST eCW1 ([facility]) Acetaminophen 325 MG / Hydrocodone Bitartrate 5 MG Ora l Tablet [[place]] 04/09/2020 12:00:00 AM EDT eCW1 ([facility]) Sucralfate 1000 MG Oral Tablet 03/21/2020 12:00:00 AM EDT eCW1 ([facility]) Sucralfate 1000 MG Oral Tablet 03/21/2020 12:00:00 AM EDT eCW1 ([facility]) Sucralfate 1000 MG Oral Tablet 03/21/2020 12:00:00 AM EDT eCW1 ([facility]) Sucralfate 1000 MG Oral Tablet 03/21/2020 12:00:00 AM EDT eCW1 ([facility]) Sucralfate 1000 MG Oral Tablet 03/21/2020 12:00:00 AM EDT eCW1 ([facility]) Sucralfate 1000 MG Oral Tablet 03/21/2020 12:00:00 AM EDT eCW1 ([facility]) Omeprazole 40 MG Delayed Release Oral Capsule 03/21/2020 12:00:00 A M EDT eCW1 ([facility]) Omeprazole 40 MG Delayed Release Oral Capsule 03/21/2020 12:00:00 A M EDT eCW1 ([facility]) Omeprazole 40 MG Delayed Release Oral Capsule 03/21/2020 12:00:00 A M EDT eCW1 ([facility]) Sucralfate 1000 MG Oral Tablet 03/21/2020 12:00:00 AM EDT eCW1 ([facility]) Sucralfate 1000 MG Oral Tablet 03/21/2020 12:00:00 AM EDT eCW1 ([facility]) Omeprazole 40 MG Delayed Release Oral Capsule 03/21/2020 12:00:00 A M EDT eCW1 ([facility]) Omeprazole 40 MG Delayed Release Oral Capsule 03/21/2020 12:00:00 A M EDT eCW1 ([facility])
[2021-05-05] MEDS ORDERED: propofoL 500 MG/50 ML VIAL As Ordered ONE (10:17)
[2021-05-05] MEDS ORDERED: LIDOCAINE 2% 100MG/5ML SDV (FOR ANES.) As Ordered ONE (10:17)
[2021-05-05] MEDS ORDERED: fentaNYL 100 MCG/2 ML INJECTION (J3010) As Ordered ONE (10:18)
--- NOTE | 2021-05-05 11:17 | ROOR ---
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 Procedure: Pre-Anesthesia Assessment: - The heart rate, respiratory rate, oxygen saturations, blood pressure, adequacy of pulmonary ventilation, and response to care were monitored throughout the procedure. The Endoscope was introduced through the mouth, and advanced to the jejunum. The upper GI endoscopy was accomplished without difficulty. The patient tolerated the procedure well. Findings: The examined esophagus was normal. Evidence of a Percy-en-Y gastrojejunostomy was found. The gastrojejunal anastomosis was characterized by erosion and erythema. Biopsies were taken with a cold forceps for histology. The cardia and gastric fundus were normal on retroflexion. Biopsies were taken with a cold forceps in the gastric fundus for Helicobacter pylori testing. The examined jejunum was normal. Impression: - Normal esophagus. - Percy-en-Y gastrojejunostomy with gastrojejunal anastomosis characterized by erosion and erythema. Biopsied. - Normal examined jejunum. - Biopsies were taken with a cold forceps for Helicobacter pylori testing. (- No esophageal varices, No gastric varices) Recommendation: - Continue present medications. - Await pathology results. - Recommend an iron supplement for the rest of the patient's life. - Return to physician costumer assistant as previously scheduled. Procedure Code(s): --- Professional --- 62425, Esophagogastroduodenoscopy, flexible, transoral; with biopsy, single or multiple Diagnosis Code(s): --- Professional --- R63.4, Abnormal weight loss D50.9, Iron deficiency anemia, unspecified Z98.0, Intestinal bypass and anastomosis status K74.60, Unspecified cirrhosis of liver CPT copyright 2019 [employer] [place] [employer]. All rights reserved. The codes documented in this report are preliminary and upon data coder operator review may be revised to meet current compliance requirements. Colt Persaud MD Colt Persaud MD 05/05/2021 11:17:08 AM Electronically signed by Colt Persaud MD Number of Addenda: 0 Note Initiated On: 05/05/2021 10:53 AM Estimated Blood Loss: Estimated blood loss: none.
[2021-05-05] MEDS ORDERED: propofoL 200 MG/20 ML VIAL As Ordered ONE ×2 (11:20→11:33)
--- NOTE | 2021-05-05 11:43 | ROOR ---
Patient Name: Edgar Núñez Procedure Date: 05/05/2021 10:53 AM Date of : 1960 Age: 60 Room: [facility] Gender: Female Note Status: Finalized Procedure: Colonoscopy Indications: Weight loss Providers: Colt Persaud MD Referring MD: Mary Padilla NP Requesting Provider: Medicines: Monitored Anesthesia Care Complications: No immediate complications. Procedure: Pre-Anesthesia Assessment: - The heart rate, respiratory rate, oxygen saturations, blood pressure, adequacy of pulmonary ventilation, and response to care were monitored throughout the procedure. The Colonoscope was introduced through the anus and advanced to the terminal ileum, with identification of the appendiceal orifice and IC valve. The colonoscopy was performed without difficulty. The patient tolerated the procedure well. The quality of the bowel preparation was good. Findings: The perianal and digital rectal examinations were normal. Two sessile polyps were found in the ascending colon. The polyps were 4 to 5 mm in size. These polyps were removed with a hot snare. Resection and retrieval were complete. Two pedunculated polyps were found in the sigmoid colon. The polyps were 5 to 6 mm in size. These polyps were removed with a cold snare. Resection and retrieval were complete. To prevent bleeding after the polypectomy, two hemostatic clips were successfully placed. Mild sigmoid diverticulosis and small internal hemorrhoids. The exam was otherwise without abnormality on direct and retroflexion views. Impression: - Two 4 to 5 mm polyps in the ascending colon, removed with a hot snare. Resected and retrieved. - Two 5 to 6 mm polyps in the sigmoid colon, removed with a cold snare. Resected and retrieved. Clips were placed. - Mild sigmoid diverticulosis and small internal hemorrhoids. - The examination was otherwise normal on direct and retroflexion views. Recommendation: - Repeat colonoscopy in 3 years for surveillance. Procedure Code(s): --- Professional --- 69733, Colonoscopy, flexible; with removal of tumor(s), polyp(s), or other lesion(s) by snare technique Diagnosis Code(s): --- Professional --- R63.4, Abnormal weight loss K63.5, Polyp of colon CPT copyright 2019 [employer]. All rights reserved. The codes documented in this report are preliminary and upon strap making machine operator review may be revised to meet current compliance requirements. Colt Persaud MD Colt Persaud MD 05/05/2021 11:43:12 AM Electronically signed by Colt Persaud MD Number of Addenda: 0 Note Initiated On: 05/05/2021 10:53 AM Estimated Blood Loss: Estimated blood loss: none.
[2021-05-05 12:00] VITALS: BP 177/99
== END 2021-05-05 12:15 | disposition home or self-care (01) ==
LOC: M OPP 09:38
PROVIDERS: ATTEND Internal Medicine Gastroenterology
DX: D12.5 Benign neoplasm of sigmoid colon (principal); R63.4 Abnormal weight loss; D50.9 Iron deficiency anemia, unspecified; K74.60 Unspecified cirrhosis of liver; Z98.0 Intestinal bypass and anastomosis status; K57.30 Diverticulosis of large intestine without perforation or abscess without bleeding; K64.8 Other hemorrhoids; Z98.84 Bariatric surgery status; I10 Essential (primary) hypertension; E78.5 Hyperlipidemia, unspecified; G47.30 Sleep apnea, unspecified; J44.9 Chronic obstructive pulmonary disease, unspecified; Z88.8 Allergy status to other drugs, medicaments and biological substances; Z79.899 Other long term (current) drug therapy
CPT/HCPCS: 43239; 45385; 88305; J3010

== ENCOUNTER → 2021-05-28 | Outpatient (CLI) | payer BC ==
[~2021-05-28] MED LIST changes: -NS 1,000 ML IV ONE
== END ==
LOC: M PLALAB 15:13
PROVIDERS: ATTEND Physician Assistant Medical
DX: R94.5 Abnormal results of liver function studies (principal)

== ENCOUNTER → 2021-06-01 | Outpatient (CLI) | payer BC | LOC: M RAD 08:48 | PROVIDERS: ATTEND Physician Assistant Medical | DX: R93.3 Abnormal findings on diagnostic imaging of other parts of digestive tract (principal) ==

== ENCOUNTER → 2021-06-03 | Outpatient (CLI) | payer BC ==
[~2021-06-03] MED LIST changes: +PROHANCE 279.3MG/ML 15ML VIAL As Ordered ONE
--- NOTE | 2021-06-03 15:49 | REP ---
INDICATION: ABN WEIGHT LOSS. COMPARISON: No prior MRI examinations for comparison. Previous CT abdomen and pelvis 04/15/2021 and ultrasound obtained same day reviewed. TECHNIQUE: Pre and post contrast 3T MRI of the abdomen was performed utilizing various sequences. Gadolinium utilized: 15 cc ProHance FINDINGS: There is no evidence of an abnormal enhancing liver lesion or intrahepatic ductal dilatation. There is a focal area of decreased signal seen on fat suppressed T2 weighted imaging in the medial aspect of the medial segment of the left lobe of the liver corresponding to the CT finding of an area of decreased density. In and out of phase imaging shows this area to be of slightly increased signal on inphase imaging and signal dropout on out of phase imaging. There is either sludge or tiny choleliths in the dependent portion of the gallbladder. There is a simple cyst in the left kidney. There are no abnormal enhancing renal lesions. The pancreas and adrenal glands are within normal limits. There is no evidence of para-aortic adenopathy. There is no free fluid in the abdomen. Cortical and marrow signal seen throughout the osseous structures is within normal limits. IMPRESSION: 1. Findings involving the liver most consistent with a small focal area of fatty infiltration, however, three-month follow-up is recommended. 2. Sludge or tiny choleliths in the gallbladder. 3. Tiny simple left renal cyst. 4. Other findings as described above. <Electronically signed by Turner Erwin > 06/03/21 [id number]
== END ==
LOC: M RAD 14:25
PROVIDERS: ATTEND Internal Medicine Gastroenterology
DX: K76.89 Other specified diseases of liver (principal); R63.4 Abnormal weight loss

== ENCOUNTER → 2021-06-04 | Outpatient (CLI) | payer BC ==
[~2021-06-04] MED LIST changes: -PROHANCE 279.3MG/ML 15ML VIAL As Ordered ONE
== END ==
LOC: M PAIN 14:15
PROVIDERS: ATTEND Anesthesiology
DX: M51.16 Intervertebral disc disorders with radiculopathy, lumbar region (principal); L73.2 Hidradenitis suppurativa; I10 Essential (primary) hypertension; F41.9 Anxiety disorder, unspecified; F32.A Depression, unspecified; E78.2 Mixed hyperlipidemia; F17.210 Nicotine dependence, cigarettes, uncomplicated; Z98.84 Bariatric surgery status; Z79.891 Long term (current) use of opiate analgesic; Z88.8 Allergy status to other drugs, medicaments and biological substances; Z79.899 Other long term (current) drug therapy

== ENCOUNTER → 2021-12-23 | Outpatient (CLI) | payer BC ==
[2021-12-23 14:12] LABS: BLOOD UREA NITROGEN 7 MG/DL (7-18); CREATININE FOR GFR 0.66 MG/DL (0.55-1.30); GLOMERULAR FILTRATION RATE > 60.0 (>45); GLUCOSE, FASTING 98 MG/DL (70-100); POTASSIUM SERUM 4.8 MEQ/L (3.5-5.1); SODIUM LEVEL 135 MEQ/L (136-145)
[2021-12-23 14:13] LABS: ALBUMIN 2.5 GM/DL (3.2-5.2); ALT/SGPT 44 U/L (12-78); BILIRUBIN,TOTAL 1.5 MG/DL (0.2-1.0); CALCIUM LEVEL 9.2 MG/DL (8.8-10.2); CARBON DIOXIDE LEVEL 31 MEQ/L (21-32); CHLORIDE LEVEL 101 MEQ/L (98-107); CHOLESTEROL LEVEL 166 MG/DL (<200); CHOLESTEROL RISK RATIO 2.912 (<5); HDL CHOLESTEROL 57 MG/DL (>40); LDL CHOLESTEROL 88 MG/DL (<100); NON-HDL-C 109 MG/DL; TOTAL PROTEIN 6.3 GM/DL (6.4-8.2); TRIGLYCERIDES LEVEL 104 MG/DL (<150)
[2021-12-23 14:33] LABS: TOTAL 25(OH) VITAMIN D 45.9 NG/ML (30.0-100.0); VITAMIN B12 LEVEL 999 PG/ML (247-911)
== END ==
LOC: M PLALAB 10:22
PROVIDERS: ATTEND Nurse Practitioner Adult Health
DX: E78.2 Mixed hyperlipidemia (principal); Z13.29 Encounter for screening for other suspected endocrine disorder; E53.8 Deficiency of other specified B group vitamins; E55.9 Vitamin D deficiency, unspecified; I10 Essential (primary) hypertension

== ENCOUNTER → 2021-12-25 | Outpatient (CLI) | payer BC | LOC: M WHC 08:18 | PROVIDERS: ATTEND Nurse Practitioner Adult Health | DX: Z12.31 Encounter for screening mammogram for malignant neoplasm of breast (principal) ==

== ENCOUNTER → 2021-12-29 | Outpatient (CLI) | payer BC ==
[~2021-12-29] MED LIST changes: +GASTROGRAFIN SOLUTION 30ML (Q9963) As Ordered ONE; +ISOVUE-370 76% 100ML VIAL As Ordered ONE
== END ==
LOC: M RAD 09:30
PROVIDERS: ATTEND Physician Assistant Medical
DX: K74.3 Primary biliary cirrhosis (principal); R93.3 Abnormal findings on diagnostic imaging of other parts of digestive tract
CPT/HCPCS: 74160; Q9963; Q9967

== ENCOUNTER 2022-01-17 02:42 | Inpatient (IN) | payer BC ==
[~2022-01-17] VITALS: Ht 162.6 cm; Wt 73.0 kg
[2022-01-17] VITALS (8 sets, daily range): BP systolic 105–134; BP diastolic 56–75
[~2022-01-17 02:42] MED LIST changes: -GASTROGRAFIN SOLUTION 30ML (Q9963) As Ordered ONE; -ISOVUE-370 76% 100ML VIAL As Ordered ONE
[2022-01-17 04:01] LABS: BASO # 0.1 10^3/uL (0.0-0.2); BASO % 0.6 % (0.0-1.0); EOS # 0.1 10^3/uL (0.0-0.5); EOS % 0.5 % (0.0-3.0); HEMOGLOBIN 8.7 g/dl (12.0-15.5); LYMPH # 1.8 10^3/uL (1.5-5.0); LYMPH % 18.9 % (24.0-44.0); MEAN CORPUSCULAR HEMOGLOBIN 35.8 pg (27.0-33.0); MEAN CORPUSCULAR HGB CONC 33.5 g/dl (32.0-36.5); MONO # 0.9 10^3/uL (0.0-0.8); MONO % 9.3 % (2.0-8.0); NEUTROPHILS # 6.7 10^3/uL (1.5-8.5); NEUTROPHILS % 70.4 % (36.0-66.0); PLATELET COUNT, AUTOMATED 338 10^3/uL (150-450); RED BLOOD COUNT 2.43 10^6/uL (4.00-5.40); WHITE BLOOD COUNT 9.5 10^3/uL (4.0-10.0)
[2022-01-17 04:15] LABS: INR 1.07; PROTHROMBIN TIME 14.3 SECONDS (12.7-14.5)
[2022-01-17 04:46] LABS: ALBUMIN 2.1 GM/DL (3.2-5.2); ALT/SGPT 28 U/L (12-78); AMYLASE 14 U/L (25-115); BILIRUBIN,DIRECT 0.5 MG/DL (0.0-0.2); BILIRUBIN,TOTAL 0.7 MG/DL (0.2-1.0); BLOOD UREA NITROGEN 14 MG/DL (7-18); CALCIUM LEVEL 8.4 MG/DL (8.8-10.2); CARBON DIOXIDE LEVEL 27 MEQ/L (21-32); CHLORIDE LEVEL 104 MEQ/L (98-107); CREATININE FOR GFR 0.75 MG/DL (0.55-1.30); GLOMERULAR FILTRATION RATE > 60.0 (>45); GLUCOSE, FASTING 137 MG/DL (70-100); LIPASE 91 U/L (73-393); POTASSIUM SERUM 4.9 MEQ/L (3.5-5.1); SODIUM LEVEL 138 MEQ/L (136-145); TOTAL PROTEIN 5.7 GM/DL (6.4-8.2)
[2022-01-17 04:48] LABS: CK-MB VALUE MASS < 1.0 NG/ML (<3.6); CPK CREATINE PHOSPHOKINASE 37 U/L (26-192)
[2022-01-17] MEDS ORDERED: PANTOPRAZOLE 40MG VIAL IV ONE (05:05)
[2022-01-17] MEDS ORDERED: ONDANSETRON 4MG 2ML VIAL IV ONE (05:05)
[2022-01-17] MEDS ORDERED: MORPHINE 4 MG/ML 1ML VIAL/SYRINGE IV ONE (05:05)
[2022-01-17] MEDS ORDERED: NS 1,000 ML IV ONE (05:05)
[2022-01-17] MEDS ORDERED: cefTRIAXone SOD 1 GM in D5W MINI-BAG PLUS 50 ML IV ONE (05:10)
[2022-01-17] MEDS ORDERED: ISOVUE-370 76% 100ML VIAL As Ordered ONE (05:22)
[2022-01-17 06:51] LABS: RSV AMPLIFICATION NEGATIVE (NEGATIVE)
[2022-01-17] MEDS ORDERED: VITA100093 PO (07:59)
[2022-01-17] MEDS ORDERED: HOME MED LIST COMPLETE! XX SCH (08:00)
[2022-01-17] MEDS ORDERED: HYDR-3713 PO (08:00)
[2022-01-17] MEDS ORDERED: PHENYLephrine 500MCG 5ML (100MCG/ML) SYRINGE As Ordered ONE (09:15)
[2022-01-17] MEDS ORDERED: CALCIUM CHLORIDE 10% 1 GM/10 ML SYR As Ordered ONE (09:22)
[2022-01-17] MEDS ORDERED: dexameTHASONE 4 MG/ML 1ML VIAL (J1100 PER 1MG) As Ordered ONE (09:22)
[2022-01-17] MEDS ORDERED: ONDANSETRON 4MG 2ML VIAL As Ordered ONE (09:22)
[2022-01-17] MEDS ORDERED: MIDAZOLAM INJ 2MG/2ML VIAL (J2250 PER 1MG) As Ordered ONE (09:52)
[2022-01-17] MEDS ORDERED: propofoL 200 MG/20 ML VIAL As Ordered ONE (09:52)
[2022-01-17] MEDS ORDERED: fentaNYL 100 MCG/2 ML INJECTION As Ordered ONE ×2 (09:52→10:46)
[2022-01-17] MEDS ORDERED: LIDOCAINE 2% 100MG/5ML SDV (FOR ANES.) As Ordered ONE (09:52)
[2022-01-17] MEDS ORDERED: SUCCINYLCHOLINE 100 MG/5 ML SYRINGE (J0330) As Ordered ONE (09:52)
[2022-01-17] MEDS ORDERED: cefTRIAXone SOD 1 GM in D5W MINI-BAG PLUS 50 ML IV SCH (10:20)
[2022-01-17] MEDS ORDERED: LORazepam 1 MG TAB PO PRN (10:40)
[2022-01-17] MEDS ORDERED: LR 1,000 ML IV SCH (10:40)
[2022-01-17] MEDS ORDERED: ONDANSETRON 4MG 2ML VIAL IV PRN (10:40)
[2022-01-17] MEDS: fentaNYL 100 MCG/2 ML INJECTION IV PRN ×2 (10:48→10:55)
[2022-01-17] MEDS ORDERED: OCTREOTIDE ACETATE 1,200 MCG in NS 238.8 ML IV SCH (12:00)
[2022-01-17] MEDS ORDERED: OCTREOTIDE ACETATE 100MCG/ML VIAL **IV ADMINISTRATION ONLY IV ONE (12:00)
[2022-01-17 12:18] LABS: HEMATOCRIT 24.2 % (36.0-47.0); HEMOGLOBIN 7.7 g/dl (12.0-15.5); MEAN CORPUSCULAR HEMOGLOBIN 34.7 pg (27.0-33.0); MEAN CORPUSCULAR HGB CONC 31.8 g/dl (32.0-36.5); PLATELET COUNT, AUTOMATED 285 10^3/uL (150-450); RED BLOOD COUNT 2.22 10^6/uL (4.00-5.40); WHITE BLOOD COUNT 8.4 10^3/uL (4.0-10.0)
[2022-01-17 12:51] LABS: BLOOD UREA NITROGEN 16 MG/DL (7-18); CALCIUM LEVEL 9.1 MG/DL (8.8-10.2); CARBON DIOXIDE LEVEL 26 MEQ/L (21-32); CHLORIDE LEVEL 109 MEQ/L (98-107); CREATININE FOR GFR 0.63 MG/DL (0.55-1.30); GLOMERULAR FILTRATION RATE > 60.0 (>45); GLUCOSE, FASTING 136 MG/DL (70-100); SODIUM LEVEL 140 MEQ/L (136-145)
[2022-01-17] MEDS: MULTIVITAMINS/MINERALS THERAP 1 TAB PO SCH (13:57)
[2022-01-17] MEDS: FOLIC ACID 1MG TAB PO SCH (13:57)
[2022-01-17] MEDS: OMEPRAZOLE 20MG CAP PO SCH ×2 (13:57→20:24)
[2022-01-17] MEDS: VITAMIN D 1,000 INTERNATIONAL UNITS TABLET PO SCH (13:58)
[2022-01-17] MEDS: THIAMINE 100 MG TAB PO SCH ×2 (14:03→20:25)
[2022-01-17] MEDS: SUCRALFATE 1 GM TAB PO SCH ×3 (14:03→20:25)
[2022-01-17 16:16] LABS: BASO % 0.1 % (0.0-1.0); HEMATOCRIT 21.9 % (36.0-47.0); HEMOGLOBIN 7.3 g/dl (12.0-15.5); LYMPH # 1.3 10^3/uL (1.5-5.0); MEAN CORPUSCULAR HEMOGLOBIN 35.6 pg (27.0-33.0); MEAN CORPUSCULAR HGB CONC 33.3 g/dl (32.0-36.5); MEAN CORPUSCULAR VOLUME 106.8 fl (80.0-96.0); MONO # 0.3 10^3/uL (0.0-0.8); MONO % 4.1 % (2.0-8.0); NEUTROPHILS % 78.5 % (36.0-66.0); PLATELET COUNT, AUTOMATED 269 10^3/uL (150-450); RED BLOOD COUNT 2.05 10^6/uL (4.00-5.40); WHITE BLOOD COUNT 7.6 10^3/uL (4.0-10.0)
[2022-01-17] MEDS ORDERED: ACETAMINOPHEN TAB 650MG DOSE (2X325MG) PO PRN (16:30)
[2022-01-17] MEDS: CYCLOBENZAPRINE 10MG TABLET PO PRN (20:30)
[2022-01-17] MEDS ORDERED: PANTOPRAZOLE 40MG VIAL IV SCH (21:00)
[2022-01-17 22:12] LABS: BASO % 0.2 % (0.0-1.0); LYMPH # 2.6 10^3/uL (1.5-5.0); LYMPH % 28.1 % (24.0-44.0); MEAN CORPUSCULAR HEMOGLOBIN 35.1 pg (27.0-33.0); MEAN CORPUSCULAR HGB CONC 32.8 g/dl (32.0-36.5); MEAN CORPUSCULAR VOLUME 106.9 fl (80.0-96.0); MONO # 1.1 10^3/uL (0.0-0.8); MONO % 12.3 % (2.0-8.0); NEUTROPHILS # 5.5 10^3/uL (1.5-8.5); PLATELET COUNT, AUTOMATED 233 10^3/uL (150-450); RED BLOOD COUNT 1.88 10^6/uL (4.00-5.40); WHITE BLOOD COUNT 9.3 10^3/uL (4.0-10.0)
[2022-01-17 22:16] LABS: HEMATOCRIT 20.1 % (36.0-47.0); HEMOGLOBIN 6.6 g/dl (12.0-15.5)
[2022-01-18] VITALS (16 sets, daily range): BP systolic 110–141; BP diastolic 59–82
[2022-01-18 08:00] LABS: BASO % 0.4 % (0.0-1.0); EOS # 0.1 10^3/uL (0.0-0.5); LYMPH # 3.2 10^3/uL (1.5-5.0); LYMPH % 35.9 % (24.0-44.0); MEAN CORPUSCULAR HEMOGLOBIN 33.7 pg (27.0-33.0); MEAN CORPUSCULAR HGB CONC 33.7 g/dl (32.0-36.5); MONO # 0.9 10^3/uL (0.0-0.8); MONO % 9.7 % (2.0-8.0); NEUTROPHILS # 4.7 10^3/uL (1.5-8.5); NEUTROPHILS % 52.7 % (36.0-66.0); PLATELET COUNT, AUTOMATED 226 10^3/uL (150-450); WHITE BLOOD COUNT 8.9 10^3/uL (4.0-10.0)
[2022-01-18] MEDS ORDERED: cefTRIAXone SOD 1 GM in D5W MINI-BAG PLUS 50 ML IV SCH (08:00)
[2022-01-18] MEDS: SUCRALFATE 1 GM TAB PO SCH ×4 (08:11→19:46)
[2022-01-18] MEDS: THIAMINE 100 MG TAB PO SCH ×2 (08:11→19:46)
[2022-01-18] MEDS: FOLIC ACID 1MG TAB PO SCH (08:11)
[2022-01-18] MEDS: VITAMIN D 1,000 INTERNATIONAL UNITS TABLET PO SCH (08:11)
[2022-01-18] MEDS: OMEPRAZOLE 20MG CAP PO SCH ×2 (08:11→19:46)
[2022-01-18] MEDS: MULTIVITAMINS/MINERALS THERAP 1 TAB PO SCH (08:11)
[2022-01-18 08:12] LABS: HEMOGLOBIN 9.1 g/dl (12.0-15.5)
[2022-01-18 08:26] LABS: ALBUMIN 1.9 GM/DL (3.2-5.2); ALT/SGPT 22 U/L (12-78); BILIRUBIN,TOTAL 1.4 MG/DL (0.2-1.0); BLOOD UREA NITROGEN 15 MG/DL (7-18); CALCIUM LEVEL 8.2 MG/DL (8.8-10.2); CARBON DIOXIDE LEVEL 27 MEQ/L (21-32); CHLORIDE LEVEL 109 MEQ/L (98-107); CREATININE FOR GFR 0.61 MG/DL (0.55-1.30); GLOMERULAR FILTRATION RATE > 60.0 (>45); GLUCOSE, FASTING 81 MG/DL (70-100); POTASSIUM SERUM 3.7 MEQ/L (3.5-5.1); SODIUM LEVEL 141 MEQ/L (136-145)
[2022-01-18] MEDS: CYCLOBENZAPRINE 10MG TABLET PO PRN ×2 (13:31→19:51)
[2022-01-18 17:12] LABS: HEMATOCRIT 29.3 % (36.0-47.0); HEMOGLOBIN 9.9 g/dl (12.0-15.5); MEAN CORPUSCULAR HEMOGLOBIN 34.1 pg (27.0-33.0); MEAN CORPUSCULAR HGB CONC 33.8 g/dl (32.0-36.5); PLATELET COUNT, AUTOMATED 249 10^3/uL (150-450); WHITE BLOOD COUNT 8.7 10^3/uL (4.0-10.0)
[2022-01-18] MEDS ORDERED: THIA100TA PO (17:36)
[2022-01-18] MEDS ORDERED: SUCR1TA PO (17:36)
[2022-01-18] MEDS ORDERED: OMEP-173 PO (17:36)
[2022-01-18] MEDS ORDERED: FOLI1TAB11 PO (17:36)
[2022-01-18] MEDS ORDERED: OMEP40CA4 PO (21:19)
[2022-01-19] VITALS (7 sets, daily range): BP systolic 112–146; BP diastolic 59–89
[2022-01-19 05:30] LABS: HEMATOCRIT 26.5 % (36.0-47.0); MEAN CORPUSCULAR HEMOGLOBIN 34.2 pg (27.0-33.0); MEAN CORPUSCULAR VOLUME 100.8 fl (80.0-96.0); PLATELET COUNT, AUTOMATED 210 10^3/uL (150-450); RED BLOOD COUNT 2.63 10^6/uL (4.00-5.40); WHITE BLOOD COUNT 6.6 10^3/uL (4.0-10.0)
[2022-01-19 06:15] LABS: ALBUMIN 1.9 GM/DL (3.2-5.2); ALT/SGPT 26 U/L (12-78); BILIRUBIN,TOTAL 0.9 MG/DL (0.2-1.0); BLOOD UREA NITROGEN 12 MG/DL (7-18); CALCIUM LEVEL 8.2 MG/DL (8.8-10.2); CARBON DIOXIDE LEVEL 27 MEQ/L (21-32); CHLORIDE LEVEL 110 MEQ/L (98-107); CREATININE FOR GFR 0.52 MG/DL (0.55-1.30); GLOMERULAR FILTRATION RATE > 60.0 (>45); GLUCOSE, FASTING 79 MG/DL (70-100); POTASSIUM SERUM 3.6 MEQ/L (3.5-5.1); SODIUM LEVEL 141 MEQ/L (136-145); TOTAL PROTEIN 4.7 GM/DL (6.4-8.2)
[2022-01-19] MEDS: cefTRIAXone SOD 1 GM in D5W MINI-BAG PLUS 50 ML IV SCH (08:07)
[2022-01-19] MEDS: THIAMINE 100 MG TAB PO SCH ×2 (08:08→20:13)
[2022-01-19] MEDS: OMEPRAZOLE 20MG CAP PO SCH ×2 (08:08→20:13)
[2022-01-19] MEDS: VITAMIN D 1,000 INTERNATIONAL UNITS TABLET PO SCH (08:08)
[2022-01-19] MEDS: MULTIVITAMINS/MINERALS THERAP 1 TAB PO SCH (08:08)
[2022-01-19] MEDS: SUCRALFATE 1 GM TAB PO SCH ×4 (08:08→20:13)
[2022-01-19] MEDS: FOLIC ACID 1MG TAB PO SCH (08:08)
[2022-01-19] MEDS: IRBESARTAN 150MG TAB PO SCH (12:56)
[2022-01-19] MEDS: NORCO, ANEXSIA 5/325MG TABLET (HYDROcodone/ACETAMINOPHEN) PO PRN ×2 (12:57→21:13)
[2022-01-19 17:28] LABS: HEMATOCRIT 29.6 % (36.0-47.0); HEMOGLOBIN 9.7 g/dl (12.0-15.5); MEAN CORPUSCULAR HGB CONC 32.8 g/dl (32.0-36.5); MEAN CORPUSCULAR VOLUME 103.9 fl (80.0-96.0); PLATELET COUNT, AUTOMATED 241 10^3/uL (150-450); RED BLOOD COUNT 2.85 10^6/uL (4.00-5.40); WHITE BLOOD COUNT 7.8 10^3/uL (4.0-10.0)
[2022-01-19] MEDS: CYCLOBENZAPRINE 10MG TABLET PO PRN (20:13)
[2022-01-20 04:00] VITALS: BP 149/75
[2022-01-20] MEDS: NORCO, ANEXSIA 5/325MG TABLET (HYDROcodone/ACETAMINOPHEN) PO PRN (05:29)
[2022-01-20 05:46] LABS: BASO % 0.6 % (0.0-1.0); EOS # 0.2 10^3/uL (0.0-0.5); EOS % 2.5 % (0.0-3.0); HEMATOCRIT 28.3 % (36.0-47.0); HEMOGLOBIN 9.4 g/dl (12.0-15.5); LYMPH # 2.7 10^3/uL (1.5-5.0); LYMPH % 38.8 % (24.0-44.0); MEAN CORPUSCULAR HEMOGLOBIN 33.3 pg (27.0-33.0); MEAN CORPUSCULAR HGB CONC 33.2 g/dl (32.0-36.5); MEAN CORPUSCULAR VOLUME 100.4 fl (80.0-96.0); MONO # 0.8 10^3/uL (0.0-0.8); MONO % 11.2 % (2.0-8.0); NEUTROPHILS # 3.2 10^3/uL (1.5-8.5); NEUTROPHILS % 46.5 % (36.0-66.0); PLATELET COUNT, AUTOMATED 235 10^3/uL (150-450); RED BLOOD COUNT 2.82 10^6/uL (4.00-5.40); WHITE BLOOD COUNT 6.9 10^3/uL (4.0-10.0)
[2022-01-20 06:31] LABS: ALT/SGPT 32 U/L (12-78); BILIRUBIN,TOTAL 0.7 MG/DL (0.2-1.0); BLOOD UREA NITROGEN 8 MG/DL (7-18); CALCIUM LEVEL 8.1 MG/DL (8.8-10.2); CARBON DIOXIDE LEVEL 28 MEQ/L (21-32); CHLORIDE LEVEL 109 MEQ/L (98-107); CREATININE FOR GFR 0.54 MG/DL (0.55-1.30); GLOMERULAR FILTRATION RATE > 60.0 (>45); GLUCOSE, FASTING 80 MG/DL (70-100); POTASSIUM SERUM 3.8 MEQ/L (3.5-5.1); SODIUM LEVEL 141 MEQ/L (136-145)
[2022-01-20 07:26] VITALS: BP 130/94
[2022-01-20] MEDS: cefTRIAXone SOD 1 GM in D5W MINI-BAG PLUS 50 ML IV SCH (07:56)
[2022-01-20 08:42] VITALS: BP 130/94
[2022-01-20] MEDS: VITAMIN D 1,000 INTERNATIONAL UNITS TABLET PO SCH (08:42)
[2022-01-20] MEDS: MULTIVITAMINS/MINERALS THERAP 1 TAB PO SCH (08:42)
[2022-01-20] MEDS: THIAMINE 100 MG TAB PO SCH (08:42)
[2022-01-20] MEDS: FOLIC ACID 1MG TAB PO SCH (08:42)
[2022-01-20] MEDS: IRBESARTAN 150MG TAB PO SCH (08:42)
[2022-01-20] MEDS: SUCRALFATE 1 GM TAB PO SCH (08:42)
[2022-01-20] MEDS: OMEPRAZOLE 20MG CAP PO SCH (08:42)
[2022-01-20] MEDS ORDERED: CEFU50TA PO (09:27)
== END 2022-01-20 10:21 | disposition home or self-care (01) | DRG 241 ==
LOC: M ED 02:42 → M SDC 08:19 → M PCU 13:55
PROVIDERS: ADMIT Student in an Organized Health Care Education/Training Program; ATTEND Internal Medicine
PROC: 30233N1 Transfusion of Nonautologous Red Blood Cells into Peripheral Vein, Percutaneous Approach (ICD-10-PCS; 2022-01-17)
PROC: 0W3P8ZZ Control Bleeding in Gastrointestinal Tract, Via Natural or Artificial Opening Endoscopic (ICD-10-PCS; principal; 2022-01-17 07:47)
DX: K28.4 Chronic or unspecified gastrojejunal ulcer with hemorrhage (principal); K70.30 Alcoholic cirrhosis of liver without ascites; F10.20 Alcohol dependence, uncomplicated; I10 Essential (primary) hypertension; D50.9 Iron deficiency anemia, unspecified; K76.0 Fatty (change of) liver, not elsewhere classified; F32.A Depression, unspecified; N39.0 Urinary tract infection, site not specified; F90.9 Attention-deficit hyperactivity disorder, unspecified type; B96.20 Unspecified Escherichia coli [E. coli] as the cause of diseases classified elsewhere; K21.9 Gastro-esophageal reflux disease without esophagitis; E78.5 Hyperlipidemia, unspecified; M54.31 Sciatica, right side; K80.20 Calculus of gallbladder without cholecystitis without obstruction; D62 Acute posthemorrhagic anemia; Z79.899 Other long term (current) drug therapy; Z88.8 Allergy status to other drugs, medicaments and biological substances

== ENCOUNTER → 2022-01-27 | Outpatient (REF) | payer BC ==
[~2022-01-27] MED LIST changes: +CEFU50TA PO; +FOLI1TAB11 PO; +HYDR-3713 PO; +OMEP-173 PO; +SUCR1TA PO; +THIA100TA PO; +VITA100093 PO
== END ==
LOC: M SFHCPLAZ 13:09
PROVIDERS: ATTEND Nurse Practitioner Adult Health
DX: R30.0 Dysuria (principal)

== ENCOUNTER → 2022-02-04 | Outpatient (CLI) | payer BC ==
[2022-02-04 15:47] LABS: HEMATOCRIT 34.4 % (36.0-47.0); HEMOGLOBIN 10.9 g/dl (12.0-15.5); MEAN CORPUSCULAR HEMOGLOBIN 33.2 pg (27.0-33.0); MEAN CORPUSCULAR HGB CONC 31.7 g/dl (32.0-36.5); MEAN CORPUSCULAR VOLUME 104.9 fl (80.0-96.0); PLATELET COUNT, AUTOMATED 393 10^3/uL (150-450); RED BLOOD COUNT 3.28 10^6/uL (4.00-5.40); WHITE BLOOD COUNT 10.2 10^3/uL (4.0-10.0)
== END ==
LOC: M PLALAB 13:10
PROVIDERS: ATTEND Physician Assistant Medical
DX: K74.60 Unspecified cirrhosis of liver (principal)

== ENCOUNTER → 2022-03-11 | Outpatient (CLI) | payer BC ==
[~2022-03-11] MED LIST changes: +DIFI200T PO
== END ==
LOC: M PAIN 13:30
PROVIDERS: ATTEND Nurse Practitioner Family
DX: M51.16 Intervertebral disc disorders with radiculopathy, lumbar region (principal); Z98.84 Bariatric surgery status; L73.2 Hidradenitis suppurativa; I10 Essential (primary) hypertension; F32.A Depression, unspecified; F41.9 Anxiety disorder, unspecified; E78.2 Mixed hyperlipidemia; K76.0 Fatty (change of) liver, not elsewhere classified; Z87.891 Personal history of nicotine dependence; Z79.899 Other long term (current) drug therapy; Z88.8 Allergy status to other drugs, medicaments and biological substances

== ENCOUNTER 2022-03-17 00:03 | Emergency (ER) | payer BC ==
[~2022-03-17] VITALS: Ht 162.6 cm; Wt 68.2 kg
[~2022-03-17 00:03] MED LIST changes: -DIFI200T PO
[2022-03-17 01:47] LABS: BASO # 0.1 10^3/uL (0.0-0.2); BASO % 0.5 % (0.0-1.0); EOS # 0.1 10^3/uL (0.0-0.5); EOS % 0.6 % (0.0-3.0); HEMATOCRIT 38.2 % (36.0-47.0); HEMOGLOBIN 12.6 g/dl (12.0-15.5); LYMPH # 2.2 10^3/uL (1.5-5.0); LYMPH % 21.9 % (24.0-44.0); MEAN CORPUSCULAR HEMOGLOBIN 32.6 pg (27.0-33.0); MONO # 1.3 10^3/uL (0.0-0.8); MONO % 13.3 % (2.0-8.0); NEUTROPHILS # 6.3 10^3/uL (1.5-8.5); NEUTROPHILS % 63.4 % (36.0-66.0); PLATELET COUNT, AUTOMATED 263 10^3/uL (150-450); RED BLOOD COUNT 3.86 10^6/uL (4.00-5.40); WHITE BLOOD COUNT 9.9 10^3/uL (4.0-10.0)
[2022-03-17 01:53] LABS: CK-MB VALUE MASS 1.3 NG/ML (<3.6); MB/CK RELATIVE INDEX 1.94 (< OR =4)
[2022-03-17 01:54] LABS: ALBUMIN 2.5 GM/DL (3.2-5.2); ALT/SGPT 20 U/L (12-78); BILIRUBIN,DIRECT 0.3 MG/DL (0.0-0.2); BILIRUBIN,TOTAL 0.6 MG/DL (0.2-1.0); BLOOD UREA NITROGEN 9 MG/DL (7-18); CALCIUM LEVEL 8.6 MG/DL (8.8-10.2); CARBON DIOXIDE LEVEL 29 MEQ/L (21-32); CHLORIDE LEVEL 98 MEQ/L (98-107); CREATININE FOR GFR 0.56 MG/DL (0.55-1.30); GLOMERULAR FILTRATION RATE > 60.0 (>45); GLUCOSE, FASTING 102 MG/DL (70-100); LIPASE 72 U/L (73-393); SODIUM LEVEL 134 MEQ/L (136-145); TOTAL PROTEIN 6.8 GM/DL (6.4-8.2)
[2022-03-17 05:23] LABS: BASO % 0.4 % (0.0-1.0); EOS # 0.1 10^3/uL (0.0-0.5); EOS % 0.5 % (0.0-3.0); HEMATOCRIT 38.7 % (36.0-47.0); HEMOGLOBIN 12.5 g/dl (12.0-15.5); LYMPH # 2.1 10^3/uL (1.5-5.0); LYMPH % 21.9 % (24.0-44.0); MEAN CORPUSCULAR HEMOGLOBIN 32.2 pg (27.0-33.0); MEAN CORPUSCULAR HGB CONC 32.3 g/dl (32.0-36.5); MEAN CORPUSCULAR VOLUME 99.7 fl (80.0-96.0); MONO # 1.4 10^3/uL (0.0-0.8); MONO % 14.2 % (2.0-8.0); NEUTROPHILS % 62.7 % (36.0-66.0); PLATELET COUNT, AUTOMATED 269 10^3/uL (150-450); RED BLOOD COUNT 3.88 10^6/uL (4.00-5.40); WHITE BLOOD COUNT 9.6 10^3/uL (4.0-10.0)
[2022-03-17] MEDS ORDERED: ISOVUE-370 76% 100ML VIAL As Ordered ONE (06:29)
[2022-03-17] MEDS ORDERED: ACETAMINOPHEN 500 MG TAB PO ONE (08:10)
[2022-03-17 11:15] VITALS: BP 154/93
[2022-03-17] MEDS ORDERED: DIFI200T PO (14:01)
== END 2022-03-17 11:15 | disposition home or self-care (01) ==
LOC: M ED 00:03
DX: K52.9 Noninfective gastroenteritis and colitis, unspecified (principal); K76.0 Fatty (change of) liver, not elsewhere classified; N28.1 Cyst of kidney, acquired; K27.9 Peptic ulcer, site unspecified, unspecified as acute or chronic, without hemorrhage or perforation; Z87.19 Personal history of other diseases of the digestive system; I10 Essential (primary) hypertension; G47.33 Obstructive sleep apnea (adult) (pediatric); F41.9 Anxiety disorder, unspecified; F32.A Depression, unspecified; N93.8 Other specified abnormal uterine and vaginal bleeding; Z87.891 Personal history of nicotine dependence; Z98.84 Bariatric surgery status; F10.90 Alcohol use, unspecified, uncomplicated; Z88.8 Allergy status to other drugs, medicaments and biological substances; Z79.899 Other long term (current) drug therapy
CPT/HCPCS: 74177; 80053; 82248; 82550; 82553; 83605; 83690; 84484; 85025; 86850; 86900; 86901; 87507; 93005; 99285; Q9967

== ENCOUNTER → 2022-04-08 | Outpatient (CLI) | payer BC ==
[~2022-04-08] MED LIST changes: +DIFI200T PO
== END ==
LOC: M LABSMTC 09:25
PROVIDERS: ATTEND Anesthesiology
DX: Z20.828 Contact with and (suspected) exposure to other viral communicable diseases (principal); Z11.59 Encounter for screening for other viral diseases

== ENCOUNTER 2022-04-16 14:03 | Emergency (ER) | payer BC ==
[~2022-04-16] VITALS: Ht 162.6 cm; Wt 72.6 kg
[2022-04-16 14:03] VITALS: BP 135/95
[2022-04-17] MEDS ORDERED: PANT40TA29 PO (06:29)
[2022-04-17] MEDS ORDERED: URSO300C3 PO (06:29)
[2022-04-17] MEDS ORDERED: VITA-148 PO (12:45)
[2022-04-17] MEDS ORDERED: URSO1TAB8 PO (12:45)
[2022-04-17] MEDS ORDERED: FOLI1TAB11 PO (12:45)
[2022-04-17] MEDS ORDERED: SUCR1TAB56 PO (12:50)
== END 2022-04-16 17:04 | disposition left against medical advice (07) ==
LOC: M ED 14:03
DX: Z53.21 Procedure and treatment not carried out due to patient leaving prior to being seen by health care provider (principal)

== ENCOUNTER 2022-04-17 06:19 | Observation (INO) | payer BC ==
[~2022-04-17] VITALS: Ht 162.6 cm; Wt 72.2 kg
[2022-04-17] MEDS ORDERED: URSO300C3 PO (06:29)
[2022-04-17] MEDS ORDERED: PANT40TA29 PO (06:29)
[2022-04-17 08:16] LABS: BASO % 0.5 % (0.0-1.0); EOS # 0.1 10^3/uL (0.0-0.5); EOS % 0.8 % (0.0-3.0); HEMATOCRIT 37.2 % (36.0-47.0); HEMOGLOBIN 11.9 g/dl (12.0-15.5); LYMPH # 1.5 10^3/uL (1.5-5.0); LYMPH % 19.6 % (24.0-44.0); MEAN CORPUSCULAR HEMOGLOBIN 31.3 pg (27.0-33.0); MEAN CORPUSCULAR VOLUME 97.9 fl (80.0-96.0); MONO # 0.7 10^3/uL (0.0-0.8); MONO % 9.3 % (2.0-8.0); NEUTROPHILS # 5.3 10^3/uL (1.5-8.5); NEUTROPHILS % 69.5 % (36.0-66.0); PLATELET COUNT, AUTOMATED 401 10^3/uL (150-450); WHITE BLOOD COUNT 7.7 10^3/uL (4.0-10.0)
[2022-04-17 08:35] LABS: INR 1.05; PROTHROMBIN TIME 13.9 SECONDS (12.5-14.5)
[2022-04-17] MEDS ORDERED: IRBESARTAN 150MG TAB PO SCH (09:00)
[2022-04-17 09:07] LABS: ALT/SGPT 18 U/L (12-78); BILIRUBIN,DIRECT 0.4 MG/DL (0.0-0.2); BILIRUBIN,TOTAL 0.7 MG/DL (0.2-1.0); BLOOD UREA NITROGEN 7 MG/DL (7-18); CALCIUM LEVEL 8.5 MG/DL (8.8-10.2); CARBON DIOXIDE LEVEL 25 MEQ/L (21-32); CHLORIDE LEVEL 106 MEQ/L (98-107); GLOMERULAR FILTRATION RATE > 60.0 (>45); GLUCOSE, FASTING 89 MG/DL (70-100); LIPASE 88 U/L (73-393); NT-PRO BNP 515 PG/ML (<125); POTASSIUM SERUM 4.5 MEQ/L (3.5-5.1); SODIUM LEVEL 137 MEQ/L (136-145); TOTAL PROTEIN 7.1 GM/DL (6.4-8.2)
[2022-04-17] MEDS ORDERED: OXAZEPAM 15MG CAP PO ONE (09:50)
[2022-04-17 10:19] LABS: RSV AMPLIFICATION NEGATIVE (NEGATIVE)
[2022-04-17] MEDS ORDERED: FUROSEMIDE 40MG/4ML VIAL (J1940) IV ONE (12:30)
[2022-04-17] MEDS ORDERED: FOLI1TAB11 PO (12:45)
[2022-04-17] MEDS ORDERED: VITA-148 PO (12:45)
[2022-04-17] MEDS ORDERED: URSO1TAB8 PO (12:45)
[2022-04-17] MEDS ORDERED: SUCR1TAB56 PO (12:50)
[2022-04-17] MEDS ORDERED: HOME MED LIST COMPLETE! XX SCH (12:55)
[2022-04-17] MEDS ORDERED: LORazepam 2 MG TAB PO PRN (13:25)
[2022-04-17] MEDS ORDERED: ISOVUE-370 76% 100ML VIAL As Ordered ONE (13:59)
[2022-04-17 14:28] LABS: INR 1.16; PROTHROMBIN TIME 15.1 SECONDS (12.5-14.5)
[2022-04-17 14:29] LABS: PARTIAL THROMBOPLASTIN TIME 29.7 SECONDS (24.8-34.2)
[2022-04-17] MEDS ORDERED: CYCLOBENZAPRINE 10MG TABLET PO PRN (14:30)
[2022-04-17 14:47] LABS: ALBUMIN 2.1 GM/DL (3.2-5.2); ALT/SGPT 19 U/L (12-78); BILIRUBIN,TOTAL 0.7 MG/DL (0.2-1.0); BLOOD UREA NITROGEN 7 MG/DL (7-18); CALCIUM LEVEL 8.5 MG/DL (8.8-10.2); CARBON DIOXIDE LEVEL 29 MEQ/L (21-32); CHLORIDE LEVEL 105 MEQ/L (98-107); CREATININE FOR GFR 0.59 MG/DL (0.55-1.30); GLOMERULAR FILTRATION RATE > 60.0 (>45); GLUCOSE, FASTING 112 MG/DL (70-100); POTASSIUM SERUM 3.6 MEQ/L (3.5-5.1); SODIUM LEVEL 140 MEQ/L (136-145); TOTAL PROTEIN 6.9 GM/DL (6.4-8.2)
[2022-04-17] MEDS ORDERED: MULTIVITAMIN -ADULT INJECTION 10 ML, THIAMINE INJection 100 MG, FOLIC ACID 1 MG in NS 1... IV ONE (16:00)
[2022-04-17 18:20] VITALS: BP 154/89
[2022-04-17] MEDS: SUCRALFATE 1 GM TAB PO SCH ×2 (18:31→21:12)
[2022-04-17 21:00] VITALS: BP 153/80
[2022-04-17] MEDS: NORCO, ANEXSIA 5/325MG TABLET (HYDROcodone/ACETAMINOPHEN) PO PRN (21:12)
[2022-04-17] MEDS: THIAMINE 100 MG TAB PO SCH (21:12)
[2022-04-17] MEDS: PANTOPRAZOLE 40MG TAB (PROTONIX) PO SCH (21:12)
[2022-04-17 21:24] VITALS: BP_SYST 144; BP_SYST 153; BP_DIAS 73; BP_DIAS 80
[2022-04-18 02:00] VITALS: BP 154/93
[2022-04-18 05:00] VITALS: BP 148/86
[2022-04-18 05:27] VITALS: BP 150/96
[2022-04-18 06:00] VITALS: BP 148/86
[2022-04-18 06:19] LABS: HEMATOCRIT 29.5 % (36.0-47.0); MEAN CORPUSCULAR HEMOGLOBIN 32.2 pg (27.0-33.0); MEAN CORPUSCULAR HGB CONC 32.9 g/dl (32.0-36.5); PLATELET COUNT, AUTOMATED 314 10^3/uL (150-450); RED BLOOD COUNT 3.01 10^6/uL (4.00-5.40); WHITE BLOOD COUNT 6.8 10^3/uL (4.0-10.0)
[2022-04-18 06:29] LABS: HEMOGLOBIN 9.7 g/dl (12.0-15.5)
[2022-04-18 07:06] LABS: ATYPICAL LYMPH 2 % (0-5); BASOPHILS 1 % (0-1); EOSINOPHILS 2 % (0-3); LYMPHOCYTES 29 % (16-44); MONOCYTES 12 % (0-5); NEUTROPHILS 54 % (28-66); PLATELET ESTIMATE NORMAL (NORMAL)
[2022-04-18] MEDS ORDERED: MULTIVITAMINS/MINERALS THERAP 1 TAB PO SCH (09:00)
[2022-04-18] MEDS ORDERED: FUROSEMIDE 20 MG TAB PO SCH (09:00)
[2022-04-18] MEDS ORDERED: ENOXAPARIN 40MG/0.4ML SYRINGE (J1650 PER 10MG) SC SCH (09:00)
[2022-04-18] MEDS ORDERED: VITAMIN D 1,000 INTERNATIONAL UNITS TABLET PO SCH (09:00)
[2022-04-18] MEDS ORDERED: FOLIC ACID 1MG TAB PO SCH (09:00)
[2022-04-18] MEDS ORDERED: SPIRONOLACTONE 50 MG TAB PO SCH (09:00)
[2022-04-18] MEDS: THIAMINE 100 MG TAB PO SCH (09:45)
[2022-04-18] MEDS: PANTOPRAZOLE 40MG TAB (PROTONIX) PO SCH (09:46)
[2022-04-18] MEDS: SUCRALFATE 1 GM TAB PO SCH ×2 (09:48→13:07)
[2022-04-18] MEDS: NORCO, ANEXSIA 5/325MG TABLET (HYDROcodone/ACETAMINOPHEN) PO PRN (09:49)
[2022-04-18] MEDS ORDERED: FURO20TA2 PO (10:35)
[2022-04-18] MEDS ORDERED: ALDA50TA2 PO (10:35)
[2022-04-18] MEDS ORDERED: GAVIPOW3 PO (10:38)
== END 2022-04-18 13:48 | disposition home or self-care (01) ==
LOC: M ED 06:19 → M ED INP 06:20 → ENRESERV 14:23 → M MSPAV 18:13
PROVIDERS: ADMIT Internal Medicine; ATTEND Internal Medicine
DX: K70.31 Alcoholic cirrhosis of liver with ascites (principal); F10.20 Alcohol dependence, uncomplicated; F17.200 Nicotine dependence, unspecified, uncomplicated; Z87.19 Personal history of other diseases of the digestive system; K21.9 Gastro-esophageal reflux disease without esophagitis; Z98.84 Bariatric surgery status; I10 Essential (primary) hypertension; F41.9 Anxiety disorder, unspecified; F32.A Depression, unspecified; E78.5 Hyperlipidemia, unspecified; R74.8 Abnormal levels of other serum enzymes; L73.2 Hidradenitis suppurativa; M54.50 Low back pain, unspecified; G89.29 Other chronic pain; Z80.0 Family history of malignant neoplasm of digestive organs; K76.0 Fatty (change of) liver, not elsewhere classified; E88.09 Other disorders of plasma-protein metabolism, not elsewhere classified; R60.0 Localized edema; R26.2 Difficulty in walking, not elsewhere classified; R00.0 Tachycardia, unspecified; Z79.899 Other long term (current) drug therapy; Z88.8 Allergy status to other drugs, medicaments and biological substances
CPT/HCPCS: 36415; 71045; 74178; 76705; 80048; 80053; 80076; 83605; 83690; 83880; 84443; 85025; 85610; 85730; 87040; 87631; 93005; 93041; 93970; 94760; 96372; 96374; 97161; 97165; 99285; J1650; J1940; J3411; Q9967

== ENCOUNTER → 2022-04-27 | Outpatient (CLI) | payer BC ==
[~2022-04-27] MED LIST changes: +ALDA50TA2 PO; +DEXI60CA2 PO; +FURO20TA2 PO; +FURO40TA2 PO; +GAVIPOW3 PO; +PANT40TA29 PO; +SPIR100T3 PO; +SUCR1TAB56 PO; +URSO1TAB8 PO; +URSO300C3 PO; +VITA-148 PO
[2022-04-27 15:34] LABS: BASO # 0.1 10^3/uL (0.0-0.2); BASO % 0.6 % (0.0-1.0); EOS # 0.2 10^3/uL (0.0-0.5); EOS % 1.7 % (0.0-3.0); HEMATOCRIT 37.5 % (36.0-47.0); HEMOGLOBIN 11.7 g/dl (12.0-15.5); LYMPH # 1.8 10^3/uL (1.5-5.0); LYMPH % 21.1 % (24.0-44.0); MEAN CORPUSCULAR HEMOGLOBIN 31.5 pg (27.0-33.0); MEAN CORPUSCULAR HGB CONC 31.2 g/dl (32.0-36.5); MEAN CORPUSCULAR VOLUME 100.8 fl (80.0-96.0); MONO % 12.1 % (2.0-8.0); NEUTROPHILS # 5.5 10^3/uL (1.5-8.5); NEUTROPHILS % 64.3 % (36.0-66.0); PLATELET COUNT, AUTOMATED 473 10^3/uL (150-450); RED BLOOD COUNT 3.72 10^6/uL (4.00-5.40); WHITE BLOOD COUNT 8.6 10^3/uL (4.0-10.0)
[2022-04-27 15:42] LABS: INR 1.04; PROTHROMBIN TIME 13.8 SECONDS (12.5-14.5)
[2022-04-27 16:52] LABS: ALBUMIN 2.3 GM/DL (3.2-5.2); ALT/SGPT 16 U/L (12-78); BILIRUBIN,TOTAL 0.8 MG/DL (0.2-1.0); BLOOD UREA NITROGEN 7 MG/DL (7-18); CALCIUM LEVEL 8.9 MG/DL (8.8-10.2); CARBON DIOXIDE LEVEL 31 MEQ/L (21-32); CHLORIDE LEVEL 100 MEQ/L (98-107); CREATININE FOR GFR 0.62 MG/DL (0.55-1.30); GLOMERULAR FILTRATION RATE > 60.0 (>45); GLUCOSE, FASTING 81 MG/DL (70-100); POTASSIUM SERUM 4.2 MEQ/L (3.5-5.1); SODIUM LEVEL 136 MEQ/L (136-145); TOTAL PROTEIN 7.2 GM/DL (6.4-8.2)
== END ==
LOC: M PLALAB 09:25
PROVIDERS: ATTEND Internal Medicine Gastroenterology
DX: K74.3 Primary biliary cirrhosis (principal)

== ENCOUNTER → 2022-04-29 | Outpatient (CLI) | payer BC ==
[~2022-04-29] MED LIST changes: +PROHANCE 279.3MG/ML 15ML VIAL As Ordered ONE
== END ==
LOC: M RAD 15:47
PROVIDERS: ATTEND Internal Medicine Gastroenterology
DX: D37.6 Neoplasm of uncertain behavior of liver, gallbladder and bile ducts (principal); K74.60 Unspecified cirrhosis of liver; R18.8 Other ascites; K76.0 Fatty (change of) liver, not elsewhere classified; K80.20 Calculus of gallbladder without cholecystitis without obstruction
CPT/HCPCS: 74183; A9576

== ENCOUNTER → 2022-05-06 | Outpatient (CLI) | payer BC ==
[~2022-05-06] MED LIST changes: -PROHANCE 279.3MG/ML 15ML VIAL As Ordered ONE
== END ==
LOC: M LABSMTC 09:08
PROVIDERS: ATTEND Anesthesiology
DX: Z01.812 Encounter for preprocedural laboratory examination (principal); Z20.822 Contact with and (suspected) exposure to COVID-19

== ENCOUNTER 2022-05-11 13:47 | Day surgery (SDC) | payer BC ==
[~2022-05-11] VITALS: Ht 162.6 cm; Wt 64.4 kg
[~2022-05-11 13:47] MED LIST changes: +NS 1,000 ML IV ONE; +propofoL 200 MG/20 ML VIAL As Ordered ONE
[2022-05-11] MEDS ORDERED: fentaNYL 100 MCG/2 ML INJECTION As Ordered ONE (14:09)
[2022-05-11] MEDS ORDERED: propofoL 200 MG/20 ML VIAL As Ordered ONE ×2 (14:54→15:12)
[2022-05-11 15:57] VITALS: BP 148/84
== END 2022-05-11 15:59 | disposition home or self-care (01) ==
LOC: M OPP 13:47
PROVIDERS: ATTEND Internal Medicine Gastroenterology
DX: D50.0 Iron deficiency anemia secondary to blood loss (chronic) (principal); K63.5 Polyp of colon; K57.30 Diverticulosis of large intestine without perforation or abscess without bleeding; K64.8 Other hemorrhoids; K92.2 Gastrointestinal hemorrhage, unspecified; Z98.0 Intestinal bypass and anastomosis status; I10 Essential (primary) hypertension; E78.5 Hyperlipidemia, unspecified; Z85.00 Personal history of malignant neoplasm of unspecified digestive organ; K74.60 Unspecified cirrhosis of liver; K21.9 Gastro-esophageal reflux disease without esophagitis; F90.9 Attention-deficit hyperactivity disorder, unspecified type; M19.90 Unspecified osteoarthritis, unspecified site; F41.9 Anxiety disorder, unspecified; F32.A Depression, unspecified; J44.9 Chronic obstructive pulmonary disease, unspecified; G47.30 Sleep apnea, unspecified; Z87.891 Personal history of nicotine dependence; Z88.8 Allergy status to other drugs, medicaments and biological substances; Z79.899 Other long term (current) drug therapy
CPT/HCPCS: 43255; 45385; 88305; J3010

== ENCOUNTER → 2022-06-23 | Outpatient (CLI) | payer BC ==
[~2022-06-23] MED LIST changes: -NS 1,000 ML IV ONE; -propofoL 200 MG/20 ML VIAL As Ordered ONE
== END ==
LOC: M PAIN 10:00
PROVIDERS: ATTEND Nurse Practitioner Family
DX: M51.16 Intervertebral disc disorders with radiculopathy, lumbar region (principal); Z98.84 Bariatric surgery status; L73.2 Hidradenitis suppurativa; I10 Essential (primary) hypertension; F32.A Depression, unspecified; F41.9 Anxiety disorder, unspecified; E78.2 Mixed hyperlipidemia; K76.0 Fatty (change of) liver, not elsewhere classified; Z87.891 Personal history of nicotine dependence; Z79.899 Other long term (current) drug therapy; Z88.8 Allergy status to other drugs, medicaments and biological substances

== ENCOUNTER → 2022-07-27 | Outpatient (CLI) | payer BC | LOC: M PAIN 14:30 | PROVIDERS: ATTEND Nurse Practitioner Family | DX: M51.16 Intervertebral disc disorders with radiculopathy, lumbar region (principal); E78.2 Mixed hyperlipidemia; I10 Essential (primary) hypertension; F41.9 Anxiety disorder, unspecified; F32.A Depression, unspecified; K74.60 Unspecified cirrhosis of liver; Z98.84 Bariatric surgery status; L73.2 Hidradenitis suppurativa; Z79.891 Long term (current) use of opiate analgesic; Z79.899 Other long term (current) drug therapy; Z87.891 Personal history of nicotine dependence; Z88.0 Allergy status to penicillin ==

== ENCOUNTER → 2022-08-19 | Outpatient (CLI) | payer BC ==
[2022-08-19 16:11] LABS: IMMUNOGLOBULIN G 1224 MG/DL (650-1600)
[2022-08-19 16:15] LABS: ALBUMIN 3.6 G/DL (3.2-5.2); ALKALINE PHOSPHATASE 96 U/L (46-116); ALT/SGPT 18 U/L (7.0-40); AST/SGOT 33 U/L (<34); BILIRUBIN,TOTAL 0.4 MG/DL (0.3-1.2); BLOOD UREA NITROGEN 18 MG/DL (9-23); CALCIUM LEVEL 10.1 MG/DL (8.3-10.6); CARBON DIOXIDE LEVEL 31 MMOL/L (20-31); CHLORIDE LEVEL 100 MMOL/L (98-107); CREATININE FOR GFR 0.74 MG/DL (0.55-1.30); GLOMERULAR FILTRATION RATE > 60.0 (>45); GLUCOSE, FASTING 104 MG/DL (74-106); POTASSIUM SERUM 4.4 MMOL/L (3.5-5.1); SODIUM LEVEL 138 MMOL/L (136-145); TOTAL PROTEIN 7.4 G/DL (5.7-8.2)
[2022-08-19 16:18] LABS: BASO % 0.6 % (0.0-1.0); EOS # 0.2 10^3/uL (0.0-0.5); EOS % 3.6 % (0.0-3.0); HEMATOCRIT 38.6 % (36.0-47.0); HEMOGLOBIN 12.6 g/dl (12.0-15.5); LYMPH # 2.2 10^3/uL (1.5-5.0); LYMPH % 32.5 % (24.0-44.0); MEAN CORPUSCULAR HEMOGLOBIN 29.7 pg (27.0-33.0); MEAN CORPUSCULAR HGB CONC 32.6 g/dl (32.0-36.5); MONO # 0.8 10^3/uL (0.0-0.8); MONO % 11.8 % (2.0-8.0); NEUTROPHILS # 3.4 10^3/uL (1.5-8.5); PLATELET COUNT, AUTOMATED 341 10^3/uL (150-450); RED BLOOD COUNT 4.24 10^6/uL (4.00-5.40); WHITE BLOOD COUNT 6.6 10^3/uL (4.0-10.0)
[2022-08-19 16:29] LABS: INR 1.04; PROTHROMBIN TIME 13.8 SECONDS (12.5-14.5)
[2022-08-19 16:33] LABS: HEPATITIS B SURFACE ANTIGEN NEGATIVE (NEGATIVE)
[2022-08-19 16:53] LABS: HEPATITIS B CORE ANTIBODY IGM NEGATIVE (NEGATIVE); HEPATITIS C VIRUS ABY INDEX 0.1 INDEX (<0.8)
== END ==
LOC: M PLALAB 11:04
PROVIDERS: ATTEND Internal Medicine
DX: K74.60 Unspecified cirrhosis of liver (principal)

== ENCOUNTER → 2022-08-19 | Outpatient (CLI) | payer BC ==
[2022-08-19 16:14] LABS: FERRITIN 9.3 NG/ML (7.3-270.7)
== END ==
LOC: M PLALAB 11:12
DX: K74.60 Unspecified cirrhosis of liver (principal)

== ENCOUNTER → 2022-09-04 | Outpatient (CLI) | payer BC | LOC: M PAIN 14:45 | PROVIDERS: ATTEND Nurse Practitioner Family | DX: M51.16 Intervertebral disc disorders with radiculopathy, lumbar region (principal); L73.2 Hidradenitis suppurativa; I10 Essential (primary) hypertension; F41.9 Anxiety disorder, unspecified; F32.A Depression, unspecified; E78.2 Mixed hyperlipidemia; Z87.891 Personal history of nicotine dependence; K74.60 Unspecified cirrhosis of liver; Z79.891 Long term (current) use of opiate analgesic; Z79.899 Other long term (current) drug therapy; Z88.8 Allergy status to other drugs, medicaments and biological substances ==

== ENCOUNTER → 2022-09-18 | Outpatient (CLI) | payer BC | LOC: M PAIN 11:15 | PROVIDERS: ATTEND Nurse Practitioner Family | DX: M51.16 Intervertebral disc disorders with radiculopathy, lumbar region (principal); F41.9 Anxiety disorder, unspecified; F32.A Depression, unspecified; E78.2 Mixed hyperlipidemia; K74.3 Primary biliary cirrhosis; Z87.891 Personal history of nicotine dependence; Z79.891 Long term (current) use of opiate analgesic; Z79.899 Other long term (current) drug therapy; Z88.8 Allergy status to other drugs, medicaments and biological substances ==

== ENCOUNTER → 2022-10-19 | Outpatient (CLI) | payer BC | LOC: M PAIN 09:15 | PROVIDERS: ATTEND Nurse Practitioner Family | DX: M51.16 Intervertebral disc disorders with radiculopathy, lumbar region (principal); I10 Essential (primary) hypertension; F41.9 Anxiety disorder, unspecified; F32.A Depression, unspecified; E78.2 Mixed hyperlipidemia; K74.3 Primary biliary cirrhosis; Z87.891 Personal history of nicotine dependence; Z98.84 Bariatric surgery status; Z79.891 Long term (current) use of opiate analgesic; Z79.899 Other long term (current) drug therapy; Z88.8 Allergy status to other drugs, medicaments and biological substances ==

== ENCOUNTER → 2022-11-20 | Outpatient (CLI) | payer BC | LOC: M PAIN 10:30 | PROVIDERS: ATTEND Nurse Practitioner Family | DX: M51.16 Intervertebral disc disorders with radiculopathy, lumbar region (principal); G89.29 Other chronic pain; Z98.84 Bariatric surgery status; L73.2 Hidradenitis suppurativa; I10 Essential (primary) hypertension; F41.9 Anxiety disorder, unspecified; F32.A Depression, unspecified; E78.2 Mixed hyperlipidemia; K76.9 Liver disease, unspecified; Z87.891 Personal history of nicotine dependence; Z79.891 Long term (current) use of opiate analgesic; Z79.899 Other long term (current) drug therapy; Z88.8 Allergy status to other drugs, medicaments and biological substances ==

== ENCOUNTER → 2023-01-11 | Outpatient (CLI) | payer BC ==
[2023-01-11 14:01] LABS: CHOLESTEROL RISK RATIO 2.72 (<5); HDL CHOLESTEROL 78.3 MG/DL (>40); LDL CHOLESTEROL 112.1 MG/DL (<100); NON-HDL-C 134.7 MG/DL; THYROID STIMULATING HORMONE 1.589 uIU/ML (0.55-4.78)
== END ==
LOC: M PLALAB 10:16
PROVIDERS: ATTEND Nurse Practitioner Adult Health
DX: Z00.00 Encounter for general adult medical examination without abnormal findings (principal)

== ENCOUNTER → 2023-02-17 | Outpatient (CLI) | payer BC ==
[2023-02-17 10:38] LABS: BASO # 0.1 10^3/uL (0.0-0.2); EOS # 0.4 10^3/uL (0.0-0.5); EOS % 4.8 % (0.0-3.0); HEMATOCRIT 39.2 % (36.0-47.0); HEMOGLOBIN 12.8 g/dl (12.0-15.5); LYMPH # 2.6 10^3/uL (1.5-5.0); LYMPH % 36.2 % (24.0-44.0); MEAN CORPUSCULAR HEMOGLOBIN 30.5 pg (27.0-33.0); MEAN CORPUSCULAR HGB CONC 32.7 g/dl (32.0-36.5); MEAN CORPUSCULAR VOLUME 93.3 fl (80.0-96.0); MONO % 13.2 % (2.0-8.0); NEUTROPHILS # 3.2 10^3/uL (1.5-8.5); NEUTROPHILS % 44.5 % (36.0-66.0); PLATELET COUNT, AUTOMATED 289 10^3/uL (150-450); WHITE BLOOD COUNT 7.3 10^3/uL (4.0-10.0)
[2023-02-17 10:48] LABS: INR 1.03; PROTHROMBIN TIME 13.2 SECONDS (12.5-14.5)
[2023-02-17 11:03] LABS: ALBUMIN 3.4 G/DL (3.2-5.2); ALKALINE PHOSPHATASE 116 U/L (46-116); ALT/SGPT 18 U/L (7.0-40); AST/SGOT 23 U/L (<34); BILIRUBIN,TOTAL 0.3 MG/DL (0.3-1.2); BLOOD UREA NITROGEN 9 MG/DL (9-23); CALCIUM LEVEL 9.5 MG/DL (8.3-10.6); CARBON DIOXIDE LEVEL 26 MMOL/L (20-31); CHLORIDE LEVEL 106 MMOL/L (98-107); GLOMERULAR FILTRATION RATE > 60.0 (>45); GLUCOSE, FASTING 88 MG/DL (74-106); POTASSIUM SERUM 4.5 MMOL/L (3.5-5.1); SODIUM LEVEL 140 MMOL/L (136-145); TOTAL PROTEIN 6.8 G/DL (5.7-8.2)
== END ==
LOC: M PLALAB 08:40
PROVIDERS: ATTEND Internal Medicine Gastroenterology
DX: K74.3 Primary biliary cirrhosis (principal)

== ENCOUNTER → 2023-02-25 | Outpatient (CLI) | payer BC | LOC: M PLARAD 13:50 | PROVIDERS: ATTEND Internal Medicine Gastroenterology | DX: D37.6 Neoplasm of uncertain behavior of liver, gallbladder and bile ducts (principal) ==

== ENCOUNTER → 2023-08-02 | Outpatient (CLI) | payer BC | LOC: M PAIN 11:45 | PROVIDERS: ATTEND Nurse Practitioner Family | DX: M51.16 Intervertebral disc disorders with radiculopathy, lumbar region (principal); Z79.891 Long term (current) use of opiate analgesic; G89.29 Other chronic pain; I10 Essential (primary) hypertension; F41.9 Anxiety disorder, unspecified; F32.A Depression, unspecified; E78.2 Mixed hyperlipidemia; K74.3 Primary biliary cirrhosis; Z98.84 Bariatric surgery status; Z79.899 Other long term (current) drug therapy; Z87.891 Personal history of nicotine dependence; Z88.8 Allergy status to other drugs, medicaments and biological substances ==

== ENCOUNTER → 2023-08-12 | Outpatient (CLI) | payer BC ==
[2023-08-12 13:11] LABS: ALBUMIN 3.4 G/DL (3.2-5.2); ALKALINE PHOSPHATASE 87 U/L (46-116); ALT/SGPT 19 U/L (7.0-40); AST/SGOT 26 U/L (<34); BILIRUBIN,DIRECT 0.2 MG/DL (<0.4); BILIRUBIN,TOTAL 0.4 MG/DL (0.3-1.2); BLOOD UREA NITROGEN 12 MG/DL (9-23); GLOMERULAR FILTRATION RATE > 60.0 (>45); TOTAL PROTEIN 6.7 G/DL (5.7-8.2)
== END ==
LOC: M PLALAB 09:21
PROVIDERS: ATTEND Internal Medicine Gastroenterology
DX: K74.3 Primary biliary cirrhosis (principal)

== ENCOUNTER → 2023-08-16 | Outpatient (CLI) | payer BC ==
[~2023-08-16] MED LIST changes: +PROHANCE 279.3MG/ML 15ML VIAL ONE
== END ==
LOC: M PLAIMG 14:55
PROVIDERS: ATTEND Internal Medicine Gastroenterology
DX: D37.6 Neoplasm of uncertain behavior of liver, gallbladder and bile ducts (principal)
CPT/HCPCS: 74183; A9576

== ENCOUNTER → 2023-09-02 | Outpatient (CLI) | payer BC ==
[~2023-09-02] MED LIST changes: -PROHANCE 279.3MG/ML 15ML VIAL ONE
== END ==
LOC: M PAIN 11:45
PROVIDERS: ATTEND Nurse Practitioner Family
DX: M51.16 Intervertebral disc disorders with radiculopathy, lumbar region (principal); G89.29 Other chronic pain; E78.2 Mixed hyperlipidemia; Z98.84 Bariatric surgery status; L73.2 Hidradenitis suppurativa; I10 Essential (primary) hypertension; F41.9 Anxiety disorder, unspecified; F32.A Depression, unspecified; K74.3 Primary biliary cirrhosis; Z87.891 Personal history of nicotine dependence; Z79.891 Long term (current) use of opiate analgesic; Z79.899 Other long term (current) drug therapy; Z88.8 Allergy status to other drugs, medicaments and biological substances

== ENCOUNTER → 2023-10-04 | Outpatient (CLI) | payer BC | LOC: M PAIN 16:00 | PROVIDERS: ATTEND Nurse Practitioner Family | DX: M51.16 Intervertebral disc disorders with radiculopathy, lumbar region (principal); M25.551 Pain in right hip; G89.29 Other chronic pain; E78.2 Mixed hyperlipidemia; I10 Essential (primary) hypertension; F32.A Depression, unspecified; F41.9 Anxiety disorder, unspecified; K74.3 Primary biliary cirrhosis; Z87.891 Personal history of nicotine dependence; Z79.891 Long term (current) use of opiate analgesic; Z79.899 Other long term (current) drug therapy; Z88.8 Allergy status to other drugs, medicaments and biological substances ==

== ENCOUNTER → 2023-10-28 | Outpatient (CLI) | payer BC | LOC: M PLAIMG 07:42 | PROVIDERS: ATTEND Nurse Practitioner Family | DX: M51.16 Intervertebral disc disorders with radiculopathy, lumbar region (principal) ==

== ENCOUNTER → 2023-11-23 | Outpatient (CLI) | payer BC | LOC: M PAIN 09:30 | PROVIDERS: ATTEND Nurse Practitioner Family | DX: M51.16 Intervertebral disc disorders with radiculopathy, lumbar region (principal); G89.29 Other chronic pain; I10 Essential (primary) hypertension; F41.9 Anxiety disorder, unspecified; F32.A Depression, unspecified; E78.2 Mixed hyperlipidemia; Z98.84 Bariatric surgery status; Z87.891 Personal history of nicotine dependence; Z79.891 Long term (current) use of opiate analgesic; Z79.899 Other long term (current) drug therapy; Z88.8 Allergy status to other drugs, medicaments and biological substances ==

== ENCOUNTER → 2023-12-22 | Outpatient (CLI) | payer BC | LOC: M PLALAB 14:52 | PROVIDERS: ATTEND Nurse Practitioner Adult Health | DX: M76.52 Patellar tendinitis, left knee (principal); M25.462 Effusion, left knee ==

== ENCOUNTER → 2023-12-23 | Outpatient (CLI) | payer BC ==
[2023-12-23 11:00] LABS: HEMATOCRIT 45.1 % (36.0-47.0); HEMOGLOBIN 14.9 g/dl (12.0-15.5); MEAN CORPUSCULAR HEMOGLOBIN 31.4 pg (27.0-33.0); MEAN CORPUSCULAR VOLUME 94.9 fl (80.0-96.0); PLATELET COUNT, AUTOMATED 254 10^3/uL (150-450); RED BLOOD COUNT 4.75 10^6/uL (4.00-5.40); WHITE BLOOD COUNT 6.2 10^3/uL (4.0-10.0)
[2023-12-23 11:23] LABS: ALBUMIN 3.4 G/DL (3.2-5.2); ALKALINE PHOSPHATASE 105 U/L (46-116); ALT/SGPT 27 U/L (7.0-40); AST/SGOT 26 U/L (<34); BILIRUBIN,TOTAL 0.5 MG/DL (0.3-1.2); BLOOD UREA NITROGEN 10 MG/DL (9-23); CALCIUM LEVEL 9.8 MG/DL (8.3-10.6); CARBON DIOXIDE LEVEL 28 MMOL/L (20-31); CHLORIDE LEVEL 102 MMOL/L (98-107); CHOLESTEROL LEVEL 192 MG/DL (<200); CHOLESTEROL RISK RATIO 2.56 (<5); CREATININE FOR GFR 0.64 MG/DL (0.55-1.30); FREE T4 0.89 NG/DL (0.89-1.76); GLOMERULAR FILTRATION RATE > 60.0 (>45); GLUCOSE, FASTING 102 MG/DL (74-106); IRON (FE) 72 UG/DL (50-170); LDL CHOLESTEROL 95.2 MG/DL (<100); PERCENT SATURATION 23.5 % (13.2-45.0); POTASSIUM SERUM 4.2 MMOL/L (3.5-5.1); SODIUM LEVEL 138 MMOL/L (136-145); TOTAL IRON BINDING CAPACITY 307 UG/DL (250-425); TOTAL PROTEIN 6.9 G/DL (5.7-8.2); TRIGLYCERIDES LEVEL 109 MG/DL (<150)
[2023-12-23 11:24] LABS: FERRITIN 39.3 NG/ML (7.3-270.7); THYROID STIMULATING HORMONE 2.849 uIU/ML (0.55-4.78)
== END ==
LOC: M LAB 10:25
PROVIDERS: ATTEND Nurse Practitioner Adult Health
DX: I10 Essential (primary) hypertension (principal); K74.3 Primary biliary cirrhosis; E78.2 Mixed hyperlipidemia

== ENCOUNTER → 2023-12-23 | Outpatient (CLI) | payer BC | LOC: M PAIN 09:30 | PROVIDERS: ATTEND Nurse Practitioner Family | DX: M51.16 Intervertebral disc disorders with radiculopathy, lumbar region (principal); G89.29 Other chronic pain; Z98.84 Bariatric surgery status; L73.2 Hidradenitis suppurativa; I10 Essential (primary) hypertension; Z87.891 Personal history of nicotine dependence; F41.9 Anxiety disorder, unspecified; F32.A Depression, unspecified; E78.2 Mixed hyperlipidemia; K74.3 Primary biliary cirrhosis; Z79.891 Long term (current) use of opiate analgesic; Z79.899 Other long term (current) drug therapy; Z88.8 Allergy status to other drugs, medicaments and biological substances ==

== ENCOUNTER → 2024-01-07 | Outpatient (CLI) | payer BC | LOC: M PAIN 10:45 | PROVIDERS: ATTEND Nurse Practitioner Family | DX: M51.16 Intervertebral disc disorders with radiculopathy, lumbar region (principal); G89.29 Other chronic pain; L73.2 Hidradenitis suppurativa; I10 Essential (primary) hypertension; F41.9 Anxiety disorder, unspecified; F32.A Depression, unspecified; E78.2 Mixed hyperlipidemia; K74.3 Primary biliary cirrhosis; Z98.84 Bariatric surgery status; Z87.891 Personal history of nicotine dependence; Z79.891 Long term (current) use of opiate analgesic; Z79.899 Other long term (current) drug therapy; Z88.8 Allergy status to other drugs, medicaments and biological substances ==

== ENCOUNTER → 2024-01-21 | Outpatient (CLI) | payer BC | LOC: M PAIN 10:15 | PROVIDERS: ATTEND Nurse Practitioner Family | DX: M51.16 Intervertebral disc disorders with radiculopathy, lumbar region (principal); G89.29 Other chronic pain; L73.2 Hidradenitis suppurativa; E78.2 Mixed hyperlipidemia; I10 Essential (primary) hypertension; F41.9 Anxiety disorder, unspecified; F32.A Depression, unspecified; K74.3 Primary biliary cirrhosis; Z87.891 Personal history of nicotine dependence; Z79.891 Long term (current) use of opiate analgesic; Z79.899 Other long term (current) drug therapy; Z88.8 Allergy status to other drugs, medicaments and biological substances ==

== ENCOUNTER → 2024-02-04 | Outpatient (CLI) | payer BC | LOC: M PAIN 17:00 | PROVIDERS: ATTEND Nurse Practitioner Family | DX: M51.16 Intervertebral disc disorders with radiculopathy, lumbar region (principal); G89.29 Other chronic pain; Z98.84 Bariatric surgery status; L73.2 Hidradenitis suppurativa; I10 Essential (primary) hypertension; F41.9 Anxiety disorder, unspecified; F32.A Depression, unspecified; E78.2 Mixed hyperlipidemia; K74.3 Primary biliary cirrhosis; Z87.891 Personal history of nicotine dependence; Z79.891 Long term (current) use of opiate analgesic; Z79.899 Other long term (current) drug therapy; Z88.8 Allergy status to other drugs, medicaments and biological substances ==

== ENCOUNTER → 2024-02-10 | Outpatient (CLI) | payer BC | LOC: M PAIN 10:00 | PROVIDERS: ATTEND Nurse Practitioner Family | DX: Z79.891 Long term (current) use of opiate analgesic (principal) ==

== ENCOUNTER → 2024-03-07 | Outpatient (CLI) | payer BC | LOC: M PAIN 11:45 | PROVIDERS: ATTEND Nurse Practitioner Family | DX: M51.16 Intervertebral disc disorders with radiculopathy, lumbar region (principal); G89.29 Other chronic pain; Z98.84 Bariatric surgery status; L73.2 Hidradenitis suppurativa; I10 Essential (primary) hypertension; F41.9 Anxiety disorder, unspecified; F32.A Depression, unspecified; E78.2 Mixed hyperlipidemia; K74.3 Primary biliary cirrhosis; Z87.891 Personal history of nicotine dependence; Z79.891 Long term (current) use of opiate analgesic; Z79.899 Other long term (current) drug therapy; Z88.8 Allergy status to other drugs, medicaments and biological substances ==

== ENCOUNTER → 2024-06-26 | Outpatient (CLI) | payer BC | LOC: M PAIN 14:45 | PROVIDERS: ATTEND Nurse Practitioner Family | DX: M51.16 Intervertebral disc disorders with radiculopathy, lumbar region (principal); Z79.891 Long term (current) use of opiate analgesic; G89.29 Other chronic pain; Z98.84 Bariatric surgery status; I10 Essential (primary) hypertension; F41.9 Anxiety disorder, unspecified; F32.A Depression, unspecified; E78.2 Mixed hyperlipidemia; K74.3 Primary biliary cirrhosis; Z87.891 Personal history of nicotine dependence; Z79.899 Other long term (current) drug therapy; Z88.8 Allergy status to other drugs, medicaments and biological substances ==

== ENCOUNTER 2024-08-08 11:53 | Emergency (ER) | payer BC ==
[~2024-08-08] VITALS: Ht 162.6 cm; Wt 63.5 kg
[2024-08-08 12:36] LABS: BASO % 0.4 % (0.0-1.0); EOS # 0.2 10^3/uL (0.0-0.5); EOS % 1.7 % (0.0-3.0); HEMATOCRIT 30.6 % (36.0-47.0); HEMOGLOBIN 9.6 g/dl (12.0-15.5); LYMPH # 1.8 10^3/uL (1.5-5.0); LYMPH % 20.3 % (24.0-44.0); MEAN CORPUSCULAR HEMOGLOBIN 29.7 pg (27.0-33.0); MEAN CORPUSCULAR HGB CONC 31.4 g/dl (32.0-36.5); MEAN CORPUSCULAR VOLUME 94.7 fl (80.0-96.0); MONO # 0.9 10^3/uL (0.0-0.8); MONO % 9.9 % (2.0-8.0); NEUTROPHILS # 6.1 10^3/uL (1.5-8.5); NEUTROPHILS % 67.5 % (36.0-66.0); PLATELET COUNT, AUTOMATED 422 10^3/uL (150-450); RED BLOOD COUNT 3.23 10^6/uL (4.00-5.40); WHITE BLOOD COUNT 9.1 10^3/uL (4.0-10.0)
[2024-08-08 13:05] LABS: ALBUMIN 3.1 G/DL (3.2-5.2); BILIRUBIN,DIRECT 0.2 MG/DL (<0.4); BILIRUBIN,TOTAL 0.6 MG/DL (0.3-1.2); TOTAL PROTEIN 6.7 G/DL (5.7-8.2)
[2024-08-08] MEDS ORDERED: ISOVUE-370 76% 100ML VIAL As Ordered ONE (13:26)
[2024-08-08 13:32] VITALS: TEMP 97.5
[2024-08-08] MEDS: ONDANSETRON 4MG 2ML VIAL IV ONE (13:32)
[2024-08-08] MEDS: MORPHINE 4 MG/ML 1ML VIAL IV ONE (13:32)
[2024-08-08] MEDS: PANTOPRAZOLE 40MG VIAL IV ONE (13:32)
[2024-08-08 14:13] LABS: INR 0.98; PARTIAL THROMBOPLASTIN TIME 27.4 SECONDS (24.8-34.2); PROTHROMBIN TIME 13.3 SECONDS (12.5-14.5)
[2024-08-08 14:17] LABS: ETHYL ALCOHOL (ETHANOL) 0.004 % (0.000-0.010)
[2024-08-08 15:16] VITALS: BP 119/74
[2024-08-08 15:23] VITALS: O2SAT 98
[2024-08-08] MEDS ORDERED: CARA1TAB6 PO (15:36)
[2024-08-08] MEDS ORDERED: PANT40TA29 PO (15:36)
== END 2024-08-08 15:44 | disposition left against medical advice (07) ==
LOC: M ED 11:53
DX: K92.2 Gastrointestinal hemorrhage, unspecified (principal); J44.9 Chronic obstructive pulmonary disease, unspecified; F41.9 Anxiety disorder, unspecified; F90.9 Attention-deficit hyperactivity disorder, unspecified type; F32.A Depression, unspecified; F10.10 Alcohol abuse, uncomplicated; F17.210 Nicotine dependence, cigarettes, uncomplicated; Z88.8 Allergy status to other drugs, medicaments and biological substances; Z79.1 Long term (current) use of non-steroidal anti-inflammatories (NSAID); Z79.810 Long term (current) use of selective estrogen receptor modulators (SERMs); Z79.899 Other long term (current) drug therapy; Z53.9 Procedure and treatment not carried out, unspecified reason
CPT/HCPCS: 74174; 80047; 80076; 82077; 82140; 83690; 85025; 85610; 85730; 86850; 86900; 86901; 87486; 87581; 87633; 87798; 93005; 94760; 96374; 99285; J2405; J2470; Q9967

== ENCOUNTER 2025-04-20 04:15 | Emergency (ER) | payer BC, MEDICAID, SELFPAY ==
[2025-04-20] VITALS (9 sets, daily range): BP systolic 100–137; BP diastolic 63–76; TEMP 98–99.4; O2SAT 96–98
[~2025-04-20] VITALS: Ht 162.6 cm; Wt 67.5 kg
[2025-04-20] MEDS: UNRESOLVED CLARIFICATION ENTRY XX SCH (00:01)
[~2025-04-20 04:15] MED LIST changes: +BLOOKIT XX; +CARA1TAB6 PO; +CARV3.12 PO; +CEFD1CAP9 PO; +FLUC-1 PO; +LACT10SO94 PO; +LEXA1TAB PO; +OXYC10TA12 PO; +SLOW160T12 PO; +URSO1TAB2 PO; -URSO1TAB8 PO
[2025-04-20 04:49] LABS: VENOUS BASE EXCESS 2.6 (-2.0-2.0); VENOUS HCO3 26.1 MMOL/L (23.0-27.0); VENOUS O2 SATURATION 96.1 % (60.0-80.0); VENOUS PARTIAL PRESSURE CO2 34.4 mmHg (38.0-50.0); VENOUS PARTIAL PRESSURE O2 80.7 mmHg (30.0-50.0); VENOUS PH 7.498 UNITS (7.330-7.430); VENOUS STANDARD HCO3 26.8 MMOL/L; VENOUS TOTAL CO2 27.2 MMOL/L (24.0-28.0)
[2025-04-20 04:57] LABS: BASO # 0.0 10^3/uL (0.0-0.2); BASO % 0.2 % (0.0-1.0); EOS # 0.0 10^3/uL (0.0-0.5); EOS % 0.2 % (0.0-3.0); LYMPH # 2.4 10^3/uL (1.5-5.0); LYMPH % 12.6 % (24.0-44.0); MONO # 2.1 10^3/uL (0.0-0.8); MONO % 10.9 % (2.0-8.0); NEUTROPHILS # 14.2 10^3/uL (1.5-8.5); NEUTROPHILS % 75.0 % (36.0-66.0); PLATELET COUNT, AUTOMATED 912 10^3/uL (150-450)
[2025-04-20] MEDS: ONDANSETRON 4MG/2ML VIAL IV ONE (05:02)
[2025-04-20] MEDS: HYDROMORPHONE HCL 0.5 MG/0.5 ML SYRINGE IV PRN (05:03)
[2025-04-20 05:23] LABS: ALT/SGPT < 9 U/L (7.0-40); AST/SGOT 14 U/L (<34); CALCIUM LEVEL 8.1 MG/DL (8.3-10.6); CARBON DIOXIDE LEVEL 29 MMOL/L (20-31); CHLORIDE LEVEL 92 MMOL/L (98-107); CK-MB VALUE MASS < 1.0 NG/ML (<3.6); CPK CREATINE PHOSPHOKINASE 16 U/L (34-145); CREATININE FOR GFR 0.54 MG/DL (0.55-1.30); GLOMERULAR FILTRATION RATE > 90.0 (>45); POTASSIUM SERUM 4.1 MMOL/L (3.5-5.1); SODIUM LEVEL 129 MMOL/L (136-145)
[2025-04-20] MEDS: PANTOPRAZOLE 40MG VIAL IV ONE (05:33)
[2025-04-20] MEDS: PANTOPRAZOLE SODIUM 40 MG in DEXTROSE 5% (D5W) ADV/MINI-BAG 50 ML IV SCH (05:33)
[2025-04-20 06:12] LABS: CK-MB VALUE MASS < 1.0 NG/ML (<3.6)
[2025-04-20 06:13] LABS: CPK CREATINE PHOSPHOKINASE < 15 U/L (34-145)
[2025-04-20 06:16] LABS: INR 1.1
[2025-04-20] MEDS ORDERED: ISOVUE-370 76% 100 ML VIAL As Ordered ONE (06:17)
[2025-04-20] MEDS: PIPERACILLIN/TAZOBACTAM SOD 4.5 GM in DEXTROSE 5% (D5W) ADV/MINI-BAG 50 ML IV ONE (08:48)
== END 2025-04-20 11:00 | disposition short-term general hospital (02) ==
LOC: EDBD 04:15 → M ED 04:15
DX: K92.2 Gastrointestinal hemorrhage, unspecified (principal); D64.89 Other specified anemias; R00.0 Tachycardia, unspecified; I50.22 Chronic systolic (congestive) heart failure; I11.0 Hypertensive heart disease with heart failure; J44.9 Chronic obstructive pulmonary disease, unspecified; F17.210 Nicotine dependence, cigarettes, uncomplicated; F10.10 Alcohol abuse, uncomplicated; Z88.8 Allergy status to other drugs, medicaments and biological substances; Z79.2 Long term (current) use of antibiotics; Z79.899 Other long term (current) drug therapy